=== PATIENT | female | born 1960 | race African-American/Black ===

== ENCOUNTER 2016-12-11 22:08 | Inpatient (IN) | payer OTHER ==
[~2016-12-11] VITALS: Ht 177.8 cm; Wt 60.0 kg
[2016-12-12 02:25] LABS: HEMATOCRIT 23.2 % (37.0-47.0); HEMOGLOBIN 7.7 g/dl (12.0-16.0); MEAN PLATELET VOLUME 7.3 fl (7.4-10.4)
[2016-12-12 02:30] LABS: MEAN CORPUSCULAR HGB CONC 33.1 g/dl (32.0-37.0); MEAN CORPUSCULAR VOLUME 96.7 fl (82.0-101.0); PLATELET COUNT 190 10^3/UL (140-440); RED CELL DISTRIBUTION WIDTH 23.4 % (11.5-14.5); UNCORRECTED WBC 11.7 10^3/ul (4.8-10.8); WHITE BLOOD COUNT 11.7 10^3/ul (4.8-10.8)
--- NOTE | 2016-12-12 02:33 | RADRPT ---
PROCEDURE: US bilateral lower extremity venous Doppler CLINICAL INDICATION: Bilateral swelling TECHNIQUE: Multiple sonographic images of the bilateral lower extremity deep venous system was obt ained utilizing grayscale, color-flow, compressive sonography and Doppler imaging with augmentation. COMPARISON: There are no similar studies submitted for comparison. FINDINGS: There is normal compressibility and flow within the bilateral common femoral, superficial femoral, p opliteal, and calf veins. IMPRESSION: No evidence of DVT within the lower extremities. RPTAT: HIKT .Vincent Bynum MD, MD Date Time Electronically viewed and signed by .Vincent Bynum MD, MD on 12/12/2016 02:33 .T/
[2016-12-12 02:34] LABS: CONDITION 1; LH ANALYZER COMMENTS 1
[2016-12-12 02:38] LABS: ALBUMIN 4.5 g/dl (3.3-4.9); POTASSIUM 4.5 mmol/L (3.5-5.1)
[2016-12-12 02:39] LABS: INR 1.01; PARTIAL THROMBOPLASTIN TIME 24.7 Sec (25.0-35.0); PROTIME 13.3 Sec (12.2-14.2)
[2016-12-12 02:40] LABS: CREATININE 0.96 mg/dl (0.44-1.00)
[2016-12-12 02:41] LABS: ALBUMIN/GLOBULIN RATIO 0.93; BILIRUBIN,INDIRECT 0.3 mg/dl (0-1.1); BILIRUBIN,TOTAL 0.3 mg/dl (0.2-1.3); TOTAL PROTEIN 9.3 g/dl (6.1-8.1)
[2016-12-12 02:42] LABS: CALCIUM 9.5 mg/dl (8.4-10.2)
[2016-12-12 03:18] LABS: EOSINOPHILS # 0.1 10^3/ul (0.0-0.5); LYMPHOCYTES # 4.3 10^3/ul (0.8-2.9); MONOCYTE # 1.1 10^3/ul (0.3-0.9); MYELOCYTES # 0.1; NEUTROPHIL # 5.7 10^3/ul (1.6-7.5)
[2016-12-12 03:19] LABS: PLATELET ESTIMATE PLT APPEAR ADEQUATE
--- NOTE | 2016-12-12 05:10 | ERA ---
ER Documentation Chief Complaint Date/Time DATE: 12/12/16 TIME: 05:09 Chief Complaint SOB, DIZZINESS AND GENERALIZED WEAKNESS X 1 WK. HPI This is a significant with no shortness of breath dizziness palpitations generalized weakness for 1 week. Patient has history of anemia. Patient states that she is anemic from fibroid bleeding. 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 ROS All systems reviewed and are negative except as per history of present illness. Allergies Allergies: Coded Allergies: No Known Allergy (Unverified , 12/11/16) PMhx/Soc History of Surgery: Yes (uterus enlargement) Anesthesia Reaction: No Hx 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 Disorder: No Hx Respiratory Disorders: No Hx Cardiac Disorders: No Hx Psychiatric Problems: No Hx Miscellaneous Medical Probl: Yes (anemia) Hx Alcohol Use: No Hx Substance Use: No Hx Tobacco Use: No Smoking Status: Never smoker Physical Exam Vitals Vital Signs Date Time Temp Pulse Resp B/P Pulse Ox O2 Delivery O2 Flow Rate FiO2 12/12/16 03:31 97 21 155/94 100 Room Air 12/11/16 22:13 99.0 120 18 133/80 100 Physical Exam Const: [] Head: Atraumatic Eyes: Normal Conjunctiva ENT: Normal External Ears, Nose and Mouth. Neck: Full range of motion..~ No meningismus. Resp: Clear to auscultation bilaterally Cardio: Regular rate and rhythm, no murmurs Abd: Soft, non tender, non distended. Normal bowel sounds Skin: No petechiae or rashes Back: No midline or flank tenderness Ext: No cyanosis, or edema Neur: Awake and alert Psych: Normal Mood and Affect Result Diagram: 12/12/16 02012/12/16 0205 Results 24 hrs Laboratory Tests Test 12/12/16 02:05 Activated Partial Thromboplast Time 24.7Sec Alanine Aminotransferase (ALT/SGPT) 49IU/L Albumin 4.5g/dl Albumin/Globulin Ratio 0.93 Alkaline Phosphatase 514IU/L Anion Gap 22 Aspartate Amino Transf (AST/SGOT) 215IU/L Band Neutrophils % 2.0% Blast Cells % 1.0% Blastocytes # 0.1 Blood Morphology Comment Blood Urea Nitrogen 20mg/dl Calcium Level 9.5mg/dl Carbon Dioxide Level 25mmol/L Chloride Level 100mmol/L Creatinine 0.96mg/dl Direct Bilirubin 0.00mg/dl Eosinophils # 0.110^3/ul Eosinophils % 1.0% Globulin 4.80g/dl Glucose Level 89mg/dl Hematocrit 23.2% Hemoglobin 7.7g/dl INR International Normalized Ratio 1.01 Indirect Bilirubin 0.3mg/dl Lymphocytes # 4.310^3/ul Lymphocytes % 37.0% Mean Corpuscular Hemoglobin 32.0pg Mean Corpuscular Hemoglobin Concent 33.1g/dl Mean Corpuscular Volume 96.7fl Mean Platelet Volume 7.3fl Monocytes # 1.110^3/ul Monocytes % 9.0% Myelocytes # 0.1 Myelocytes % 1.0% Neutrophils # 5.710^3/ul Neutrophils % 49.0% Nucleated Red Blood Cells % 11.0/100WBC Platelet Count 40055^3/UL Platelet Estimate PLT APPEAR ADEQUATE Potassium Level 4.5mmol/L Prothrombin Time 13.3Sec Prothrombin Time Ratio 1.0 Red Blood Count 2.4010^6/ul Red Cell Distribution Width 23.4% Sodium Level 142mmol/L Total Bilirubin 0.3mg/dl Total Protein 9.3g/dl Urine Test NEGATIVE White Blood Count 11.710^3/ul Procedures/MDM Medical decision-makin-year-old female with anemia likely symptomatic. At this point patient typed and crossed for 2 units. Patient was admitted to hospitalist for further evaluation and management Departure Diagnosis: Primary Impression: Anemia Qualified Code: D64.9 - Anemia, unspecified type Condition: Stable LISANDRO OGDEN Dec 12, 2016 05:10
[2016-12-12 08:05] VITALS: Ht 177.8 cm; Wt 60.0 kg
[2016-12-12 08:09] VITALS: BP 142/73; RESP 18
[2016-12-12] MEDS ORDERED: ONDANSETRON 4 MG INJ IV PRN (09:00)
[2016-12-12] MEDS ORDERED: morphine 2 MG INJ IV PRN (09:00)
[2016-12-12] MEDS ORDERED: NACL 0.9% 3 ML SYG IV SCH (09:00)
[2016-12-12 09:14] LABS: IRON 93 ug/dl (35-150)
[2016-12-12 09:23] LABS: TOTAL IRON BINDING CAPACITY 313 ug/dl (241-421)
--- NOTE | 2016-12-12 13:10 | HP ---
DATE OF ADMISSION: 12/12/2016 CHIEF COMPLAINT: Generalized weakness and a body rash. IDENTIFICATION: The patient is a 56-year-old female with a history of anemia who presented to the e mergency department with a chief complaint of generalized weakness and a body rash. She stated that over the past 2 weeks she has been experiencing progressively worsening weakness and fatigue. She also went on to say that occasionally she has been experiencing some blurry vision and dizziness as well. During the same period of time, or even a week prior, she started noticing a body rash, which can be described as vesicles. They are mainly located on her abdomen, on her breasts, as wel l as on her back. She stated that one time, one of the fluid-filled vesicles ruptured, draining ser osanguineous/bloody fluid. She stated that the rash is slightly itchy. She actually stated that [place] thought the rashes were due to bed bugs. She also thought that it could be some type of allergic reaction similar to the time when she was bitten by some type of bug when she was in [place]. She di d not, however, develop this kind of vesicular type of rash at that time. She also reports shortnes s of breath, which mainly or occurs when she exerts herself. She denied any chest pain, fever, chil ls, but did report nonbloody, nonbilious emesis a few times. On further questioning, she stated [place] had lost 40 pounds in the past 3 months and it was intentional. She, however, wanted to gain back 8 pounds, but she stated that she found it difficult. When she presented to the ER, she was found to have a hemoglobin of 7.7. Also, laboratory results s howed that her alkaline phosphatase was 514 and AST is 215. A thorough breast examination was done when she was in the ER and it was documented that her right breast was described as hard. When I di scussed the physical examination findings, she stated that she knew that she had some breast abnorma lity which she attributed to fibrocystic change of her breast that was diagnosed when she was a teen ager. Also, as far as her anemia is concerned, the patient does take iron supplements. Currently, she is in menopause, but prior to this she has had heavy menses. REVIEW OF SYSTEMS: A 12-point review was performed and negative except as mentioned in HPI. PAST MEDICAL HISTORY: As per HPI. PAST SURGICAL HISTORY: Denies. SOCIAL HISTORY: She denied a history of tobacco, alcohol or illicit drug use. FAMILY HISTORY: She had 2 aunts who underwent a mastectomy for prevention of cancer. She stated sh ascencion has never had any genetic analysis done on her. ALLERGIES: NO KNOWN DRUG ALLERGIES. HOME MEDICATIONS: 1. Iron supplement. 2. As needed ibuprofen. PHYSICAL EXAMINATION: VITAL SIGNS: Stable. GENERAL: No acute distress, but she appears slightly tired and sleepy, but she was fully arousable and answered questions appropriately and able to speak in full sentences. HEENT: Normocephalic, atraumatic. Extraocular muscles intact. No scleral icterus. CARDIOVASCULAR: Slightly tachycardic with regular rhythm. LUNGS: Clear. ABDOMEN: Soft, nontender, nondistended. Positive bowel sounds. EXTREMITIES: There is no pitting edema. There is, however, tenderness in her right thigh to palpat ion. I did not note any obvious deformity, skin change or any other abnormality. NEUROLOGIC: No focal deficits. LABORATORY DATA: Pertinent positives as mentioned in the HPI. IMPRESSION: 1. Symptomatic anemia. 2. Generalized vesicular rash. 3. Generalized weakness, secondary to anemia. 4. Palpable breast mass, likely fibrocystic change. 5. Elevated transaminase. 6. Elevated alkaline phosphatase. PLAN: 1. Will work up her anemia by obtaining a pelvic ultrasound to evaluate for uterine fibroids. Will check iron supplement and ferritin. We will transfuse if hemoglobin goes below 7 or the patient's symptoms do not improve. 2. Will obtain a breast ultrasound and additional imaging will be considered as needed. 3. As far as her body rash is concerned, it could be infectious etiology. It does not appear to be shingles, but the patient will be placed on contact isolation and will place an infectious disease consult. A dermatology consult will also be considered based on her clinical course. 4. Further workup and management per clinical course. Dictated By: LISANDRO WASHINGTON/MARILEE Conf#: [id number] DID#: [id number]
--- NOTE | 2016-12-12 15:23 | PN ---
Date/Time of Note Date/Time of Note DATE: 12/12/16 TIME: 15:00 Assessment/Plan VTE Prophylaxis VTE Prophylaxis Intervention: SCD's Lines/Catheters IV Catheter Type (from Nrs): Saline Lock Assessment/Plan Assessment/Plan 1. Symptomatic anemia. 2. Neurofibromatosis, neurology consult 3. Elevated Alk Phos, likely from bone, biliary first with ultrasound 4. Right breast lesion, needs biopsy, Dr. Ratliff Subjective 24 Hr Interval Summary Free Text/Dictation weak with skin lesions Exam/Review of Systems Vital Signs Vitals Vital Signs Date Time Temp Pulse Resp B/P Pulse Ox O2 Delivery O2 Flow Rate FiO2 12/12/16 08:09 98.6 94 18 142/73 98 12/12/16 05:45 Room Air Exam Constitutional: alert, oriented, well developed Psych: nl mood/affect, no complaints Head: atraumatic, normocephalic Eyes: EOMI, PERRL, nl conjunctiva, nl lids, nl sclera ENMT: mucosa pink and moist, nl external ears & nose, nl lips & teeth, nl nasal mucosa & septum Neck: non-tender, supple Respiratory: clear to auscultation, normal air movement Cardiovascular: nl pulses, regular rate and rhythm, No S3, No S4, No bruits, No diastolic murmur, No edema, No gallop, No irregular rhythm, No jugular venous distention (JVD), No murmurs/extra sounds, No rub, No systolic murmur Gastrointestinal: nl liver, spleen, non-tender, soft, No ascites, No bowel sounds, No distended, No firm, No hepatomegaly, No mass , No rebound or guarding, No splenomegaly, No surgical scars, No tender Extremities: normal pulses, No calf tenderness, No clubbing, No cyanosis, No edema, No palpable cord, No pitting pedal edema, No tenderness 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, nl mental status, nl speech, nl strength Skin: other (diffuse nodules all over the trunk) Results Result Diagram: 12/12/16 0205 12/12/16 0205 Results 24 hrs Laboratory Tests Test 12/12/16 02:05 Activated Partial Thromboplast Time 24.7 L Alanine Aminotransferase (ALT/SGPT) 49 Albumin 4.5 Albumin/Globulin Ratio 0.93 Alkaline Phosphatase 514 H Anion Gap 22 H Aspartate Amino Transf (AST/SGOT) 215 H Band Neutrophils % 2.0 Blast Cells % 1.0 H Blastocytes # 0.1 Blood Morphology Comment Blood Urea Nitrogen 20 Calcium Level 9.5 Carbon Dioxide Level 25 Chloride Level 100 Creatinine 0.96 Direct Bilirubin 0.00 Eosinophils # 0.1 Eosinophils % 1.0 Ferritin 1750.0 H Globulin 4.80 H Glucose Level 89 Hematocrit 23.2 L Hemoglobin 7.7 L INR International Normalized Ratio 1.01 Indirect Bilirubin 0.3 Iron Level 93 Lymphocytes # 4.3 H Lymphocytes % 37.0 Mean Corpuscular Hemoglobin 32.0 Mean Corpuscular Hemoglobin Concent 33.1 Mean Corpuscular Volume 96.7 Mean Platelet Volume 7.3 L Monocytes # 1.1 H Monocytes % 9.0 Myelocytes # 0.1 Myelocytes % 1.0 H Neutrophils # 5.7 Neutrophils % 49.0 Nucleated Red Blood Cells % 11.0 H Percent Iron Saturation 30 Platelet Count 190 Platelet Estimate PLT APPEAR ADEQUATE Potassium Level 4.5 Prothrombin Time 13.3 Prothrombin Time Ratio 1.0 Red Blood Count 2.40 L Red Cell Distribution Width 23.4 H Sodium Level 142 Total Bilirubin 0.3 Total Iron Binding Capacity 313 Total Protein 9.3 H Urine Test NEGATIVE White Blood Count 11.7 H Medications Medications Current Medications Ondansetron HCl (Zofran Inj) 4 mg Q6H PRN IV NAUSEA AND/OR VOMITING; Start at 09:00 Acetaminophen (Tylenol Tab) 650 mg Q6H PRN PO PAIN LEVEL 1-3 OR FEVER; Start at 09:00 Morphine Sulfate (morphine) 2 mg Q4H PRN IV SEVERE PAIN LEVEL 7-10; Start 12/12 at 09:00 ALEJA WHELAN MD Dec 12, 2016 15:11
[2016-12-12] MEDS ORDERED: LIDOCAINE 1%/EPI (MDV) 20 ML INJ INJ ONE (17:30)
[2016-12-12] MEDS ORDERED: SILVER NITRATE SWAB TOP ONE (17:30)
--- NOTE | 2016-12-12 17:44 | CONS ---
Date/Time of Note Date/Time of Note DATE: 12/12/16 TIME: 17:28 Assessment/Plan Assessment/Plan Chief Complaint/Hosp Course 1. Right breast mass of unknown etiology. -Core needle biopsy -Skin biopsy -Breast MRIs 2. Multiple soft tissue lesions -Medical/oncologic workup -Imaging -Possible further biopsy depending on above results 3. Anemia of unknown etiology -Medical/GI/oncologic workup -Transfuse as needed 4. Generalized weakness secondary to above -As above -Nutritional optimization 5. Abnormal LFTs and alkaline phosphatase may be secondary to above -As above 6. Pruritus and weight loss may be secondary to above -As above Thank you very much for consulting me in this patient's care, Problems: Consultation Date/Type/Reason Admit Date/Time Dec 12, 2016 at 05:37 Date of Consultation: Dec 12, 2016 Type of Consultation: Gen. surgical Reason for Consultation Right breast Mass. Multiple trunk lesions Referring Provider: ALEJA WHELAN MD Hx of Present Illness Frank Morton is a 56-year-old female with a history of anemia who presented to the emergency department with a chief complaint of generalized weakness and a body rash. She stated that over the past 3 weeks she has been experiencing progressively worsening weakness and fatigue. She also went on to say that occasionally she has been experiencing some blurry vision and dizziness as well. During the same period of time she started noticing a body rash/lesions appearing on her right breast, abdomen, and back. The breast one has been growing and encasing most of her right breast. She stated that one of the fluid -filled vesicles ruptured, draining serosanguineous/bloody fluid. She stated that the rash is slightly itchy. She actually stated that she thought the rashes were due to bed bugs. She also thought that it could be some type of allergic reaction similar to the time when she was bitten by some type of bug when she was in [place]. She did not, however, develop this kind of vesicular type of rash at that time. She also reports shortness of breath, which mainly or occurs when she exerts herself. She denied any chest pain, fever, chills, but did report nonbloody, nonbilious emesis a few times. On further questioning , she stated she had lost 40 pounds in the past 3 months and it was intentional. She is in menopause. She reports having history of heavy menses. She reports history of fibrocystic changes of her breasts. She has family history of genetics for breast cancer. Surgical consult is obtained further evaluation and treatment. Constitutional: other (generalized weakness), No chills, No diaphoresis, No febrile Eyes: No discharge, No redness ENT: No congestion, No dysphagia Respiratory: No cough, No shortness of breath Cardiovascular: No chest pain, No edema, No lightheadedness, No orthopenea Gastrointestinal: flatus, passing stool, No nausea, No pain, No vomiting Genitourinary: No bleeding, No dysuria Musculoskeletal: No back pain, No bone/joint pain, No neck pain Skin: bruising, erythema, rash, skin lesions Neurologic: No confusion, No dizziness, No headache, No syncope Endocrine: No polydypsia, No polyuria Psychological: nl mood/affect, no complaints, No anxiety Immunologic: pruritis, No rhinitis Past Medical History Anemia Right breast growing mass Abdomen and back lesions Abnormal LFTs Elevated alkaline phosphatase Weight loss Generalized weakness Fibrocystic changes of the breasts Pruritus Leukocytosis Past Surgical History Uterine/bladder manipulation at age of 5 due to inability to urinate Family History Significant Family History: other (family history of genetics for breast cancer with 2 aunts having prophylactic mastectomies) 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, 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 Alcohol Use: none Smoking Status: Never smoker Drug Use: none Exam/Review of Systems Vital Signs Vitals Vital Signs Date Time Temp Pulse Resp B/P Pulse Ox O2 Delivery O2 Flow Rate FiO2 12/12/16 08:09 98.6 94 18 142/73 98 12/12/16 05:45 Room Air Exam Constitutional: alert, oriented, No distress Psych: nl mood/affect, No anxiety, No confusion Head: atraumatic, normocephalic Eyes: EOMI, PERRL, nl conjunctiva, No icteric ENMT: mucosa pink and moist, nl external ears & nose, nl lips & teeth Neck: non-tender, supple, No jvd Respiratory: normal air movement, No congested cough, No labored breathing Cardiovascular: regular rate and rhythm, No edema Gastrointestinal: non-tender, soft, No distended, No rebound or guarding Musculoskeletal: nl extremities to inspection, nl gait and stance Extremities: normal pulses, No calf tenderness, No cyanosis 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: nl mental status, nl speech, nl strength Skin: nl turgor, rash or lesions (multiple indurated erythematous nonblanching lesions throughout the abdomen bilateral groins axilla.) Lymph: No nl lymph nodes (possible inguinal and right axillary lymph nodes versus lesions as above) Additional Comments Breasts: Right breast with one hard mass nonmobile with nonblanching erythematous changes of the breast. Left breast with a few small round lesions. Results Result Diagram: 12/12/16 0205 12/12/16 0205 Results 24 hrs Laboratory Tests Test 12/12/16 02:05 Activated Partial Thromboplast Time 24.7 L Alanine Aminotransferase (ALT/SGPT) 49 Albumin 4.5 Albumin/Globulin Ratio 0.93 Alkaline Phosphatase 514 H Anion Gap 22 H Aspartate Amino Transf (AST/SGOT) 215 H Band Neutrophils % 2.0 Blast Cells % 1.0 H Blastocytes # 0.1 Blood Morphology Comment Blood Urea Nitrogen 20 Calcium Level 9.5 Carbon Dioxide Level 25 Chloride Level 100 Creatinine 0.96 Direct Bilirubin 0.00 Eosinophils # 0.1 Eosinophils % 1.0 Ferritin 1750.0 H Globulin 4.80 H Glucose Level 89 Hematocrit 23.2 L Hemoglobin 7.7 L INR International Normalized Ratio 1.01 Indirect Bilirubin 0.3 Iron Level 93 Lymphocytes # 4.3 H Lymphocytes % 37.0 Mean Corpuscular Hemoglobin 32.0 Mean Corpuscular Hemoglobin Concent 33.1 Mean Corpuscular Volume 96.7 Mean Platelet Volume 7.3 L Monocytes # 1.1 H Monocytes % 9.0 Myelocytes # 0.1 Myelocytes % 1.0 H Neutrophils # 5.7 Neutrophils % 49.0 Nucleated Red Blood Cells % 11.0 H Percent Iron Saturation 30 Platelet Count 190 Platelet Estimate PLT APPEAR ADEQUATE Potassium Level 4.5 Prothrombin Time 13.3 Prothrombin Time Ratio 1.0 Red Blood Count 2.40 L Red Cell Distribution Width 23.4 H Sodium Level 142 Total Bilirubin 0.3 Total Iron Binding Capacity 313 Total Protein 9.3 H Urine Test NEGATIVE White Blood Count 11.7 H Medications Medications Current Medications Ondansetron HCl (Zofran Inj) 4 mg Q6H PRN IV NAUSEA AND/OR VOMITING; Start at 09:00 Acetaminophen (Tylenol Tab) 650 mg Q6H PRN PO PAIN LEVEL 1-3 OR FEVER; Start at 09:00 Morphine Sulfate (morphine) 2 mg Q4H PRN IV SEVERE PAIN LEVEL 7-10; Start 12/12 at 09:00 ISSA MUSTAFA MD Dec 12, 2016 17:39
[2016-12-12] MEDS ORDERED: LIDOCAINE 1%/EPI 30 ML INJ INJ SCH (18:00)
--- NOTE | 2016-12-12 18:30 | OPR ---
Date/Time of Note Date/Time of Note DATE: 12/12/16 TIME: 18:26 Operative Report Procedure Date: Dec 12, 2016 Preoperative Diagnosis Right breast mass encasing most of the breast with skin changes.. Multiple body lesions Postoperative Diagnosis Same Operation Performed 1. Needle core biopsy of the right breast, multiple cores 2. Skin incisional biopsy of the right breast, 0.5 x 0.2 cm Surgeon: ISSA MUSTAFA MD Anesthesia: other (local) Estimated Blood Loss: minimal Specimens 1. Right breast skin biopsy lesion 2. Multiple core biopsies of the right breast Tubes/Drains None Complications: None Pt Condition Post Procedure: stable Disposition: other (in her own room) Indications Per notes. Risks include but are not limited to bleeding, infection, abscess, seroma, leak , chronic pain, chronic wound, need for re-operations or further surgeries, GA, stroke, PE, DVT, pneumonia, organ failures, pneumothorax, hemothorax, or even . Procedure Description Patient was placed in the sitting position on her bed. Area was prepped and draped sterilely. Timeout was performed. Local anesthetic was injected in the right lateral breast. This was done through the lesion. Elliptical skin lesion was obtained about 0.5 x 0.2 cm. That was sent and formaldehyde to pathology. Multiple core biopsies of the right breast tumor were also obtained. Pressure was applied for hemostasis. Silver nitrate was used for hemostasis as well. Wound was irrigated and completely hemostatic at this point. Dressing was applied. Patient tolerated procedure well. ISSA MUSTAFA MD Dec 12, 2016 18:30
[2016-12-12] MEDS ORDERED: IOHEXOL 300MG/ML 150 ML BTL ONE (19:58)
[2016-12-12] MEDS ORDERED: SOD CHLORIDE 0.9% 100 ML ONE (19:58)
[2016-12-12 20:18] VITALS: BP 157/74; PULSE 85; RESP 18
--- NOTE | 2016-12-12 20:37 | RADRPT ---
PROCEDURE: CT abdomen and pelvis with. contrast. CLINICAL INDICATION: Abnormal laboratory values TECHNIQUE: IV contrast enhanced CT examination of the abdomen and pelvis, with axial, sagittal and coronal reformatted images. 100 cc Isovue 300 nonionic IV contrast were employed. Automated dose e xposure control was employed. CTDI: 7.44 mGy and DLP: 364.14 mGy-cm. COMPARISON: Ultrasound examination of the bilateral breasts dated today, earlier in the day, about 2 hours ago. FINDINGS: CT abdomen: 14 mm nodule at the medial aspect of left breast and 11 mm nodule at the inferior aspect of the left breast, the 11 mm nodule perhaps corresponding to left breast mass identified on today's ultrasound examination. Skin thickening is seen over the anterior right breast, suggesting manifestation of n eoplasm. Small nodules of bilateral lung bases measure up to about 3 mm, suspicious for metastatic breast can cer. The heart size is normal, without pericardial thickening or effusion. Scattered subcutaneous nodules throughout the lower chest and abdomen. The largest measures about 1 7 mm at the posterior right lower back. Extensive retroperitoneal nodules represent breast cancer until proven otherwise, with largest measu ring up to about 11 mm at the posterior right lower abdomen. Extensive sclerotic changes throughout the osseous structures of the lower thorax and abdomen compat ible osseous metastatic breast cancer deposits. The liver is normal in size and density without focal mass or intrahepatic biliary dilatation. The spleen is normal in size and homogeneous in density. The stomach is partially collapsed, but is lauren ssly unremarkable. The pancreas as visualized is normal. The gallbladder and biliary tree are unre markable and there is no evidence for biliary dilatation. The adrenal glands are symmetric and norm al. The kidneys are symmetrically unremarkable as well. No renal calculus or obstructive uropathy o r mass lesion is seen. The aorta is of normal caliber. Aortic vascular calcifications are present. There is no retroperit barrios lymphadenopathy. The cuco hepatis region is clear. The bowel and mesentery, as visualized, are equally unremarkable. CT pelvis: Scattered subcutaneous nodules throughout the pelvis. 22 mm left inguinal lymph node is suspicious for metastatic breast cancer deposit. The small bowel loops situated within the pelvis are unremarkable. The pelvic organs are normal. T he pelvic sidewalls and inguinal regions are clear. The sigmoid colon and rectum are all unremarkab le. No free fluid. No acute inflammation is seen. The appendix is unremarkable. Extensive sclerotic changes throughout the osseous structures of the sacrum, pelvis and partially vi sualized hips compatible with osseous metastatic breast cancer deposits. IMPRESSION: 1. Evidence of breast cancer and bilateral breast. 2. Osseous metastatic breast cancer deposit. 3. Extensive metastatic breast cancer deposit throughout the subcutaneous tissues. 4. Retroperitoneal nodules represent metastatic breast cancer deposit until proven otherwise RPTAT: UU Physician Hans Date Time Electronically viewed and signed by Physician Hans on 12/12/2016 20:37 RS/
[2016-12-12 21:01] VITALS: BP 158/77; RESP 18
[2016-12-13] MEDS: ACETAMINOPHEN 325 MG TAB PO PRN ×2 (01:13→07:49)
--- NOTE | 2016-12-13 01:22 | RADRPT ---
PROCEDURE: US Pelvis. CLINICAL INDICATION: Pelvic pain. Fibroid. TECHNIQUE: Multiple sonographic images of the pelvis were obtained utilizing a transabdominal and endovaginal technique. The images were reviewed on a PACS workstation. COMPARISON: None. FINDINGS: The uterus is visualized and measures uterus measures 59 x 35 x 51 mm. Uterine fibroid at the fundus measures up to 13 mm. . The endometrial echo complex demonstrates small amount of fluid in the endo metrial canal, and the endometrium measures 5 mm. There is a small amount of free fluid. The right ovary has a normal echotexture and measures 23 x 16 x 13 mm . The left ovary has a small. Ovarian cyst measuring 10 mm; and the left ovary otherwise has a normal echotexture and measures 23 x 11 x 1 8 mm. No ovarian torsion. No adnexal masses are noted. IMPRESSION: 1. 13 mm uterine fibroid. 2. 10 mm left ovarian cyst. 3. Small amount of free fluid. 4. Small amount of fluid in the endometrial canal, and then the endometrium is otherwise unremarkab le. 5. Otherwise, no acute process in the pelvis. RPTAT: [facility]U Physician Hans Date Time Electronically viewed and signed by Physician Hans on 12/13/2016 01:22 RS/
[2016-12-13 05:53] LABS: POTASSIUM 4.5 mmol/L (3.5-5.1)
[2016-12-13 05:54] LABS: BASOPHILS % 0.2 % (0.0-2.0); EOSINOPHILS # 0.1 10^3/ul (0.0-0.5); EOSINOPHILS % 0.8 % (0.0-7.0); HEMATOCRIT 32.2 % (37.0-47.0); LYMPHOCYTES # 2.9 10^3/ul (0.8-2.9); LYMPHOCYTES % 29.7 % (15.0-51.0); MEAN CORPUSCULAR HEMOGLOBIN 31.5 pg (29.0-33.0); MEAN CORPUSCULAR HGB CONC 34.2 g/dl (32.0-37.0); MEAN CORPUSCULAR VOLUME 92.2 fl (82.0-101.0); MEAN PLATELET VOLUME 7.2 fl (7.4-10.4); MONOCYTES % 10.9 % (0.0-11.0); NEUTROPHIL # 5.6 10^3/ul (1.6-7.5); NEUTROPHILS % 58.4 % (39.0-77.0); NUCLEATED RED BLOOD CELLS # 1.5 10^3/ul (0.0-0.0); NUCLEATED RED BLOOD CELLS% 15.9 /100WBC (0.0-0.0); PLATELET COUNT 163 10^3/UL (140-440); RED BLOOD COUNT 3.49 10^6/ul (4.20-5.40); UNCORRECTED WBC 9.6 10^3/ul (4.8-10.8); WHITE BLOOD COUNT 9.6 10^3/ul (4.8-10.8)
[2016-12-13 05:55] LABS: BILIRUBIN,INDIRECT 0.7 mg/dl (0-1.1); BILIRUBIN,TOTAL 0.7 mg/dl (0.2-1.3); CREATININE 0.91 mg/dl (0.44-1.00)
[2016-12-13 05:56] LABS: ALBUMIN/GLOBULIN RATIO 0.95; CALCIUM 9.4 mg/dl (8.4-10.2); MAGNESIUM 2.4 mg/dl (1.7-2.5); TOTAL PROTEIN 8.2 g/dl (6.1-8.1)
[2016-12-13 06:10] LABS: CONDITION 1; LH ANALYZER COMMENTS 1
[2016-12-13 07:51] VITALS: BP 137/68; RESP 18
--- NOTE | 2016-12-13 09:06 | RADRPT ---
PROCEDURE: Bilateral breast ultrasound. CLINICAL INDICATION: Palpable abnormality within the breast. TECHNIQUE: Multiple louis scale ultrasound images of the whole right and left breast was performed with a high frequency linear transducer. The images were reviewed on a high-resolution PACS monitor . COMPARISON: None available. FINDINGS: Right breast: There is diffuse heterogeneous echogenicity with confluent areas of increased echogeni city, that appears to demonstrate shadowing, which may reflect calcification, most pronounced at the 6 o'clock and 9 o'clock positions in the retroareolar region. Left breast: There is a 1.2 x 0.8 cm irregular hypoechoic mass with associated punctate calcificatio ns, internal flow, and some partially ill-defined margins at the 6 o'clock position. No additional f ocal sonographic abnormality is identified. IMPRESSION: 1. Diffusely abnormal appearance of the right breast with confluent areas of increased echogenicity at the 6 o'clock, 9 o'clock, and retroareolar regions, which may reflect calcifications. A diffusel y infiltrative process (neoplasm) is not excluded. Extensive injection granulomas could also potent ially have this appearance. 2. Suspicious hypoechoic mass associated with punctate calcifications measuring 1.2 cm at the 6 o'c lock position in the left breast. BIRADS 0: Incomplete - Need additional imaging evaluation and/or prior mammograms for comparison. Di agnostic bilateral mammogram is recommended for further evaluation. Correlation with prior imaging, if available, would also be helpful for comparison. Ultrasound-guided biopsy of the suspicious mas s in the left breast is also recommended regardless of the mammographic findings. RPTAT: II .Sabino Granados MD, Date Time Electronically viewed and signed by .Sabino Granados MD, MD on 12/13/2016 09:05 .P/
--- NOTE | 2016-12-13 14:59 | PN ---
Date/Time of Note Date/Time of Note DATE: 12/13/16 TIME: 14:50 Assessment/Plan VTE Prophylaxis VTE Prophylaxis Intervention: SCD's Lines/Catheters IV Catheter Type (from [facility]): Saline Lock Assessment/Plan Assessment/Plan 1. 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 Ratliff on 12/12/2016, follow up with pathology 2. Symptomatic anemia, improves after transfusion 3. Elevated Alk Phos, from bone mets Subjective 24 Hr Interval Summary Free Text/Dictation feels stronger after transfusion. Exam/Review of Systems Vital Signs Vitals Vital Signs Date Time Temp Pulse Resp B/P Pulse Ox O2 Delivery O2 Flow Rate FiO2 12/13/16 07:51 98.2 103 18 137/68 97 12/12/16 20:18 Room Air Intake and Output 12/12/16 12/12/16 12/13/16 15:00 23:00 07:00 Intake Total 1060 ml 700 ml Balance 1060 ml 700 ml Exam Constitutional: alert, oriented, well developed Psych: nl mood/affect, no complaints Head: atraumatic, normocephalic Eyes: EOMI, PERRL, nl conjunctiva, nl lids, nl sclera ENMT: mucosa pink and moist, nl external ears & nose, nl lips & teeth, nl nasal mucosa & septum Neck: non-tender, supple Respiratory: clear to auscultation, normal air movement, No congested cough, No crackles/rales, No diminished breath sounds, No intercostal retraction, No labored breathing, No respirations, No tactile fremitus, No wheezing Cardiovascular: nl pulses, regular rate and rhythm, No S3, No S4, No bruits, No diastolic murmur, No edema, No gallop, No irregular rhythm, No jugular venous distention (JVD), No murmurs/extra sounds, No rub, No systolic murmur Gastrointestinal: nl liver, spleen, non-tender, soft, No ascites, No bowel sounds, No distended, No firm, No hepatomegaly, No mass , No rebound or guarding, No splenomegaly, No surgical scars, No tender Extremities: normal pulses, No calf tenderness, No clubbing, No cyanosis, No edema, No palpable cord, No pitting pedal edema, No tenderness 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: 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, nl mental status, nl speech, nl strength Skin: other (diffuse nodule, right breast lesion) Results Result Diagram: 12/13/16 0450 12/13/16 0450 Results 24 hrs Laboratory Tests Test 12/13/16 04:50 Alanine Aminotransferase (ALT/SGPT) 43 Albumin 4.0 Albumin/Globulin Ratio 0.95 Alkaline Phosphatase 451 H Anion Gap 21 H Aspartate Amino Transf (AST/SGOT) 129 H Basophils # 0.0 Basophils % 0.2 Blood Morphology Comment Blood Urea Nitrogen 16 Calcium Level 9.4 Carbon Dioxide Level 27 Chloride Level 102 Creatinine 0.91 Direct Bilirubin 0.00 Eosinophils # 0.1 Eosinophils % 0.8 Globulin 4.20 H Glucose Level 78 Hematocrit 32.2 #L Hemoglobin 11.0 #L Indirect Bilirubin 0.7 Lymphocytes # 2.9 Lymphocytes % 29.7 Magnesium Level 2.4 Mean Corpuscular Hemoglobin 31.5 Mean Corpuscular Hemoglobin Concent 34.2 Mean Corpuscular Volume 92.2 Mean Platelet Volume 7.2 L Monocytes # 1.0 H Monocytes % 10.9 Neutrophils # 5.6 Neutrophils % 58.4 Nucleated Red Blood Cells # 1.5 H Nucleated Red Blood Cells % 15.9 H Phosphorus Level 5.0 H Platelet Count 163 Potassium Level 4.5 Red Blood Count 3.49 #L Red Cell Distribution Width 21.0 H Sodium Level 145 H Total Bilirubin 0.7 Total Protein 8.2 H White Blood Count 9.6 Medications Medications Current Medications Ondansetron HCl (Zofran Inj) 4 mg Q6H PRN IV NAUSEA AND/OR VOMITING; Start at 09:00 Acetaminophen (Tylenol Tab) 650 mg Q6H PRN PO PAIN LEVEL 1-3 OR FEVER Last administered on 12/13/16t 07:49; Admin Dose 650 MG; Start 12/12/16 at 09:00 Morphine Sulfate (morphine) 2 mg Q4H PRN IV SEVERE PAIN LEVEL 7-10; Start 12/12 at 09:00 ALEJA WHELAN MD Dec 13, 2016 14:59
--- NOTE | 2016-12-13 16:06 | CONS ---
Date/Time of Note Date/Time of Note DATE: 12/13/16 TIME: 15:59 Assessment/Plan Assessment/Plan Chief Complaint/Hosp Course The patient is a 56 year old female who presented with anemia and was found to have diffuse metastatic lesions in beasts, lungs, retroperitoneal space, and bones, right breast lesion biopsy by Dr. 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 CT A/P with contrast demonstrates 12/12/16 1. Evidence of breast cancer and bilateral breast. 2. Osseous metastatic breast cancer deposit. 3. Extensive metastatic breast cancer deposit throughout the subcutaneous tissues. 4. Retroperitoneal nodules represent metastatic breast cancer deposit until proven otherwise Prelim pathology results demonstrate right moderately differentiated infiltrating ductal carcinoma, markers pending, f/u final path - Will complete imaging with CT chest with contrast - Will also evaluate with CT head with contrast given history of fall; patient unable to tolerate MRI brain previously - Will check CA 27-29, CA 15-3 - Will order US guided biopsy of cutaneous nodules to document biopsy proven metastatic disease - Will request case management consult for patient to be seen by Dr. Tara Robbins after discharge with outpatient PET/CT - Will obtain labs for anemia workup with AM labs including iron panel, ferritin , LDH, retic, Vitamin B12 and folic acid - Will continue to follow, treatment options will depend on ER/PA/HER2 status Problems: Consultation Date/Type/Reason Admit Date/Time Dec 12, 2016 at 05:37 Hx of Present Illness 56-year-old female who presented for fatigue after walking 1.5 blocks for the last couple of weeks, progressive. On 11/04/16 she had tripped and fell and hit her head and was bruised but did not seek medical attention. She states that it was a mechanical fall. She states that she has had fibrocystic breasts all of her life and that she has had regular mammograms as a result, which were benign, last 2 years ago. She states that she is active in her ADL's. She has lost 40 pounds in the last 3 months but states that it was intentional as she has been working out 3x per week and eating less. Constitutional: other Eyes: No discharge, No redness ENT: No congestion, No dysphagia Respiratory: No cough, No shortness of breath Cardiovascular: No chest pain, No edema, No lightheadedness, No orthopenea Gastrointestinal: flatus, passing stool Genitourinary: No bleeding, No dysuria Musculoskeletal: No back pain, No bone/joint pain, No neck pain Skin: bruising, erythema, rash, skin lesions Neurologic: No confusion, No dizziness, No headache, No syncope Endocrine: No polydypsia, No polyuria Psychological: nl mood/affect, no complaints Immunologic: pruritis Past Medical History None Family History Significant Family History: other ( She had a sister and maternal aunt and cousin who underwent a mastectomy for prevention of cancer. She stated she has never had any genetic analysis done on her.) Social History She denied a history of tobacco, alcohol or illicit drug use. Alcohol Use: none Smoking Status: Never smoker Drug Use: none Exam/Review of Systems Vital Signs Vitals Vital Signs Date Time Temp Pulse Resp B/P Pulse Ox O2 Delivery O2 Flow Rate FiO2 12/13/16 07:51 98.2 103 18 137/68 97 12/12/16 20:18 Room Air Intake and Output 12/12/16 12/12/16 12/13/16 15:00 23:00 07:00 Intake Total 1060 ml 700 ml Balance 1060 ml 700 ml Exam Constitutional: alert, frail, oriented Psych: no complaints Head: atraumatic, normocephalic Eyes: nl conjunctiva Neck: non-tender, supple Respiratory: clear to auscultation Cardiovascular: regular rate and rhythm Gastrointestinal: non-tender, soft Musculoskeletal: nl extremities to inspection 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: MRB ENGINEER II-XII intact Skin: other (breast with significant erythema, hard nodules consistent with inflammatory breast cancer; she also has multiple cutaneous nodules on her back concerning for metastatic breast cancer) Results Result Diagram: 12/13/16 0450 12/13/16 0450 Results 24 hrs Laboratory Tests Test 12/13/16 04:50 Alanine Aminotransferase (ALT/SGPT) 43 Albumin 4.0 Albumin/Globulin Ratio 0.95 Alkaline Phosphatase 451 H Anion Gap 21 H Aspartate Amino Transf (AST/SGOT) 129 H Basophils # 0.0 Basophils % 0.2 Blood Morphology Comment Blood Urea Nitrogen 16 Calcium Level 9.4 Carbon Dioxide Level 27 Chloride Level 102 Creatinine 0.91 Direct Bilirubin 0.00 Eosinophils # 0.1 Eosinophils % 0.8 Globulin 4.20 H Glucose Level 78 Hematocrit 32.2 #L Hemoglobin 11.0 #L Indirect Bilirubin 0.7 Lymphocytes # 2.9 Lymphocytes % 29.7 Magnesium Level 2.4 Mean Corpuscular Hemoglobin 31.5 Mean Corpuscular Hemoglobin Concent 34.2 Mean Corpuscular Volume 92.2 Mean Platelet Volume 7.2 L Monocytes # 1.0 H Monocytes % 10.9 Neutrophils # 5.6 Neutrophils % 58.4 Nucleated Red Blood Cells # 1.5 H Nucleated Red Blood Cells % 15.9 H Phosphorus Level 5.0 H Platelet Count 163 Potassium Level 4.5 Red Blood Count 3.49 #L Red Cell Distribution Width 21.0 H Sodium Level 145 H Total Bilirubin 0.7 Total Protein 8.2 H White Blood Count 9.6 Medications Medications Current Medications Ondansetron HCl (Zofran Inj) 4 mg Q6H PRN IV NAUSEA AND/OR VOMITING; Start at 09:00 Acetaminophen (Tylenol Tab) 650 mg Q6H PRN PO PAIN LEVEL 1-3 OR FEVER Last administered on 12/13/16t 07:49; Admin Dose 650 MG; Start 12/12/16 at 09:00 Morphine Sulfate (morphine) 2 mg Q4H PRN IV SEVERE PAIN LEVEL 7-10; Start 12/12 at 09:00 GREGOR XIONG MD Dec 13, 2016 16:06
[2016-12-13] MEDS ORDERED: IOHEXOL 300MG/ML 150 ML BTL ONE (18:42)
[2016-12-13] MEDS ORDERED: SOD CHLORIDE 0.9% 100 ML ONE (19:28)
--- NOTE | 2016-12-13 19:48 | RADRPT ---
PROCEDURE: CT head, without contrast. 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 TECHNIQUE: CT angiography examination of the head, with axial, sagittal and coronal reformatted im ages. Automated dose exposure control was employed. CTDI: 110 mGy and DLP: 2200 mGy-cm. COMPARISON: None. FINDINGS: Enhancing dural metastatic deposits over bilateral frontal lobes, right greater than left. In the a xial plane right dural metastatic deposit measures 48 x 11 mm and on the left measures 12 x 4 mm. Enhancing dural metastatic deposit seen over the lateral right parietal lobe measuring 18 x 5 mm in the axial plane. Remaining regions of dural thickening seen measuring up to about 2 mm. No evident enhancing parenchymal mass. Note acute hemorrhage. Subarachnoid spaces are substantially preserved and symmetric. Ventricles are unremarkable. No mass effect. Whiteside-white matter distinction is preserved without evident decreased attenuation t o suggest acute or recent infarct. Complete opacification of the left maxillary sinus with calcifications suggesting inspissation. Sinuses and osseous structures are otherwise unremarkable. Soft tissues demonstrate cutaneous nodules over the calvarium compatible with metastatic deposits. Larger nodules measuring up to about 11 to 14 mm in diameter. IMPRESSION: 1. No evident enhancing parenchymal mass. 2. Scattered dural metastatic deposits, greater over the right frontal lobe. 3. Severe chronic sinusitis in the left maxillary sinus. 4. Soft tissue cutaneous metastatic deposits over the head, measuring up to about 11 to 14 mm. 5. Otherwise, no acute process in the head. RPTAT: [facility] Physician Hans Date Time Electronically viewed and signed by Physician Hans on 12/13/2016 19:48 /
[2016-12-13 21:00] VITALS: BP 158/74; RESP 18
--- NOTE | 2016-12-13 21:19 | PN ---
Date/Time of Note Date/Time of Note DATE: 12/13/16 TIME: 21:14 Assessment/Plan Lines/Catheters IV Catheter Type (from [facility]): Saline Lock [place] in Place (from [facility]): No Assessment/Plan Chief Complaint/Hosp Course 1. Right breast mass with infiltrating ductal carcinoma with metastasis s/p core needle and skin bxs -will obtain skin biopsies as well -oncology input and f/u appreciated 2. Multiple soft tissue lesions probably metastatic lesions -bx 3. Anemia -Medical/GI/oncologic workup -Transfuse as needed 4. Generalized weakness secondary to above -As above -Nutritional optimization 5. Abnormal LFTs and alkaline phosphatase may be secondary to above -As above 6. Pruritus and weight loss may be secondary to above -As above Thank you, Problems: Subjective 24 Hr Interval Summary s/p Right breast core and skin bx 12/12 > infiltrating ductal ca. Multiple other lesions probably metastatic disease. No f/c. No n/v. No cp/sob. No cough. No avelar/dizzy/visual or neuro changes. No dysuria. Min pain. Bowel function. Generalized weakness. Exam/Review of Systems Vital Signs Vitals Vital Signs Date Time Temp Pulse Resp B/P Pulse Ox O2 Delivery O2 Flow Rate FiO2 12/13/16 21:00 97.7 96 18 158/74 99 12/12/16 20:18 Room Air Intake and Output 12/12/16 12/12/16 12/13/16 15:00 23:00 07:00 Intake Total 1060 ml 700 ml Balance 1060 ml 700 ml Exam Free Text/Dictation Constitutional: alert, oriented, No distress Psych: nl mood/affect, No anxiety, No confusion Head: atraumatic, normocephalic Eyes: EOMI, PERRL, nl conjunctiva, No icteric ENMT: mucosa pink and moist, nl external ears & nose, nl lips & teeth Neck: non-tender, supple, No jvd Respiratory: normal air movement, No congested cough, No labored breathing Cardiovascular: regular rate and rhythm, No edema Gastrointestinal: non-tender, soft, No distended, No rebound or guarding Musculoskeletal: nl extremities to inspection, nl gait and stance Extremities: normal pulses, No calf tenderness, No cyanosis 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: nl mental status, nl speech, nl strength Skin: nl turgor, rash or lesions (multiple indurated erythematous nonblanching lesions throughout the abdomen bilateral groins axilla.) Lymph: No nl lymph nodes (possible inguinal and right axillary lymph nodes versus lesions as above) Breasts: Right breast with one hard mass nonmobile with nonblanching erythematous changes of the breast. Left breast with a few small round lesions. Results Free Text/Dictation Path: A-Right breast mass, needle core biopsies: -- Invasive moderately differentiated ductal carcinoma, no special type. -- Volume/size: Tumor diffusely involves entire specimen (largest focus measures 1.4 cm in width). -- Histologic grade ([place] histologic score): Tubular differentiation is score: 3. Nuclear pleomorphism score: 2. Mitotic rate score: 2. Overall grade: Grade 2 (score 7/9). -- Microcalcification: Absent. -- Necrosis: Absent. -- Lymphvascular space invasion: Absent. -- Ductal carcinoma in situ (DCIS): Absent. -- Lobular carcinoma in situ (LCIS): Absent. -- AJCC tumor stage: TXNX B-Right breast skin biopsy: -- Infiltrating mammary carcinoma, extensively involving the dermis and extends close to but not involving the epidermis. No pagetoid involvement of epidermis is identified. No lymphatic space invasion is present. Result Diagram: 12/13/16 0450 12/13/16 0450 ISSA MUSTAFA MD Dec 13, 2016 21:18
--- NOTE | 2016-12-13 23:51 | RADRPT ---
PROCEDURE: CT Chest with and without contrast. CLINICAL INDICATION: Metastatic breast cancer. TECHNIQUE: CT scan of the chest was performed on a multi-detector high-resolution CT scanner. Co ntiguous axial images were obtained from the lung apices to the upper abdomen before and after the a dministration of 90 cc Omnipaque-300 intravenous contrast. Coronal and sagittal reformatted images were also obtained. Images were reviewed on the PACS workstation. One or more of the following dose reduction techniques were used: - Automated exposure control. - Adjustment of the mA and/or kV according to patient size. - Use of iterative reconstruction technique. Exam CTD/vol = 10.69 mGy. Total exam DLP = 759.27 mGy-cm. COMPARISON: None. FINDINGS: There is a large complex mass within the right breast with overlying skin thickening. There are nod ular densities within the left breast as well. There are multiple subcutaneous nodules. The visual ized thyroid gland is unremarkable. There are multiple enlarged right axillary lymph nodes with the largest measuring 2.6 x 1.6 cm. There are small left hilar lymph nodes. There are multiple promin ent paratracheal, subcarinal and right hilar lymph nodes with a right hilar lymph node measuring 1.8 x 2.1 cm. The heart and aorta are unremarkable. There is no pericardial thickening or effusion. There are small nodular densities bilaterally measuring up to 4 mm in size. There is no parenchymal consolidation. There is a small right-sided pleural effusion. The central tracheobronchial tree i s within normal limits. There is diffuse increase sclerosis throughout the bony skeleton. Limited evaluation of the upper a bdomen is unremarkable. IMPRESSION: Right-sided breast cancer and possibly left-sided as well. Clinically correlate. Small subcutaneous nodules suspicious for metastatic disease. Small pulmonary nodules bilaterally. Follow-up for metastatic disease is recommended. Mild right axillary lymphadenopathy. Mild mediastinal and hilar adenopathy. Small right-sided pleural effusion. Diffuse osseous metastasis. .Keegan Norman MD, Date Time Electronically viewed and signed by .Keegan Norman MD, on 12/13/2016 23:50 .T/
[2016-12-14 06:17] LABS: IRON 92 ug/dl (35-150)
[2016-12-14 06:20] LABS: RETICULOCYTE COUNT % 3.1 % (0.5-1.5)
[2016-12-14 06:27] LABS: TOTAL IRON BINDING CAPACITY 267 ug/dl (241-421)
[2016-12-14 07:24] LABS: FOLATE 9.1 ng/ml (2.8-20.0)
[2016-12-14 08:00] VITALS: BP 140/66; RESP 18
--- NOTE | 2016-12-14 10:56 | CONS ---
Date/Time of Note Date/Time of Note DATE: 12/14/16 TIME: 10:56 Assessment/Plan Assessment/Plan Chief Complaint/Hosp Course The patient is a 56 year old female who presented with anemia and was found to have diffuse metastatic lesions in beasts, lungs, retroperitoneal space, and bones, right breast lesion biopsy by Dr. 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 Although biopsy did not demonstrate involvement of dermal lymphatics, it may not be patient care representative per pathology. CT A/P with contrast demonstrates 12/12/16 1. Evidence of breast cancer and bilateral breast. 2. Osseous metastatic breast cancer deposit. 3. Extensive metastatic breast cancer deposit throughout the subcutaneous tissues. 4. Retroperitoneal nodules represent metastatic breast cancer deposit until proven otherwise - Prelim pathology results demonstrate right moderately differentiated infiltrating ductal carcinoma, markers pending, f/u final path - may be back Saturday per pathology - CT chest with and without contrast 12/13/16 demonstrates small subcutaneous nodules suspicious for metastatic disease, small pulmonary nodules up to 4 mm in size, multiple enlarged right axillary lymph nodes with the largest measuring 2.6 x 1.6 cm, small left hilar lymph nodes, multiple prominent paratracheal, subcarinal, and right hilar lymph nodes with a right hilar lymph node measuring 1.8 x 2.1 cm, and diffuse osseous metastases throughout the bony skeleton and small right sided pleural effusion - CT head 12/13/16 demonstrates scattered dural metastatic deposits, greater over the right frontal lobe but no parenchymal mass; patient unable to tolerate MRI brain due to claustrophobia. I will ask Dr. Chari Aleman of radiation oncology to evaluate the patient. - CA 27-29, CA 15-3 ordered- pending - Appreciate general surgery recs, awaiting skin biopsy of cutaneous nodules to document biopsy proven metastatic disease - Given bony metastatic disease, patient will need zometa Q3 months - first dose ordered in house - I have requested case management consult for patient to be seen by Dr. Tara Robbins after discharge with outpatient PET/CT - Will continue to follow, treatment options will depend on ER/IN/HER2 status # Anemia, normocytic - May have component of bone marrow involvement by breast cancer given nucleated RBCs and myelocytes on differential, pending smear review by path - Iron panel does not demonstrate iron deficiency, retic count inappropriately low at 102K, LDH elevated at 1077 - will eval smear to r/o hemolytic process, likely related toe xtent of metastatic disease, folate 9.1, Vitamin B12 pending Patient's sister Caryn Salguero (anesthesiologist) [phone], mother is a pathologist, father is a psychiatrist Problems: Consultation Date/Type/Reason Admit Date/Time Dec 12, 2016 at 05:37 Initial Consult Date 12/12/16 Type of Consultation: Hematology/Oncology Referring Provider: ALEJA WHELAN MD 24 HR Interval Summary Free Text/Dictation No overnight events, patient denies headache or focal deficits. Awaiting bx of cutaneous nodule. Exam/Review of Systems Vital Signs Vitals Vital Signs Date Time Temp Pulse Resp B/P Pulse Ox O2 Delivery O2 Flow Rate FiO2 12/14/16 08:00 98.3 80 18 140/66 98 12/12/16 20:18 Room Air Intake and Output 12/13/16 12/13/16 12/14/16 15:00 23:00 07:00 Intake Total 850 ml 1080 ml Balance 850 ml 1080 ml Exam Constitutional: alert, frail, oriented Psych: no complaints Head: atraumatic, normocephalic Eyes: nl conjunctiva Neck: non-tender, supple Respiratory: clear to auscultation Cardiovascular: regular rate and rhythm Gastrointestinal: non-tender, soft Musculoskeletal: nl extremities to inspection 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: CAPTAIN AIRLINE PILOT II-XII intact Skin: other (breast with significant erythema, hard nodules consistent with inflammatory breast cancer; she also has multiple cutaneous nodules on her back concerning for metastatic breast cancer) Results Result Diagram: 12/13/16 0450 12/13/16 0450 Results 24 hrs Laboratory Tests Test 12/14/16 04:47 Absolute Reticulocyte Count 0.102 Ferritin 1180.0 H Folate 9.1 Iron Level 92 Lactate Dehydrogenase 1077 H Percent Iron Saturation 34 Percent Reticulocyte Count 3.1 H Total Iron Binding Capacity 267 Medications Medications Current Medications Ondansetron HCl (Zofran Inj) 4 mg Q6H PRN IV NAUSEA AND/OR VOMITING; Start at 09:00 Acetaminophen (Tylenol Tab) 650 mg Q6H PRN PO PAIN LEVEL 1-3 OR FEVER Last administered on 12/13/16t 07:49; Admin Dose 650 MG; Start 12/12/16 at 09:00 Morphine Sulfate (morphine) 2 mg Q4H PRN IV SEVERE PAIN LEVEL 7-10; Start 12/12 at 09:00 TOGREGOR MD Dec 14, 2016 10:56
[2016-12-14] MEDS ORDERED: ZOLEDRONIC ACID 4 MG in SOD CHLORIDE 0.9% 100 ML IVPB ONE (13:30)
--- NOTE | 2016-12-14 14:47 | PN ---
Date/Time of Note Date/Time of Note DATE: 12/14/16 TIME: 14:39 Assessment/Plan VTE Prophylaxis VTE Prophylaxis Intervention: SCD's Lines/Catheters IV Catheter Type (from Nrs): Saline Lock Urinary Cath still in place: No Assessment/Plan Assessment/Plan 1. Breast cancer with diffuse metastasis to skin, lungs, retroperitoneal space , and bones, will do MRI with ativan, follow up with pathology 2. Symptomatic anemia, improves after transfusion 3. Elevated Alk Phos, from bone mets Subjective 24 Hr Interval Summary Free Text/Dictation no event. Talked about the need of MRI head, she agrees to do it under sedatives Exam/Review of Systems Vital Signs Vitals Vital Signs Date Time Temp Pulse Resp B/P Pulse Ox O2 Delivery O2 Flow Rate FiO2 12/14/16 08:00 98.3 80 18 140/66 98 12/12/16 20:18 Room Air Intake and Output 12/13/16 12/13/16 12/14/16 15:00 23:00 07:00 Intake Total 850 ml 1080 ml Balance 850 ml 1080 ml Exam Constitutional: alert, oriented, well developed Psych: nl mood/affect, no complaints Head: atraumatic, normocephalic Eyes: EOMI, PERRL, nl conjunctiva, nl lids, nl sclera ENMT: mucosa pink and moist, nl external ears & nose, nl lips & teeth, nl nasal mucosa & septum Neck: non-tender, supple Respiratory: clear to auscultation, normal air movement, No congested cough, No crackles/rales, No diminished breath sounds, No intercostal retraction, No labored breathing, No respirations, No tactile fremitus, No wheezing Cardiovascular: nl pulses, regular rate and rhythm, No S3, No S4, No bruits, No diastolic murmur, No edema, No gallop, No irregular rhythm, No jugular venous distention (JVD), No murmurs/extra sounds, No rub, No systolic murmur Gastrointestinal: nl liver, spleen, non-tender, soft, No ascites, No bowel sounds, No distended, No firm, No hepatomegaly, No mass , No rebound or guarding, No splenomegaly, No surgical scars, No tender 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: BOTTLE ASSEMBLER II-XII intact, nl mental status, nl speech, nl strength Skin: other (diffuse subcutanous nodules) Results Result Diagram: 1/19/17 0450 12/13/16 0450 Results 24 hrs Laboratory Tests Test 12/14/16 04:47 Absolute Reticulocyte Count 0.102 Ferritin 1180.0 H Folate 9.1 Iron Level 92 Lactate Dehydrogenase 1077 H Percent Iron Saturation 34 Percent Reticulocyte Count 3.1 H Total Iron Binding Capacity 267 Medications Medications Current Medications Ondansetron HCl (Zofran Inj) 4 mg Q6H PRN IV NAUSEA AND/OR VOMITING; Start at 09:00 Acetaminophen (Tylenol Tab) 650 mg Q6H PRN PO PAIN LEVEL 1-3 OR FEVER Last administered on 12/13/16t 07:49; Admin Dose 650 MG; Start 12/12/16 at 09:00 Morphine Sulfate (morphine) 2 mg Q4H PRN IV SEVERE PAIN LEVEL 7-10; Start 12/12 at 09:00 ALEJA WHELAN MD Dec 14, 2016 14:47
[2016-12-14] MEDS ORDERED: LORAZEPAM 2 MG INJ IV ONE (15:00)
--- NOTE | 2016-12-14 15:18 | CONS ---
Date/Time of Note Date/Time of Note DATE: 12/14/16 TIME: 15:09 Assessment/Plan Assessment/Plan Chief Complaint/Hosp Course new diagnosis of breast cancer with brain metastases Problems: Additional Assessment/Plan 1) SYMPTOMATIC BRAIN METASTASES - please order brain MRI with ativan to help patient - please start dexamethasone and PPI - patient will need radiation therapy to the brain. I reviewed the indications , risks, benefits, side effects and alternatives to radiation therapy. She understands and agrees to proceed. Radiation therapy can be done as an outpatient if the patient is medically stable for discharge. Patient has been given a follow up appointment but please ensure Case Management obtains auth for her to see Rad Onc as an outpatient. 2) BREAST CANCER - hormonal status is pending - follow up with Dr Reid as outpatient - PET CT as outpatient 3) FAMILY HISTORY OF BREAST CANCER - please check BRCA1/2 kishor 4) BONE METASTASES - patient should be evaluated by Ortho prior to discharge to ensure she does not need hip mets to be surgically address 5) DISPO - f/u with Rad Onc Dr Chari Aleman [id number] [facility] [address] on SaturdayDecember 18 @ 130 pm Sincerely, Chari Aleman MD Consultation Date/Type/Reason Admit Date/Time Dec 12, 2016 at 05:37 Date of Consultation: Dec 14, 2016 Type of Consultation: Radiation Oncology Reason for Consultation dura-based brain metastases on brain CT in new diagnosis of breast cancer Referring Provider: GREGOR REID MD Hx of Present Illness The patient is a 56 y old female who presented to [facility] with anema , weakness, blurry vision leading to falls and a 40 pound weight loss over the last 3 months. In the ER, examination revealed a firm breast. A work up has led to the diagnosis of moderately differentiated ductal carcinoma of breast origin, receptor status pending, with metastases to the skin (subcutaneous nodules), bones, RP nodes and brain. Specifically, a CT of the brain demonstrates dural based brain metastases. The patient declined an MRI due to claustrophobia. Her alkaline phosphatase is 514. There is a family history of mastectomy for breast cancer prevention. Today, the patient is not able to provide a cogent history and is tangential in her memory. She states she experienced a mechanical fall on [employer] on November 04 and since then noticed a rapidly progressive rash on her skin and breast as well as blurry vision and difficulty with memory. For example, she has difficulty remembering today that her first child was born in 1987. Constitutional: other Eyes: No discharge, No redness ENT: No congestion, No dysphagia Respiratory: No cough, No shortness of breath Cardiovascular: No chest pain, No edema, No lightheadedness, No orthopenea Gastrointestinal: flatus, passing stool Genitourinary: No bleeding, No dysuria Musculoskeletal: No back pain, No bone/joint pain, No neck pain Skin: bruising, erythema, rash, skin lesions Neurologic: No confusion, No dizziness, No headache, No syncope Endocrine: No polydypsia, No polyuria Psychological: nl mood/affect, no complaints Immunologic: pruritis Past Medical History breast cancer with metastases to the skin, bones, RP nodes and brain Past Surgical History biopsies, as above Social History Alcohol Use: none Smoking Status: Never smoker Drug Use: none Other Social History ALLERGIES: EGGS, PEANUT BUTTER, STRAWBERRIES, CHERRIES, 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: menarche age 14, perimenopausal with LMP in February 2016, A0, OCP use in the past for a few weeks, no HRT, age at first child was 28 Exam/Review of Systems Vital Signs Vitals Vital Signs Date Time Temp Pulse Resp B/P Pulse Ox O2 Delivery O2 Flow Rate FiO2 12/14/16 08:00 98.3 80 18 140/66 98 12/12/16 20:18 Room Air Intake and Output 12/13/16 12/13/16 12/14/16 15:00 23:00 07:00 Intake Total 850 ml 1080 ml Balance 850 ml 1080 ml Exam Constitutional: alert, frail, oriented Psych: nl mood/affect, no complaints Head: atraumatic, normocephalic ENMT: nl external ears & nose, nl lips & teeth, nl nasal mucosa & septum Neck: non-tender, supple Gastrointestinal: soft 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: MIXER BLENDER II-XII intact, nl mental status, nl speech, nl strength Lymph: nl lymph nodes Results Result Diagram: 12/13/16 0450 12/13/16 0450 Results 24 hrs Laboratory Tests Test 12/14/16 04:47 Absolute Reticulocyte Count 0.102 Ferritin 1180.0 H Folate 9.1 Iron Level 92 Lactate Dehydrogenase 1077 H Percent Iron Saturation 34 Percent Reticulocyte Count 3.1 H Total Iron Binding Capacity 267 Medications Medications Current Medications Ondansetron HCl (Zofran Inj) 4 mg Q6H PRN IV NAUSEA AND/OR VOMITING; Start at 09:00 Acetaminophen (Tylenol Tab) 650 mg Q6H PRN PO PAIN LEVEL 1-3 OR FEVER Last administered on 12/13/16t 07:49; Admin Dose 650 MG; Start 12/12/16 at 09:00 Morphine Sulfate (morphine) 2 mg Q4H PRN IV SEVERE PAIN LEVEL 7-10; Start 12/12 at 09:00 Lorazepam (Ativan) 1 mg ONCE ONCE IV ; Start 12/14/16 at 15:00; Stop 12/14/16 at 15:01 CHARI ALEMAN MD Dec 14, 2016 15:18
[2016-12-14 19:27] VITALS: BP 137/91; RESP 18
[2016-12-14] MEDS ORDERED: LIDOCAINE 2%/EPI (MDV) 20ML INJ INJ ONE (22:00)
--- NOTE | 2016-12-14 23:30 | PN ---
Date/Time of Note Date/Time of Note DATE: 12/14/16 TIME: 23:29 Assessment/Plan Lines/Catheters IV Catheter Type (from [facility]): Saline Lock [place] in Place (from [facility]): No Assessment/Plan Chief Complaint/Hosp Course 1. Right breast mass with infiltrating ductal carcinoma with metastasis s/p core needle and skin bxs -will obtain skin biopsies as well > supplies not available to perform biopsy > will come back tomorrow -oncology input and f/u appreciated 2. Multiple soft tissue lesions probably metastatic lesions -bx 3. Anemia -Medical/GI/oncologic workup -Transfuse as needed 4. Generalized weakness secondary to above -As above -Nutritional optimization 5. Abnormal LFTs and alkaline phosphatase may be secondary to above -As above 6. Pruritus and weight loss may be secondary to above -As above Thank you, Problems: Subjective 24 Hr Interval Summary Supplies not ready to perform skin biopsies. s/p Right breast core and skin bx 12/12 > infiltrating ductal ca. Multiple skin, bone, retroperitoneal, brain metastatic disease. No f/c. No n/v. No cp/sob. No cough. No avelar/dizzy/ visual or neuro changes. No dysuria. Min pain. Bowel function. Generalized weakness. Exam/Review of Systems Vital Signs Vitals Vital Signs Date Time Temp Pulse Resp B/P Pulse Ox O2 Delivery O2 Flow Rate FiO2 12/14/16 19:27 98.4 90 18 137/91 99 12/12/16 20:18 Room Air Intake and Output 12/13/16 12/13/16 12/14/16 15:00 23:00 07:00 Intake Total 850 ml 1080 ml Balance 850 ml 1080 ml Exam Free Text/Dictation Constitutional: alert, oriented, No distress Psych: nl mood/affect, No anxiety, No confusion Head: atraumatic, normocephalic Eyes: EOMI, PERRL, nl conjunctiva, No icteric ENMT: mucosa pink and moist, nl external ears & nose, nl lips & teeth Neck: non-tender, supple, No jvd Respiratory: normal air movement, No congested cough, No labored breathing Cardiovascular: regular rate and rhythm, No edema Gastrointestinal: non-tender, soft, No distended, No rebound or guarding Musculoskeletal: nl extremities to inspection, nl gait and stance Extremities: normal pulses, No calf tenderness, No cyanosis 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: nl mental status, nl speech, nl strength Skin: nl turgor, rash or lesions (multiple indurated erythematous nonblanching lesions throughout the abdomen bilateral groins axilla.) Lymph: No nl lymph nodes (possible inguinal and right axillary lymph nodes versus lesions as above) Breasts: Right breast with one hard mass nonmobile with nonblanching erythematous changes of the breast. Left breast with a few small round lesions. Results Result Diagram: 12/13/16 0450 12/13/16 0450 ISSA MUSTAFA MD Dec 14, 2016 23:30
[2016-12-15] MEDS: ACETAMINOPHEN 325 MG TAB PO PRN ×2 (02:12→14:11)
--- NOTE | 2016-12-15 02:12 | RADRPT ---
PROCEDURE: MR Brain with and without contrast. CLINICAL INDICATION: Neurofibromatosis and anemia. TECHNIQUE: An MRI of the brain was performed on a 1.5 seven scanner utilizing the following sequen yesi: Sagittal T1 weighted, axial T2 weighted, axial FLAIR, coronal GRE, and axial diffusion weighted with ADC mapping. Additionally, postcontrast axial and coronal T1-weighted sequences were performed after and 10 ml Magnevist paramagnetic contrast given intravenously without complication. COMPARISON: CT brain 12/13/2016 FINDINGS: Right frontal heterogeneously enhancing dural based mass measuring 5.9 x 2 8.3 x 3.7 cm in transvers e, AP and craniocaudal dimensions respectively. This is contiguous with nodular diffuse dural enhan cement measuring 4 mm in greatest thickness. Restricted diffusion corresponding to dural enhancement . Although intracranial hypotension can have a similar appearance with the extensive dural enhancem ent, the nodularity and focal right frontal mass as well as restricted diffusion is most consistent with extensive, dural metastasis. Innumerable enhancing cutaneous nodules throughout the scalp compatible with the patient's known his tory of neurofibromatosis. Heterogeneous signal hyperintensity and diffuse calvarial thickening whic h can be seen with anemias, Paget's disease and Dilantin therapy. Correlate clinically. This can b e seen with the previous No hypointense signal abnormalities are seen on the GRE images to suggest the presence of blood degr adation products. Some cortical white matter T2 hyperintensity focus within the right frontal lobe w hich may reflect gliosis from chronic microvascular ischemic change in the region of gyral effacemen t secondary to dural metastatic deposit in this region. No associated pathologic enhancement to sug gest cortical metastasis. The remaining brain parenchyma is normal in signal intensity and morphology with preservation of gra y white differentiation . Age appropriate size of the ventricles and subarachnoid spaces. Mucosal t hickening in the left maxillary sinus compatible with chronic inflammatory change. The posterior fossa contents, brainstem, seventh - eighth cranial nerve complexes, pituitary axis, o rbits, remaining paranasal sinuses, and mastoid air cells are unremarkable. Normal flow voids are visible in the proximal intracranial arteries and dural sinuses, indicating pa tency. The postcontrast images show no abnormal parenchymal enhancement. IMPRESSION: 1. Extensive enhancement right frontal dural based mass most compatible with dural metastasis. No e vidence of parenchymal metastasis. 2. Innumerable enhancing cutaneous nodules compatible with the patient's known neurofibromatosis. 3. Calvarial thickening which can be seen in anemias. No discrete lesions suggestive metastatic de posit.. Differential diagnostic considerations discussed above. 4. No acute or early subacute ischemic infarction. RPTAT:AAJJ Lily Bruce Physician Date Time Electronically viewed and signed by Lily Bruce Physician on 12/15/2016 02:11 KEYSHAWN/
[2016-12-15 08:11] VITALS: BP 143/67; RESP 20
[2016-12-15] MEDS ORDERED: SILVER NITRATE SWAB TOP ONE (09:00)
--- NOTE | 2016-12-15 13:36 | CONS ---
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 Other Ddx on imaging would include meningioma. Given clinical history however I believe empiric dx of metastasis is appropriate. This furthermore is indicative of presumptive leptomeningeal disease and the patient should undergo neuraxis imaging and LP for cytology. Fortunately the mass has minimal mass effect on the underlying brain and the patient is asymptomatic, so neurosurgical intervention at this point is unwarranted. If leptomeningeal disease is confirmed, WBRT may be preferable to surgical excision in any event. Thank you. Consultation Date/Type/Reason Admit Date/Time Dec 12, 2016 at 05:37 Date of Consultation: Dec 15, 2016 Type of Consultation: neurosurgery Reason for Consultation brain/ dural metastasis Hx of Present Illness 56 year old with strong familial hx of brast CA p/w new dx of breast CA and CT/ MRI demonstration of enhancing dural based R frontal mass. There is also diffuse enhancement of the pachymeninges throughout. She has no neurologic complaints and denies headache. Constitutional: other Eyes: No discharge, No redness ENT: No congestion, No dysphagia Respiratory: No cough, No shortness of breath Cardiovascular: No chest pain, No edema, No lightheadedness, No orthopenea Gastrointestinal: flatus, passing stool Genitourinary: No bleeding, No dysuria Musculoskeletal: No back pain, No bone/joint pain, No neck pain Skin: bruising, erythema, rash, skin lesions Neurologic: No confusion, No dizziness, No headache, No syncope Endocrine: No polydypsia, No polyuria Psychological: nl mood/affect, no complaints Immunologic: pruritis Social History Alcohol Use: none Smoking Status: Never smoker Drug Use: none Exam/Review of Systems Vital Signs Vitals Vital Signs Date Time Temp Pulse Resp B/P Pulse Ox O2 Delivery O2 Flow Rate FiO2 12/15/16 08:11 98.9 105 20 143/67 98 12/12/16 20:18 Room Air Intake and Output 12/14/16 12/14/16 12/15/16 15:00 23:00 07:00 Intake Total 1405 ml 1080 ml Balance 1405 ml 1080 ml Exam [id number] A&Ox3 PERRL EOMI FACE= TML MOTOR5/5 throughout Results Result Diagram: 12/13/16 0450 12/13/16 0450 Results 24 hrs Laboratory Tests Test 12/15/16 04:50 Vitamin B12 Level 714 Medications Medications Current Medications Ondansetron HCl (Zofran Inj) 4 mg Q6H PRN IV NAUSEA AND/OR VOMITING; Start at 09:00 Acetaminophen (Tylenol Tab) 650 mg Q6H PRN PO PAIN LEVEL 1-3 OR FEVER Last administered on 12/15/16t 02:12; Admin Dose 650 MG; Start 12/12/16 at 09:00 Morphine Sulfate (morphine) 2 mg Q4H PRN IV SEVERE PAIN LEVEL 7-10; Start 12/12 at 09:00 PEARL YUEN MD Dec 15, 2016 13:36
--- NOTE | 2016-12-15 13:53 | PN ---
Date/Time of Note Date/Time of Note DATE: 12/15/16 TIME: 13:47 Assessment/Plan VTE Prophylaxis VTE Prophylaxis Intervention: SCD's Lines/Catheters IV C[facility]ter Type (from [facility]): Saline Lock Urinary Cath still in place: No Assessment/Plan Chief Complaint/Hosp Course Assessment and plan 1. History of breast cancer with symptomatic brain metastasis. Patient did have MRI of the brain that did show extensive enhancement right frontal dural based mass most compatible with dural metastasis with no evidence of parenchymal metastasis. Neurosurgeon/oncologist/radiology oncologist following. No plan for surgical intervention at this time. Plan for radiation therapy. 2. History of breast cancer with multiple soft tissue lesions. Surgeon following. Plan for biopsy. We'll follow-up 3. Anemia. Monitor H&H. We'll provide with blood Plavix as needed Disposition and plan: Continue oncological workup. Tentative plan for radiation therapy. No plan for surgical intervention for brain metastasis. Await skin lesion biopsy. Continue in-house monitoring Discussed plan of care with Dr. Del Angel Problems: Subjective 24 Hr Interval Summary Free Text/Dictation appears slightly lethargic. Exam/Review of Systems Vital Signs Vitals Vital Signs Date Time Temp Pulse Resp B/P Pulse Ox O2 Delivery O2 Flow Rate FiO2 12/15/16 08:11 98.9 105 20 143/67 98 12/12/16 20:18 Room Air Intake and Output 12/14/16 12/14/16 12/15/16 15:00 23:00 07:00 Intake Total 1405 ml 1080 ml Balance 1405 ml 1080 ml Exam General: No acute signs or symptoms of distress, slightly lethargic Eyes: pupils equal round, Anicteric sclera Neck: Supple nontender, no JVD Cardiac: S1, S2 auscultated, regular rhythm and rate Pulmonary: No coarse rhonchi or breathing auscultated GI: Abdomen soft nontender nondistended, bowel sounds active Extremities: No edema bilateral lower extremities Skin: Clean dry and intact Neurologic: Alert to person place and time and situation Results Result Diagram: 12/13/16 0450 12/13/16 0450 Results 24 hrs Laboratory Tests Test 12/15/16 04:50 Vitamin B12 Level 714 Medications Medications Current Medications Ondansetron HCl (Zofran Inj) 4 mg Q6H PRN IV NAUSEA AND/OR VOMITING; Start at 09:00 Acetaminophen (Tylenol Tab) 650 mg Q6H PRN PO PAIN LEVEL 1-3 OR FEVER Last administered on 12/15/16 02:12; Admin Dose 650 MG; Start 12/12/16 at 09:00 Morphine Sulfate (morphine) 2 mg Q4H PRN IV SEVERE PAIN LEVEL 7-10; Start 12/12 at 09:00 NICK HI Dec 15, 2016 13:53
--- NOTE | 2016-12-15 15:09 | PN ---
Date/Time of Note Date/Time of Note DATE: 12/15/16 TIME: 15:06 Assessment/Plan Lines/Catheters IV Catheter Type (from [facility]): Saline Lock [place] in Place (from [facility]): No Assessment/Plan Chief Complaint/Hosp Course 1. Right breast mass with infiltrating ductal carcinoma with metastasis s/p core needle and skin bxs -will obtain skin biopsies as well -oncology input and f/u appreciated 2. Multiple soft tissue lesions probably metastatic lesions -bx 3. Anemia -Medical/GI/oncologic workup -Transfuse as needed 4. Generalized weakness secondary to above -As above -Nutritional optimization 5. Abnormal LFTs and alkaline phosphatase may be secondary to above -As above 6. Pruritus and weight loss may be secondary to above -As above Thank you, Problems: Subjective 24 Hr Interval Summary Low grade temp. No chills. WBC improved. Multiple skin, bone, retroperitoneal , brain metastatic disease. No n/v. No cp/sob. No cough. No avelar/dizzy/visual or neuro changes. No dysuria. Min pain. Bowel function. Generalized weakness. Exam/Review of Systems Vital Signs Vitals Vital Signs Date Time Temp Pulse Resp B/P Pulse Ox O2 Delivery O2 Flow Rate FiO2 12/15/16 14:15 99.9 12/15/16 08:11 105 20 143/67 98 12/12/16 20:18 Room Air Intake and Output 12/14/16 12/14/16 12/15/16 15:00 23:00 07:00 Intake Total 1405 ml 1080 ml Balance 1405 ml 1080 ml Exam Free Text/Dictation Constitutional: alert, oriented, No distress Psych: nl mood/affect, No anxiety, No confusion Head: atraumatic, normocephalic Eyes: EOMI, PERRL, nl conjunctiva, No icteric ENMT: mucosa pink and moist, nl external ears & nose, nl lips & teeth Neck: non-tender, supple, No jvd Respiratory: normal air movement, No congested cough, No labored breathing Cardiovascular: regular rate and rhythm, No edema Gastrointestinal: non-tender, soft, No distended, No rebound or guarding Musculoskeletal: nl extremities to inspection, nl gait and stance Extremities: normal pulses, No calf tenderness, No cyanosis 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: nl mental status, nl speech, nl strength Skin: nl turgor, rash or lesions (multiple indurated erythematous nonblanching lesions throughout the abdomen bilateral groins axilla.) Lymph: No nl lymph nodes (possible inguinal and right axillary lymph nodes versus lesions as above) Breasts: Right breast with one hard mass nonmobile with nonblanching erythematous changes of the breast. Left breast with a few small round lesions. Results Result Diagram: 12/13/16 0450 12/13/16 0450 ISSA MUSTAFA MD Dec 15, 2016 15:09
--- NOTE | 2016-12-15 15:54 | OPR ---
Date/Time of Note Date/Time of Note DATE: 12/15/16 TIME: 15:52 Operative Report Procedure Date: Dec 15, 2016 Preoperative Diagnosis Multiple skin and subcutaneous lesion, probably metastatic Postoperative Diagnosis Same Operation Performed Incisional biopsy of abdominal wall subcutaneous and skin lesion Surgeon: ISSA MUSTAFA MD Anesthesia: other (local) Estimated Blood Loss: minimal Specimens Incisional biopsy of left abdominal wall skin and subcutaneous lesion, 0.6 cm Complications: None Pt Condition Post Procedure: stable Disposition: other (in room) Indications Per notes Risks include bleeding infection and chronic wound and complications of local anesthetic. Patient agreeable to proceed. Procedure Description Abdominal was prepped and draped sterilely while she is in her bed in the room. Timeout was performed. Local anesthetic was injected at the site. 11 blade scalpel was used to make an elliptical incision into the lesion in the left upper quadrant and the lesion was fully excised. Wound was irrigated and dressing was applied. There was no bleeding. ISSA MUSTAFA MD Dec 15, 2016 15:54
[2016-12-15 19:28] VITALS: BP 130/60; RESP 20
[2016-12-16] MEDS: PANTOPRAZOLE (EC) 40 MG TAB PO SCH (06:00)
[2016-12-16 06:15] LABS: HEMATOCRIT 29.1 % (37.0-47.0); HEMOGLOBIN 9.8 g/dl (12.0-16.0); MEAN CORPUSCULAR HEMOGLOBIN 31.4 pg (29.0-33.0); MEAN CORPUSCULAR HGB CONC 33.6 g/dl (32.0-37.0); MEAN CORPUSCULAR VOLUME 93.3 fl (82.0-101.0); MEAN PLATELET VOLUME 7.4 fl (7.4-10.4); NEUTROPHIL # 4.8 10^3/ul (1.6-7.5); PLATELET COUNT 124 10^3/UL (140-440); RED BLOOD COUNT 3.12 10^6/ul (4.20-5.40); RED CELL DISTRIBUTION WIDTH 20.6 % (11.5-14.5)
[2016-12-16 07:02] LABS: CONDITION 1; LH ANALYZER COMMENTS 1; NUCLEATED RED BLOOD CELLS # 0.3 10^3/ul (0.0-0.0)
[2016-12-16 07:56] LABS: THYROID STIMULATING HORMONE 2.09 MIU/L (0.465-4.680)
[2016-12-16 07:59] VITALS: BP 114/57; RESP 20
[2016-12-16 08:02] LABS: ALBUMIN 3.5 g/dl (3.3-4.9)
[2016-12-16 08:03] LABS: POTASSIUM 3.9 mmol/L (3.5-5.1)
[2016-12-16 08:05] LABS: ALBUMIN/GLOBULIN RATIO 0.87; BILIRUBIN,INDIRECT 0.3 mg/dl (0-1.1); BILIRUBIN,TOTAL 0.3 mg/dl (0.2-1.3); CREATININE 0.78 mg/dl (0.44-1.00); TOTAL PROTEIN 7.5 g/dl (6.1-8.1)
[2016-12-16 08:06] LABS: CALCIUM 7.4 mg/dl (8.4-10.2)
[2016-12-16 08:20] LABS: BASOPHIL # 0.1 10^3/ul (0.0-0.1); LYMPHOCYTES # 1.4 10^3/ul (0.8-2.9); MONOCYTE # 0.4 10^3/ul (0.3-0.9); NUCLEATED RED BLOOD CELLS% 7.9 /100WBC (0.0-0.0)
[2016-12-16 08:21] LABS: ANISOCYTOSIS 2+
[2016-12-16] MEDS ORDERED: LORAZEPAM 2 MG INJ IV PRN (09:00)
--- NOTE | 2016-12-16 09:33 | CONS ---
DATE OF ADMISSION: 12/12/2016 DATE OF CONSULTATION: 12/15/2016 HISTORY OF PRESENT ILLNESS: Ms. Morton is a 56-year-old lady with large mass in the right breast and widespread skin nodules, admitted because of large breast lesions. Her CT of the abdomen and pelvis showed widespread sclerotic bone metastasis. Her biopsy of the breast lesion showed infiltrating ductal carcinoma. The ER and MD were positive and HER2/braxton is still pending. Her MRI of the brain with contrast showed extensive right frontal dural based mass, compatible with metastasis, but there was no parenchymal brain metastasis. She also had multiple cutaneous nodules from her known neurofibromatosis. IMPRESSION: Large infiltrating ductal carcinoma of the right breast. PHYSICAL EXAMINATION: GENERAL: Showed a thinly-built lady who is alert, oriented, cooperative. VITAL SIGNS: She is afebrile. Vital signs are unremarkable. HEENT: Head normocephalic. NECK: Supple, without any tenderness. No lymphadenopathy in the neck. CHEST: Symmetrical. BREASTS: The right breast has a large mass surrounding the nipple and the right breast is semi-fixed. The left breast has a few nodules. No axillary adenopathy. ABDOMEN: Soft, no masses. EXTREMITIES: Entirely normal. No edema, clubbing, or cyanosis. SKIN: Shows widespread skin nodules, some of them are metastasis, some of them from her known neurofibromatosis. LABORATORY DATA: Her CBC and CMP were unremarkable except for hemoglobin 11 and alkaline phosphatase 451. Her LDH was high, but her creatinine was normal at 0.91. Calcium 9.4. Her CA 15-3 was high at 151. Her anemia panel was unremarkable. IMPRESSION: 1. Infiltrating ductal carcinoma of the right breast with multiple skin and widespread sclerotic bone metastasis. 2. Dural masses in the right frontal area, most likely metastasis from breast cancer. PLAN AND DISCUSSION: This patient, who is relatively asymptomatic, has a large right breast mass with widespread skin and bone metastasis. Most likely her right frontal dural mass is also metastasis from the breast cancer. She also may have lung metastasis, too. Her cancer is ER and MD positive and HER2/braxton is pending. I agree that she will need brain radiation. I doubt resection of the subdural masses will be of great benefit, but may be considered. She will need systemic treatment, probably chemotherapy because of her widespread metastasis after HER2/braxton is available. Dictated By: LEONIE HANSEN MD PC/MRAILEE Conf#: [id number] DID#: [id number] CHANDNI
[2016-12-16] MEDS: DEXAMETHASONE 4 MG TAB PO SCH ×4 (10:03→20:53)
[2016-12-16] MEDS ORDERED: LORAZEPAM 2 MG INJ IV SCH (12:00)
--- NOTE | 2016-12-16 12:23 | PN ---
Date/Time of Note Date/Time of Note DATE: 12/16/16 TIME: 12:18 Assessment/Plan VTE Prophylaxis VTE Prophylaxis Intervention: SCD's Lines/Catheters [facility] Saline Lock Urinary Cath still in place: No Assessment/Plan Chief Complaint/Hosp Course Assessment and plan 1. History of breast cancer with symptomatic brain metastasis. Patient did have MRI of the brain that did show extensive enhancement right frontal dural based mass most compatible with dural metastasis with no evidence of parenchymal metastasis. Neurosurgeon/oncologist/radiology oncologist following. No plan for surgical intervention at this time. Plan for radiation therapy. 2. History of breast cancer with multiple soft tissue lesions. Surgeon following. Plan for biopsy. We'll follow-up 3. Anemia. Monitor H&H. We'll provide with blood Plavix as needed 4.Scattered. Cutaneous nodules throughout the pelvis. Patient still able to ambulate. Discussed with Dr. Marquez-Rad. No need for orthopedic intervention at this time Disposition and plan: Discussed with orthopedic surgeon. No need for orthopedic intervention for nodules throughout pelvis. Continue oncological workup. Tentative plan for radiation therapy. No plan for surgical intervention for brain metastasis. Await skin lesion biopsy. Await MRI of the spine and lumbar puncture. Discussed plan of care with Dr. Del Angel Problems: Subjective 24 Hr Interval Summary Free Text/Dictation Comfortable at this time. No apparent distress Exam/Review of Systems Vital Signs Vitals Vital Signs Date Time Temp Pulse Resp B/P Pulse Ox O2 Delivery O2 Flow Rate FiO2 12/16/16 07:59 98.5 98 20 114/57 97 12/12/16 20:18 Room Air Intake and Output 12/15/16 12/15/16 12/16/16 14:59 22:59 06:59 Intake Total 1280 ml 1040 ml Balance 1280 ml 1040 ml Exam General: No acute signs or symptoms of distress Eyes: pupils equal round, Anicteric sclera Neck: Supple nontender, no JVD Cardiac: S1, S2 auscultated, regular rhythm and rate Pulmonary: No coarse rhonchi or breathing auscultated GI: Abdomen soft nontender nondistended, bowel sounds active Extremities: No edema bilateral lower extremities Skin: Clean dry and intact Neurologic: Alert to person place and time and situation Results Result Diagram: 12/16/1643912/16/160 Results 24 hrs Laboratory Tests Test 1/22/17 04:40 Alanine Aminotransferase (ALT/SGPT) 70 H Albumin 3.5 Albumin/Globulin Ratio 0.87 Alkaline Phosphatase 394 H Anion Gap 17 H Anisocytosis 2+ Aspartate Amino Transf (AST/SGOT) 158 H Basophils # 0.1 Basophils % 1.0 Blood Morphology Comment Blood Urea Nitrogen 14 Calcium Level 7.4 L Carbon Dioxide Level 24 Chloride Level 105 Creatinine 0.78 Direct Bilirubin 0.00 Eosinophils # 0.0 Eosinophils % 0.0 Globulin 4.00 H Glucose Level 105 Hematocrit 29.1 L Hemoglobin 9.8 L Indirect Bilirubin 0.3 Lymphocytes # 1.4 Lymphocytes % 20.0 Mean Corpuscular Hemoglobin 31.4 Mean Corpuscular Hemoglobin Concent 33.6 Mean Corpuscular Volume 93.3 Mean Platelet Volume 7.4 Monocytes # 0.4 Monocytes % 5.0 Neutrophils # 4.8 Neutrophils % 69.0 Nucleated Red Blood Cells # 0.3 H Nucleated Red Blood Cells % 7.9 H Platelet Count 124 #L Potassium Level 3.9 Red Blood Count 3.12 L Red Cell Distribution Width 20.6 H Sodium Level 142 Thyroid Stimulating Hormone (TSH) 2.090 Total Bilirubin 0.3 Total Protein 7.5 White Blood Count 7.0 # Medications Medications Current Medications Ondansetron HCl (Zofran Inj) 4 mg Q6H PRN IV NAUSEA AND/OR VOMITING; Start at 09:00 Acetaminophen (Tylenol Tab) 650 mg Q6H PRN PO PAIN LEVEL 1-3 OR FEVER Last administered on 12/15/16 14:11; Admin Dose 650 MG; Start 12/12/16 at 09:00 Morphine Sulfate (morphine) 2 mg Q4H PRN IV SEVERE PAIN LEVEL 7-10; Start 12/12 at 09:00 Dexamethasone (Decadron) 6 mg QID PO Last administered on 12/16/16 10:03; Admin Dose 6 MG; Start 12/16/16 at 09:00 Pantoprazole (Protonix Tab) 40 mg DAILY@06 PO Last administered on 12/16/16 06 :00; Admin Dose 40 MG; Start 12/16/16 at 06:00 Lorazepam (Ativan) 0.5 mg NOW IV ; Start 12/16/16 at 12:00; Stop 12/16/16 at 23: 00 NICK HI Dec 16, 2016 12:23
[2016-12-16 19:34] VITALS: BP 127/59; RESP 18
--- NOTE | 2016-12-16 20:58 | HKNOTE ---
DATE OF SERVICE: 12/16/2016 HISTORY OF PRESENT ILLNESS: Ms. Morton was 56-year-old -[place] lady who has a large cancer in the right breast area with wide spread sclerotic bone lesions and also wide spread skin nodules but the patient has history of neurofibromatosis. Her CAT of the abdomen and pelvis showed wide spre ad sclerotic bone metastasis. Her breast biopsies showed an infiltrating ductal carcinoma where ER a nd [place] were positive and HER-2/braxton is still pending. It should be noted that her MRI of the brain wit h contrast showed extensive right frontal dural base mass compatible with metastasis. She has been s tarted on Decadron and Protonix yesterday. PHYSICAL EXAMINATION: GENERAL: Showed a thinly built female who is alert, oriented, cooperative. She is afebrile but the T max is 99.9 degrees. HEENT: Head normocephalic. Eyes: PERRLA. NECK: Supple without any abnormal masses or pulsations. CHEST: Symmetrical. LUNGS: Clear. BREASTS: The right breast shows a large mass surrounding the nipple and the breast is semi-affixed t o the chest wall. The left breast has a few nodules. Lymph nodes: No peripheral lymphadenopathy. ABDOMEN: Soft, no masses. EXTREMITIES: Showed no edema, clubbing or cyanosis. SKIN: Shows white spread skin nodules, some of the metastases. LABORATORY DATA: Her CBC today shows hemoglobin down to 9.8, WBC 7,000 with 69% neutrophils but she had 7.9% nucleated RBC's. Her platelet count is down to 124,000. Hemoglobin down to 9.8. Her CMP is unremarkable except for elevated AST, ALT and alkaline phosphatase. IMPRESSION: 1. Infiltrating ductal carcinoma of the right breast with wide spread sclerotic bone metastasis plu s skin metastasis. 2. Dural mass in the right frontal area, most likely metastasis. 3. Increasing anemia and thrombocytopenia with new platelet RBC's and a blood smear and high LDH. T his is most likely consistent with a bone marrow metastasis. PLAN AND DISCUSSION: This patient almost certainly has wide spread metastasis from her right breast cancer including dural metastasis, wide spread bone and skin metastasis plus most likely bone marrow metastasis. Her HER-2/braxton is pending. I agree that she will need radiation to the right frontal are a or probably to the whole brain. If her HER-2/braxton is positive, she will need a combination treatmen t with Herceptin, Projecta and possibly Taxotere. Otherwise I will monitor her plus may be an option. Dictated By: LEONIE JUÁREZ/MARILEE Conf#: [id number] DID#: [id number]
--- NOTE | 2016-12-16 23:18 | PN ---
Date/Time of Note Date/Time of Note DATE: 12/16/16 TIME: 23:14 Assessment/Plan Lines/Catheters IV C[facility]ter Type (from [facility]): Saline Lock [place] in Place (from [facility]): No Assessment/Plan Chief Complaint/Hosp Course 1. Right breast mass with infiltrating ductal carcinoma with metastasis ( probable retroperitoneum, lymphatics, bone, skin, brain) s/p core needle and skin bxs. +Tumor markers. -new subcutaneous bx results pending -oncology input and f/u appreciated 2. Multiple soft tissue lesions probably metastatic lesions s/p bx -path pending 3. Anemia -Medical/GI/oncologic workup -Transfuse as needed 4. Generalized weakness secondary to above -As above -Nutritional optimization 5. Abnormal LFTs and alkaline phosphatase may be secondary to above -As above 6. Pruritus and weight loss may be secondary to above -As above 7. Thrombocytopenia -r/o hit if continues to drop Thank you, Problems: Subjective 24 Hr Interval Summary No fever/chills. WBC improved. Multiple skin, bone, retroperitoneal, brain metastatic disease. No n/v. No cp/sob. No cough. No avelar/dizzy/visual or neuro changes. No dysuria. Min pain. Bowel function. Generalized weakness. Exam/Review of Systems Vital Signs Vitals Vital Signs Date Time Temp Pulse Resp B/P Pulse Ox O2 Delivery O2 Flow Rate FiO2 12/16/16 19:34 98.4 93 18 127/59 98 12/12/16 20:18 Room Air Intake and Output 12/15/16 12/15/16 12/16/16 15:00 23:00 07:00 Intake Total 1280 ml 1040 ml Balance 1280 ml 1040 ml Exam Free Text/Dictation Constitutional: alert, oriented, No distress Psych: nl mood/affect, No anxiety, No confusion Head: atraumatic, normocephalic Eyes: EOMI, PERRL, nl conjunctiva, No icteric ENMT: mucosa pink and moist, nl external ears & nose, nl lips & teeth Neck: non-tender, supple, No jvd Respiratory: normal air movement, No congested cough, No labored breathing Cardiovascular: regular rate and rhythm, No edema Gastrointestinal: non-tender, soft, No distended, No rebound or guarding Musculoskeletal: nl extremities to inspection, nl gait and stance Extremities: normal pulses, No calf tenderness, No cyanosis 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: nl mental status, nl speech, nl strength Skin: nl turgor, rash or lesions (multiple indurated erythematous nonblanching lesions throughout the abdomen bilateral groins axilla.) Lymph: No nl lymph nodes (possible inguinal and right axillary lymph nodes versus lesions as above) Breasts: Right breast with one hard mass nonmobile with nonblanching erythematous changes of the breast. Left breast with a few small round lesions. Results Result Diagram: 12/16/1643912/16/16 0440 ISSA MUSTAFA MD Dec 16, 2016 23:18
[2016-12-17] MEDS: ACETAMINOPHEN 325 MG TAB PO PRN (00:08)
--- NOTE | 2016-12-17 03:44 | RADRPT ---
AMENDMENT: 12/17/2016 3:47:06 AM Noemi Pearce MD The study below was actually a pre and postcontrast study as described throughout the findings secti on. MRI of the cervical spine with without contrast was performed with precontrast sequences as jose cribed and with post contrast fat saturated T1-weighted images after injection of 10 cc of intraveno us Magnevist. PROCEDURE: MR Cervical Spine. CLINICAL INDICATION: Neurofibromatosis. Brain MRI showing dural metastasis. Anemia. TECHNIQUE: Sagittal T1, T2, and STIR, axial T2, T1, and gradient images without contrast. COMPARISON: No prior studies are available for comparison. FINDINGS: Normal cervical lordosis is present. There is minimal C5-6 retrolisthesis. There is diffuse and sl ightly heterogeneous abnormal marrow signal throughout the cervical spine with heterogeneous low sig nal on both T1 and T2 weighted images. The appearance may be due to the apparently known anemia but diffuse metastatic disease cannot be excluded with the appearance. The cervical cord is unremarkab le in appearance. No abnormal dural enhancement is seen and no focal intra or extradural lesion is seen to suggest dropped metastasis or dural metastasis. No prevertebral soft tissue swelling is see n. The C2-3 and C3-4 levels are essentially unremarkable. At C4-5, there is a small focal central disk protrusion without extrusion with effacement of the suzy tral thecal sac and slight flattening of the ventral cord. No definite abnormal cord signal. No ca nal or foraminal stenosis. At C5-6, there is a small broad-based disk bulge. There is slight central canal narrowing without f rank canal stenosis. No tight foraminal narrowing. At C6-7, minimal central disk bulges present without significant canal narrowing. Mild bilateral fo raminal narrowing. The C7-T1 and visualized upper thoracic levels are unremarkable in appearance. The study is limited by patient motion but there is not a definite abnormal mass lesion seen along c ervical nerve roots. IMPRESSION: No definite evidence for dural metastatic disease or dropped metastasis. Diffuse heterogeneous abnormal marrow signal which may all be due to anemia but diffuse osseous meta static disease cannot be excluded given this appearance. Innumerable enhancing subcutaneous soft tissue nodules in keeping with the known neurofibromatosis. Mild multilevel cervical spondylosis as above. No evidence for disk herniation or tight spinal sten osis. RPTAT: HLBE Joselyn Pearec, Physician Date Time Electronically viewed and signed by Joselyn Pearce, Physician on 12/17/2016 03:48 LE/
--- NOTE | 2016-12-17 03:56 | RADRPT ---
PROCEDURE: MR Thoracic spine without with contrast CLINICAL INDICATION: Neurofibromatosis with dural-based mass on brain MRI. Evaluate for metastati c disease. TECHNIQUE: Sagittal T1, T2, and fat saturated T2, axial T1 and T2-weighted images before contrast. Sagittal and axial fat saturated T1-weighted images after injection of 10 cc of intravenous Magnev ist. COMPARISON: No prior studies are available for comparison. FINDINGS: The study is limited by patient motion. There are innumerable enhancing subcutaneous soft tissue no dules in keeping with the known diagnosis of neurofibromatosis. As was seen in the cervical spine, there is diffuse heterogeneous abnormal signal of the marrow of the thoracic spine with predominant low signal on T1 and T2-weighted images. Some abnormal increased T2 signal of T8 with enhancement i s seen. As in the cervical spine, the findings could be due to anemia but metastatic disease cannot be excluded. The thoracic cord is grossly unremarkable. No dural enhancement or intra or extradur al focal enhancing lesion is seen to suggest dural metastatic disease or dropped metastasis. Minima l thoracic disk bulges are seen at several levels but no disk herniation or spinal stenosis is seen. There are small bilateral pleural effusions. IMPRESSION: No definite evidence for dural metastatic disease or drop metastasis. Diffuse abnormal heterogeneou s marrow, more focal in the T8 vertebral body. Mild diffuse anemia, perhaps with T8 vertebral body hemangioma could explain the appearance, diffuse osseous metastatic disease cannot be excluded. Mild thoracic spondylosis without disk herniation or spinal stenosis. Innumerable subcutaneous soft tissue nodules consistent with neurofibromatosis. RPTAT: HLBE Physician Kathia Date Time Electronically viewed and signed by Physician Kathia on 12/17/2016 03:55 VALERIE/
--- NOTE | 2016-12-17 04:04 | RADRPT ---
PROCEDURE: MRI lumbar spine with and without contrast CLINICAL INDICATION: Neurofibromatosis with enhancing dural based intracranial lesion. Evaluate for metastatic disease. TECHNIQUE: An MRI of the lumbar spine was performed on a high field strength scanner utilizing the following sequences: pre and post contrast sagittal and axial T1 weighted, sagittal and axial T2 we ighted, and sagittal T2 weighted with fat saturation. 10 cc of Magnevist were given intravenously wi thout complication. COMPARISON: None FINDINGS: The study is somewhat limited by patient motion. Alignment is anatomic. Vertebral body and disk sp dez heights are preserved. As was seen in the cervical and thoracic spine, there is diffuse heterog eneous abnormal marrow signal throughout the visualized bony skeleton which may be due to anemia alt myles metastatic disease cannot be excluded. Multiple small enhancing subcutaneous soft tissue nodu les are seen, in keeping with the known diagnosis of neurofibromatosis. The conus ends at the T12-L 1 level and is unremarkable in appearance. There is no definite evidence for dural enhancement or i ntra or extradural mass lesion to suggest metastatic disease or dropped metastasis. Minimal central disk bulges are present at L4-5 and L5-S1 with mild facet and ligamentous hypertrophic changes from L2-3 through L5-S1. There is no evidence for disk herniation. Partially imaged is more focal abnor mal marrow signal of the lower sacrum with intermediate signal on T1, height T2 signal, and post contrast enhancement. IMPRESSION: Multiple enhancing subcutaneous soft tissue nodules consistent with neurofibromatosis. No definite evidence for dural tumor or intra or extradural metastatic disease. Diffuse heterogeneous abnormal marrow signal with partially imaged more focal abnormal signal enhanc ement of the lower sacrum. While the findings may all be due to severe anemia, diffuse osseous meta static disease cannot be excluded. Bone scan may be helpful for further evaluation. RPTAT: HLBE Physician Kathia Date Time Electronically viewed and signed by Physician Kathia on 12/17/2016 04:03 LE/
[2016-12-17] MEDS: PANTOPRAZOLE (EC) 40 MG TAB PO SCH (04:52)
[2016-12-17 06:10] LABS: BASOPHILS % 0.3 % (0.0-2.0); EOSINOPHILS % 0.2 % (0.0-7.0); HEMATOCRIT 29.4 % (37.0-47.0); HEMOGLOBIN 9.8 g/dl (12.0-16.0); LYMPHOCYTES # 1.8 10^3/ul (0.8-2.9); LYMPHOCYTES % 17.8 % (15.0-51.0); MEAN CORPUSCULAR HEMOGLOBIN 31.2 pg (29.0-33.0); MEAN CORPUSCULAR HGB CONC 33.4 g/dl (32.0-37.0); MEAN CORPUSCULAR VOLUME 93.6 fl (82.0-101.0); MEAN PLATELET VOLUME 7.6 fl (7.4-10.4); MONOCYTE # 1.3 10^3/ul (0.3-0.9); MONOCYTES % 12.9 % (0.0-11.0); NEUTROPHIL # 6.9 10^3/ul (1.6-7.5); NEUTROPHILS % 68.8 % (39.0-77.0); PLATELET COUNT 147 10^3/UL (140-440); RED BLOOD COUNT 3.14 10^6/ul (4.20-5.40); RED CELL DISTRIBUTION WIDTH 20.4 % (11.5-14.5); UNCORRECTED WBC 10.1 10^3/ul (4.8-10.8); WHITE BLOOD COUNT 10.1 10^3/ul (4.8-10.8)
[2016-12-17 06:15] LABS: CONDITION 1; LH ANALYZER COMMENTS 1; SUSPECT 1
[2016-12-17 06:18] LABS: POTASSIUM 4.3 mmol/L (3.5-5.1)
[2016-12-17 06:20] LABS: CREATININE 0.65 mg/dl (0.44-1.00)
[2016-12-17 06:21] LABS: CALCIUM 8.3 mg/dl (8.4-10.2)
[2016-12-17 07:57] VITALS: BP 142/82; RESP 16
[2016-12-17] MEDS: DEXAMETHASONE 4 MG TAB PO SCH ×4 (09:09→21:26)
--- NOTE | 2016-12-17 10:23 | PN ---
Date/Time of Note Date/Time of Note DATE: 12/17/16 TIME: 10:19 Assessment/Plan VTE Prophylaxis VTE Prophylaxis Intervention: SCD's Lines/Catheters IV Catheter Type (from [facility]): Saline Lock Urinary Cath still in place: No Assessment/Plan Chief Complaint/Hosp Course Assessment and plan 1. History of breast cancer with symptomatic brain metastasis. Patient did have MRI of the brain that did show extensive enhancement right frontal dural based mass most compatible with dural metastasis with no evidence of parenchymal metastasis. Neurosurgeon/oncologist/radiology oncologist following. No plan for surgical intervention at this time. Plan for radiation therapy. 2. History of breast cancer with multiple soft tissue lesions. Surgeon following. We'll follow-up 3. Anemia. Monitor H&H. We'll provide with blood Plavix as needed 4.Scattered. Cutaneous nodules throughout the pelvis. Patient still able to ambulate. Discussed with Dr. Chappell. No need for orthopedic intervention at this time 5. Multiple soft tissue lesions (likely metastatic). Follow up on skin biopsy. 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 cont to monitor Disposition and plan: Discussed with orthopedic surgeon. No need for orthopedic intervention for nodules throughout pelvis. Continue oncological workup. Tentative plan for radiation therapy. Await skin lesion biopsy.Follow up oncology recs Discussed plan of care with Problems: Subjective 24 Hr Interval Summary Free Text/Dictation resting at this time. no apparent distress Exam/Review of Systems Vital Signs Vitals Vital Signs Date Time Temp Pulse Resp B/P Pulse Ox O2 Delivery O2 Flow Rate FiO2 12/17/16 07:57 97.8 80 16 142/82 98 Intake and Output 12/16/16 12/16/16 12/17/16 15:00 23:00 07:00 Intake Total 760 ml 520 ml Balance 760 ml 520 ml Exam General: No acute signs or symptoms of distress Eyes: pupils equal round, Anicteric sclera Neck: Supple nontender, no JVD Cardiac: S1, S2 auscultated, regular rhythm and rate Pulmonary: No coarse rhonchi or breathing auscultated GI: Abdomen soft nontender nondistended, bowel sounds active Extremities: No edema bilateral lower extremities Skin: Clean dry and intact Neurologic: Alert to person place and time and situation Results Result Diagram: 1/23/17 0515 1/23/17 0515 Results 24 hrs Laboratory Tests Test 12/17/16 05:15 Anion Gap 17 H Basophils # 0.0 Basophils % 0.3 Blood Morphology Comment Blood Urea Nitrogen 13 Calcium Level 8.3 L Carbon Dioxide Level 25 Chloride Level 104 Creatinine 0.65 Eosinophils # 0.0 Eosinophils % 0.2 Glucose Level 105 Hematocrit 29.4 L Hemoglobin 9.8 L Lymphocytes # 1.8 Lymphocytes % 17.8 Mean Corpuscular Hemoglobin 31.2 Mean Corpuscular Hemoglobin Concent 33.4 Mean Corpuscular Volume 93.6 Mean Platelet Volume 7.6 Monocytes # 1.3 H Monocytes % 12.9 H Neutrophils # 6.9 Neutrophils % 68.8 Nucleated Red Blood Cells # 0.0 Nucleated Red Blood Cells % 0.0 Platelet Count 147 Potassium Level 4.3 Red Blood Count 3.14 L Red Cell Distribution Width 20.4 H Sodium Level 142 White Blood Count 10.1 # Medications Medications Current Medications Ondansetron HCl (Zofran Inj) 4 mg Q6H PRN IV NAUSEA AND/OR VOMITING; Start at 09:00 Acetaminophen (Tylenol Tab) 650 mg Q6H PRN PO PAIN LEVEL 1-3 OR FEVER Last administered on 12/17/16 00:08; Admin Dose 650 MG; Start 12/12/16 at 09:00 Morphine Sulfate (morphine) 2 mg Q4H PRN IV SEVERE PAIN LEVEL 7-10; Start 12/12 at 09:00 Dexamethasone (Decadron) 6 mg QID PO Last administered on 12/17/16 09:09; Admin Dose 6 MG; Start 12/16/16 at 09:00 Pantoprazole (Protonix Tab) 40 mg DAILY@06 PO Last administered on 12/16/16 06 :00; Admin Dose 40 MG; Start 12/16/16 at 06:00 NICK HI Dec 17, 2016 10:23
--- NOTE | 2016-12-17 14:52 | CONS ---
Date/Time of Note Date/Time of Note DATE: 12/17/16 TIME: 14:45 Assessment/Plan Assessment/Plan Chief Complaint/Hosp Course The patient is a 56 year old female 1. 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 Pathology so far reveals ER+/ TN+ disease with KI 6722%. Her 2 nu status is pending 2. Dural mass in the right frontal area, most likely metastasis. 3. Increasing anemia and thrombocytopenia with new platelet RBC's and a blood smear and high LDH. - f/u Her 2 nu status as this will dictate whether or not we start hormone therapy versus chemotherapy - pt has appointment tomorrow with radiation oncology to start whole brain radiation - CA 27-29, CA 15-3 ordered- pending - Appreciate general surgery recs, awaiting skin biopsy of cutaneous nodules to document biopsy proven metastatic disease - Given bony metastatic disease, patient will need zometa Q3 months - first dose ordered in house - I have requested case management consult for patient to be seen by Dr. Tara Vieyra after discharge with outpatient PET/CT - Will continue to follow, treatment options will depend on ER/TN/HER2 status - continue to monitor CBC. again patient likely has bone marrow infiltration of her disease Approximately 40 min were spent at patient's bedside and in coordination of her care Problems: Consultation Date/Type/Reason Admit Date/Time Dec 12, 2016 at 05:37 Initial Consult Date 12/15/16 Type of Consultation: oncology Reason for Consultation breast cancer Referring Provider: LISANDRO CHENG MD 24 HR Interval Summary Free Text/Dictation no acute overnight events. no pain. no shortness of breath Exam/Review of Systems Vital Signs Vitals Vital Signs Date Time Temp Pulse Resp B/P Pulse Ox O2 Delivery O2 Flow Rate FiO2 12/17/16 07:57 97.8 80 16 142/82 98 Intake and Output 12/16/16 12/16/16 12/17/16 15:00 23:00 07:00 Intake Total 760 ml 520 ml Balance 760 ml 520 ml Exam Constitutional: alert, frail, other (thin) Psych: nl mood/affect, no complaints Head: normocephalic Eyes: nl conjunctiva ENMT: nl external ears & nose, nl lips & teeth Neck: non-tender, supple Respiratory: clear to auscultation Cardiovascular: regular rate and rhythm Gastrointestinal: soft Musculoskeletal: nl extremities to inspection Skin: other (right breast replaced with tumor. mulitple metastatic skin lesions over her torso and back) Results Result Diagram: 12/17/16 0515 12/17/16 0515 Results 24 hrs Laboratory Tests Test 12/17/16 05:15 Anion Gap 17 H Basophils # 0.0 Basophils % 0.3 Blood Morphology Comment Blood Urea Nitrogen 13 Calcium Level 8.3 L Carbon Dioxide Level 25 Chloride Level 104 Creatinine 0.65 Eosinophils # 0.0 Eosinophils % 0.2 Glucose Level 105 Hematocrit 29.4 L Hemoglobin 9.8 L Lymphocytes # 1.8 Lymphocytes % 17.8 Mean Corpuscular Hemoglobin 31.2 Mean Corpuscular Hemoglobin Concent 33.4 Mean Corpuscular Volume 93.6 Mean Platelet Volume 7.6 Monocytes # 1.3 H Monocytes % 12.9 H Neutrophils # 6.9 Neutrophils % 68.8 Nucleated Red Blood Cells # 0.0 Nucleated Red Blood Cells % 0.0 Platelet Count 147 Potassium Level 4.3 Red Blood Count 3.14 L Red Cell Distribution Width 20.4 H Sodium Level 142 White Blood Count 10.1 # Medications Medications Current Medications Ondansetron HCl (Zofran Inj) 4 mg Q6H PRN IV NAUSEA AND/OR VOMITING; Start at 09:00 Acetaminophen (Tylenol Tab) 650 mg Q6H PRN PO PAIN LEVEL 1-3 OR FEVER Last administered on 12/17/16 00:08; Admin Dose 650 MG; Start 12/12/16 at 09:00 Morphine Sulfate (morphine) 2 mg Q4H PRN IV SEVERE PAIN LEVEL 7-10; Start 12/12 at 09:00 Dexamethasone (Decadron) 6 mg QID PO Last administered on 12/17/16 12:15; Admin Dose 6 MG; Start 12/16/16 at 09:00 Pantoprazole (Protonix Tab) 40 mg DAILY@06 PO Last administered on 12/16/16 06 :00; Admin Dose 40 MG; Start 12/16/16 at 06:00 TARA VIEYRA M.D. Dec 17, 2016 14:52
--- NOTE | 2016-12-17 16:05 | CONS ---
Date/Time of Note Date/Time of Note DATE: 12/17/16 TIME: 16:00 Consult Date/Type/Reason Admit Date/Time Dec 12, 2016 at 05:37 Initial Consult Date 12/15/16 Type of Consultation: oncology Ordering Provider: LISANDRO CHENG MD Objective Vital Signs Date Time Temp Pulse Resp B/P Pulse Ox O2 Delivery O2 Flow Rate FiO2 12/17/16 07:57 97.8 80 16 142/82 98 Intake and Output 12/16/16 12/16/16 12/17/16 15:00 23:00 07:00 Intake Total 760 ml 520 ml Balance 760 ml 520 ml Results/Medications Result Diagram: 12/17/16 0515 12/17/16 0515 Results 24 hrs Laboratory Tests Test 12/17/16 05:15 Anion Gap 17 H Basophils # 0.0 Basophils % 0.3 Blood Morphology Comment Blood Urea Nitrogen 13 Calcium Level 8.3 L Carbon Dioxide Level 25 Chloride Level 104 Creatinine 0.65 Eosinophils # 0.0 Eosinophils % 0.2 Glucose Level 105 Hematocrit 29.4 L Hemoglobin 9.8 L Lymphocytes # 1.8 Lymphocytes % 17.8 Mean Corpuscular Hemoglobin 31.2 Mean Corpuscular Hemoglobin Concent 33.4 Mean Corpuscular Volume 93.6 Mean Platelet Volume 7.6 Monocytes # 1.3 H Monocytes % 12.9 H Neutrophils # 6.9 Neutrophils % 68.8 Nucleated Red Blood Cells # 0.0 Nucleated Red Blood Cells % 0.0 Platelet Count 147 Potassium Level 4.3 Red Blood Count 3.14 L Red Cell Distribution Width 20.4 H Sodium Level 142 White Blood Count 10.1 # Medications Current Medications Ondansetron HCl (Zofran Inj) 4 mg Q6H PRN IV NAUSEA AND/OR VOMITING; Start at 09:00 Acetaminophen (Tylenol Tab) 650 mg Q6H PRN PO PAIN LEVEL 1-3 OR FEVER Last administered on 12/17/16 00:08; Admin Dose 650 MG; Start 12/12/16 at 09:00 Morphine Sulfate (morphine) 2 mg Q4H PRN IV SEVERE PAIN LEVEL 7-10; Start 12/12 at 09:00 Dexamethasone (Decadron) 6 mg QID PO Last administered on 12/17/16 12:15; Admin Dose 6 MG; Start 1/22/17 at 09:00 Pantoprazole (Protonix Tab) 40 mg DAILY@06 PO Last administered on 12/16/16t 06 :00; Admin Dose 40 MG; Start 12/16/16 at 06:00 Assessment/Plan Chief Complaint/Hosp Course The patient is a 56 y old female who presented to [facility] with anema , weakness, blurry vision leading to falls and a 40 pound weight loss over the last 3 months. In the ER, examination revealed a firm breast. A work up has led to the diagnosis of moderately differentiated ductal carcinoma of breast origin, receptor status pending, with metastases to the skin (subcutaneous nodules), bones, RP nodes and brain. Specifically, a CT of the brain demonstrates dural based brain metastases. The patient declined an MRI due to claustrophobia. Her alkaline phosphatase is 514. There is a family history of mastectomy for breast cancer prevention. Today, the patient is not able to provide a cogent history and is tangential in her memory. She states she experienced a mechanical fall on [address] [facility] on November 04 and since then noticed a rapidly progressive rash on her skin and breast as well as blurry vision and difficulty with memory. For example, she has difficulty remembering today that her first child was born in 1987. Problems: Additional Assessment/Plan Patient underwent MRI of the C, T and L spine and these do not show drop metastases. Discussed with Lara Rob and Itzel and they agree to proceed with XRT kishor. Plan: 1) LP today 2) CT Simulation at Radiation Oncology office tomorrow at [address] [place] [address] [phone] . Our staff will coordinate the time with Faviola at [phone]. Given concern for leptomeningeal disease, and as I am told by the nurse that her family is unaware of her condition, I recommend that patient be admitted for the first few fractions of XRT to help adjust dexamethasone dose. LETTY GUTIERREZ MD Dec 17, 2016 16:05
--- NOTE | 2016-12-17 17:47 | RADRPT ---
PROCEDURE: Fluoroscopic guided lumbar puncture. CLINICAL INDICATION: Headache. TECHNIQUE: Prior to the procedure, informed consent was obtained. Risks including bleeding and in fection were explained to the patient. The patient understood and was willing to proceed. A proced ural pause was performed. The patient's name, date of , and procedure to be performed were meri ified. Using local anesthetic, sterile technique, and fluoroscopic guidance, a 22-gauge spinal needle was a dvanced into the thecal sac at the L4-5 level. Opening pressure was 16 cm of water. 6 mL of clear cerebrospinal fluid was aspirated and sent for laboratory analysis. The needle was removed. A dres sing was applied. The patient tolerated the procedure well. A total of 0.1 minutes of fluoroscopy time was used. COMPARISON: None. FINDINGS: Images demonstrate the needle at the L4-5 level in the thecal sac. IMPRESSION: Satisfactory fluoroscopic guided lumbar puncture. The opening pressure was 16 cm of water. RPTAT: QQ .Erik Ventura MD, MD Date Time Electronically viewed and signed by .Erik Ventura MD, on 12/17/2016 17:47 .R/
--- NOTE | 2016-12-17 18:28 | PN ---
Date/Time of Note Date/Time of Note DATE: 12/17/16 TIME: 18:28 Assessment/Plan Lines/Catheters IV Catheter Type (from [facility]): Saline Lock [place] in Place (from [facility]): No Assessment/Plan Chief Complaint/Hosp Course 1. Right breast mass with infiltrating ductal carcinoma with metastasis ( probable retroperitoneum, lymphatics, bone, skin, brain) s/p core needle and skin bxs. +Tumor markers. -new subcutaneous bx results pending -oncology input and f/u appreciated 2. Multiple soft tissue lesions probably metastatic lesions s/p bx -path pending 3. Anemia -Medical/GI/oncologic workup -Transfuse as needed 4. Generalized weakness secondary to above -As above -Nutritional optimization 5. Abnormal LFTs and alkaline phosphatase may be secondary to above -As above 6. Pruritus and weight loss may be secondary to above -As above 7. Thrombocytopenia resolved Thank you, Problems: Subjective 24 Hr Interval Summary No fever/chills. WBC improved. Multiple skin, bone, retroperitoneal, brain metastatic disease. No n/v. No cp/sob. No cough. No avelar/dizzy/visual or neuro changes. No dysuria. Min pain. Bowel function. Generalized weakness. Exam/Review of Systems Vital Signs Vitals Vital Signs Date Time Temp Pulse Resp B/P Pulse Ox O2 Delivery O2 Flow Rate FiO2 12/17/16 07:57 97.8 80 16 142/82 98 Intake and Output 12/16/16 12/16/16 12/17/16 15:00 23:00 07:00 Intake Total 760 ml 520 ml Balance 760 ml 520 ml Exam Free Text/Dictation Constitutional: alert, oriented, No distress Psych: nl mood/affect, No anxiety, No confusion Head: atraumatic, normocephalic Eyes: EOMI, PERRL, nl conjunctiva, No icteric ENMT: mucosa pink and moist, nl external ears & nose, nl lips & teeth Neck: non-tender, supple, No jvd Respiratory: normal air movement, No congested cough, No labored breathing Cardiovascular: regular rate and rhythm, No edema Gastrointestinal: non-tender, soft, No distended, No rebound or guarding Musculoskeletal: nl extremities to inspection, nl gait and stance Extremities: normal pulses, No calf tenderness, No cyanosis 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: nl mental status, nl speech, nl strength Skin: nl turgor, rash or lesions (multiple indurated erythematous nonblanching lesions throughout the abdomen bilateral groins axilla.) Lymph: No nl lymph nodes (possible inguinal and right axillary lymph nodes versus lesions as above) Breasts: Right breast with one hard mass nonmobile with nonblanching erythematous changes of the breast. Left breast with a few small round lesions. Results Result Diagram: 12/17/16 0515 12/17/16 0515 ISSA MUSTAFA MD Dec 17, 2016 18:28
[2016-12-17 19:27] LABS: # OF CELLS COUNTED 100
[2016-12-17 19:37] VITALS: BP 170/79; RESP 18
[2016-12-17 21:50] VITALS: BP 146/79; PULSE 85
[2016-12-17 22:01] LABS: CSF COLOR COLORLESS
[2016-12-17 22:02] LABS: %CREANATED RBC CSF 0 %; CSF VOLUME 4.5 ml; CSF#TUBE COUNT TUBE#4; CSF#TUBES REC'D 4
[2016-12-18] MEDS: ACETAMINOPHEN 325 MG TAB PO PRN ×2 (03:46→17:25)
[2016-12-18] MEDS: PANTOPRAZOLE (EC) 40 MG TAB PO SCH (05:19)
[2016-12-18 05:50] LABS: BASOPHILS % 0.1 % (0.0-2.0); EOSINOPHILS % 0.1 % (0.0-7.0); HEMATOCRIT 32.6 % (37.0-47.0); HEMOGLOBIN 10.8 g/dl (12.0-16.0); MEAN CORPUSCULAR HEMOGLOBIN 31.1 pg (29.0-33.0); MEAN CORPUSCULAR HGB CONC 33.1 g/dl (32.0-37.0); MEAN PLATELET VOLUME 7.7 fl (7.4-10.4); MONOCYTE # 1.4 10^3/ul (0.3-0.9); MONOCYTES % 10.2 % (0.0-11.0); NEUTROPHIL # 10.1 10^3/ul (1.6-7.5); NEUTROPHILS % 74.6 % (39.0-77.0); PLATELET COUNT 203 10^3/UL (140-440); RED BLOOD COUNT 3.47 10^6/ul (4.20-5.40); RED CELL DISTRIBUTION WIDTH 20.5 % (11.5-14.5); UNCORRECTED WBC 13.6 10^3/ul (4.8-10.8); WHITE BLOOD COUNT 13.6 10^3/ul (4.8-10.8)
[2016-12-18 05:52] LABS: ALBUMIN/GLOBULIN RATIO 0.95; BILIRUBIN,INDIRECT 0.1 mg/dl (0-1.1); BILIRUBIN,TOTAL 0.1 mg/dl (0.2-1.3); TOTAL PROTEIN 8.2 g/dl (6.1-8.1)
[2016-12-18 05:53] LABS: CALCIUM 8.5 mg/dl (8.4-10.2); CONDITION 1; LH ANALYZER COMMENTS 1; NUCLEATED RED BLOOD CELLS # 0.3 10^3/ul (0.0-0.0)
[2016-12-18 05:59] LABS: CREATININE 0.66 mg/dl (0.44-1.00)
[2016-12-18 07:57] VITALS: BP 148/69; RESP 18
[2016-12-18] MEDS ORDERED: PANT40TA4 PO (10:21)
[2016-12-18] MEDS ORDERED: DEC4 PO (10:21)
[2016-12-18] MEDS ORDERED: ONDA-43 PO (10:21)
--- NOTE | 2016-12-18 10:27 | PN ---
Date/Time of Note Date/Time of Note DATE: 12/18/16 TIME: 10:25 Assessment/Plan VTE Prophylaxis VTE Prophylaxis Intervention: SCD's Lines/Catheters IV Catheter Type (from [facility]): Saline Lock Urinary Cath still in place: No Assessment/Plan Chief Complaint/Hosp Course Assessment and plan 1. History of breast cancer with symptomatic brain metastasis. Patient did have MRI of the brain that did show extensive enhancement right frontal dural based mass most compatible with dural metastasis with no evidence of parenchymal metastasis. Neurosurgeon/oncologist/radiology oncologist following. No plan for surgical intervention at this time. Plan for radiation therapy. 2. History of breast cancer with multiple soft tissue lesions. Surgeon following. We'll follow-up 3. Anemia. Monitor H&H. We'll provide with blood Plavix as needed 4.Scattered. Cutaneous nodules throughout the pelvis. Patient still able to ambulate. Discussed with Dr. Chappell. No need for orthopedic intervention at this time 5. Multiple soft tissue lesions (likely metastatic). Follow up on skin biopsy. 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 cont to monitor Disposition and plan: Patient for CT sim today. Tentative plan for brain radiation. Follow up with oncologist. d/c when cleared by consultants Discussed plan of care with Problems: Subjective 24 Hr Interval Summary Free Text/Dictation patient for CT sim Exam/Review of Systems Vital Signs Vitals Vital Signs Date Time Temp Pulse Resp B/P Pulse Ox O2 Delivery O2 Flow Rate FiO2 12/18/16 07:57 98.3 85 18 148/69 96 Intake and Output 12/17/16 12/17/16 12/18/16 15:00 23:00 07:00 Intake Total 1900 ml 1200 ml Balance 1900 ml 1200 ml Exam patient for CT sim Results Result Diagram: 12/18/16 0440 12/18/16 0440 Results 24 hrs Laboratory Tests Test 12/17/16 15:09 12/18/16 04:40 CSF Appearance CLEAR CSF Cell Count Tube # TUBE#4 CSF Color COLORLESS CSF Crenated Cells 0 CSF Lymphocytes % 100 CSF Monocytes % 0 CSF Neutrophils % 0 CSF RBC 4 H CSF Total Cells Counted 100 CSF Tubes Submitted 4 CSF Volume 4.5 CSF WBC 1 Alanine Aminotransferase (ALT/SGPT) 103 H Albumin 4.0 Albumin/Globulin Ratio 0.95 Alkaline Phosphatase 473 H Anion Gap 19 H Aspartate Amino Transf (AST/SGOT) 263 H Basophils # 0.0 Basophils % 0.1 Blood Morphology Comment Blood Urea Nitrogen 14 Calcium Level 8.5 Carbon Dioxide Level 27 Chloride Level 102 Creatinine 0.66 Direct Bilirubin 0.00 Eosinophils # 0.0 Eosinophils % 0.1 Globulin 4.20 H Glucose Level 100 Hematocrit 32.6 L Hemoglobin 10.8 L Indirect Bilirubin 0.1 Lymphocytes # 2.0 Lymphocytes % 15.0 Mean Corpuscular Hemoglobin 31.1 Mean Corpuscular Hemoglobin Concent 33.1 Mean Corpuscular Volume 94.0 Mean Platelet Volume 7.7 Monocytes # 1.4 H Monocytes % 10.2 Neutrophils # 10.1 H Neutrophils % 74.6 Nucleated Red Blood Cells # 0.3 H Nucleated Red Blood Cells % 2.0 H Platelet Count 203 # Potassium Level 5.0 Red Blood Count 3.47 L Red Cell Distribution Width 20.5 H Sodium Level 143 Total Bilirubin 0.1 L Total Protein 8.2 H White Blood Count 13.6 #H Medications Medications Current Medications Ondansetron HCl (Zofran Inj) 4 mg Q6H PRN IV NAUSEA AND/OR VOMITING; Start at 09:00 Acetaminophen (Tylenol Tab) 650 mg Q6H PRN PO PAIN LEVEL 1-3 OR FEVER Last administered on 12/18/16 03:46; Admin Dose 650 MG; Start 12/12/16 at 09:00 Morphine Sulfate (morphine) 2 mg Q4H PRN IV SEVERE PAIN LEVEL 7-10; Start 12/12 at 09:00 Dexamethasone (Decadron) 6 mg QID PO Last administered on 12/17/16 21:26; Admin Dose 6 MG; Start 12/16/16 at 09:00 Pantoprazole (Protonix Tab) 40 mg DAILY@06 PO Last administered on 12/18/16 05 :19; Admin Dose 40 MG; Start 12/16/16 at 06:00 NICK HI Dec 18, 2016 10:27
[2016-12-18] MEDS: DEXAMETHASONE 4 MG TAB PO SCH ×4 (10:52→21:05)
--- NOTE | 2016-12-18 19:07 | PN ---
Date/Time of Note Date/Time of Note DATE: 12/18/16 TIME: 19:04 Assessment/Plan Lines/Catheters IV Catheter Type (from [facility]): Saline Lock [place] in Place (from [facility]): No Assessment/Plan Chief Complaint/Hosp Course 1. Right breast mass with infiltrating ductal carcinoma with metastasis ( probable retroperitoneum, lymphatics, bone, skin, brain) s/p core needle and skin bxs. +Tumor markers. Abdominal skin bx + metastasis. -oncology input and f/u appreciated 2. Multiple soft tissue lesions probably metastatic lesions s/p bx -path pending 3. Anemia -Medical/GI/oncologic workup -Transfuse as needed 4. Generalized weakness secondary to above -As above -Nutritional optimization 5. Abnormal LFTs and alkaline phosphatase may be secondary to above -As above 6. Pruritus and weight loss may be secondary to above -As above 7. Thrombocytopenia resolved Thank you, Problems: Subjective 24 Hr Interval Summary Skin bx with metastatic findings. No fever/chills. WBC. Multiple skin, bone, retroperitoneal, brain metastatic disease. No n/v. No cp/sob. No cough. No avelar/dizzy/visual or neuro changes. No dysuria. Min pain. Bowel function. Generalized weakness. Exam/Review of Systems Vital Signs Vitals Vital Signs Date Time Temp Pulse Resp B/P Pulse Ox O2 Delivery O2 Flow Rate FiO2 12/18/16 07:57 98.3 85 18 148/69 96 Intake and Output 12/17/16 12/17/16 12/18/16 15:00 23:00 07:00 Intake Total 1900 ml 1200 ml Balance 1900 ml 1200 ml Exam Free Text/Dictation Constitutional: alert, oriented, No distress Psych: nl mood/affect, No anxiety, No confusion Head: atraumatic, normocephalic Eyes: EOMI, PERRL, nl conjunctiva, No icteric ENMT: mucosa pink and moist, nl external ears & nose, nl lips & teeth Neck: non-tender, supple, No jvd Respiratory: normal air movement, No congested cough, No labored breathing Cardiovascular: regular rate and rhythm, No edema Gastrointestinal: non-tender, soft, No distended, No rebound or guarding Musculoskeletal: nl extremities to inspection, nl gait and stance Extremities: normal pulses, No calf tenderness, No cyanosis 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: nl mental status, nl speech, nl strength Skin: nl turgor, rash or lesions (multiple indurated erythematous nonblanching lesions throughout the abdomen bilateral groins axilla.) Lymph: No nl lymph nodes (possible inguinal and right axillary lymph nodes versus lesions as above) Breasts: Right breast with one hard mass nonmobile with nonblanching erythematous changes of the breast. Left breast with a few small round lesions. Results Result Diagram: 12/18/16 0440 12/18/16 0440 ISSA MUSTAFA MD Dec 18, 2016 19:07
[2016-12-18 20:04] VITALS: BP 157/74; RESP 18
[2016-12-19] MEDS: PANTOPRAZOLE (EC) 40 MG TAB PO SCH (05:42)
[2016-12-19 06:10] LABS: BASOPHILS % 0.1 % (0.0-2.0); EOSINOPHILS % 0.1 % (0.0-7.0); HEMATOCRIT 31.4 % (37.0-47.0); HEMOGLOBIN 10.4 g/dl (12.0-16.0); LYMPHOCYTES # 2.4 10^3/ul (0.8-2.9); LYMPHOCYTES % 17.4 % (15.0-51.0); MEAN CORPUSCULAR HEMOGLOBIN 31.3 pg (29.0-33.0); MEAN CORPUSCULAR HGB CONC 33.2 g/dl (32.0-37.0); MEAN CORPUSCULAR VOLUME 94.2 fl (82.0-101.0); MEAN PLATELET VOLUME 7.8 fl (7.4-10.4); MONOCYTE # 1.4 10^3/ul (0.3-0.9); MONOCYTES % 9.9 % (0.0-11.0); NEUTROPHIL # 9.9 10^3/ul (1.6-7.5); NEUTROPHILS % 72.5 % (39.0-77.0); PLATELET COUNT 200 10^3/UL (140-440); RED BLOOD COUNT 3.33 10^6/ul (4.20-5.40); RED CELL DISTRIBUTION WIDTH 19.7 % (11.5-14.5); UNCORRECTED WBC 13.7 10^3/ul (4.8-10.8); WHITE BLOOD COUNT 13.7 10^3/ul (4.8-10.8)
[2016-12-19 06:23] LABS: POTASSIUM 4.5 mmol/L (3.5-5.1)
[2016-12-19 06:25] LABS: CONDITION 1; LH ANALYZER COMMENTS 1; NUCLEATED RED BLOOD CELLS # 0.4 10^3/ul (0.0-0.0)
[2016-12-19 06:26] LABS: CREATININE 0.64 mg/dl (0.44-1.00)
[2016-12-19 06:27] LABS: CALCIUM 8.2 mg/dl (8.4-10.2)
[2016-12-19 07:39] VITALS: BP 159/72; RESP 18
[2016-12-19] MEDS: DEXAMETHASONE 4 MG TAB PO SCH ×4 (08:02→20:52)
--- NOTE | 2016-12-19 11:05 | PN ---
Date/Time of Note Date/Time of Note DATE: 12/19/16 TIME: 11:03 Assessment/Plan VTE Prophylaxis VTE Prophylaxis Intervention: SCD's Lines/Catheters IV C[facility]ter Type (from [facility]): Saline Lock Urinary Cath still in place: No Assessment/Plan Chief Complaint/Hosp Course Assessment and plan 1. History of breast cancer with symptomatic brain metastasis. Patient did have MRI of the brain that did show extensive enhancement right frontal dural based mass most compatible with dural metastasis with no evidence of parenchymal metastasis. Neurosurgeon/oncologist/radiology oncologist following. No plan for surgical intervention at this time. Plan for radiation therapy. 2. History of breast cancer with multiple soft tissue lesions. Surgeon following. We'll follow-up 3. Anemia. Monitor H&H. We'll provide with blood Plavix as needed 4.Scattered. Cutaneous nodules throughout the pelvis. Patient still able to ambulate. Discussed with Dr. Chappell. No need for orthopedic intervention at this time 5. Multiple soft tissue lesions (likely metastatic). Follow up on skin biopsy. 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 cont to monitor Disposition and plan: follow up on LP cytology. cont decadron. d/c when cleared by consultants Discussed plan of care with Problems: Subjective 24 Hr Interval Summary Free Text/Dictation resting at this time. no apparent distress Exam/Review of Systems Vital Signs Vitals Vital Signs Date Time Temp Pulse Resp B/P Pulse Ox O2 Delivery O2 Flow Rate FiO2 12/19/16 07:39 98.8 80 18 159/72 100 Intake and Output 12/18/16 12/18/16 12/19/16 15:00 23:00 07:00 Intake Total 2020 ml 600 ml Balance 2020 ml 600 ml Exam General: No acute signs or symptoms of distress Eyes: pupils equal round, Anicteric sclera Neck: Supple nontender, no JVD Cardiac: S1, S2 auscultated, regular rhythm and rate Pulmonary: No coarse rhonchi or breathing auscultated GI: Abdomen soft nontender nondistended, bowel sounds active Extremities: No edema bilateral lower extremities Skin: Clean dry and intact Neurologic: Alert to person place and time and situation Results Result Diagram: 12/19/16 0502 12/19/16 0507 Results 24 hrs Laboratory Tests Test 12/19/16 05:02 12/19/16 05:07 Basophils # 0.0 Basophils % 0.1 Blood Morphology Comment Eosinophils # 0.0 Eosinophils % 0.1 Hematocrit 31.4 L Hemoglobin 10.4 L Lymphocytes # 2.4 Lymphocytes % 17.4 Mean Corpuscular Hemoglobin 31.3 Mean Corpuscular Hemoglobin Concent 33.2 Mean Corpuscular Volume 94.2 Mean Platelet Volume 7.8 Monocytes # 1.4 H Monocytes % 9.9 Neutrophils # 9.9 H Neutrophils % 72.5 Nucleated Red Blood Cells # 0.4 H Nucleated Red Blood Cells % 3.0 H Platelet Count 200 Red Blood Count 3.33 L Red Cell Distribution Width 19.7 H White Blood Count 13.7 H Anion Gap 19 H Blood Urea Nitrogen 14 Calcium Level 8.2 L Carbon Dioxide Level 24 Chloride Level 105 Creatinine 0.64 Glucose Level 143 # Potassium Level 4.5 Sodium Level 143 Medications Medications Current Medications Ondansetron HCl (Zofran Inj) 4 mg Q6H PRN IV NAUSEA AND/OR VOMITING; Start at 09:00 Acetaminophen (Tylenol Tab) 650 mg Q6H PRN PO PAIN LEVEL 1-3 OR FEVER Last administered on 12/18/16 17:25; Admin Dose 650 MG; Start 12/12/16 at 09:00 Morphine Sulfate (morphine) 2 mg Q4H PRN IV SEVERE PAIN LEVEL 7-10; Start 12/12 at 09:00 Dexamethasone (Decadron) 6 mg QID PO Last administered on 12/19/16 08:02; Admin Dose 6 MG; Start 12/16/16 at 09:00 Pantoprazole (Protonix Tab) 40 mg DAILY@06 PO Last administered on 12/19/16 05 :42; Admin Dose 40 MG; Start 12/16/16 at 06:00 NICK HI Dec 19, 2016 11:05
--- NOTE | 2016-12-19 13:00 | CONS ---
Date/Time of Note Date/Time of Note DATE: 12/19/16 TIME: 12:52 Assessment/Plan Assessment/Plan Chief Complaint/Hosp Course The patient is a 56 year old female 1. 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 Pathology so far reveals ER+/ RI+ disease with KI 6722%. Her 2 nu status is pending 2. Dural mass in the right frontal area, most likely metastasis. 3. Increasing anemia and thrombocytopenia with nucleated RBC's - f/u Her 2 braxton status as this will dictate whether or not we start hormone therapy versus chemotherapy - Patient evaluated by Dr. Rob on 12/15/16 for dural based met. Given indicative of presumptive leptomeningeal disease and the patient underwent neuraxis imaging that was negative for drop megs and LP for cytology 12/17/[address] Dr[address] Rob, fortunately the mass has minimal mass effect on the underlying brain and the patient is asymptomatic, so neurosurgical intervention at this point is unwarranted. If leptomeningeal disease is confirmed, WBRT may be preferable to surgical excision in any event. - Patient underwent CT sim 12/18/16, patient to start on whole brain radiation once sister is on board. Per Chari Aleman, would prefer to give one treatment prior to discharge to see if can tolerate therapy. - Continue dexamethasone and PPI per Dr. Aleman. - Tumor markers elevated CA 27-29 382, CA 15-3 151 - Appreciate general surgery recs, awaiting skin biopsy of cutaneous nodules to document biopsy proven metastatic disease - prelim consistent with metastatic carcinoma extensively involving the dermis, with morphologic features supporting breast primary, pending IHC - Given bony metastatic disease, patient will need zometa Q3 months - first dose given 12/14/16 - I have requested case management consult for patient to be seen by Dr. Tara Robbins after discharge with outpatient PET/CT - Will continue to follow, treatment options will depend on ER/RI/HER2 status - continue to monitor CBC. Again patient likely has bone marrow infiltration of her disease - Disability paperwork filled out Patient's sister Caryn Salguero (anesthesiologist) [phone], mother is a pathologist, father is a psychiatrist Problems: Consultation Date/Type/Reason Admit Date/Time Dec 12, 2016 at 05:37 Initial Consult Date 12/12/16 Type of Consultation: Hematology/Oncology Referring Provider: LISANDRO CHENG MD 24 HR Interval Summary Free Text/Dictation Patient doing well, no complaints. Exam/Review of Systems Vital Signs Vitals Vital Signs Date Time Temp Pulse Resp B/P Pulse Ox O2 Delivery O2 Flow Rate FiO2 12/19/16 07:39 98.8 80 18 159/72 100 Intake and Output 12/18/16 12/18/16 12/19/16 15:00 23:00 07:00 Intake Total 2020 ml 600 ml Balance 2020 ml 600 ml Exam Constitutional: alert, frail, other (thin) Psych: nl mood/affect, no complaints Head: normocephalic Eyes: nl conjunctiva ENMT: nl external ears & nose, nl lips & teeth Neck: non-tender, supple Respiratory: clear to auscultation Cardiovascular: regular rate and rhythm Gastrointestinal: soft Musculoskeletal: nl extremities to inspection Skin: other (right breast replaced with tumor. mulitple metastatic skin lesions over her torso and back) Results Result Diagram: 12/19/16 0502 12/19/16 0507 Results 24 hrs Laboratory Tests Test 12/19/16 05:02 12/19/16 05:07 Basophils # 0.0 Basophils % 0.1 Blood Morphology Comment Eosinophils # 0.0 Eosinophils % 0.1 Hematocrit 31.4 L Hemoglobin 10.4 L Lymphocytes # 2.4 Lymphocytes % 17.4 Mean Corpuscular Hemoglobin 31.3 Mean Corpuscular Hemoglobin Concent 33.2 Mean Corpuscular Volume 94.2 Mean Platelet Volume 7.8 Monocytes # 1.4 H Monocytes % 9.9 Neutrophils # 9.9 H Neutrophils % 72.5 Nucleated Red Blood Cells # 0.4 H Nucleated Red Blood Cells % 3.0 H Platelet Count 200 Red Blood Count 3.33 L Red Cell Distribution Width 19.7 H White Blood Count 13.7 H Anion Gap 19 H Blood Urea Nitrogen 14 Calcium Level 8.2 L Carbon Dioxide Level 24 Chloride Level 105 Creatinine 0.64 Glucose Level 143 # Potassium Level 4.5 Sodium Level 143 Medications Medications Current Medications Ondansetron HCl (Zofran Inj) 4 mg Q6H PRN IV NAUSEA AND/OR VOMITING; Start at 09:00 Acetaminophen (Tylenol Tab) 650 mg Q6H PRN PO PAIN LEVEL 1-3 OR FEVER Last administered on 12/18/16 17:25; Admin Dose 650 MG; Start 12/12/16 at 09:00 Morphine Sulfate (morphine) 2 mg Q4H PRN IV SEVERE PAIN LEVEL 7-10; Start 12/12 at 09:00 Dexamethasone (Decadron) 6 mg QID PO Last administered on 12/19/16 08:02; Admin Dose 6 MG; Start 12/16/16 at 09:00 Pantoprazole (Protonix Tab) 40 mg DAILY@06 PO Last administered on 12/19/16 05 :42; Admin Dose 40 MG; Start 12/16/16 at 06:00 TOGREGOR MD Dec 19, 2016 13:00
--- NOTE | 2016-12-19 16:56 | CONS ---
Date/Time of Note Date/Time of Note DATE: 12/19/16 TIME: 16:48 Consult Date/Type/Reason Admit Date/Time Dec 12, 2016 at 05:37 Initial Consult Date 12/15/16 Type of Consultation: Hematology/Oncology Ordering Provider: LISANDRO CHENG MD Subjective Patient asked us to discuss her care with her sister Caryn Salguero cell [phone]. Dr Salguero was not aware of the extent of brain metastases and confirmed that the patient does not have a diagnosis of neurofibromatosis, as was documented in a radiology report. I also informed Dr Salguero that the LP cytology was negative. Dr Salguero requested that I review the indication for whole brain radiotherapy with Lara Reid and Liane, which I did. Given the pachymeningeal enhancement, the medical team has agreed that whole brain radiation therapy for leptomeningeal enhancement is best. Dr Salguero understands the indications, risks, benefits, side effects and alternatives to whole brain radiation therapy and agrees to proceed. The latter were also reviewed with the patient in our office and a formal consent was signed. We will plan to start her on radiation therapy tomorrow. Our office has faxed a prescription for Namenda which should be given with whole brain radiation therapy. Please ensure that it is started and that she is discharged with the medication as written. Objective Vital Signs Date Time Temp Pulse Resp B/P Pulse Ox O2 Delivery O2 Flow Rate FiO2 12/19/16 07:39 98.8 80 18 159/72 100 Intake and Output 12/18/16 12/18/16 12/19/16 15:00 23:00 07:00 Intake Total 2020 ml 600 ml Balance 2020 ml 600 ml Results/Medications Result Diagram: 12/19/16 0502 12/19/16 0507 Results 24 hrs Laboratory Tests Test 12/19/16 05:02 12/19/16 05:07 Basophils # 0.0 Basophils % 0.1 Blood Morphology Comment Eosinophils # 0.0 Eosinophils % 0.1 Hematocrit 31.4 L Hemoglobin 10.4 L Lymphocytes # 2.4 Lymphocytes % 17.4 Mean Corpuscular Hemoglobin 31.3 Mean Corpuscular Hemoglobin Concent 33.2 Mean Corpuscular Volume 94.2 Mean Platelet Volume 7.8 Monocytes # 1.4 H Monocytes % 9.9 Neutrophils # 9.9 H Neutrophils % 72.5 Nucleated Red Blood Cells # 0.4 H Nucleated Red Blood Cells % 3.0 H Platelet Count 200 Red Blood Count 3.33 L Red Cell Distribution Width 19.7 H White Blood Count 13.7 H Anion Gap 19 H Blood Urea Nitrogen 14 Calcium Level 8.2 L Carbon Dioxide Level 24 Chloride Level 105 Creatinine 0.64 Glucose Level 143 # Potassium Level 4.5 Sodium Level 143 Medications Current Medications Ondansetron HCl (Zofran Inj) 4 mg Q6H PRN IV NAUSEA AND/OR VOMITING; Start at 09:00 Acetaminophen (Tylenol Tab) 650 mg Q6H PRN PO PAIN LEVEL 1-3 OR FEVER Last administered on 12/18/16 17:25; Admin Dose 650 MG; Start 12/12/16 at 09:00 Morphine Sulfate (morphine) 2 mg Q4H PRN IV SEVERE PAIN LEVEL 7-10; Start 12/12 at 09:00 Dexamethasone (Decadron) 6 mg QID PO Last administered on 12/19/16 12:58; Admin Dose 6 MG; Start 12/16/16 at 09:00 Pantoprazole (Protonix Tab) 40 mg DAILY@06 PO Last administered on 12/19/16 05 :42; Admin Dose 40 MG; Start 12/16/16 at 06:00 Assessment/Plan Chief Complaint/Hosp Course The patient is a 56 y old female who presented to [facility] with anema , weakness, blurry vision leading to falls and a 40 pound weight loss over the last 3 months. In the ER, examination revealed a firm breast. A work up has led to the diagnosis of moderately differentiated ductal carcinoma of breast origin, receptor status pending, with metastases to the skin (subcutaneous nodules), bones, RP nodes and brain. Specifically, a CT of the brain demonstrates dural based brain metastases. The patient declined an MRI due to claustrophobia. Her alkaline phosphatase is 514. There is a family history of mastectomy for breast cancer prevention. Today, the patient is not able to provide a cogent history and is tangential in her memory. She states she experienced a mechanical fall on [place] on November 04 and since then noticed a rapidly progressive rash on her skin and breast as well as blurry vision and difficulty with memory. For example, she has difficulty remembering today that her first child was born in 1987. Problems: LETTY GUTIERREZ MD Dec 19, 2016 16:56
[2016-12-19 20:07] VITALS: BP 127/79; RESP 18
--- NOTE | 2016-12-20 02:06 | PN ---
Date/Time of Note Date/Time of Note DATE: 12/19/16 TIME: 22:57 Assessment/Plan Lines/Catheters IV C[facility]ter Type (from [facility]): Saline Lock [place] in Place (from [facility]): No Assessment/Plan Chief Complaint/Hosp Course 1. Right breast mass with infiltrating ductal carcinoma with metastasis ( probable retroperitoneum, lymphatics, bone, skin, brain) s/p core needle and skin bxs. +Tumor markers. Abdominal skin bx + metastasis. -oncology input and f/u appreciated 2. Multiple soft tissue lesions probably metastatic lesions s/p bx -path pending 3. Anemia -Medical/GI/oncologic workup -Transfuse as needed 4. Generalized weakness secondary to above -As above -Nutritional optimization 5. Abnormal LFTs and alkaline phosphatase may be secondary to above -As above 6. Pruritus and weight loss may be secondary to above -As above 7. Thrombocytopenia resolved Thank you, Late entry 12/19 Problems: Subjective 24 Hr Interval Summary Skin bx with metastatic findings. No fever/chills. WBC. Multiple skin, bone, retroperitoneal, brain metastatic disease. No n/v. No cp/sob. No cough. No avelar/dizzy/visual or neuro changes. No dysuria. Min pain. Bowel function. Generalized weakness. Exam/Review of Systems Vital Signs Vitals Vital Signs Date Time Temp Pulse Resp B/P Pulse Ox O2 Delivery O2 Flow Rate FiO2 12/19/16 20:07 98.1 88 18 127/79 98 Intake and Output 12/19/16 12/19/16 12/20/16 15:00 23:00 07:00 Intake Total 960 ml Balance 960 ml Exam Free Text/Dictation Constitutional: alert, oriented, No distress Psych: nl mood/affect, No anxiety, No confusion Head: atraumatic, normocephalic Eyes: EOMI, PERRL, nl conjunctiva, No icteric ENMT: mucosa pink and moist, nl external ears & nose, nl lips & teeth Neck: non-tender, supple, No jvd Respiratory: normal air movement, No congested cough, No labored breathing Cardiovascular: regular rate and rhythm, No edema Gastrointestinal: non-tender, soft, No distended, No rebound or guarding Musculoskeletal: nl extremities to inspection, nl gait and stance Extremities: normal pulses, No calf tenderness, No cyanosis 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: nl mental status, nl speech, nl strength Skin: nl turgor, rash or lesions (multiple indurated erythematous nonblanching lesions throughout the abdomen bilateral groins axilla.) Lymph: No nl lymph nodes (possible inguinal and right axillary lymph nodes versus lesions as above) Breasts: Right breast with one hard mass nonmobile with nonblanching erythematous changes of the breast. Left breast with a few small round lesions. Results Result Diagram: 12/19/16 0502 12/19/16 0507 ISSA MUSTAFA MD Dec 20, 2016 02:06
[2016-12-20 05:25] LABS: BASOPHILS % 0.2 % (0.0-2.0); EOSINOPHILS % 0.1 % (0.0-7.0); HEMATOCRIT 31.3 % (37.0-47.0); HEMOGLOBIN 10.3 g/dl (12.0-16.0); LYMPHOCYTES # 2.6 10^3/ul (0.8-2.9); LYMPHOCYTES % 18.2 % (15.0-51.0); MEAN CORPUSCULAR HEMOGLOBIN 31.1 pg (29.0-33.0); MEAN CORPUSCULAR VOLUME 94.2 fl (82.0-101.0); MEAN PLATELET VOLUME 7.1 fl (7.4-10.4); MONOCYTE # 1.4 10^3/ul (0.3-0.9); MONOCYTES % 9.8 % (0.0-11.0); NEUTROPHIL # 10.4 10^3/ul (1.6-7.5); NEUTROPHILS % 71.7 % (39.0-77.0); NUCLEATED RED BLOOD CELLS% 4.7 /100WBC (0.0-0.0); PLATELET COUNT 212 10^3/UL (140-440); RED BLOOD COUNT 3.32 10^6/ul (4.20-5.40); RED CELL DISTRIBUTION WIDTH 20.5 % (11.5-14.5); UNCORRECTED WBC 14.5 10^3/ul (4.8-10.8); WHITE BLOOD COUNT 14.5 10^3/ul (4.8-10.8)
[2016-12-20 05:32] LABS: CREATININE 0.7 mg/dl (0.44-1.00)
[2016-12-20 05:33] LABS: CALCIUM 7.7 mg/dl (8.4-10.2)
[2016-12-20] MEDS: PANTOPRAZOLE (EC) 40 MG TAB PO SCH (05:49)
[2016-12-20 06:14] LABS: CONDITION 1; LH ANALYZER COMMENTS 1; NUCLEATED RED BLOOD CELLS # 0.7 10^3/ul (0.0-0.0)
[2016-12-20 08:14] VITALS: BP 146/67; RESP 18
[2016-12-20] MEDS: DEXAMETHASONE 4 MG TAB PO SCH ×4 (10:51→20:44)
--- NOTE | 2016-12-20 12:56 | CONS ---
Date/Time of Note Date/Time of Note DATE: 12/20/16 TIME: 12:56 Assessment/Plan Assessment/Plan Chief Complaint/Hosp Course The patient is a 56 year old female 1. 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 Pathology so far reveals ER+/ MS+ disease with KI 6722%. Her 2 nu status is pending 2. Dural mass in the right frontal area, most likely metastasis. 3. Increasing anemia and thrombocytopenia with nucleated RBC's - f/u Her 2 braxton status as this will dictate whether or not we start hormone therapy versus chemotherapy - Patient evaluated by Dr. Rob on 12/15/16 for dural based met. Given indicative of presumptive leptomeningeal disease and the patient underwent neuraxis imaging that was negative for drop megs and LP for cytology 12/17/16 which was negative. However, given pachymeningeal enhancement and dural based mass and presumed leptomeningeal involvement, plan for whole brain radiation with field to include scalp for palliation given scalp mets. Per Dr. Rob, fortunately the mass has minimal mass effect on the underlying brain and the patient is asymptomatic, so neurosurgical intervention at this point is unwarranted. - Patient underwent CT sim 12/18/16, and started whole brain radiation today. If ok with Dr. Chari Aleman, ok to discharge patient home with outpatient follow. - Continue dexamethasone and PPI per Dr. Aleman. Will be given namenda which should be given with whole brain radiation therapy per Dr. Aleman. - Tumor markers elevated CA 27-29 382, CA 15-3 151 - Appreciate general surgery recs, awaiting skin biopsy of cutaneous nodules to document biopsy proven metastatic disease - prelim consistent with metastatic carcinoma extensively involving the dermis, with morphologic features supporting breast primary, pending IHC - Given bony metastatic disease, patient will need zometa Q3 months - first dose given 12/14/16 - I have requested case management consult for patient to be seen by Dr. Tara Robbins after discharge with outpatient PET/CT - Will continue to follow, treatment options will depend on ER/MS/HER2 status - continue to monitor CBC. Again patient likely has bone marrow infiltration of her disease - Disability paperwork filled out Patient's sister Caryn Salguero (anesthesiologist) [phone], mother is a pathologist, father is a psychiatrist Problems: Consultation Date/Type/Reason Admit Date/Time Dec 12, 2016 at 05:37 Initial Consult Date 12/12/16 Type of Consultation: Hematology/Oncology Referring Provider: LISANDRO CHENG MD 24 HR Interval Summary Free Text/Dictation Doing well. Tolerated first radiation treatment this morning. Exam/Review of Systems Vital Signs Vitals Vital Signs Date Time Temp Pulse Resp B/P Pulse Ox O2 Delivery O2 Flow Rate FiO2 12/20/16 08:14 98.6 90 18 146/67 96 Intake and Output 12/19/16 12/19/16 12/20/16 15:00 23:00 07:00 Intake Total 960 ml 600 ml Balance 960 ml 600 ml Exam Constitutional: alert, frail, other (thin) Psych: nl mood/affect, no complaints Head: normocephalic Eyes: nl conjunctiva ENMT: nl external ears & nose, nl lips & teeth Neck: non-tender, supple Respiratory: clear to auscultation Cardiovascular: regular rate and rhythm Gastrointestinal: soft Musculoskeletal: nl extremities to inspection Skin: other (right breast replaced with tumor. mulitple metastatic skin lesions over her torso and back) Results Result Diagram: 12/20/16 0500 12/20/16 0500 Results 24 hrs Laboratory Tests Test 12/20/16 05:00 Anion Gap 17 H Basophils # 0.0 Basophils % 0.2 Blood Morphology Comment Blood Urea Nitrogen 17 Calcium Level 7.7 L Carbon Dioxide Level 28 Chloride Level 102 Creatinine 0.70 Eosinophils # 0.0 Eosinophils % 0.1 Glucose Level 101 # Hematocrit 31.3 L Hemoglobin 10.3 L Lymphocytes # 2.6 Lymphocytes % 18.2 Mean Corpuscular Hemoglobin 31.1 Mean Corpuscular Hemoglobin Concent 33.0 Mean Corpuscular Volume 94.2 Mean Platelet Volume 7.1 L Monocytes # 1.4 H Monocytes % 9.8 Neutrophils # 10.4 H Neutrophils % 71.7 Nucleated Red Blood Cells # 0.7 H Nucleated Red Blood Cells % 4.7 H Platelet Count 212 Potassium Level 5.0 Red Blood Count 3.32 L Red Cell Distribution Width 20.5 H Sodium Level 142 White Blood Count 14.5 H Medications Medications Current Medications Ondansetron HCl (Zofran Inj) 4 mg Q6H PRN IV NAUSEA AND/OR VOMITING; Start at 09:00 Acetaminophen (Tylenol Tab) 650 mg Q6H PRN PO PAIN LEVEL 1-3 OR FEVER Last administered on 12/18/16 17:25; Admin Dose 650 MG; Start 12/12/16 at 09:00 Morphine Sulfate (morphine) 2 mg Q4H PRN IV SEVERE PAIN LEVEL 7-10; Start 12/12 at 09:00 Dexamethasone (Decadron) 6 mg QID PO Last administered on 12/20/16 10:51; Admin Dose 6 MG; Start 12/16/16 at 09:00 Pantoprazole (Protonix Tab) 40 mg DAILY@06 PO Last administered on 12/20/16 05 :49; Admin Dose 40 MG; Start 12/16/16 at 06:00 TOGREGOR MD Dec 20, 2016 12:56
--- NOTE | 2016-12-20 16:20 | PN ---
Date/Time of Note Date/Time of Note DATE: 12/20/16 TIME: 16:11 Assessment/Plan VTE Prophylaxis VTE Prophylaxis Intervention: SCD's Lines/Catheters IV C[facility] Type (from [facility]): Saline Lock Urinary Cath still in place: No Assessment/Plan Chief Complaint/Hosp Course 1. History of breast cancer with symptomatic brain metastasis. Patient did have MRI of the brain that did show extensive enhancement right frontal dural based mass most compatible with dural metastasis with no evidence of parenchymal metastasis. Neurosurgeon/oncologist/radiology oncologist following. No plan for surgical intervention at this time -s/p Whole Brain XRT today, Rad Onc will like monitor O/N and DC in AM with PPI , Steroids and Namenda -LP Cx shows no growth 2. History of breast cancer with multiple soft tissue lesions. Surgeon following. 3. Anemia. Monitor H&H. We'll provide with blood Plavix as needed 4.Scattered. Cutaneous nodules throughout the pelvis. Patient still able to ambulate. Discussed with Dr. Marquez-Rad. No need for orthopedic intervention at this time 5. Multiple soft tissue lesions (likely metastatic). Follow up on skin biopsy. PPx- SCD's Problems: Subjective 24 Hr Interval Summary Constitutional: no complaints Exam/Review of Systems Vital Signs Vitals Vital Signs Date Time Temp Pulse Resp B/P Pulse Ox O2 Delivery O2 Flow Rate FiO2 12/20/16 08:14 98.6 90 18 146/67 96 Intake and Output 12/19/16 12/19/16 12/20/16 15:00 23:00 07:00 Intake Total 960 ml 600 ml Balance 960 ml 600 ml Exam Constitutional: alert, oriented Respiratory: clear to auscultation Cardiovascular: regular rate and rhythm Gastrointestinal: soft, No distended Musculoskeletal: nl extremities to inspection Results Result Diagram: 12/20/16 0500 12/20/16 0500 Results 24 hrs Laboratory Tests Test 12/20/16 05:00 Anion Gap 17 H Basophils # 0.0 Basophils % 0.2 Blood Morphology Comment Blood Urea Nitrogen 17 Calcium Level 7.7 L Carbon Dioxide Level 28 Chloride Level 102 Creatinine 0.70 Eosinophils # 0.0 Eosinophils % 0.1 Glucose Level 101 # Hematocrit 31.3 L Hemoglobin 10.3 L Lymphocytes # 2.6 Lymphocytes % 18.2 Mean Corpuscular Hemoglobin 31.1 Mean Corpuscular Hemoglobin Concent 33.0 Mean Corpuscular Volume 94.2 Mean Platelet Volume 7.1 L Monocytes # 1.4 H Monocytes % 9.8 Neutrophils # 10.4 H Neutrophils % 71.7 Nucleated Red Blood Cells # 0.7 H Nucleated Red Blood Cells % 4.7 H Platelet Count 212 Potassium Level 5.0 Red Blood Count 3.32 L Red Cell Distribution Width 20.5 H Sodium Level 142 White Blood Count 14.5 H Medications Medications Current Medications Ondansetron HCl (Zofran Inj) 4 mg Q6H PRN IV NAUSEA AND/OR VOMITING; Start at 09:00 Acetaminophen (Tylenol Tab) 650 mg Q6H PRN PO PAIN LEVEL 1-3 OR FEVER Last administered on 12/18/16 17:25; Admin Dose 650 MG; Start 12/12/16 at 09:00 Morphine Sulfate (morphine) 2 mg Q4H PRN IV SEVERE PAIN LEVEL 7-10; Start 12/12 at 09:00 Dexamethasone (Decadron) 6 mg QID PO Last administered on 12/20/16 13:40; Admin Dose 6 MG; Start 12/16/16 at 09:00 Pantoprazole (Protonix Tab) 40 mg DAILY@06 PO Last administered on 12/20/16 05 :49; Admin Dose 40 MG; Start 12/16/16 at 06:00 SAMSON DEL CASTILLO Dec 20, 2016 16:20
[2016-12-20] MEDS: MEMANTINE 5 MG TAB PO SCH (17:28)
[2016-12-20 20:10] VITALS: BP 153/67; RESP 19
[2016-12-21 05:51] LABS: BASOPHILS % 0.1 % (0.0-2.0); EOSINOPHILS % 0.1 % (0.0-7.0); HEMATOCRIT 30.9 % (37.0-47.0); HEMOGLOBIN 10.4 g/dl (12.0-16.0); LYMPHOCYTES % 20.6 % (15.0-51.0); MEAN CORPUSCULAR HEMOGLOBIN 31.4 pg (29.0-33.0); MEAN CORPUSCULAR HGB CONC 33.6 g/dl (32.0-37.0); MEAN CORPUSCULAR VOLUME 93.6 fl (82.0-101.0); MEAN PLATELET VOLUME 7.1 fl (7.4-10.4); MONOCYTE # 1.2 10^3/ul (0.3-0.9); MONOCYTES % 8.3 % (0.0-11.0); NEUTROPHIL # 10.4 10^3/ul (1.6-7.5); NEUTROPHILS % 70.9 % (39.0-77.0); NUCLEATED RED BLOOD CELLS% 4.9 /100WBC (0.0-0.0); PLATELET COUNT 213 10^3/UL (140-440); RED CELL DISTRIBUTION WIDTH 19.9 % (11.5-14.5); UNCORRECTED WBC 14.6 10^3/ul (4.8-10.8); WHITE BLOOD COUNT 14.6 10^3/ul (4.8-10.8)
[2016-12-21 06:12] LABS: CONDITION 1; CREATININE 0.69 mg/dl (0.44-1.00); LH ANALYZER COMMENTS 1; NUCLEATED RED BLOOD CELLS # 0.7 10^3/ul (0.0-0.0)
[2016-12-21 06:13] LABS: CALCIUM 7.9 mg/dl (8.4-10.2)
[2016-12-21] MEDS: PANTOPRAZOLE (EC) 40 MG TAB PO SCH (06:15)
[2016-12-21 07:31] VITALS: BP 141/77; RESP 18
[2016-12-21] MEDS: DEXAMETHASONE 4 MG TAB PO SCH ×5 (08:25→21:41)
[2016-12-21] MEDS: MEMANTINE 5 MG TAB PO SCH (08:25)
--- NOTE | 2016-12-21 09:49 | CONS ---
Date/Time of Note Date/Time of Note DATE: 12/21/16 TIME: 09:47 Assessment/Plan Assessment/Plan Chief Complaint/Hosp Course The patient is a 56 year old female 1. 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 Pathology so far reveals ER+ (98%)/ VT+ (3%) disease with KI 6722%. Her 2 nu status is pending 2. Dural mass in the right frontal area, most likely metastasis. 3. Increasing anemia and thrombocytopenia with nucleated RBC's - f/u Her 2 braxton status (IHC 2+ equivocal, pending FISH) as this will dictate whether or not we start hormone therapy versus chemotherapy - still pending. Treatment (hormonal vs. chemotherapy) will depend on HER2 status. Would like to start letrozole (if confirmed postmenopausal), and add ibrance once radiation complete and if HER2 negative disease. Patient's last menstrual period 02/2016, unclear whether postmenopausal, will check FSH and estradiol prior to starting letrozole. - Patient evaluated by Dr. Rob on 12/15/16 for dural based met. Given indicative of presumptive leptomeningeal disease and the patient underwent neuraxis imaging that was negative for drop mets and LP for cytology 12/17/16 which was negative. However, given pachymeningeal enhancement and dural based mass and presumed leptomeningeal involvement, plan for whole brain radiation with field to include scalp for palliation given scalp mets. Per Dr. Rob, fortunately the mass has minimal mass effect on the underlying brain and the patient is asymptomatic, so neurosurgical intervention at this point is unwarranted. - Patient underwent CT sim 12/18/16, and started whole brain radiation yesterday. Patient observed overnight. Patient would like to stay given episode of dizziness in the shower this morning, once stable to discharge please send patient home with dexamethasone, PPI and Namenda with outpatient follow-up. - Continue dexamethasone and PPI per Dr. Aleman. Will be given namenda which should be given with whole brain radiation therapy per Dr. Aleman. - Tumor markers elevated CA 27-29 382, CA 15-3 151 - Appreciate general surgery recs, awaiting skin biopsy of cutaneous nodules to document biopsy proven metastatic disease - prelim consistent with metastatic carcinoma extensively involving the dermis, with morphologic features supporting breast primary, pending IHC - Given bony metastatic disease, patient will need zometa Q3 months - first dose given 12/14/16 - I have requested case management consult for patient to be seen by Dr. Tara Robbins after discharge with outpatient PET/CT - Continue to monitor CBC. Again patient likely has bone marrow infiltration of her disease - Disability paperwork filled out Patient's sister Caryn Salguero (anesthesiologist) [phone], mother is a pathologist, father is a psychiatrist Problems: Consultation Date/Type/Reason Admit Date/Time Dec 12, 2016 at 05:37 Initial Consult Date 12/12/16 Type of Consultation: Hematology/Oncology Referring Provider: LISANDRO CHENG MD 24 HR Interval Summary Free Text/Dictation The patient states that she had a dizzy spell while in the shower today. Exam/Review of Systems Vital Signs Vitals Vital Signs Date Time Temp Pulse Resp B/P Pulse Ox O2 Delivery O2 Flow Rate FiO2 12/21/16 07:31 98.8 90 18 141/77 98 Intake and Output 12/20/16 12/20/16 12/21/16 15:00 23:00 07:00 Intake Total 900 ml 920 ml Balance 900 ml 920 ml Exam Constitutional: alert, frail, other (thin) Psych: nl mood/affect, no complaints Head: normocephalic Eyes: nl conjunctiva ENMT: nl external ears & nose, nl lips & teeth Neck: non-tender, supple Respiratory: clear to auscultation Cardiovascular: regular rate and rhythm Gastrointestinal: soft Musculoskeletal: nl extremities to inspection Skin: other (right breast replaced with tumor. mulitple metastatic skin lesions over her torso and back) Results Result Diagram: 12/21/16 0438 12/21/16 0438 Results 24 hrs Laboratory Tests Test 12/21/16 04:38 Anion Gap 17 H Basophils # 0.0 Basophils % 0.1 Blood Morphology Comment Blood Urea Nitrogen 20 Calcium Level 7.9 L Carbon Dioxide Level 27 Chloride Level 101 Creatinine 0.69 Eosinophils # 0.0 Eosinophils % 0.1 Glucose Level 100 Hematocrit 30.9 L Hemoglobin 10.4 L Lymphocytes # 3.0 H Lymphocytes % 20.6 Mean Corpuscular Hemoglobin 31.4 Mean Corpuscular Hemoglobin Concent 33.6 Mean Corpuscular Volume 93.6 Mean Platelet Volume 7.1 L Monocytes # 1.2 H Monocytes % 8.3 Neutrophils # 10.4 H Neutrophils % 70.9 Nucleated Red Blood Cells # 0.7 H Nucleated Red Blood Cells % 4.9 H Platelet Count 213 Potassium Level 5.0 Red Blood Count 3.30 L Red Cell Distribution Width 19.9 H Sodium Level 140 White Blood Count 14.6 H Medications Medications Current Medications Ondansetron HCl (Zofran Inj) 4 mg Q6H PRN IV NAUSEA AND/OR VOMITING; Start at 09:00 Acetaminophen (Tylenol Tab) 650 mg Q6H PRN PO PAIN LEVEL 1-3 OR FEVER Last administered on 12/18/16 17:25; Admin Dose 650 MG; Start 12/12/16 at 09:00 Morphine Sulfate (morphine) 2 mg Q4H PRN IV SEVERE PAIN LEVEL 7-10; Start 12/12 at 09:00 Dexamethasone (Decadron) 6 mg QID PO Last administered on 12/21/16 08:25; Admin Dose 6 MG; Start 12/16/16 at 09:00 Pantoprazole (Protonix Tab) 40 mg DAILY@06 PO Last administered on 12/21/16 06 :15; Admin Dose 40 MG; Start 12/16/16 at 06:00 Memantine (Namenda) 5 mg DAILY PO Last administered on 12/21/16 08:25; Admin Dose 5 MG; Start 12/20/16 at 16:30 GREGOR XIONG MD Dec 21, 2016 09:49
--- NOTE | 2016-12-21 10:30 | PN ---
Date/Time of Note Date/Time of Note DATE: 12/21/16 TIME: 10:25 Assessment/Plan VTE Prophylaxis VTE Prophylaxis Intervention: SCD's Lines/Catheters IV C[facility] Type [facility] Saline Lock Urinary Cath still in place: No Assessment/Plan Chief Complaint/Hosp Course A/P: 56 F with: 1. History of breast cancer with symptomatic brain metastasis. Patient did have MRI of the brain that did show extensive enhancement right frontal dural based mass most compatible with dural metastasis with no evidence of parenchymal metastasis. Neurosurgeon/oncologist/radiology oncologist following. No plan for surgical intervention at this time. s/p Whole Brain XRT. LP Cx shows no growth. -per nursing, for radiation again today, Rad Onc will like monitor O/N - continue PPI, Steroids and Namenda 2. History of breast cancer with multiple soft tissue lesions. Surgeon following. 3. Anemia. Monitor H&H. We'll provide with blood Plavix as needed 4.Scattered. Cutaneous nodules throughout the pelvis. Patient still able to ambulate. Discussed earlier with Dr. Marquez-Rad. No need for orthopedic intervention at this time 5. Multiple soft tissue lesions (likely metastatic). Follow up on skin biopsy. PPx- SCD's Problems: Subjective 24 Hr Interval Summary Free Text/Dictation Pt received radiation yesterday. Awaiting more today, no acute events overnight. Exam/Review of Systems Vital Signs Vitals Vital Signs Date Time Temp Pulse Resp B/P Pulse Ox O2 Delivery O2 Flow Rate FiO2 12/21/16 07:31 98.8 90 18 141/77 98 Intake and Output 12/20/16 12/20/16 12/21/16 15:00 23:00 07:00 Intake Total 900 ml 920 ml Balance 900 ml 920 ml Exam Constitutional: alert, oriented Respiratory: clear to auscultation Cardiovascular: regular rate and rhythm Gastrointestinal: soft, No distended Musculoskeletal: nl extremities to inspection Results Result Diagram: 12/21/16 0438 12/21/16 0438 Results 24 hrs Laboratory Tests Test 12/21/16 04:38 Anion Gap 17 H Basophils # 0.0 Basophils % 0.1 Blood Morphology Comment Blood Urea Nitrogen 20 Calcium Level 7.9 L Carbon Dioxide Level 27 Chloride Level 101 Creatinine 0.69 Eosinophils # 0.0 Eosinophils % 0.1 Glucose Level 100 Hematocrit 30.9 L Hemoglobin 10.4 L Lymphocytes # 3.0 H Lymphocytes % 20.6 Mean Corpuscular Hemoglobin 31.4 Mean Corpuscular Hemoglobin Concent 33.6 Mean Corpuscular Volume 93.6 Mean Platelet Volume 7.1 L Monocytes # 1.2 H Monocytes % 8.3 Neutrophils # 10.4 H Neutrophils % 70.9 Nucleated Red Blood Cells # 0.7 H Nucleated Red Blood Cells % 4.9 H Platelet Count 213 Potassium Level 5.0 Red Blood Count 3.30 L Red Cell Distribution Width 19.9 H Sodium Level 140 White Blood Count 14.6 H Medications Medications Current Medications Ondansetron HCl (Zofran Inj) 4 mg Q6H PRN IV NAUSEA AND/OR VOMITING; Start at 09:00 Acetaminophen (Tylenol Tab) 650 mg Q6H PRN PO PAIN LEVEL 1-3 OR FEVER Last administered on 12/18/16 17:25; Admin Dose 650 MG; Start 12/12/16 at 09:00 Morphine Sulfate (morphine) 2 mg Q4H PRN IV SEVERE PAIN LEVEL 7-10; Start 12/12 at 09:00 Dexamethasone (Decadron) 6 mg QID PO Last administered on 12/21/16 08:25; Admin Dose 6 MG; Start 12/16/16 at 09:00 Pantoprazole (Protonix Tab) 40 mg DAILY@06 PO Last administered on 12/21/16 06 :15; Admin Dose 40 MG; Start 12/16/16 at 06:00 Memantine (Namenda) 5 mg DAILY PO Last administered on 12/21/16 08:25; Admin Dose 5 MG; Start 12/20/16 at 16:30 MARLON MENDEZ Dec 21, 2016 10:30
[2016-12-21 20:21] VITALS: BP 132/62; RESP 19
[2016-12-22] MEDS: PANTOPRAZOLE (EC) 40 MG TAB PO SCH (05:34)
[2016-12-22 06:38] LABS: BASOPHILS % 0.1 % (0.0-2.0); EOSINOPHILS % 0.1 % (0.0-7.0); HEMATOCRIT 30.1 % (37.0-47.0); HEMOGLOBIN 10.2 g/dl (12.0-16.0); LYMPHOCYTES # 3.1 10^3/ul (0.8-2.9); LYMPHOCYTES % 18.1 % (15.0-51.0); MEAN CORPUSCULAR HEMOGLOBIN 31.3 pg (29.0-33.0); MEAN CORPUSCULAR VOLUME 92.1 fl (82.0-101.0); MEAN PLATELET VOLUME 7.1 fl (7.4-10.4); MONOCYTE # 1.5 10^3/ul (0.3-0.9); MONOCYTES % 8.6 % (0.0-11.0); NEUTROPHIL # 12.6 10^3/ul (1.6-7.5); NEUTROPHILS % 73.1 % (39.0-77.0); NUCLEATED RED BLOOD CELLS% 3.9 /100WBC (0.0-0.0); PLATELET COUNT 232 10^3/UL (140-440); RED BLOOD COUNT 3.27 10^6/ul (4.20-5.40); RED CELL DISTRIBUTION WIDTH 19.9 % (11.5-14.5); UNCORRECTED WBC 17.3 10^3/ul (4.8-10.8); WHITE BLOOD COUNT 17.3 10^3/ul (4.8-10.8)
[2016-12-22 06:49] LABS: POTASSIUM 5.1 mmol/L (3.5-5.1)
[2016-12-22 06:52] LABS: CREATININE 0.74 mg/dl (0.44-1.00)
[2016-12-22 06:53] LABS: CALCIUM 7.8 mg/dl (8.4-10.2)
[2016-12-22 06:57] LABS: NUCLEATED RED BLOOD CELLS # 0.7 10^3/ul (0.0-0.0)
[2016-12-22 06:58] LABS: CONDITION 1; LH ANALYZER COMMENTS 1
[2016-12-22 07:27] VITALS: BP 137/66; RESP 18
[2016-12-22] MEDS: DEXAMETHASONE 4 MG TAB PO SCH ×4 (09:18→22:17)
[2016-12-22] MEDS: MEMANTINE 5 MG TAB PO SCH (09:19)
--- NOTE | 2016-12-22 10:54 | PN ---
Date/Time of Note Date/Time of Note DATE: 12/22/16 TIME: 10:53 Assessment/Plan VTE Prophylaxis VTE Prophylaxis Intervention: contraindicated Lines/Catheters IV Catheter Type (from [facility]): Saline Lock Urinary Cath still in place: No Assessment/Plan Problems: (1) Breast cancer metastasized to brain Status: Acute Comment: Patient has positive receptors. Oncology will determine about whether or not to do hormonal manipulation in this particular patient and she is receiving radiation therapy. Qualifiers: Laterality: right Qualified Code: C50.911 - Breast cancer metastasized to brain, right (2) Anemia Status: Acute Comment: Noted are holding stable Qualifiers: Anemia type: unspecified type Qualified Code: D64.9 - Anemia, unspecified type Subjective 24 Hr Interval Summary Free Text/Dictation Charming -[place] female sitting in bed with family around. Patient very specifically requests that we not discuss details of her medical care with the family Constitutional: no complaints Respiratory: no complaints Cardiovascular: no complaints Neurologic: headache (No focal neurologic abnormalities patient is without complaints other) Exam/Review of Systems Vital Signs Vitals Vital Signs Date Time Temp Pulse Resp B/P Pulse Ox O2 Delivery O2 Flow Rate FiO2 12/22/16 07:27 97.9 80 18 137/66 98 Intake and Output 12/21/16 12/21/16 12/22/16 15:00 23:00 07:00 Intake Total 1440 ml 2000 ml Balance 1440 ml 2000 ml Exam Constitutional: alert, oriented Respiratory: clear to auscultation, normal air movement Cardiovascular: nl pulses, regular rate and rhythm Results Result Diagram: 12/22/16 0532 12/22/16 0532 Results 24 hrs Laboratory Tests Test 12/22/16 05:32 Anion Gap 13 Basophils # 0.0 Basophils % 0.1 Blood Morphology Comment Blood Urea Nitrogen 21 H Calcium Level 7.8 L Carbon Dioxide Level 28 Chloride Level 104 Creatinine 0.74 Eosinophils # 0.0 Eosinophils % 0.1 Glucose Level 104 Hematocrit 30.1 L Hemoglobin 10.2 L Lymphocytes # 3.1 H Lymphocytes % 18.1 Mean Corpuscular Hemoglobin 31.3 Mean Corpuscular Hemoglobin Concent 34.0 Mean Corpuscular Volume 92.1 Mean Platelet Volume 7.1 L Monocytes # 1.5 H Monocytes % 8.6 Neutrophils # 12.6 H Neutrophils % 73.1 Nucleated Red Blood Cells # 0.7 H Nucleated Red Blood Cells % 3.9 H Platelet Count 232 Potassium Level 5.1 Red Blood Count 3.27 L Red Cell Distribution Width 19.9 H Sodium Level 140 White Blood Count 17.3 H Medications Medications Current Medications Ondansetron HCl (Zofran Inj) 4 mg Q6H PRN IV NAUSEA AND/OR VOMITING; Start at 09:00 Acetaminophen (Tylenol Tab) 650 mg Q6H PRN PO PAIN LEVEL 1-3 OR FEVER Last administered on 12/18/16 17:25; Admin Dose 650 MG; Start 12/12/16 at 09:00 Morphine Sulfate (morphine) 2 mg Q4H PRN IV SEVERE PAIN LEVEL 7-10; Start 12/12 at 09:00 Dexamethasone (Decadron) 6 mg QID PO Last administered on 12/22/16 09:18; Admin Dose 6 MG; Start 12/16/16 at 09:00 Pantoprazole (Protonix Tab) 40 mg DAILY@06 PO Last administered on 12/21/16 06 :15; Admin Dose 40 MG; Start 12/16/16 at 06:00 Memantine (Namenda) 5 mg DAILY PO Last administered on 12/22/16 09:19; Admin Dose 5 MG; Start 12/20/16 at 16:30 GARY CID MD Dec 22, 2016 10:54
--- NOTE | 2016-12-22 13:51 | PN ---
Date/Time of Note Date/Time of Note DATE: 12/22/16 TIME: 13:48 Assessment/Plan VTE Prophylaxis VTE Prophylaxis Intervention: ambulation Lines/Catheters IV Catheter Type (from [facility] Saline Lock Urinary Cath still in place: No Assessment/Plan Assessment/Plan 1. 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 Pathology so far reveals ER+ (98%)/ MN+ (3%) disease with KI 6722%. Her 2 nu status is pending 2. Dural mass in the right frontal area, most likely metastasis. continue XRT 3. Increasing anemia and thrombocytopenia with nucleated RBC's - f/u Her 2 braxton status (IHC 2+ equivocal, pending FISH) as this will dictate whether or not we start hormone therapy versus chemotherapy - still pending. Treatment (hormonal vs. chemotherapy) will depend on HER2 status. Would like to start letrozole (if confirmed postmenopausal), and add ibrance once radiation complete and if HER2 negative disease. -once stable to discharge will send patient home with dexamethasone, PPI and Namenda with outpatient follow-up. - Tumor markers elevated CA 27-29 382, CA 15-3 151 - Given bony metastatic disease, patient will need zometa Q3 months - first dose given 12/14/16 Subjective 24 Hr Interval Summary Constitutional: no complaints Exam/Review of Systems Vital Signs Vitals Vital Signs Date Time Temp Pulse Resp B/P Pulse Ox O2 Delivery O2 Flow Rate FiO2 12/22/16 07:27 97.9 80 18 137/66 98 Intake and Output 12/21/16 12/21/16 12/22/16 15:00 23:00 07:00 Intake Total 1440 ml 2000 ml Balance 1440 ml 2000 ml Exam Constitutional: oriented Psych: nl mood/affect Neck: supple Respiratory: normal air movement Results Result Diagram: 12/22/16 0532 12/22/16 0532 Results 24 hrs Laboratory Tests Test 12/22/16 05:32 Anion Gap 13 Basophils # 0.0 Basophils % 0.1 Blood Morphology Comment Blood Urea Nitrogen 21 H Calcium Level 7.8 L Carbon Dioxide Level 28 Chloride Level 104 Creatinine 0.74 Eosinophils # 0.0 Eosinophils % 0.1 Glucose Level 104 Hematocrit 30.1 L Hemoglobin 10.2 L Lymphocytes # 3.1 H Lymphocytes % 18.1 Mean Corpuscular Hemoglobin 31.3 Mean Corpuscular Hemoglobin Concent 34.0 Mean Corpuscular Volume 92.1 Mean Platelet Volume 7.1 L Monocytes # 1.5 H Monocytes % 8.6 Neutrophils # 12.6 H Neutrophils % 73.1 Nucleated Red Blood Cells # 0.7 H Nucleated Red Blood Cells % 3.9 H Platelet Count 232 Potassium Level 5.1 Red Blood Count 3.27 L Red Cell Distribution Width 19.9 H Sodium Level 140 White Blood Count 17.3 H Medications Medications Current Medications Ondansetron HCl (Zofran Inj) 4 mg Q6H PRN IV NAUSEA AND/OR VOMITING; Start at 09:00 Acetaminophen (Tylenol Tab) 650 mg Q6H PRN PO PAIN LEVEL 1-3 OR FEVER Last administered on 12/18/16 17:25; Admin Dose 650 MG; Start 12/12/16 at 09:00 Morphine Sulfate (morphine) 2 mg Q4H PRN IV SEVERE PAIN LEVEL 7-10; Start 12/12 at 09:00 Dexamethasone (Decadron) 6 mg QID PO Last administered on 12/22/16 12:44; Admin Dose 6 MG; Start 12/16/16 at 09:00 Pantoprazole (Protonix Tab) 40 mg DAILY@06 PO Last administered on 12/21/16 06 :15; Admin Dose 40 MG; Start 12/16/16 at 06:00 Memantine (Namenda) 5 mg DAILY PO Last administered on 12/22/16 09:19; Admin Dose 5 MG; Start 12/20/16 at 16:30 RODDY FAN MD Dec 22, 2016 13:51
[2016-12-22 19:30] VITALS: BP 132/61; RESP 18
[2016-12-23] MEDS: PANTOPRAZOLE (EC) 40 MG TAB PO SCH (05:29)
[2016-12-23 06:50] LABS: POTASSIUM 5.2 mmol/L (3.5-5.1)
[2016-12-23 06:53] LABS: CREATININE 0.67 mg/dl (0.44-1.00)
[2016-12-23 07:01] LABS: HEMATOCRIT 30.9 % (37.0-47.0); HEMOGLOBIN 10.5 g/dl (12.0-16.0); MEAN CORPUSCULAR HEMOGLOBIN 31.4 pg (29.0-33.0); MEAN CORPUSCULAR HGB CONC 33.9 g/dl (32.0-37.0); MEAN CORPUSCULAR VOLUME 92.7 fl (82.0-101.0); MEAN PLATELET VOLUME 7.1 fl (7.4-10.4); PLATELET COUNT 226 10^3/UL (140-440); RED BLOOD COUNT 3.34 10^6/ul (4.20-5.40); RED CELL DISTRIBUTION WIDTH 20.4 % (11.5-14.5); UNCORRECTED WBC 19.3 10^3/ul (4.8-10.8); WHITE BLOOD COUNT 19.3 10^3/ul (4.8-10.8)
[2016-12-23 07:44] VITALS: BP 124/65; RESP 16
[2016-12-23 07:56] LABS: CONDITION 1; LH ANALYZER COMMENTS 1; SUSPECT 1
[2016-12-23] MEDS: DEXAMETHASONE 4 MG TAB PO SCH ×4 (09:17→22:09)
[2016-12-23] MEDS: MEMANTINE 5 MG TAB PO SCH (09:17)
[2016-12-23 10:37] LABS: ANISOCYTOSIS 2+; LYMPHOCYTES # 2.9 10^3/ul (0.8-2.9); MONOCYTE # 1.7 10^3/ul (0.3-0.9); MYELOCYTES # 0.2
--- NOTE | 2016-12-23 10:42 | PN ---
Date/Time of Note Date/Time of Note DATE: 12/23/16 TIME: 10:41 Assessment/Plan VTE Prophylaxis VTE Prophylaxis Intervention: contraindicated (Brain metastases) Lines/Catheters IV Catheter Type (from [facility]): Saline Lock Urinary Cath still in place: No Assessment/Plan Problems: (1) Breast cancer metastasized to brain Status: Acute Comment: As per the dictation from Dr. Lawton. We are awaiting the final path which will delineate which type of chemotherapy the patient will receive. She is artery receiving radiation therapy. It is time for discharge planning to make arrangements for her to be able to be discharged and followed as an outpatient therapeutic protocol Qualifiers: Laterality: right Qualified Code: C50.911 - Breast cancer metastasized to brain, right Subjective 24 Hr Interval Summary Free Text/Dictation Charming vibrant woman who offers no complaints Respiratory: no complaints Cardiovascular: no complaints Gastrointestinal: no complaints Exam/Review of Systems Vital Signs Vitals Vital Signs Date Time Temp Pulse Resp B/P Pulse Ox O2 Delivery O2 Flow Rate FiO2 12/23/16 07:44 98.5 79 16 124/65 96 Intake and Output 12/22/16 12/22/16 12/23/16 15:00 23:00 07:00 Intake Total 1520 ml 1550 ml Balance 1520 ml 1550 ml Exam Constitutional: alert, oriented Respiratory: clear to auscultation, normal air movement Cardiovascular: nl pulses, regular rate and rhythm Gastrointestinal: nl liver, spleen, non-tender, soft Results Result Diagram: 12/23/16 0528 12/23/16 0528 Results 24 hrs Laboratory Tests Test 12/23/16 05:28 Anion Gap 16 Anisocytosis 2+ Band Neutrophils % 12.0 H Basophils # Basophils % Blood Morphology Comment Blood Urea Nitrogen 23 H Calcium Level 8.0 L Carbon Dioxide Level 26 Chloride Level 103 Creatinine 0.67 Differential Comment MANUAL DIFF Eosinophils # Eosinophils % Glucose Level 98 Hematocrit 30.9 L Hemoglobin 10.5 L Lymphocytes # 2.9 Lymphocytes % 15.0 Mean Corpuscular Hemoglobin 31.4 Mean Corpuscular Hemoglobin Concent 33.9 Mean Corpuscular Volume 92.7 Mean Platelet Volume 7.1 L Metamyelocytes # 0.2 Metamyelocytes % 1.0 H Monocytes # 1.7 H Monocytes % 9.0 Myelocytes # 0.2 Myelocytes % 1.0 H Neutrophils # 12.0 H Neutrophils % 62.0 Nucleated Red Blood Cells # Nucleated Red Blood Cells % 4.0 H Platelet Count 226 Potassium Level 5.2 H Red Blood Count 3.34 L Red Cell Distribution Width 20.4 H Sodium Level 140 White Blood Count 19.3 H Medications Medications Current Medications Ondansetron HCl (Zofran Inj) 4 mg Q6H PRN IV NAUSEA AND/OR VOMITING; Start at 09:00 Acetaminophen (Tylenol Tab) 650 mg Q6H PRN PO PAIN LEVEL 1-3 OR FEVER Last administered on 12/18/16 17:25; Admin Dose 650 MG; Start 12/12/16 at 09:00 Morphine Sulfate (morphine) 2 mg Q4H PRN IV SEVERE PAIN LEVEL 7-10; Start 12/12 at 09:00 Dexamethasone (Decadron) 6 mg QID PO Last administered on 12/23/16 09:17; Admin Dose 6 MG; Start 12/16/16 at 09:00 Pantoprazole (Protonix Tab) 40 mg DAILY@06 PO Last administered on 12/21/16 06 :15; Admin Dose 40 MG; Start 12/16/16 at 06:00 Memantine (Namenda) 5 mg DAILY PO Last administered on 12/23/16 09:17; Admin Dose 5 MG; Start 12/20/16 at 16:30 GARY CID MD Dec 23, 2016 10:42
[2016-12-23 19:53] VITALS: BP 131/60; RESP 18
[2016-12-24] MEDS: PANTOPRAZOLE (EC) 40 MG TAB PO SCH (05:18)
[2016-12-24 05:40] LABS: POTASSIUM 4.6 mmol/L (3.5-5.1)
[2016-12-24 05:43] LABS: CREATININE 0.65 mg/dl (0.44-1.00)
[2016-12-24 05:44] LABS: CALCIUM 7.9 mg/dl (8.4-10.2)
[2016-12-24 06:20] LABS: BASOPHILS % 0.1 % (0.0-2.0); EOSINOPHILS % 0.1 % (0.0-7.0); HEMOGLOBIN 9.9 g/dl (12.0-16.0); LYMPHOCYTES # 3.5 10^3/ul (0.8-2.9); LYMPHOCYTES % 17.7 % (15.0-51.0); MEAN CORPUSCULAR HEMOGLOBIN 31.6 pg (29.0-33.0); MEAN CORPUSCULAR VOLUME 92.8 fl (82.0-101.0); MONOCYTE # 1.1 10^3/ul (0.3-0.9); MONOCYTES % 5.5 % (0.0-11.0); NEUTROPHIL # 15.3 10^3/ul (1.6-7.5); NEUTROPHILS % 76.6 % (39.0-77.0); PLATELET COUNT 234 10^3/UL (140-440); RED BLOOD COUNT 3.12 10^6/ul (4.20-5.40); RED CELL DISTRIBUTION WIDTH 20.3 % (11.5-14.5)
[2016-12-24 06:22] LABS: CONDITION 1; LH ANALYZER COMMENTS 1; NUCLEATED RED BLOOD CELLS # 0.4 10^3/ul (0.0-0.0); SUSPECT 1
[2016-12-24 07:41] VITALS: BP 138/67; RESP 16
[2016-12-24] MEDS: DEXAMETHASONE 4 MG TAB PO SCH ×4 (09:24→20:36)
[2016-12-24] MEDS: MEMANTINE 5 MG TAB PO SCH (09:24)
[2016-12-24] MEDS ORDERED: MEMA5TAB14 PO (14:19)
--- NOTE | 2016-12-24 14:20 | PDOCDIS ---
Discharge Instructions CONDITION Patient Condition: Good HOME CARE INSTRUCTIONS: Diet Instructions: Regular ACTIVITY: Activity Restrictions: No Restrictions FOLLOW UP/APPOINTMENTS Appointments F/U WITH YOUR PCP AND ONCOLOGIST SCHEDULED SAMSON DEL CASTILLO Dec 24, 2016 14:20
[2016-12-24 20:33] VITALS: BP 118/54; RESP 18
--- NOTE | 2016-12-24 23:30 | PN ---
Date/Time of Note Date/Time of Note DATE: 12/24/16 TIME: 23:27 Assessment/Plan Lines/Catheters IV Catheter Type (from [facility] Saline Lock [place] in Place (from [facility]): No Assessment/Plan Chief Complaint/Hosp Course 1. Right breast mass with infiltrating ductal carcinoma with metastasis ( probable retroperitoneum, lymphatics, bone, skin, brain) s/p core needle and skin bxs. +Tumor markers. Abdominal skin bx + metastasis. Radiation. -oncology input and f/u appreciated 2. Multiple soft tissue lesions metastatic lesions s/p bx -path noted > onc f/u 3. Anemia -Medical/GI/oncologic workup -Transfuse as needed 4. Generalized weakness secondary to above -As above -Nutritional optimization 5. Abnormal LFTs and alkaline phosphatase may be secondary to above -As above 6. Pruritus and weight loss may be secondary to above -As above 7. Thrombocytopenia resolved Thank you, Problems: Subjective 24 Hr Interval Summary No fever/chills. Leukocytosis. Multiple skin, bone, retroperitoneal, brain metastatic disease. No n/v. No cp/sob. No cough. No avelar/dizzy/visual or neuro changes. No dysuria. Min pain. Bowel function. Generalized weakness. Exam/Review of Systems Vital Signs Vitals Vital Signs Date Time Temp Pulse Resp B/P Pulse Ox O2 Delivery O2 Flow Rate FiO2 12/24/16 20:33 97.9 93 18 118/54 95 Intake and Output 12/23/16 12/23/16 12/24/16 15:00 23:00 07:00 Intake Total 1010 ml 1100 ml Balance 1010 ml 1100 ml Exam Free Text/Dictation Constitutional: alert, oriented, No distress Psych: nl mood/affect, No anxiety, No confusion Head: atraumatic, normocephalic Eyes: EOMI, PERRL, nl conjunctiva, No icteric ENMT: mucosa pink and moist, nl external ears & nose, nl lips & teeth Neck: non-tender, supple, No jvd Respiratory: normal air movement, No congested cough, No labored breathing Cardiovascular: regular rate and rhythm, No edema Gastrointestinal: non-tender, soft, No distended, No rebound or guarding Musculoskeletal: nl extremities to inspection, nl gait and stance Extremities: normal pulses, No calf tenderness, No cyanosis 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: nl mental status, nl speech, nl strength Skin: nl turgor, rash or lesions (multiple indurated erythematous nonblanching lesions throughout the abdomen bilateral groins axilla.) Lymph: No nl lymph nodes (possible inguinal and right axillary lymph nodes versus lesions as above) Breasts: Right breast with one hard mass nonmobile with nonblanching erythematous changes of the breast. Left breast with a few small round lesions. Results Result Diagram: 12/24/16 0450 12/24/16 0450 ISSA MUSTAFA MD Dec 24, 2016 23:30
--- NOTE | 2016-12-25 07:30 | DS ---
DATE OF ADMISSION: 12/12/2016 DATE OF DISCHARGE: 12/24/2016 DISCHARGE DIAGNOSES: 1. Breast cancer with mets to the brain. The patient is now receiving whole brain radiation. Biop sy has been obtained and will follow up with oncology for further recommendations on chemo. Discharg e with PPI, steroids and Namenda. 2. Anemia secondary to underlying cancer, stable. HOSPITAL COURSE: The patient is a 56-year-old female with history of anemia who presented with gene ralized weakness and body rash. The patient was noted to have palpable breast mass. She was seen by oncology and radiation oncology during hospitalization. 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 Pathology so far revealed ER positive, AK positive disease. HER-2 status was pend ing. The patient had a general mass in the right frontal area, most likely metastasis with increasi ng anemia and thrombocytopenia. Upon discharge her HER-2 status was thought to be equivocal in that patient was pending and the results of this will determine whether or not patient will started on h ormone therapy versus chemotherapy. The patient was evaluated by neurosurgery for the dural based m et. The plan was for a whole brain radiation, which she began to receive during the hospitalization. Per neurosurgery fortunately the mass is felt to have minimal mass effect on underlying brain. The patient is asymptomatic, so no neurosurgical intervention was warranted. The patient was felt to r equire Zometa every 3 months secondary to bone metastasis. The patient was to be seen by after discharge with outpatient PET CT. Disability paper was filled out. General surgery was also consulted. Skin biopsy obtained with nodules done and preliminary was consistent with metastatic ca rcinoma, extensively involving the dermis supporting breast primary. The patient was felt to b e stable for discharge. The patient did receive radiation therapy on the day of discharge. On the d ay of discharge the patient's vitals, labs, physical exam were stable. She had no complaints and qu estions were answered. CONDITION ON DISCHARGE: Stable. DISPOSITION: To home. MEDICATIONS: 1. The patient was given a new prescription for Decadron 6 mg p.o. q.i.d. 2. Namenda 5 mg daily. Will plan to advance to 10 mg daily within the next several weeks. 3. Zofran 4 mg p.o. q.4h. p.r.n. 4. Protonix 40 mg daily. The patient has no reported home medications. FOLLOWUP: The patient is to follow up with her PCP as scheduled and with her oncologist, Dr. Robbins as indicated by the oncologist. Patient also will continue to follow up with radiation oncology whe re she will continue to get radiation. Greater than 30 minutes was spent coordinating discharge of patient. Dictated By: SAMSON DEL CASTILLO MD BS/NTS Conf#: [id number] DID#: [id number]
== END 2016-12-24 23:08 | disposition home or self-care (01) | DRG 598 ==
LOC: FTE 22:08 → PP2 12-12 05:37
PROVIDERS: ADMIT Internal Medicine; ATTEND Internal Medicine
PROC: 0HBT3ZX Excision of Right Breast, Percutaneous Approach, Diagnostic (ICD-10-PCS; principal; 2016-12-12)
PROC: 30233N1 Transfusion of Nonautologous Red Blood Cells into Peripheral Vein, Percutaneous Approach (ICD-10-PCS; 2016-12-12)
PROC: 009U3ZX Drainage of Spinal Canal, Percutaneous Approach, Diagnostic (ICD-10-PCS; 2016-12-17)
PROC: B01B1ZZ Fluoroscopy of Spinal Cord using Low Osmolar Contrast (ICD-10-PCS; 2016-12-17)
PROC: 0JB83ZX Excision of Abdomen Subcutaneous Tissue and Fascia, Percutaneous Approach, Diagnostic (ICD-10-PCS; 2016-12-21)
DX: C50.911 Malignant neoplasm of unspecified site of right female breast (principal); C79.2 Secondary malignant neoplasm of skin; C78.01 Secondary malignant neoplasm of right lung; C78.6 Secondary malignant neoplasm of retroperitoneum and peritoneum; C78.02 Secondary malignant neoplasm of left lung; D69.6 Thrombocytopenia, unspecified; C79.32 Secondary malignant neoplasm of cerebral meninges; Z68.1 Body mass index [BMI] 19.9 or less, adult; C79.51 Secondary malignant neoplasm of bone; D63.8 Anemia in other chronic diseases classified elsewhere; R63.4 Abnormal weight loss; R23.8 Other skin changes; Z80.3 Family history of malignant neoplasm of breast; Z17.0 Estrogen receptor positive status [ER+]; Z78.0 Asymptomatic menopausal state
CPT/HCPCS: 36415; 36430; 70470; 70552; 71270; 72142; 72147; 72149; 74177; 76830; 76856; 77014; 77290; 77295; 77334; 77412; 80048; 80053; 82607; 82670; 82728; 82746; 82945; 83001; 83010; 83540; 83615; 83735; 84100; 84157; 84443; 84703; 85025; 85045; 85610; 85730; 86300; 86850; 86900; 86901; 86920; 87070; 88104; 88305; 88307; 88341; 88342; 89050; 93970; 97162; J3487; J2060; P9016; Q9967

== ENCOUNTER 2017-02-03 18:18 | Inpatient (IN) | payer OTHER ==
[~2017-02-03] VITALS: Ht 177.8 cm; Wt 62.0 kg
[~2017-02-03 18:18] MED LIST: DEC4 PO; MEMA5TAB14 PO; ONDA-43 PO; PANT40TA4 PO
[2017-02-03] MEDS ORDERED: ONDANSETRON 4 MG INJ IV STA (21:24)
[2017-02-03] MEDS ORDERED: morphine 4 MG/ML VIAL IV STA (21:24)
[2017-02-03] MEDS ORDERED: ASPIRIN 325 MG TAB PO STA (21:24)
--- NOTE | 2017-02-03 21:50 | RADRPT ---
PROCEDURE: XR Chest AP portable CLINICAL INDICATION: Chest pain TECHNIQUE: An AP portable radiograph of the chest was submitted. COMPARISON: None. FINDINGS: Support Hardware: None Cardiovascular: The cardiovascular silhouette appears unremarkable. Lung Currie: Interstitial infiltrates are seen at the lower lung zones and at the medial left upper lung zone. No alveolar infiltrate is evident. Pleural Spaces: Both costophrenic angles are blunted compatible with either pleural parenchymal scar ring or small pleural fluid accumulations. No pneumothorax is evident. Osseous Structures: The osseous structures appear intact. Soft Tissues: The soft tissues appear unremarkable. IMPRESSION: 1. Bibasilar and medial left upper lobe interstitial infiltrates. 2. Small pleural fluid accumulations versus pleural parenchymal scarring involving the costophrenic angles bilaterally. Physician Shahbaz Date Time Electronically viewed and signed by Physician Shahbaz on 02/03/2017 21:49 /
[2017-02-03 21:59] LABS: ADD SCAN DIFF NO
[2017-02-03 22:00] LABS: ABNORMAL IP MESSAGE 1; BASOPHIL # 0.1 10^3/ul (0.0-0.1); BASOPHILS % 0.7 % (0.0-2.0); EOSINOPHILS # 0.2 10^3/ul (0.0-0.5); EOSINOPHILS % 1.7 % (0.0-7.0); HEMATOCRIT 27.6 % (37.0-47.0); HEMOGLOBIN 8.4 g/dl (12.0-16.0); LYMPHOCYTES # 2.2 10^3/ul (0.8-2.9); LYMPHOCYTES % 23.5 % (15.0-51.0); MEAN CORPUSCULAR HEMOGLOBIN 33.3 pg (29.0-33.0); MEAN CORPUSCULAR HGB CONC 30.4 g/dl (32.0-37.0); MEAN CORPUSCULAR VOLUME 109.5 fl (82.0-101.0); MEAN PLATELET VOLUME 9.5 fl (7.4-10.4); MONOCYTE # 1.4 10^3/ul (0.3-0.9); MONOCYTES % 14.6 % (0.0-11.0); NEUTROPHIL # 5.4 10^3/ul (1.6-7.5); NEUTROPHILS % 57.1 % (39.0-77.0); NUCLEATED RED BLOOD CELLS # 0.8 10^3/ul (0.0-0.0); NUCLEATED RED BLOOD CELLS% 8.2 /100WBC (0.0-0.0); PLATELET COUNT 298 10^3/UL (140-415); RED BLOOD COUNT 2.52 10^6/ul (4.20-5.40); RED CELL DISTRIBUTION WIDTH 22.5 % (11.5-14.5); WHITE BLOOD COUNT 9.5 10^3/ul (4.8-10.8)
[2017-02-03 22:09] LABS: ALBUMIN 3.7 g/dl (3.3-4.9); CHLORIDE 103 mmol/L (97-110); POTASSIUM 4.2 mmol/L (3.5-5.1); SODIUM 143 mmol/L (135-144)
[2017-02-03 22:11] LABS: CREATININE 0.93 mg/dl (0.44-1.00)
[2017-02-03 22:12] LABS: ALANINE AMINOTRANSFERASE 21 IU/L (13-69); ALBUMIN/GLOBULIN RATIO 0.86; ALKALINE PHOSPHATASE 203 IU/L (42-121); ANION GAP 19 (8-16); ASPARTATE AMINO TRANSFERASE 83 IU/L (15-46); BILIRUBIN,INDIRECT 0.1 mg/dl (0-1.1); BILIRUBIN,TOTAL 0.1 mg/dl (0.2-1.3); BLOOD UREA NITROGEN 13 mg/dl (7-20); CARBON DIOXIDE 25 mmol/L (21-31); GLUCOSE 106 mg/dl (70-220)
[2017-02-03 22:13] LABS: CALCIUM 9.3 mg/dl (8.4-10.2)
[2017-02-03 22:30] LABS: TROPONIN-I < 0.012 ng/ml (0.00-0.12)
[2017-02-03] MEDS ORDERED: AZITHROMYCIN 500MG/NS (PMX) 250 ML IV STA (23:49)
[2017-02-03] MEDS ORDERED: CEFTRIAXONE 1 GM/50 ML (PMX) 50 ML IVPB STA (23:49)
[2017-02-04] VITALS (11 sets, daily range): BP systolic 127–139; BP diastolic 59–65; PULSE 90–110; RESP 17–20; TEMP 98.3; Ht 177.8 cm; Wt 62.0 kg
--- NOTE | 2017-02-04 00:05 | HP ---
Date/Time of Note Date/Time of Note DATE: 02/04/17 TIME: 00:05 Assessment/Plan VTE Prophylaxis VTE Prophylaxis Intervention: other (Lovanox) Lines/Catheters IV Catheter Type (from Nrs): Saline Lock Assessment/Plan Assessment/Plan 1) Chest Pain, possibly due to the pneumonia - Admit to Telemetry - Rule-Out 2) Pulmonary Infiltrates - Antibiotics - Get Viral Panel done as patient is not that sick, so I doubt a bacterial infection 3) Anemia, probably due to the cancer/chronic disease - Monitor 4) Metastatic Breast Cancer - Needs to have follow-up with her new Oncologist HPI/JILL Admit Date/Time Admit Date/Time 02/03/17 2352 Hx of Present Illness Chief Complaint SHARP INTERMITTENT CP RADIATING TO Left Shoulder and Left Lower Neck. HPI Patient presents for evaluation of chest pain, off and on for over 24 hours. It woke her up. It is a pulsing pain across the entire lower half of her chest. At its worse, it has been a 10/10, but typically 7-9/10 and currently 0/10. It is not associated with any nausea, vomiting, sweating, upper back pain or extreme fatigue. Occasionally, the pain is associated with pain in the top of her left shoulder which goes up into her neck. However, it does not happen every time she feels the chest pain. She has no history of the same symptoms. She also complains of Nodules all over her body and that she was seeing 1 Oncologist, but her insurance changed and she had to switch to a new PCP and has an appointment with him tomorrow. She is concerned because now, she won't be able to get to the appointment. She says the appointment is to get a referral to a new Oncologist History as obtained by ER Physician: This is a very pleasant 57-year-old female short of any chest pain rating to her jaw. Patient is going to dizziness and mild shortness of breath. Cough is minimally productive. No fevers. No other current complaints. Chest pain is mild to moderate intensity left-sided with radiation to her jaw. No exacerbating or alleviating factors for the patient. She has no history of medical problems, but has been dealing with nodules all over her body since about Yudi. Her oncologist biopsied one from the front and another from her back. Patient is waiting to hear the results. Meanwhile, she says they found a tumor in her brain and treated her with radiation to prevent it from becoming cancer. She also had a biopsy of her left breast and POSITIVE Tumor Markers. But she insists that she does not have cancer because she prays for it to be so. She denies any black or bloody stools. Minimal cough and no fever. ROS Constitutional: fatigue, No chills, No febrile Eyes: no complaints ENT: No congestion, No dysphagia, No sore throat Respiratory: shortness of breath (mild. With exertion), No cough, No sputum, No wheezing Cardiovascular: chest pain, No edema, No palpitations Gastrointestinal: No diarrhea, No nausea, No pain, No vomiting Genitourinary: No dysuria, No flank pain, No hematuria Musculoskeletal: neck pain, No back pain Skin: skin lesions (Multiple nodules, all oversinceChristmas time), No pruritis Neurologic: No confusion, No dizziness, No headache Endocrine: No polydypsia, No polyuria Psychological: No anxiety, No confusion Immunologic: No pruritis, No rhinitis PMH/Family/Social Past Medical History Patient states she is very healthy. However, review of the record shows that she has biopsy-proven Metastatic Breast Cancer Family History Significant Family History: no pertinent family hx Social History Alcohol Use: none Smoking Status: Never smoker Drug Use: none Exam/Review of Systems Vital Signs Vitals Vital Signs Date Time Temp Pulse Resp B/P Pulse Ox O2 Delivery O2 Flow Rate FiO2 02/03/17 23:57 98.4 94 16 147/69 100 Room Air Exam Exam Const: Alert, in no acute distress Head: Normocephalic/Atraumatic Eyes: EOMI, Sclera non-icteric ENT: Normal External Ears, Nose and Mouth., moist mucus membranes Neck: Neck Supple. Full ROM. Resp: Clear to auscultation bilaterally but decreased airflow throughout Cardio: Regular rate and rhythm, no murmurs Abd: Normoactivebowel sounds. Soft, non tender, non distended. Skin: Normal moisture and temperature. Multiple subcutaneous nodules visible and palpable all over. Many with some hyperpigmentation. Ext: No cyanosis, or edema Neur: Awake and alert. CN II - XII grossly intact. Non-focal. Speech normal. Psych: Appropriate Mood and Affect. Good eye contact. Labs Result Diagram: 02/03/177 02/03/17 2140 Medications Medications Home Meds Active Scripts Memantine HCl (Memantine HCl) 5 Mg Tablet, 5 MG PO DAILY, #100 TAB 2 Refills Prov:SAMSON DEL CASTILLO 12/24/16 Pantoprazole* (Pantoprazole*) 40 Mg Tablet.dr, 40 MG PO DAILY@06 for 30 Days Prov:NICK HI 12/18/16 Ondansetron Hcl* (Zofran*) 4 Mg Tab, 4 MG PO Q4H Y for NAUSEA AND OR VOMITING, # 40 TAB Prov:NICK HI 12/18/16 Dexamethasone* (Decadron*) 4 Mg Tab, 6 MG PO QID for 30 Days, TAB Prov:NICK HI 12/18/16 Procedures Procedures Laboratory Tests Test 02/03/17 21:40 02/03/17 22:17 Alanine Aminotransferase (ALT/SGPT) 21IU/L Albumin 3.7g/dl Albumin/Globulin Ratio 0.86 Alkaline Phosphatase 203IU/L Anion Gap 19 Aspartate Amino Transf (AST/SGOT) 83IU/L Blood Urea Nitrogen 13mg/dl Calcium Level 9.3mg/dl Carbon Dioxide Level 25mmol/L Chloride Level 103mmol/L Creatinine 0.93mg/dl Direct Bilirubin 0.00mg/dl Globulin 4.30g/dl Glucose Level 106mg/dl Indirect Bilirubin 0.1mg/dl Potassium Level 4.2mmol/L Sodium Level 143mmol/L Total Bilirubin 0.1mg/dl Total Protein 8.0g/dl Troponin I < 0.012ng/ml Basophils # 0.110^3/ul Basophils % 0.7% Eosinophils # 0.210^3/ul Eosinophils % 1.7% Hematocrit 27.6% Hemoglobin 8.4g/dl Lymphocytes # 2.210^3/ul Lymphocytes % 23.5% Mean Corpuscular Hemoglobin 33.3pg Mean Corpuscular Hemoglobin Concent 30.4g/dl Mean Corpuscular Volume 109.5fl Mean Platelet Volume 9.5fl Monocytes # 1.410^3/ul Monocytes % 14.6% Neutrophils # 5.410^3/ul Neutrophils % 57.1% Nucleated Red Blood Cells # 0.810^3/ul Nucleated Red Blood Cells % 8.2/100WBC Platelet Count 56319^3/UL Red Blood Count 2.5210^6/ul Red Cell Distribution Width 22.5% White Blood Count 9.510^3/ul PROCEDURE: XR Chest AP portable CLINICAL INDICATION: Chest pain TECHNIQUE: An AP portable radiograph of the chest was submitted. COMPARISON: None. FINDINGS: Support Hardware: None Cardiovascular: The cardiovascular silhouette appears unremarkable. Lung Currie: Interstitial infiltrates are seen at the lower lung zones and at the medial left upper lung zone. No alveolar infiltrate is evident. Pleural Spaces: Both costophrenic angles are blunted compatible with either pleural parenchymal scarring or small pleural fluid accumulations. No pneumothorax is evident. Osseous Structures: The osseous structures appear intact. Soft Tissues: The soft tissues appear unremarkable. IMPRESSION: 1. Bibasilar and medial left upper lobe interstitial infiltrates. 2. Small pleural fluid accumulations versus pleural parenchymal scarring involving the costophrenic angles bilaterally. EKG: (Interpreted by ER Physician) Rate/Rhythm: [Normal Sinus Rhythm] QRS, ST, T-waves: [No changes consistent w/ acute ischemia] Impression: [No evidence of ischemia or arrhythmia] DEWEY LAST DO Feb 04, 2017 00:05 DEWEY LAST DO Feb 04, 2017 00:05 Labs Result Diagram: 02/03/17 2217 02/03/17 2140 Medications Medications Home Meds Active Scripts Memantine HCl (Memantine HCl) 5 Mg Tablet, 5 MG PO DAILY, #100 TAB 2 Refills Prov:ABUNDIOSAMSON 12/24/16 Pantoprazole* (Pantoprazole*) 40 Mg Tablet.dr, 40 MG PO DAILY@06 for 30 Days Prov:NICK HI 12/18/16 Ondansetron Hcl* (Zofran*) 4 Mg Tab, 4 MG PO Q4H Y for NAUSEA AND OR VOMITING, # 40 TAB Prov:NICK HI 12/18/16 Dexamethasone* (Decadron*) 4 Mg Tab, 6 MG PO QID for 30 Days, TAB Prov:NICK HI 12/18/16 Procedures Procedures PROCEDURE: XR Chest AP portable CLINICAL INDICATION: Chest pain TECHNIQUE: An AP portable radiograph of the chest was submitted. COMPARISON: None. FINDINGS: Support Hardware: None Cardiovascular: The cardiovascular silhouette appears unremarkable. Lung Currie: Interstitial infiltrates are seen at the lower lung zones and at the medial left upper lung zone. No alveolar infiltrate is evident. Pleural Spaces: Both costophrenic angles are blunted compatible with either pleural parenchymal scarring or small pleural fluid accumulations. No pneumothorax is evident. Osseous Structures: The osseous structures appear intact. Soft Tissues: The soft tissues appear unremarkable. IMPRESSION: 1. Bibasilar and medial left upper lobe interstitial infiltrates. 2. Small pleural fluid accumulations versus pleural parenchymal scarring involving the costophrenic angles bilaterally. DEWEY LSAT DO Feb 04, 2017 00:05 Soft Tissues: The soft tissues appear unremarkable. IMPRESSION: 1. Bibasilar and medial left upper lobe interstitial infiltrates. 2. Small pleural fluid accumulations versus pleural parenchymal scarring involving the costophrenic angles bilaterally. DEWEY LAST DO Feb 04, 2017 00:05
--- NOTE | 2017-02-04 00:51 | ERA ---
ER Documentation Chief Complaint Date/Time DATE: 02/04/17 TIME: 00:49 Chief Complaint SHARP INTERMITTENT CP RADIATING TO JAW. NODULES ALL OVER BODY. DIZZINESS. HPI This is a very pleasant 57-year-old female short of any chest pain rating to her jaw. Patient is going to dizziness and mild shortness of breath. Cough is minimally productive. No fevers. No other current complaints. Chest pain is mild to moderate intensity left-sided with radiation to her jaw. No exacerbating or alleviating factors for the patient. ROS All systems reviewed and are negative except as per history of present illness. Medications Home Meds Active Scripts Memantine HCl (Memantine HCl) 5 Mg Tablet, 5 MG PO DAILY, #100 TAB 2 Refills Prov:SAMSON DEL CASTILLO 12/24/16 Pantoprazole* (Pantoprazole*) 40 Mg Tablet.dr, 40 MG PO DAILY@06 for 30 Days Prov:NICK HI 12/18/16 Ondansetron Hcl* (Zofran*) 4 Mg Tab, 4 MG PO Q4H Y for NAUSEA AND OR VOMITING, # 40 TAB Prov:NICK HI 12/18/16 Dexamethasone* (Decadron*) 4 Mg Tab, 6 MG PO QID for 30 Days, TAB Prov:NICK HI 12/18/16 Allergies Allergies: Coded Allergies: No Known Allergy (Unverified , 12/11/16) PMhx/Soc History of Surgery: Yes Anesthesia Reaction: No Hx 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 Disorder: No Hx Respiratory Disorders: No Hx Cardiac Disorders: No Hx Psychiatric Problems: No Hx Miscellaneous Medical Probl: No Hx Alcohol Use: No Hx Substance Use: No Hx Tobacco Use: No Smoking Status: Never smoker Physical Exam Vitals Vital Signs Date Time Temp Pulse Resp B/P Pulse Ox O2 Delivery O2 Flow Rate FiO2 02/03/17 23:57 98.4 94 16 147/69 100 Room Air 02/03/17 21:35 98.3 102 18 136/65 96 Room Air 02/03/17 18:41 98.3 105 18 153/65 99 Physical Exam Const: [] Head: Atraumatic Eyes: Normal Conjunctiva ENT: Normal External Ears, Nose and Mouth. Neck: Full range of motion..~ No meningismus. Resp: Clear to auscultation bilaterally Cardio: Regular rate and rhythm, no murmurs Abd: Soft, non tender, non distended. Normal bowel sounds Skin: No petechiae or rashes Back: No midline or flank tenderness Ext: No cyanosis, or edema Neur: Awake and alert Psych: Normal Mood and Affect Result Diagram: 02/03/17221602/03/170 Results 24 hrs Laboratory Tests Test 02/03/17 21:40 02/03/17 22:17 Alanine Aminotransferase (ALT/SGPT) 21IU/L Albumin 3.7g/dl Albumin/Globulin Ratio 0.86 Alkaline Phosphatase 203IU/L Anion Gap 19 Aspartate Amino Transf (AST/SGOT) 83IU/L Blood Urea Nitrogen 13mg/dl Calcium Level 9.3mg/dl Carbon Dioxide Level 25mmol/L Chloride Level 103mmol/L Creatinine 0.93mg/dl Direct Bilirubin 0.00mg/dl Globulin 4.30g/dl Glucose Level 106mg/dl Indirect Bilirubin 0.1mg/dl Potassium Level 4.2mmol/L Sodium Level 143mmol/L Total Bilirubin 0.1mg/dl Total Protein 8.0g/dl Troponin I < 0.012ng/ml Basophils # 0.110^3/ul Basophils % 0.7% Eosinophils # 0.210^3/ul Eosinophils % 1.7% Hematocrit 27.6% Hemoglobin 8.4g/dl Lymphocytes # 2.210^3/ul Lymphocytes % 23.5% Mean Corpuscular Hemoglobin 33.3pg Mean Corpuscular Hemoglobin Concent 30.4g/dl Mean Corpuscular Volume 109.5fl Mean Platelet Volume 9.5fl Monocytes # 1.410^3/ul Monocytes % 14.6% Neutrophils # 5.410^3/ul Neutrophils % 57.1% Nucleated Red Blood Cells # 0.810^3/ul Nucleated Red Blood Cells % 8.2/100WBC Platelet Count 85066^3/UL Red Blood Count 2.5210^6/ul Red Cell Distribution Width 22.5% White Blood Count 9.510^3/ul Current Medications Medications (Trade) Dose Ordered Sig/Eva Route PRN Reason Start Time Stop Time Status Last Admin Dose Admin Aspirin (Aspirin) 325 mg ONCE STAT PO 02/03/17 21:24 02/03/17 21:25 DC 02/03/17 23:11 Morphine Sulfate (morphine) 4 mg ONCE STAT IV 02/03/17 21:24 02/03/17 21:25 DC 02/03/17 23:11 Ondansetron HCl 4 mg 4 mg ONCE STAT IV 02/03/17 21:24 02/03/17 21:25 DC 02/03/17 23:11 Azithromycin 250 ml @ 250 mls/hr ONCE STAT IV 02/03/17 23:49 02/04/17 00:48 DC Ceftriaxone Sodium (Rocephin) 50 ml @ 100 mls/hr ONCE STAT IVPB 02/03/17 23:49 02/04/17 00:18 DC Procedures/MDM EKG: Rate/Rhythm: [Normal Sinus Rhythm] QRS, ST, T-waves: [No changes consistent w/ acute ischemia] Impression: [No evidence of ischemia or arrhythmia] Chest X-ray 1V Interpreted by me: Soft Tissue: No acute abnormalities Bones: No acute abnormalities Mediastinum/Cardiac Silhouette/Lungs: Upper lobe pneumonia Medical decision-makin-year-old female with history of metastatic ductal carcinoma in situ. Evidence of pneumonia. Started on broad-spectrum antibiotics. Post blood cultures. Patient will be admitted to telemetry. Hospitalist made aware. Departure Diagnosis: Primary Impression: Metastatic cancer Additional Impressions: Pneumonia Qualified Code: J18.9 - Pneumonia due to infectious organism, unspecified laterality, unspecified part of lung Chest pain Qualified Code: I20.9 - Ischemic chest pain Condition: Serious EZIOLISANDRO VANGJosseline Feb 04, 2017 00:51
[2017-02-04] MEDS ORDERED: ACETAMINOPHEN 325 MG TAB PO PRN (04:30)
[2017-02-04] MEDS ORDERED: ONDANSETRON 4 MG TAB PO PRN (04:30)
[2017-02-04] MEDS ORDERED: NACL 0.9% 3 ML SYG IV SCH (04:30)
[2017-02-04] MEDS ORDERED: ONDANSETRON 4 MG INJ IV PRN (04:30)
[2017-02-04] MEDS ORDERED: NITROGLYCERIN (SL) 0.4 MG TAB SL PRN (04:30)
[2017-02-04] MEDS ORDERED: CEFTRIAXONE 1 GM/50 ML (PMX) 50 ML IV SCH (04:30)
[2017-02-04] MEDS ORDERED: morphine 2 MG INJ IV PRN (04:30)
[2017-02-04] MEDS: ALBUTEROL/IPRATROPIUM (NEB) 3 ML AMP NEB SCH ×4 (07:44→19:26)
[2017-02-04] MEDS: ENOXAPARIN 40 MG/0.4 ML SYG SC SCH (08:42)
[2017-02-04] MEDS: FAMOTIDINE 20 MG TAB PO SCH ×2 (08:43→20:39)
--- NOTE | 2017-02-04 13:52 | PN ---
Date/Time of Note Date/Time of Note DATE: 02/04/17 TIME: 13:41 Assessment/Plan VTE Prophylaxis VTE Prophylaxis Intervention: LMWH Lines/Catheters IV Catheter Type (from [facility] Saline Lock Urinary Cath still in place: No Assessment/Plan Assessment/Plan 1. Chest Pain, musculoskeletal, no cardiac work up needed 2. Pneumonia, on antibiotics 3. Macrocytic anemia, chronic 4. Breast cancer with diffuse metastasis to skin, lungs, retroperitoneal space, and bones, follow up with oncology.radiation oncology 5. DVT prophylaxis: lovenox Subjective 24 Hr Interval Summary Free Text/Dictation intermittent frontal chest sharp pain no cough or shortness of breath no fever or chills Exam/Review of Systems Vital Signs Vitals Vital Signs Date Time Temp Pulse Resp B/P Pulse Ox O2 Delivery O2 Flow Rate FiO2 02/04/17 12:52 92 02/04/17 11:38 98.5 17 128/63 97 Room Air 02/04/17 07:45 21 Intake and Output 02/03/17 02/03/17 02/04/17 15:00 23:00 07:00 Intake Total 950 ml Balance 950 ml Exam Constitutional: alert, oriented, well developed Psych: nl mood/affect, no complaints Head: atraumatic, normocephalic Eyes: EOMI, PERRL, nl conjunctiva, nl lids ENMT: nl external ears & nose, nl lips & teeth, nl nasal mucosa & septum Neck: non-tender, supple Respiratory: clear to auscultation, normal air movement, No congested cough, No crackles/rales, No diminished breath sounds, No intercostal retraction, No labored breathing, No other, No respirations, No tactile fremitus, No wheezing Cardiovascular: nl pulses, regular rate and rhythm, No S3, No S4, No bruits, No diastolic murmur, No edema, No gallop, No irregular rhythm, No jugular venous distention (JVD), No murmurs/extra sounds, No other, No rub, No systolic murmur Gastrointestinal: nl liver, spleen, non-tender, soft, No ascites, No bowel sounds, No distended, No firm, No hepatomegaly, No mass , No other, No rebound or guarding, No splenomegaly, No surgical scars, No tender Musculoskeletal: nl extremities to inspection Extremities: normal pulses, No calf tenderness, No clubbing, No cyanosis, No edema, No other, No palpable cord, No pitting pedal edema, No tenderness 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, nl mental status, nl speech, nl strength Skin: nl turgor Results Result Diagram: 02/03/17221602/03/170 Results 24 hrs Laboratory Tests Test 02/03/17 21:40 02/03/17 22:17 02/04/17 07:25 Alanine Aminotransferase (ALT/SGPT) 21 Albumin 3.7 Albumin/Globulin Ratio 0.86 Alkaline Phosphatase 203 H Anion Gap 19 H Aspartate Amino Transf (AST/SGOT) 83 H Blood Urea Nitrogen 13 Calcium Level 9.3 Carbon Dioxide Level 25 Chloride Level 103 Creatinine 0.93 Direct Bilirubin 0.00 Globulin 4.30 H Glucose Level 106 Indirect Bilirubin 0.1 Potassium Level 4.2 Sodium Level 143 Total Bilirubin 0.1 L Total Protein 8.0 Troponin I < 0.012 Basophils # 0.1 Basophils % 0.7 Eosinophils # 0.2 Eosinophils % 1.7 Hematocrit 27.6 L Hemoglobin 8.4 L Lymphocytes # 2.2 Lymphocytes % 23.5 Mean Corpuscular Hemoglobin 33.3 H Mean Corpuscular Hemoglobin Concent 30.4 L Mean Corpuscular Volume 109.5 H Mean Platelet Volume 9.5 # Monocytes # 1.4 H Monocytes % 14.6 H Neutrophils # 5.4 Neutrophils % 57.1 Nucleated Red Blood Cells # 0.8 H Nucleated Red Blood Cells % 8.2 H Platelet Count 298 Red Blood Count 2.52 L Red Cell Distribution Width 22.5 H White Blood Count 9.5 # Ferritin 1360.0 H Vitamin B12 Level 905 Medications Medications Current Medications Ondansetron HCl (Zofran Tab) 4 mg Q6H PRN PO NAUSEA AND/OR VOMITING; Start at 04:30 Ondansetron HCl (Zofran Inj) 4 mg Q6H PRN IV NAUSEA AND/OR VOMITING; Start at 04:30 Nitroglycerin (Nitroglycerin (Sl Tab) 0.4 Mg) 1 tab Q5M PRN SL CHEST PAIN; Start 02/04/17 at 04:30 Acetaminophen (Tylenol Tab) 650 mg Q6H PRN PO PAIN LEVEL 1-3 OR FEVER; Start at 04:30 Morphine Sulfate (morphine) 2 mg Q4H PRN IV PAIN LEVEL 7-10 Last administered on 02/04/17 06:24; Admin Dose 2 MG; Start 02/04/17 at 04:30 Famotidine (Pepcid) 20 mg Q12 PO Last administered on 02/04/17 08:43; Admin Dose 20 MG; Start 02/04/17 at 09:00 Enoxaparin Sodium 40 mg 40 mg DAILY SC ; Start 02/04/17 at 09:00 Ceftriaxone Sodium (Rocephin) 50 ml @ 100 mls/hr Q24H IVPB ; Start 02/05/17 at 02:00 ALEJA WHELAN MD Feb 04, 2017 13:52
[2017-02-05] VITALS (13 sets, daily range): BP systolic 126–147; BP diastolic 57–67; PULSE 82–99; RESP 18–21
[2017-02-05] MEDS ORDERED: CEFTRIAXONE 1 GM/50 ML (PMX) 50 ML IVPB SCH (02:00)
[2017-02-05 06:49] LABS: ADD SCAN DIFF NO
[2017-02-05 06:52] LABS: ABNORMAL IP MESSAGE 1; BASOPHIL # 0.1 10^3/ul (0.0-0.1); BASOPHILS % 0.9 % (0.0-2.0); EOSINOPHILS # 0.2 10^3/ul (0.0-0.5); EOSINOPHILS % 2.4 % (0.0-7.0); HEMATOCRIT 25.6 % (37.0-47.0); HEMOGLOBIN 7.7 g/dl (12.0-16.0); LYMPHOCYTES # 2.2 10^3/ul (0.8-2.9); LYMPHOCYTES % 24.3 % (15.0-51.0); MEAN CORPUSCULAR HEMOGLOBIN 32.9 pg (29.0-33.0); MEAN CORPUSCULAR HGB CONC 30.1 g/dl (32.0-37.0); MEAN CORPUSCULAR VOLUME 109.4 fl (82.0-101.0); MONOCYTE # 1.3 10^3/ul (0.3-0.9); MONOCYTES % 14.3 % (0.0-11.0); NEUTROPHIL # 5.1 10^3/ul (1.6-7.5); NEUTROPHILS % 55.4 % (39.0-77.0); NUCLEATED RED BLOOD CELLS # 0.9 10^3/ul (0.0-0.0); NUCLEATED RED BLOOD CELLS% 9.4 /100WBC (0.0-0.0); PLATELET COUNT 264 10^3/UL (140-415); RED BLOOD COUNT 2.34 10^6/ul (4.20-5.40); RED CELL DISTRIBUTION WIDTH 22.6 % (11.5-14.5); WHITE BLOOD COUNT 9.1 10^3/ul (4.8-10.8)
[2017-02-05 07:08] LABS: POTASSIUM 4.8 mmol/L (3.5-5.1)
[2017-02-05 07:11] LABS: CREATININE 0.87 mg/dl (0.44-1.00)
[2017-02-05 07:12] LABS: CALCIUM 8.6 mg/dl (8.4-10.2)
[2017-02-05] MEDS: ALBUTEROL/IPRATROPIUM (NEB) 3 ML AMP NEB SCH ×4 (09:16→20:00)
[2017-02-05] MEDS: FAMOTIDINE 20 MG TAB PO SCH ×2 (09:33→21:00)
[2017-02-05] MEDS: ENOXAPARIN 40 MG/0.4 ML SYG SC SCH (09:34)
--- NOTE | 2017-02-05 14:56 | DS ---
Date/Time of Note Date/Time of Note DATE: 02/05/17 TIME: 14:50 Discharge Summary Admission/Discharge Info Admit Date/Time Feb 03, 2017 at 23:53 Discharge Date/Time Final Diagnosis 1. Chest Pain, musculoskeletal, no cardiac work up needed 2. Pneumonia, on antibiotics 3. Macrocytic anemia, chronic, one unit PRBC, follow up with PCP 4. Breast cancer with diffuse metastasis to skin, lungs, retroperitoneal space, and bones, follow up with oncology.radiation oncology Patient Condition: Stable Hx of Present Illness Patient presents for evaluation of chest pain, off and on for over 24 hours. It woke her up. It is a pulsing pain across the entire lower half of her chest. At its worse, it has been a 10/10, but typically 7-9/10 and currently 0/10. It is not associated with any nausea, vomiting, sweating, upper back pain or extreme fatigue. Occasionally, the pain is associated with pain in the top of her left shoulder which goes up into her neck. However, it does not happen every time she feels the chest pain. She has no history of the same symptoms. She also complains of Nodules all over her body and that she was seeing 1 Oncologist, but her insurance changed and she had to switch to a new PCP and has an appointment with him tomorrow. She is concerned because now, she won't be able to get to the appointment. She says the appointment is to get a referral to a new Oncologist History as obtained by ER Physician: This is a very pleasant 57-year-old female short of any chest pain rating to her jaw. Patient is going to dizziness and mild shortness of breath. Cough is minimally productive. No fevers. No other current complaints. Chest pain is mild to moderate intensity left-sided with radiation to her jaw. No exacerbating or alleviating factors for the patient. She has no history of medical problems, but has been dealing with nodules all over her body since about [place]. Her oncologist biopsied one from the front and another from her back. Patient is waiting to hear the results. Meanwhile, she says they found a tumor in her brain and treated her with radiation to prevent it from becoming cancer. She also had a biopsy of her left breast and POSITIVE Tumor Markers. But she insists that she does not have cancer because she prays for it to be so. She denies any black or bloody stools. Minimal cough and no fever. Hospital Course Chest pain is musculoskeletal, no further cardiac workup needed. Patient has chronic anemia from bone metastasis. H/H are 7.7/25.6 today. She will get one unit PRBC transfusion prior to discharge. She is informed that she will need blood transfusion in the future due to breast cancer diffuse bone metastasis. Home Meds Active Scripts Memantine HCl (Memantine HCl) 5 Mg Tablet, 5 MG PO DAILY, #100 TAB 2 Refills Prov:SAMSON DEL CASTILLO 12/24/16 Pantoprazole* (Pantoprazole*) 40 Mg Tablet.dr, 40 MG PO DAILY@06 for 30 Days Prov:NICK HI 12/18/16 Ondansetron Hcl* (Zofran*) 4 Mg Tab, 4 MG PO Q4H Y for NAUSEA AND OR VOMITING, # 40 TAB Prov:NICK HI 12/18/16 Dexamethasone* (Decadron*) 4 Mg Tab, 6 MG PO QID for 30 Days, TAB Prov:NICK HI 12/18/16 Follow-up Plan PCP in 1 week Pending Labs Laboratory Tests Test 02/05/17 06:05 Anion Gap 15 (8-16) Basophils # 0.110^3/ul (0.0-0.1) Basophils % 0.9% (0.0-2.0) Blood Urea Nitrogen 10mg/dl (7-20) Calcium Level 8.6mg/dl (8.4-10.2) Carbon Dioxide Level 26mmol/L (21-31) Chloride Level 107mmol/L (97-110) Creatinine 0.87mg/dl (0.44-1.00) Eosinophils # 0.210^3/ul (0.0-0.5) Eosinophils % 2.4% (0.0-7.0) Glucose Level 82mg/dl (70-220) Hematocrit 25.6% (37.0-47.0) Hemoglobin 7.7g/dl (12.0-16.0) Lymphocytes # 2.210^3/ul (0.8-2.9) Lymphocytes % 24.3% (15.0-51.0) Mean Corpuscular Hemoglobin 32.9pg (29.0-33.0) Mean Corpuscular Hemoglobin Concent 30.1g/dl (32.0-37.0) Mean Corpuscular Volume 109.4fl (82.0-101.0) Mean Platelet Volume 10.0fl (7.4-10.4) Monocytes # 1.310^3/ul (0.3-0.9) Monocytes % 14.3% (0.0-11.0) Neutrophils # 5.110^3/ul (1.6-7.5) Neutrophils % 55.4% (39.0-77.0) Nucleated Red Blood Cells # 0.910^3/ul (0.0-0.0) Nucleated Red Blood Cells % 9.4/100WBC (0.0-0.0) Platelet Count 07272^3/UL (140-415) Potassium Level 4.8mmol/L (3.5-5.1) Red Blood Count 2.3410^6/ul (4.20-5.40) Red Cell Distribution Width 22.6% (11.5-14.5) Sodium Level 143mmol/L (135-144) White Blood Count 9.110^3/ul (4.8-10.8) ALEJA WHELAN MD Feb 05, 2017 14:55
== END 2017-02-05 23:00 | disposition home or self-care (01) | DRG 313 ==
LOC: E/R 18:18 → MS4 23:53
PROVIDERS: ADMIT Family Medicine; ATTEND Family Medicine
PROC: 30233N1 Transfusion of Nonautologous Red Blood Cells into Peripheral Vein, Percutaneous Approach (ICD-10-PCS; principal; 2017-02-05)
DX: R07.89 Other chest pain (principal); J18.9 Pneumonia, unspecified organism; C78.00 Secondary malignant neoplasm of unspecified lung; C77.8 Secondary and unspecified malignant neoplasm of lymph nodes of multiple regions; C79.51 Secondary malignant neoplasm of bone; D53.9 Nutritional anemia, unspecified; C50.912 Malignant neoplasm of unspecified site of left female breast
CPT/HCPCS: 36415; 36430; 71010; 80048; 80053; 82607; 82728; 84484; 85025; 86850; 86900; 86901; 86920; 87040; 87070; 87275; 87276; 87279; 87280; 93005; 94640; 94664; 96365; 96375; J0456; J0696; J1650; J2270; J2405; P9016

== ENCOUNTER 2017-02-08 21:01 | Emergency (ER) | payer OTHER ==
[~2017-02-08] VITALS: Ht 167.6 cm; Wt 61.5 kg
[2017-02-08 21:21] VITALS: Ht 167.6 cm; Wt 61.5 kg
[2017-02-08] MEDS ORDERED: SOD CHLORIDE 0.9% 500 ML IV STA (23:12)
[2017-02-09 00:19] LABS: ADD SCAN DIFF NO
[2017-02-09 00:20] LABS: ABNORMAL IP MESSAGE 1; BASOPHIL # 0.1 10^3/ul (0.0-0.1); BASOPHILS % 0.9 % (0.0-2.0); EOSINOPHILS # 0.2 10^3/ul (0.0-0.5); EOSINOPHILS % 1.6 % (0.0-7.0); HEMOGLOBIN 9.3 g/dl (12.0-16.0); LYMPHOCYTES # 1.9 10^3/ul (0.8-2.9); LYMPHOCYTES % 20.6 % (15.0-51.0); MEAN CORPUSCULAR HEMOGLOBIN 32.7 pg (29.0-33.0); MEAN CORPUSCULAR VOLUME 105.6 fl (82.0-101.0); MEAN PLATELET VOLUME 9.4 fl (7.4-10.4); MONOCYTE # 1.1 10^3/ul (0.3-0.9); MONOCYTES % 12.3 % (0.0-11.0); NEUTROPHIL # 5.7 10^3/ul (1.6-7.5); NEUTROPHILS % 62.5 % (39.0-77.0); NUCLEATED RED BLOOD CELLS # 0.5 10^3/ul (0.0-0.0); NUCLEATED RED BLOOD CELLS% 5.2 /100WBC (0.0-0.0); PLATELET COUNT 226 10^3/UL (140-415); RED BLOOD COUNT 2.84 10^6/ul (4.20-5.40); RED CELL DISTRIBUTION WIDTH 23.3 % (11.5-14.5); WHITE BLOOD COUNT 9.1 10^3/ul (4.8-10.8)
[2017-02-09 00:29] LABS: ALBUMIN 3.6 g/dl (3.3-4.9); CHLORIDE 101 mmol/L (97-110); SODIUM 140 mmol/L (135-144)
[2017-02-09 00:32] LABS: ALANINE AMINOTRANSFERASE 31 IU/L (13-69); ALBUMIN/GLOBULIN RATIO 0.87; ALKALINE PHOSPHATASE 239 IU/L (42-121); ANION GAP 18 (8-16); ASPARTATE AMINO TRANSFERASE 192 IU/L (15-46); BILIRUBIN,INDIRECT 0.1 mg/dl (0-1.1); BILIRUBIN,TOTAL 0.1 mg/dl (0.2-1.3); BLOOD UREA NITROGEN 14 mg/dl (7-20); CARBON DIOXIDE 25 mmol/L (21-31); CREATININE 0.96 mg/dl (0.44-1.00); TOTAL PROTEIN 7.7 g/dl (6.1-8.1)
[2017-02-09 00:33] LABS: GLUCOSE 95 mg/dl (70-220)
[2017-02-09 00:45] LABS: INR 1.12; PARTIAL THROMBOPLASTIN TIME 28.6 Sec (25.0-35.0); PROTIME 14.4 Sec (12.2-14.2); PT RATIO 1.1
[2017-02-09 00:55] VITALS: BP 124/57; PULSE 92; RESP 16
[2017-02-09 01:09] LABS: TROPONIN-I < 0.012 ng/ml (0.00-0.12)
--- NOTE | 2017-02-09 01:13 | ERD ---
ER Documentation Chief Complaint Date/Time DATE: 02/09/17 TIME: 01:10 Chief Complaint CWP, SOB and poss Blood transfusion HPI This is a 47-year-old female presents to the emergency room for evaluation of generalized fatigue and mild shortness of breath. This patient states that she had a blood transfusion a few days ago for possible myelodysplastic syndrome. She has not had any follow-up with an oncologist due to insurance reasons. The patient states that she has generalized fatigue and was told to come to the ER for further evaluation. She denies any vomiting of blood or dark stools. ROS All systems reviewed and are negative except as per history of present illness. Medications Home Meds Active Scripts Memantine HCl (Memantine HCl) 5 Mg Tablet, 5 MG PO DAILY, #100 TAB 2 Refills Prov:SAMSON DEL CASTILLO 12/24/16 Pantoprazole* (Pantoprazole*) 40 Mg Tablet.dr, 40 MG PO DAILY@06 for 30 Days Prov:NICK HI 12/18/16 Ondansetron Hcl* (Zofran*) 4 Mg Tab, 4 MG PO Q4H Y for NAUSEA AND OR VOMITING, # 40 TAB Prov:NICK HI 12/18/16 Dexamethasone* (Decadron*) 4 Mg Tab, 6 MG PO QID for 30 Days, TAB Prov:NICK HI 12/18/16 Allergies Allergies: Coded Allergies: No Known Allergy (Unverified , 12/11/16) PMhx/Soc History of Surgery: No Anesthesia Reaction: No Hx 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 Disorder: No Hx Respiratory Disorders: No Hx Cardiac Disorders: Yes (Ductal ca mets, PNA) Hx Psychiatric Problems: No Hx Miscellaneous Medical Probl: Yes (ductal ca mets) Hx Alcohol Use: No Hx Substance Use: No Hx Tobacco Use: No Physical Exam Vitals Vital Signs Date Time Temp Pulse Resp B/P Pulse Ox O2 Delivery O2 Flow Rate FiO2 02/09/17 00:55 92 16 124/57 02/08/17 21:21 97.5 108 18 138/69 99 Physical Exam INITIAL VITAL SIGNS: Reviewed by me GENERAL: The patient is well developed and appropriate for usual state of health in no apparent distress HEENT: Pupils equal, round, and reactive to light. EOMI. There is no scleral icterus. NECK: C-spine is soft and supple, there is no meningismus. There is no cervical lymphadenopathy. LUNGS: Clear to auscultation bilaterally. There are no rales, wheezes or rhonchi. HEART: Regular rate and rhythm, no murmurs, clicks, rubs or gallops. ABDOMEN: Soft, non-tender, non-distended. There are bowel sounds in all four quadrants. No rebound or guarding. EXTREMITIES: There is no peripheral cyanosis or edema. No focal swelling or erythema. NEUROLOGICAL: The patient moves all four extremities with 5/5 strength. Cranial nerves II - XII are intact. Normal gait. Alert and oriented SKIN: There is no apparent rash or petechiae. HEME/LYMPHATIC: There is no evidence of excessive bruising or lymphedema. PSYCHIATRIC: The patient does not appear anxious or depressed. Result Diagram: 02/08/17235702/08/172357 Results 24 hrs Laboratory Tests Test 02/08/17 23:58 Activated Partial Thromboplast Time 28.6Sec Alanine Aminotransferase (ALT/SGPT) 31IU/L Albumin 3.6g/dl Albumin/Globulin Ratio 0.87 Alkaline Phosphatase 239IU/L Anion Gap 18 Aspartate Amino Transf (AST/SGOT) 192IU/L Basophils # 0.110^3/ul Basophils % 0.9% Blood Urea Nitrogen 14mg/dl Calcium Level 9.0mg/dl Carbon Dioxide Level 25mmol/L Chloride Level 101mmol/L Creatinine 0.96mg/dl Direct Bilirubin 0.00mg/dl Eosinophils # 0.210^3/ul Eosinophils % 1.6% Globulin 4.10g/dl Glucose Level 95mg/dl Hematocrit 30.0% Hemoglobin 9.3g/dl INR International Normalized Ratio 1.12 Indirect Bilirubin 0.1mg/dl Lymphocytes # 1.910^3/ul Lymphocytes % 20.6% Mean Corpuscular Hemoglobin 32.7pg Mean Corpuscular Hemoglobin Concent 31.0g/dl Mean Corpuscular Volume 105.6fl Mean Platelet Volume 9.4fl Monocytes # 1.110^3/ul Monocytes % 12.3% Neutrophils # 5.710^3/ul Neutrophils % 62.5% Nucleated Red Blood Cells # 0.510^3/ul Nucleated Red Blood Cells % 5.2/100WBC Platelet Count 24751^3/UL Potassium Level 4.0mmol/L Prothrombin Time 14.4Sec Prothrombin Time Ratio 1.1 Red Blood Count 2.8410^6/ul Red Cell Distribution Width 23.3% Sodium Level 140mmol/L Total Bilirubin 0.1mg/dl Total Protein 7.7g/dl Troponin I < 0.012ng/ml White Blood Count 9.110^3/ul Current Medications Medications (Trade) Dose Ordered Sig/Eva Route PRN Reason Start Time Stop Time Status Last Admin Dose Admin Sodium Chloride (NS) 500 ml @ 500 mls/hr Q1H STAT IV 02/08/17 23:12 02/09/17 00:11 DC Procedures/MDM EKG: Rate/Rhythm: [Normal Sinus Rhythm] QRS, ST, T-waves: [No changes consistent w/ acute ischemia] Impression: [No evidence of ischemia or arrhythmia] Chest X-ray 1V Interpreted by me: Soft Tissue: No acute abnormalities Bones: No acute abnormalities Mediastinum/Cardiac Silhouette/Lungs: [No acute abnormalities] This 47-year-old female presents to the emergency room for evaluation of generalized fatigue and weakness. This patient does have a history of breast cancer and on no mild dysplasia. She was here for a blood transfusion within the last week and states that she is feeling generally fatigued. I evaluated this patient and did get blood work on her. Her hemoglobin is 9.3 which is up from her hemoglobin 3 days ago of 7.4. This patient has no active bleeding at this time. The patient was given some IV fluids and states that she is feeling better. I will refer this patient for oncology as an outpatient and the patient is okay with that plan of care. Departure Diagnosis: Primary Impression: Macrocytic anemia Additional Impression: Generalized weakness Condition: Stable LAWSON MAJOR DO Feb 09, 2017 01:13
== END 2017-02-09 01:22 | disposition home or self-care (01) ==
LOC: E/R 21:01
DX: D53.9 Nutritional anemia, unspecified (principal); M62.81 Muscle weakness (generalized); Z85.89 Personal history of malignant neoplasm of other organs and systems
CPT/HCPCS: 36415; 80053; 84484; 85025; 85610; 85730; J7040; Z7502; 93005

== ENCOUNTER 2017-02-17 03:40 | Emergency (ER) | payer OTHER ==
[~2017-02-17] VITALS: Ht 177.8 cm; Wt 62.5 kg
[2017-02-17 03:44] VITALS: Ht 177.8 cm; Wt 62.5 kg
[2017-02-17 05:54] LABS: ADD SCAN DIFF NO
[2017-02-17 06:04] LABS: BASOPHIL # 0.1 10^3/ul (0.0-0.1); BASOPHILS % 0.7 % (0.0-2.0); EOSINOPHILS # 0.2 10^3/ul (0.0-0.5); EOSINOPHILS % 1.7 % (0.0-7.0); HEMATOCRIT 30.6 % (37.0-47.0); HEMOGLOBIN 9.5 g/dl (12.0-16.0); LYMPHOCYTES # 2.2 10^3/ul (0.8-2.9); LYMPHOCYTES % 22.4 % (15.0-51.0); MEAN CORPUSCULAR HEMOGLOBIN 32.3 pg (29.0-33.0); MEAN CORPUSCULAR VOLUME 104.1 fl (82.0-101.0); MEAN PLATELET VOLUME 10.1 fl (7.4-10.4); MONOCYTE # 0.8 10^3/ul (0.3-0.9); NEUTROPHIL # 6.4 10^3/ul (1.6-7.5); NEUTROPHILS % 65.1 % (39.0-77.0); NUCLEATED RED BLOOD CELLS # 0.8 10^3/ul (0.0-0.0); NUCLEATED RED BLOOD CELLS% 7.8 /100WBC (0.0-0.0); PLATELET COUNT 201 10^3/UL (140-415); RED BLOOD COUNT 2.94 10^6/ul (4.20-5.40); RED CELL DISTRIBUTION WIDTH 21.8 % (11.5-14.5); WHITE BLOOD COUNT 9.8 10^3/ul (4.8-10.8)
[2017-02-17 06:06] LABS: ALBUMIN 3.6 g/dl (3.3-4.9)
[2017-02-17 06:07] LABS: POTASSIUM 4.3 mmol/L (3.5-5.1)
[2017-02-17 06:09] LABS: ADD UMIC YES; ALBUMIN/GLOBULIN RATIO 0.94; BILIRUBIN,INDIRECT 0.3 mg/dl (0-1.1); BILIRUBIN,TOTAL 0.3 mg/dl (0.2-1.3); CALCIUM 9.3 mg/dl (8.4-10.2); TOTAL PROTEIN 7.4 g/dl (6.1-8.1); URINE BILIRUBIN (Dip) 1+ (NEGATIVE); URINE BLOOD (Dip) NEGATIVE (NEGATIVE); URINE COLOR YELLOW (YELLOW); URINE GLUCOSE (Dip) NEGATIVE (NEGATIVE); URINE KETONES (Dip) TRACE (NEGATIVE); URINE LEUKOCYTE ESTERASE (Dip) 1+ (NEGATIVE); URINE NITRITE (Dip) NEGATIVE (NEGATIVE); URINE TOTAL PROTEIN (Dip) TRACE (NEGATIVE); URINE UROBILINOGEN (Dip) 4.0 E.U./dL (0.1-1.0)
[2017-02-17 06:20] LABS: ICTOTEST NEGATIVE (NEGATIVE)
[2017-02-17 06:21] LABS: BACTERIA,URINE MODERATE; URINE RBCS NONE SEEN /HPF (0)
[2017-02-17] MEDS ORDERED: OXYCODONE/ACETAMINOPHEN (5/325) TAB PO ONE ×2 (06:30→08:30)
--- NOTE | 2017-02-17 06:30 | ERD ---
ER Documentation Chief Complaint Date/Time DATE: 02/17/17 TIME: 06:26 Chief Complaint on and off abdominal pain/rash x 3 days HPI HPI: Patient is a 57-year-old female with suspected breast cancer and myelodysplastic syndrome who presents with gradual onset, constant, mild to moderate shortness of breath since yesterday. The patient has had previous presentations with anemia, and recently required transfusion. The patient had a change of insurance and has not been able to follow-up with oncology, but her primary care doctor is in the process of arranging follow-up. She has chronic nodules to her abdomen and back that are painful, with worse pain over the last 3 days. Patient also has skin lesions and mass to the right breast that was biopsied recently, and believed to be cancerous. Denies chest pain, pleurisy, fever, cough, nausea, or vomiting. ROS All systems reviewed and are negative except as per history of present illness. Medications Home Meds Active Scripts Oxycodone HCl/Acetaminophen (Percocet 5-325 mg Tablet) 1 Each Tablet, 1 EACH PO Q4 Y for PAIN, #30 TAB Prov:JAMIE ELDER MD 02/17/17 Memantine HCl (Memantine HCl) 5 Mg Tablet, 5 MG PO DAILY, #100 TAB 2 Refills Prov:SAMSON DEL CASTILLO 12/24/16 Pantoprazole* (Pantoprazole*) 40 Mg Tablet.dr, 40 MG PO DAILY@06 for 30 Days Prov:NICK HI 12/18/16 Ondansetron Hcl* (Zofran*) 4 Mg Tab, 4 MG PO Q4H Y for NAUSEA AND OR VOMITING, # 40 TAB Prov:NICK HI 12/18/16 Dexamethasone* (Decadron*) 4 Mg Tab, 6 MG PO QID for 30 Days, TAB Prov:NICK HI 12/18/16 Allergies Allergies: Coded Allergies: No Known Allergy (Unverified , 02/17/17) PMhx/Soc Past medical history: Suspected cancer, myelodysplastic syndrome Past surgical history: Urethral dilation in childhood Social history: Denies tobacco, alcohol, illicit drugs History of Surgery: No Anesthesia Reaction: No Hx 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 Disorder: No Hx Respiratory Disorders: No Hx Cardiac Disorders: Yes (Ductal ca mets, PNA) Hx Psychiatric Problems: No Hx Miscellaneous Medical Probl: Yes (ductal ca mets) Hx Alcohol Use: No Hx Substance Use: No Hx Tobacco Use: No Smoking Status: Never smoker FmHx Denies Family History: No coronary disease, No diabetes Physical Exam Vitals Vital Signs Date Time Temp Pulse Resp B/P Pulse Ox O2 Delivery O2 Flow Rate FiO2 02/17/17 07:23 111 18 115/62 98 Room Air 02/17/17 03:44 98.3 118 20 120/66 97 Physical Exam Const: Alert, no acute distress Head: Atraumatic Eyes: Normal Conjunctiva, no pallor or icterus ENT: Normal External Ears, Nose and Mouth. Neck: Full range of motion. No meningismus. Resp: Clear to auscultation bilaterally, no wheezes, no rales, no rhonchi Cardio: Tachycardia, regular rhythm, no murmurs, no gallops, induration and skin change with mass to right breast. No drainage. Abd: Soft, non tender, non distended. No rebound, no guarding. Multiple soft tissue nodules on abdominal wall. Skin: Scattered skin nodules of various sizes on chest and abdomen, violaceous Back: No midline or flank tenderness Ext: No cyanosis, or edema Neur: Awake and alert, cranial nerves II through XII intact bilaterally, strength and sensation full in 4 extremities. Psych: Normal Mood and Affect Result Diagram: 02/17/17 0540 02/17/17 0540 Results 24 hrs Laboratory Tests Test 02/17/17 05:40 02/17/17 07:50 White Blood Count 9.810^3/ul Red Blood Count 2.9410^6/ul Hemoglobin 9.5g/dl Hematocrit 30.6% Mean Corpuscular Volume 104.1fl Mean Corpuscular Hemoglobin 32.3pg Mean Corpuscular Hemoglobin Concent 31.0g/dl Red Cell Distribution Width 21.8% Platelet Count 02314^3/UL Mean Platelet Volume 10.1fl Neutrophils % 65.1% Lymphocytes % 22.4% Monocytes % 8.0% Eosinophils % 1.7% Basophils % 0.7% Nucleated Red Blood Cells % 7.8/100WBC Neutrophils # 6.410^3/ul Lymphocytes # 2.210^3/ul Monocytes # 0.810^3/ul Eosinophils # 0.210^3/ul Basophils # 0.110^3/ul Nucleated Red Blood Cells # 0.810^3/ul Urine Color YELLOW Urine Clarity CLOUDY Urine pH 5.5 Urine Specific [place] 1.025 Urine Ketones TRACE Urine Nitrite NEGATIVE Urine Bilirubin 1+ Urine Ictotest NEGATIVE Urine Urobilinogen 4.0 E.U./dL Urine Leukocyte Esterase 1+ Urine Microscopic RBC NONE SEEN/HPF Urine Microscopic WBC 5-10/HPF Urine Epithelial Cells MODERATE Urine Bacteria MODERATE Urine Hemoglobin NEGATIVE Urine Glucose NEGATIVE% Urine Total Protein TRACE Sodium Level 137mmol/L Potassium Level 4.3mmol/L Chloride Level 103mmol/L Carbon Dioxide Level 23mmol/L Anion Gap 15 Blood Urea Nitrogen 18mg/dl Creatinine 1.00mg/dl Glucose Level 117mg/dl Calcium Level 9.3mg/dl Total Bilirubin 0.3mg/dl Direct Bilirubin 0.00mg/dl Indirect Bilirubin 0.3mg/dl Aspartate Amino Transf (AST/SGOT) 271IU/L Alanine Aminotransferase (ALT/SGPT) 40IU/L Alkaline Phosphatase 355IU/L Total Protein 7.4g/dl Albumin 3.6g/dl Globulin 3.80g/dl Albumin/Globulin Ratio 0.94 Lipase 712U/L D-Dimer > 49573.00ng/ml Troponin I < 0.012ng/ml Current Medications Medications (Trade) Dose Ordered Sig/Eva Route PRN Reason Start Time Stop Time Status Last Admin Dose Admin Oxycodone/ Acetaminophen 1 tab 1 tab ONCE ONCE PO 02/17/17 06:30 02/17/17 06:32 DC 02/17/17 06:47 Sodium Chloride (NS) 1,000 ml @ 1,000 mls/hr Q1H ONCE IV 02/17/17 07:00 02/17/17 07:59 DC 02/17/17 06:50 Oxycodone/ Acetaminophen (Percocet (5/ 325)) 1 tab ONCE ONCE PO 02/17/17 08:30 02/17/17 08:31 DC 02/17/17 08:35 IV Flush 10 ml 10 ml STK-MED ONCE .ROUTE 02/17/17 09:48 02/17/17 09:49 DC 02/17/17 10:08 Sodium Chloride 100 ml @ ud STK-MED ONCE .ROUTE 02/17/17 09:48 02/17/17 09:49 DC 02/17/17 10:08 Iohexol (Omnipaque) 100 ml @ STK-MED ONCE .ROUTE 02/17/17 09:48 02/17/17 09:49 DC 02/17/17 10:09 Procedures/MDM EKG read by me: Time 710, rate 109 Rhythm: Sinus tachycardia [place]: Normal Intervals: Normal ST-T waves: no ischemic changes Ectopy: No Q-waves: No Impression: Sinus tachycardia, otherwise normal Chest x-ray:IMPRESSION: Bibasilar infiltrates and small right pleural effusion, increased compared with the prior study. CTA chest: IMPRESSION: No CT evidence for pulmonary embolus. No aortic dissection or aneurysm. Metastatic breast cancer involving the bones diffusely and right axillary nodes as well as probable involvement of the right hilum and mediastinum. Question lymphangitic spread of tumor right lower lobe. Bilateral pleural effusions, right greater than left with dependent atelectasis. MDM: Patient is a 57-year-old female with metastatic breast cancer who presents with dyspnea and exacerbation of chronic pain. She was found to be tachycardic on arrival and has very elevated d-dimer. Therefore, a CTA was performed to exclude the possibility of pulmonary embolism. CTA shows metastatic disease but no PE, demonstrates bilateral pleural effusions that are small. There is no evidence for pneumonia on CT, and patient does not have fever, leukocytosis or dyspnea. O2 sat and blood pressure are within normal limits, respiratory rate is normal and there is no respiratory distress. Patient does report chronic pain from her cancer lesions on the skin, and is not currently on pain control. Her pain was well-controlled with Percocet. Given that her neck pain is cancer related, I do feel it is appropriate to give her a prescription for Percocet. Advised to follow-up tomorrow with her PMD for further management of her pain issues, as well as coordination of care for her underlying cancer and pleural effusions. There is no indication at this time for emergent thoracentesis. Symptoms are not concerning for coronary ischemia. Patient was advised on return precautions. Departure Diagnosis: Primary Impression: Pleural effusion Additional Impressions: Dyspnea Metastatic cancer Chronic pain syndrome Condition: Stable JAMIE ELDER MD Feb 17, 2017 06:30
[2017-02-17] MEDS ORDERED: SOD CHLORIDE 0.9% 1,000 ML IV ONE (07:00)
[2017-02-17 07:23] VITALS: BP 115/62; PULSE 111; RESP 18
--- NOTE | 2017-02-17 07:28 | RADRPT ---
PROCEDURE: Chest. CLINICAL INDICATION: Chest pain. TECHNIQUE: Single frontal view of the chest was obtained. COMPARISON: 02/03/2017. FINDINGS: The cardiac silhouette is within normal limits. The aortic arch is unremarkable. There are bibasil ar infiltrates and small right pleural effusion. There is no pneumothorax. IMPRESSION: Bibasilar infiltrates and small right pleural effusion, increased compared with the prior study. .Keegan Norman MD, MD Date Time Electronically viewed and signed by .Keegan Norman MD, on 02/17/2017 07:27 .T/
[2017-02-17] MEDS ORDERED: SOD CHLORIDE 0.9% 100 ML ONE (09:48)
[2017-02-17] MEDS ORDERED: IOHEXOL 100 ML ONE (09:48)
--- NOTE | 2017-02-17 10:29 | RADRPT ---
PROCEDURE: CTA Chest. CLINICAL INDICATION: Dyspnea, elevated D-dimer TECHNIQUE: The study was performed utilizing multidetector CT scanner. Direct spiral 1 mm axial se ctions were obtained from the thoracic inlet to the upper abdomen with the use of 100 cc of Omnipaqu e 350 nonionic intravenous contrast material and reformatted at 3 mm. Coronal reformations were obta ined. The images were reviewed on a PACS workstation. CT D I 17 mCi. Dose 263 mCi per centimeter COMPARISON: CT chest December 13, 2016 FINDINGS: No central or peripheral pulmonary embolism is present. There is no aortic dissection or aneurysm. Noted is a moderate-sized right pleural effusion and small left pleural effusion. No pericardial e ffusion is present. There is right hilar and middle mediastinal adenopathy. Extensive right axilla ry adenopathy is present. Noted is a 8 cm mass in the right breast with overlying skin thickening c onsistent with breast cancer. There is plate-like atelectasis in the right middle lobe with atelect asis in the dependent portion of the right lower lobe. No alveolar infiltrate is seen. There is an ovoid peribronchial thickening in the right lower lobe. This may represent evidence of lymphangiti c spread of tumor. No pneumothorax is visualized. No hepatic or splenic abnormality is seen. There is diffuse enlargement of the left adrenal gland. There are diffuse blastic metastases present. There is no evidence of compromise of the vertebral c anal. IMPRESSION: No CT evidence for pulmonary embolus. No aortic dissection or aneurysm. Metastatic breast cancer involving the bones diffusely and right axillary nodes as well as probable involvement of the right hilum and mediastinum. Question lymphangitic spread of tumor right lower l obe. Bilateral pleural effusions, right greater than left with dependent atelectasis. .Cosmo Sotelo MD, Date Time Electronically viewed and signed by .Cosmo Sotelo MD, MD on 02/17/2017 10:29 .A/
[2017-02-17] MEDS ORDERED: OXYC-279 PO (10:51)
== END 2017-02-17 11:22 | disposition home or self-care (01) ==
LOC: E/R 03:40
DX: J90 Pleural effusion, not elsewhere classified (principal); R40.2252 Coma scale, best verbal response, oriented, at arrival to emergency department; R06.00 Dyspnea, unspecified; G89.4 Chronic pain syndrome; C79.81 Secondary malignant neoplasm of breast; R10.9 Unspecified abdominal pain; R40.2142 Coma scale, eyes open, spontaneous, at arrival to emergency department; R40.2362 Coma scale, best motor response, obeys commands, at arrival to emergency department
CPT/HCPCS: 36415; 71010; 71275; 80053; 81001; 83690; 84484; 85025; 85378; 87086; 93005; J7030; Q9967; Z7502; Z7610; 81003

== ENCOUNTER 2017-02-25 12:44 | Emergency (ER) | payer OTHER ==
[~2017-02-25] VITALS: Ht 162.6 cm; Wt 67.0 kg
[~2017-02-25 12:44] MED LIST changes: +OXYC-279 PO
[2017-02-25 12:49] VITALS: Ht 162.6 cm; Wt 67.0 kg
--- NOTE | 2017-02-25 13:50 | ERA ---
ER Documentation Chief Complaint Date/Time DATE: 02/25/17 TIME: 13:49 Chief Complaint Chronic pain HPI The patient is a 57-year-old female, with history of metastatic breast CA, presenting to the ER because of chronic chest pain that is not relieved with Percocet. The pain is worse with movement. He is awaiting to see oncologist and her physician. She denies fever, chills, neck pain, dyspnea, palpitation, diaphoresis. She was recently diagnosed with metastatic breast CA about 2 months ago. She had history of brain radiation due to metastatic breast CA. She does not smoke nor drink Past medical history: History of metastatic breast CA, anemia Past surgical history: None ROS All systems reviewed and are negative except as per history of present illness. Medications Home Meds Reported Medications Oxycodone HCl/Acetaminophen (Percocet 5-325 mg Tablet) 1 Each Tablet, 2 EACH PO Q4H WHILE AWAKE Y for PAIN, TAB 02/25/17 Memantine* (Namenda*) 5 Mg Tablet, 10 MG PO BID, #60 TAB 02/25/17 Discontinued Scripts Oxycodone HCl/Acetaminophen (Percocet 5-325 mg Tablet) 1 Each Tablet, 1 EACH PO Q4 Y for PAIN, #30 TAB Prov:JAMIE ELDER MD 02/17/17 Memantine HCl (Memantine HCl) 5 Mg Tablet, 5 MG PO DAILY, #100 TAB 2 Refills Prov:SAMSON DEL CASTILLO 12/24/16 Pantoprazole* (Pantoprazole*) 40 Mg Tablet.dr, 40 MG PO DAILY@06 for 30 Days Prov:NICK HI 12/18/16 Ondansetron Hcl* (Zofran*) 4 Mg Tab, 4 MG PO Q4H Y for NAUSEA AND OR VOMITING, # 40 TAB Prov:NICK HI 12/18/16 Dexamethasone* (Decadron*) 4 Mg Tab, 6 MG PO QID for 30 Days, TAB Prov:NICK HI 12/18/16 Allergies Allergies: Coded Allergies: No Known Allergy (Unverified , 02/25/17) PMhx/Soc History of Surgery: No Anesthesia Reaction: No Hx 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 Disorder: No Hx Respiratory Disorders: No Hx Cardiac Disorders: Yes (Ductal ca mets, PNA) Hx Psychiatric Problems: No Hx Miscellaneous Medical Probl: Yes (ductal ca mets) Hx Alcohol Use: No Hx Substance Use: No Hx Tobacco Use: No Physical Exam Vitals Vital Signs Date Time Temp Pulse Resp B/P Pulse Ox O2 Delivery O2 Flow Rate FiO2 02/25/17 17:03 78 20 122/74 99 Room Air 02/25/17 14:34 Nasal Cannula 2 02/25/17 12:49 97.3 115 18 122/67 96 Physical Exam Const: No acute distress. Head: Atraumatic. Eyes: Normal Conjunctiva. ENT: Normal External Ears, Nose and Mouth. Neck: Full range of motion. No meningismus. Resp: Decreased breath sounds bibasilarly Cardio: Regular tachycardic Abd: Soft, non distended, normal bowel sounds, non tender. Skin: No petechiae or rashes. Back: No midline or flank tenderness. Ext: No cyanosis, or edema. Neur: Awake and alert. No focal deficit Psych: Normal Mood and Affect. Result Diagram: 02/25/17 1425 02/25/17 1425 Results 24 hrs Laboratory Tests Test 02/25/17 14:25 White Blood Count 9.210^3/ul Red Blood Count 2.7410^6/ul Hemoglobin 9.0g/dl Hematocrit 28.9% Mean Corpuscular Volume 105.5fl Mean Corpuscular Hemoglobin 32.8pg Mean Corpuscular Hemoglobin Concent 31.1g/dl Red Cell Distribution Width 21.4% Platelet Count 47968^3/UL Mean Platelet Volume 9.9fl Neutrophils % 60.7% Lymphocytes % 20.6% Monocytes % 12.1% Eosinophils % 2.6% Basophils % 1.0% Nucleated Red Blood Cells % 21.2/100WBC Neutrophils # 5.610^3/ul Lymphocytes # 1.910^3/ul Monocytes # 1.110^3/ul Eosinophils # 0.210^3/ul Basophils # 0.110^3/ul Nucleated Red Blood Cells # 2.010^3/ul Prothrombin Time 13.1Sec Prothrombin Time Ratio 1.0 INR International Normalized Ratio 0.99 Activated Partial Thromboplast Time 23.8Sec Sodium Level 138mmol/L Potassium Level 4.7mmol/L Chloride Level 102mmol/L Carbon Dioxide Level 22mmol/L Anion Gap 19 Blood Urea Nitrogen 20mg/dl Creatinine 1.14mg/dl Glucose Level 91mg/dl Calcium Level 9.4mg/dl Troponin I < 0.012ng/ml B-Type Natriuretic Peptide 579PG/ML Current Medications Medications (Trade) Dose Ordered Sig/Eva Route PRN Reason Start Time Stop Time Status Last Admin Dose Admin Hydromorphone HCl (Dilaudid) 1 mg ONCE STAT IV 02/25/17 14:02 02/25/17 14:04 DC 02/25/17 14:27 Ondansetron HCl (Zofran Inj) 4 mg ONCE STAT IV 02/25/17 14:02 02/25/17 14:04 DC 02/25/17 14:28 IV Flush 10 ml 10 ml STK-MED ONCE .ROUTE 02/25/17 15:22 02/25/17 15:23 DC 02/25/17 16:01 Sodium Chloride (NS) 100 ml @ ud STK-MED ONCE .ROUTE 02/25/17 15:22 02/25/17 15:23 DC 02/25/17 16:01 Iodixanol (Visipaque Locm) 100 ml STK-MED ONCE .ROUTE 02/25/17 15:22 02/25/17 15:23 DC 02/25/17 16:02 Iodixanol (Visipaque Locm) 50 ml STK-MED ONCE .ROUTE 02/25/17 15:22 02/25/17 15:23 DC 02/25/17 16:02 Procedures/[place] [id number] Radiology Main Line: [phone] DIAGNOSTIC IMAGING REPORT Patient: RAMANDEEP MATUTE : 1960 Age: 57 Sex: F MR #: [id number] DOS: 02/25/17 1402 Ordering MD: MARGARITA LIEBERMAN MD Location: E/R Room/Bed: PROCEDURE: CT angiogram of the chest with contrast. CLINICAL INDICATION: Shortness of breath TECHNIQUE: CT scan of the chest with contrast was performed on a multidetector high-resolution CT scan. The patient was scanned following the uncomplicated intravenous administration of 125 ml Visipaque 320. Coronal and sagittal reformatted images were obtained from the axial source images. Standard CT angiogram of the chest with contrast protocols were performed. The total exam CTDI equals 59.2 mGy and the total exam DLP equals 337.62 mGy- cm. One or more of the following dose reduction techniques were used: - Automated exposure control. - Adjustment of the mA and/or kV according to patient size. Use of iterative reconstruction technique. COMPARISON: CT angiogram of the chest 02/17/2017 FINDINGS: The pulmonary outflow tract, right and left main pulmonary arteries, right and left interlobar are and primary intersegmental pulmonary arteries are well opacified without filling defects. Specifically there is no central pulmonary emboli. No evidence of aortic aneurysm or dissection. The heart is within normal limits in size without evidence of right heart strain. No evidence of pericardial effusion. Again noted is a moderate right and a small to moderate left pleural effusion without loculation unchanged. Negative for pneumothorax. There is bilateral lower lobe compressive atelectasis more so on the right. Right middle lobe consolidation with air bronchograms slightly more prominent consistent with atelectasis and no pneumonia cannot be excluded. Remainder of the lungs are clear without evidence of pulmonary nodules. No change in the mediastinal, right hilar and extensive right axillary lymphadenopathy. There is mild inferior left axillary lymphadenopathy. On the current study part of the right breast is cut off the image. However again noted is a mass involving the right breast which allowing for differences in technique is unchanged. There is diffuse extensive blastic metastasis. IMPRESSION: 1. No evidence of central pulmonary emboli. 2. No evidence of aortic dissection or aneurysm. 3. Extensive diffuse unchanged blastic metastases. 4. No change in the moderate right and small to moderate left pleural effusions without loculation. 5. No change in the mediastinal, right hilar, extensive right axillary and mild left axillary lymphadenopathy. 6. Allowing for difference in technique no change in the right breast mass. 7. Bilateral lower lobe compressive atelectasis. Right middle lobe consolidation likely all due to atelectasis than pneumonia cannot be excluded. RPTAT:AAJJ Physician Radha Date Time Electronically viewed and signed by Physician Radha on 02/25/2017 16:31 BM/ CC: MARGARITA LIEBERMAN MD [place] [id number] Radiology Main Line: [phone] DIAGNOSTIC IMAGING REPORT Patient: RAMANDEEP MATUTE : 1960 Age: 57 Sex: F MR #: [id number] DOS: 02/25/17 1402 Ordering MD: MARGARITA LIEBERMAN MD Location: E/R Room/Bed: PROCEDURE: Chest x-ray CLINICAL INDICATION: Shortness of breath TECHNIQUE: Chest single view COMPARISON: 02/17/2017 FINDINGS: The heart is normal in size. The pulmonary vessels are normal in caliber. There is a moderate size right pleural effusion with consolidation and volume loss in the right lower lobe. There are increased bilateral lower lobe interstitial lung markings which may represent interstitial pneumonia or atelectasis there is patchy appearance bones suggested diffuse osseous metastasis. IMPRESSION: 1. Interval development of moderate size right pleural effusion with extensive right lower lobe compressive atelectasis. 2. Persistent mild interstitial type infiltrate in the left lower lobe with questionable small left pleural effusion. 3. diffuse osseous metastases with patchy appearance the bone RPTAT: HH .Bucky Douglas MD, MD Date Time Electronically viewed and signed by .Bucky Douglas MD, MD on 02/25/2017 14:30 .W/ CC: MARGARITA LIEBERMAN MD EKG: Read by emergency physician at 12:54 PM Rate/Rhythm: Sinus tachycardia at 117 beats/min QRS, ST, T-waves: No ST elevation, no T inversion Impression: Abnormal EKG EKG: Read by emergency physician at 1443 hrs. Rate/Rhythm: Sinus tachycardia at 106 beats/min QRS, ST, T-waves: No ST elevation, no T inversion Impression: Abnormal EKG MEDICAL MAKING DECISION: The patient is a 57-year-old female, presenting with chronic pain. The differential diagnoses considered include but are not limited to asthma, COPD, pneumonia, pulmonary embolus, pleural effusion, congestive heart failure. Departure Diagnosis: Primary Impression: Chronic pain Additional Impression: Anemia Condition: Good Comments I discussed the findings with the patient. I advised the patient to follow-up with the primary physician and her oncologist and pain management physician in about 1-2 days, sooner if needed and return if any concern. The patient's blood pressure was elevated (>120/80) but appears stable without evidence of hypertension emergency or urgency. The patient was counseled about the risks of hypertension and urged to pursue outpatient monitoring and therapy within a week with their primary care physician. MARGARITA LIEBERMAN MD Feb 25, 2017 13:50
[2017-02-25] MEDS ORDERED: ONDANSETRON 4 MG INJ IV STA (14:02)
[2017-02-25] MEDS ORDERED: HYDROmorphONE 1 MG/ML SYG IV STA (14:02)
[2017-02-25] MEDS ORDERED: MEMA5TAB PO (14:14)
[2017-02-25] MEDS ORDERED: OXYC-279 PO (14:15)
--- NOTE | 2017-02-25 14:30 | RADRPT ---
PROCEDURE: Chest x-ray CLINICAL INDICATION: Shortness of breath TECHNIQUE: Chest single view COMPARISON: 02/17/2017 FINDINGS: The heart is normal in size. The pulmonary vessels are normal in caliber. There is a moderate size right pleural effusion with consolidation and volume loss in the right lower lobe. There are incre ased bilateral lower lobe interstitial lung markings which may represent interstitial pneumonia or a telectasis there is patchy appearance bones suggested diffuse osseous metastasis. IMPRESSION: 1. Interval development of moderate size right pleural effusion with extensive right lower lobe com pressive atelectasis. 2. Persistent mild interstitial type infiltrate in the left lower lobe with q uestionable small left pleural effusion. 3. diffuse osseous metastases with patchy appearance the bone RPTAT: HH .Bucky Douglas MD, Date Time Electronically viewed and signed by .Bucky Douglas MD, on 02/25/2017 14:30 .W/
[2017-02-25 14:42] LABS: ADD SCAN DIFF NO
[2017-02-25 14:46] LABS: BASOPHIL # 0.1 10^3/ul (0.0-0.1); EOSINOPHILS # 0.2 10^3/ul (0.0-0.5); EOSINOPHILS % 2.6 % (0.0-7.0); HEMATOCRIT 28.9 % (37.0-47.0); LYMPHOCYTES # 1.9 10^3/ul (0.8-2.9); LYMPHOCYTES % 20.6 % (15.0-51.0); MEAN CORPUSCULAR HEMOGLOBIN 32.8 pg (29.0-33.0); MEAN CORPUSCULAR HGB CONC 31.1 g/dl (32.0-37.0); MEAN CORPUSCULAR VOLUME 105.5 fl (82.0-101.0); MEAN PLATELET VOLUME 9.9 fl (7.4-10.4); MONOCYTE # 1.1 10^3/ul (0.3-0.9); MONOCYTES % 12.1 % (0.0-11.0); NEUTROPHIL # 5.6 10^3/ul (1.6-7.5); NEUTROPHILS % 60.7 % (39.0-77.0); NUCLEATED RED BLOOD CELLS% 21.2 /100WBC (0.0-0.0); PLATELET COUNT 193 10^3/UL (140-415); RED BLOOD COUNT 2.74 10^6/ul (4.20-5.40); RED CELL DISTRIBUTION WIDTH 21.4 % (11.5-14.5); WHITE BLOOD COUNT 9.2 10^3/ul (4.8-10.8)
[2017-02-25 14:54] LABS: CHLORIDE 102 mmol/L (97-110); INR 0.99; POTASSIUM 4.7 mmol/L (3.5-5.1); PROTIME 13.1 Sec (12.2-14.2); SODIUM 138 mmol/L (135-144)
[2017-02-25 14:55] LABS: PARTIAL THROMBOPLASTIN TIME 23.8 Sec (25.0-35.0)
[2017-02-25 14:57] LABS: ANION GAP 19 (8-16); BLOOD UREA NITROGEN 20 mg/dl (7-20); CARBON DIOXIDE 22 mmol/L (21-31); CREATININE 1.14 mg/dl (0.44-1.00); GLUCOSE 91 mg/dl (70-220)
[2017-02-25 14:58] LABS: CALCIUM 9.4 mg/dl (8.4-10.2)
[2017-02-25 15:07] LABS: B-TYPE NATRIURETIC PEPTIDE 579 PG/ML (0-125)
[2017-02-25 15:21] LABS: TROPONIN-I < 0.012 ng/ml (0.00-0.12)
[2017-02-25] MEDS ORDERED: IODIXANOL LOCM 100 ML BTL ONE (15:22)
[2017-02-25] MEDS ORDERED: IODIXANOL LOCM 50 ML BTL ONE (15:22)
[2017-02-25] MEDS ORDERED: SOD CHLORIDE 0.9% 100 ML ONE (15:22)
--- NOTE | 2017-02-25 16:32 | RADRPT ---
PROCEDURE: CT angiogram of the chest with contrast. CLINICAL INDICATION: Shortness of breath TECHNIQUE: CT scan of the chest with contrast was performed on a multidetector high-resolution CT scan. The patient was scanned following the uncomplicated intravenous administration of 125 ml Visi paque 320. Coronal and sagittal reformatted images were obtained from the axial source images. Stand destiney CT angiogram of the chest with contrast protocols were performed. The total exam CTDI equals 59.2 mGy and the total exam DLP equals 337.62 mGy-cm. One or more of the following dose reduction techniques were used: - Automated exposure control. - Adjustment of the mA and/or kV according to patient size. Use of iterative reconstruction technique. COMPARISON: CT angiogram of the chest 02/17/2017 FINDINGS: The pulmonary outflow tract, right and left main pulmonary arteries, right and left interlobar are a nd primary intersegmental pulmonary arteries are well opacified without filling defects. Specifical ly there is no central pulmonary emboli. No evidence of aortic aneurysm or dissection. The heart is within normal limits in size without evidence of right heart strain. No evidence of pericardial eff usion. Again noted is a moderate right and a small to moderate left pleural effusion without loculation unc hanged. Negative for pneumothorax. There is bilateral lower lobe compressive atelectasis more so o n the right. Right middle lobe consolidation with air bronchograms slightly more prominent consiste nt with atelectasis and no pneumonia cannot be excluded. Remainder of the lungs are clear without e vidence of pulmonary nodules. No change in the mediastinal, right hilar and extensive right axillary lymphadenopathy. There is mi ld inferior left axillary lymphadenopathy. On the current study part of the right breast is cut off the image. However again noted is a mass i nvolving the right breast which allowing for differences in technique is unchanged. There is diffus e extensive blastic metastasis. IMPRESSION: 1. No evidence of central pulmonary emboli. 2. No evidence of aortic dissection or aneurysm. 3. Extensive diffuse unchanged blastic metastases. 4. No change in the moderate right and small to moderate left pleural effusions without loculation. 5. No change in the mediastinal, right hilar, extensive right axillary and mild left axillary lymph adenopathy. 6. Allowing for difference in technique no change in the right breast mass. 7. Bilateral lower lobe compressive atelectasis. Right middle lobe consolidation likely all due to atelectasis than pneumonia cannot be excluded. RPTAT:AAJJ Suzan Triplett, Physician Date Time Electronically viewed and signed by Suzan Triplett, Physician on 02/25/2017 16:31 /
[2017-02-25 17:03] VITALS: BP 122/74; PULSE 78; RESP 20
== END 2017-02-25 17:04 | disposition home or self-care (01) ==
LOC: E/R 12:44
DX: G89.29 Other chronic pain (principal); D64.9 Anemia, unspecified; Z85.3 Personal history of malignant neoplasm of breast
CPT/HCPCS: 36415; 71010; 71275; 80048; 83880; 84484; 85025; 85610; 85730; 93005; 96374; 96375; J1170; J2405; Q9967; Z7502; Z7610

== ENCOUNTER 2017-03-03 00:57 | Inpatient (IN) | payer OTHER ==
[~2017-03-03] VITALS: Ht 177.8 cm; Wt 62.2 kg
[~2017-03-03 00:57] MED LIST changes: -DEC4 PO; +MEMA5TAB PO; -MEMA5TAB14 PO; -ONDA-43 PO; -PANT40TA4 PO
--- NOTE | 2017-03-03 01:58 | ERD ---
ER Documentation Chief Complaint Date/Time DATE: 03/03/17 TIME: 01:55 Chief Complaint chest pain/sob since last night HPI Patient is a 57-year-old female with metastatic breast cancer and chronic pain who presents with acute on chronic shortness of breath associated with chest pain that is worse when she takes deep inspiration. She states that pain and shortness of breath suddenly got worse last night. She has not yet followed up with her oncologist. She has history of pleural effusion, but has not had thoracentesis. She denies nausea, vomiting or diarrhea. Denies back pain. ROS All systems reviewed and are negative except as per history of present illness. Medications Home Meds Reported Medications Oxycodone HCl/Acetaminophen (Percocet 5-325 mg Tablet) 1 Each Tablet, 2 EACH PO Q4H WHILE AWAKE Y for PAIN, TAB 02/25/17 Memantine* (Namenda*) 5 Mg Tablet, 10 MG PO BID, #60 TAB 02/25/17 Discontinued Scripts Oxycodone HCl/Acetaminophen (Percocet 5-325 mg Tablet) 1 Each Tablet, 1 EACH PO Q4 Y for PAIN, #30 TAB Prov:JAMIE ELDER MD 02/17/17 Memantine HCl (Memantine HCl) 5 Mg Tablet, 5 MG PO DAILY, #100 TAB 2 Refills Prov:SAMSON DEL CASTILLO 12/24/16 Pantoprazole* (Pantoprazole*) 40 Mg Tablet.dr, 40 MG PO DAILY@06 for 30 Days Prov:NICK HI 12/18/16 Ondansetron Hcl* (Zofran*) 4 Mg Tab, 4 MG PO Q4H Y for NAUSEA AND OR VOMITING, # 40 TAB Prov:REGIDONICK Centeno 12/18/16 Dexamethasone* (Decadron*) 4 Mg Tab, 6 MG PO QID for 30 Days, TAB Prov:REGNICK PEREZ 12/18/16 Allergies Allergies: Coded Allergies: hydromorphone (Verified Adverse Reaction, Intermediate, shortness of breath, 03/03/17) PMhx/Soc Past medical history: Metastatic breast cancer Past surgical history: Denies Social history: Denies tobacco or alcohol. History of Surgery: No Anesthesia Reaction: No Hx 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 Disorder: No Hx Respiratory Disorders: No Hx Cardiac Disorders: Yes (Ductal ca mets, PNA) Hx Psychiatric Problems: No Hx Miscellaneous Medical Probl: Yes (ductal ca mets) Hx Alcohol Use: No Hx Substance Use: No Hx Tobacco Use: No FmHx Family History: No coronary disease, No diabetes Physical Exam Vitals Vital Signs Date Time Temp Pulse Resp B/P Pulse Ox O2 Delivery O2 Flow Rate FiO2 03/03/17 03:49 105 21 108/49 100 Nasal Cannula 3.0 03/03/17 02:10 100 Nasal Cannula 3.0 03/03/17 02:00 114 30 114/47 87 Room Air 03/03/17 01:14 98.2 118 22 105/53 95 Physical Exam Const: Cachectic, mild distress Head: Atraumatic Eyes: Normal Conjunctiva, mild pallor, no icterus ENT: Normal External Ears, Nose and Mouth. Moist mucous membranes Neck: Full range of motion. No meningismus. Resp: Clear to auscultation bilaterally, slightly decreased breath sounds at left base Cardio: Tachycardia, regular rhythm, no murmurs Abd: Soft, non tender, non distended. No guarding or rebound Skin: Diffuse skin nodules on chest back and abdomen, tender to palpation, no surrounding erythema, no discharge Back: No midline or flank tenderness Ext: No cyanosis, or edema Neur: Awake and alert, cranial nerves II through XII intact bilaterally, most just 4 extremities appropriately. Psych: Normal Mood and Affect Result Diagram: 03/03/17 0200 03/03/17 0200 Results 24 hrs Laboratory Tests Test 03/03/17 02:00 White Blood Count 6.910^3/ul Red Blood Count 2.6210^6/ul Hemoglobin 8.7g/dl Hematocrit 28.2% Mean Corpuscular Volume 107.6fl Mean Corpuscular Hemoglobin 33.2pg Mean Corpuscular Hemoglobin Concent 30.9g/dl Red Cell Distribution Width 22.4% Platelet Count 03537^3/UL Mean Platelet Volume 11.2fl Neutrophils % 57.0% Band Neutrophils % 2.0% Lymphocytes % 25.0% Monocytes % 14.0% Eosinophils % 1.0% Basophils % 1.0% Nucleated Red Blood Cells % 38.0/100WBC Neutrophils # 3.910^3/ul Lymphocytes # 1.710^3/ul Monocytes # 1.010^3/ul Eosinophils # 0.110^3/ul Basophils # 0.110^3/ul Platelet Estimate PLT APPEAR ADEQUATE Prothrombin Time 14.2Sec Prothrombin Time Ratio 1.1 INR International Normalized Ratio 1.10 Activated Partial Thromboplast Time 30.3Sec Urine Color LT. YELLOW Urine Clarity CLEAR Urine pH 5.0 Urine Specific [place] 1.020 Urine Ketones TRACE Urine Nitrite NEGATIVE Urine Bilirubin 1+ Urine Ictotest NEGATIVE Urine Urobilinogen 1.0 E.U./dL Urine Leukocyte Esterase TRACE Urine Microscopic RBC 0-2/HPF Urine Microscopic WBC 0-2/HPF Urine Squamous Epithelial Cells FEW Urine Bacteria MANY Urine Hemoglobin NEGATIVE Urine Glucose NEGATIVE% Urine Total Protein NEGATIVE Sodium Level 140mmol/L Potassium Level 4.5mmol/L Chloride Level 105mmol/L Carbon Dioxide Level 20mmol/L Anion Gap 20 Blood Urea Nitrogen 30mg/dl Creatinine 1.11mg/dl Glucose Level 93mg/dl Calcium Level 8.9mg/dl Troponin I < 0.012ng/ml Current Medications Medications (Trade) Dose Ordered Sig/Eva Route PRN Reason Start Time Stop Time Status Last Admin Dose Admin Sodium Chloride (NS) 1,000 ml @ 1,000 mls/hr Q1H ONCE IV 03/03/17 02:00 03/03/17 02:59 DC 03/03/17 02:13 Hydromorphone HCl (Dilaudid) 1 mg ONCE STAT IV 03/03/17 01:53 03/03/17 01:56 DC Oxycodone/ Acetaminophen (Endocet (10/ 325)) 1 tab ONCE ONCE PO 03/03/17 02:30 03/03/17 02:59 DC Oxycodone/ Acetaminophen (Endocet (10/ 325)) 1 tab ONCE ONCE PO 03/03/17 03:00 03/03/17 03:01 DC 03/03/17 03:03 IV Flush 10 ml 10 ml STK-MED ONCE .ROUTE 03/03/17 03:40 03/03/17 03:41 DC 03/03/17 04:19 Sodium Chloride 100 ml @ ud STK-MED ONCE .ROUTE 03/03/17 03:40 03/03/17 03:41 DC 03/03/17 04:20 Iohexol (Omnipaque) 100 ml @ ud STK-MED ONCE .ROUTE 03/03/17 03:40 03/03/17 03:41 DC 4/9/17 04:20 Procedures/MDM EKG read by me: Time 105, rate 117 Rhythm: Sinus tachycardia [place]: Normal Intervals: Normal ST-T waves: no ischemic changes Ectopy: No Q-waves: No Impression: Sinus tachycardia, no ischemia MDM: Patient is a 57-year-old female with metastatic breast cancer and chronic pain and dyspnea who presents to the ER with acute chest pain and worsening dyspnea since last night. CTPA is negative for pulmonary embolism. EKG is nonischemic. Troponin is negative. CT scan does demonstrate large pleural effusions that are increased from prior, and the patient is satting 85-86% on room air. The patient also has chronic pain control issues. Patient still has not seen an oncologist and has been unable to arrange expeditious outpatient appointment. Will admit for thoracenteses, pain control and further workup. Departure Diagnosis: Primary Impression: Hypoxemia Additional Impressions: Pleural effusion Breast cancer metastasized to brain Laterality: right Qualified Code: C50.911 - Breast cancer metastasized to brain, right Chest pain Condition: Stable JAMIE ELDER MD Mar 03, 2017 01:58
[2017-03-03] MEDS ORDERED: SOD CHLORIDE 0.9% 1,000 ML IV ONE (02:00)
[2017-03-03] MEDS: HYDROmorphONE 1 MG/ML SYG IV STA ×2 (02:13→02:28)
[2017-03-03] MEDS ORDERED: OXYCODONE/ACETAMINOPHEN (10/325) TAB PO ONE ×2 (02:30→03:00)
--- NOTE | 2017-03-03 03:05 | RADRPT ---
PROCEDURE: XR Chest. CLINICAL INDICATION: Chest pain. TECHNIQUE: Single frontal chest x-ray. COMPARISON: 02/25/2007 FINDINGS: Heart is enlarged.. There is increased CHF.. There is increased right pleural effusion with basilar atelectasis versus infiltrate.. There is no definite left pleural effusion.. There is no pneumoth orax. Bones are unchanged.. IMPRESSION: Cardiomegaly. Increased CHF. Increased right pleural effusion with basilar atelectasis versus infi ltrate. RPTAT: HMVK .Fly Taylor MD, MD Date Time Electronically viewed and signed by .Fly Taylor MD, MD on 03/03/2017 03:05 .K/
[2017-03-03 03:19] LABS: ADD SCAN DIFF NO
[2017-03-03 03:22] LABS: ADD UMIC YES; URINE BILIRUBIN (Dip) 1+ (NEGATIVE); URINE BLOOD (Dip) NEGATIVE (NEGATIVE); URINE COLOR LT. YELLOW (YELLOW); URINE GLUCOSE (Dip) NEGATIVE (NEGATIVE); URINE KETONES (Dip) TRACE (NEGATIVE); URINE LEUKOCYTE ESTERASE (Dip) TRACE (NEGATIVE); URINE NITRITE (Dip) NEGATIVE (NEGATIVE); URINE TOTAL PROTEIN (Dip) NEGATIVE (NEGATIVE); URINE UROBILINOGEN (Dip) 1.0 E.U./dL (0.1-1.0)
[2017-03-03 03:32] LABS: CHLORIDE 105 mmol/L (97-110); POTASSIUM 4.5 mmol/L (3.5-5.1); SODIUM 140 mmol/L (135-144)
[2017-03-03 03:35] LABS: ANION GAP 20 (8-16); BLOOD UREA NITROGEN 30 mg/dl (7-20); CARBON DIOXIDE 20 mmol/L (21-31); CREATININE 1.11 mg/dl (0.44-1.00)
[2017-03-03 03:36] LABS: CALCIUM 8.9 mg/dl (8.4-10.2); GLUCOSE 93 mg/dl (70-220); INR 1.1; PARTIAL THROMBOPLASTIN TIME 30.3 Sec (25.0-35.0); PROTIME 14.2 Sec (12.2-14.2); PT RATIO 1.1
[2017-03-03] MEDS ORDERED: SOD CHLORIDE 0.9% 100 ML ONE (03:40)
[2017-03-03] MEDS ORDERED: IOHEXOL 100 ML ONE (03:40)
[2017-03-03 03:45] LABS: ABNORMAL IP MESSAGE 1; HEMATOCRIT 28.2 % (37.0-47.0); HEMOGLOBIN 8.7 g/dl (12.0-16.0); MEAN CORPUSCULAR HEMOGLOBIN 33.2 pg (29.0-33.0); MEAN CORPUSCULAR HGB CONC 30.9 g/dl (32.0-37.0); MEAN CORPUSCULAR VOLUME 107.6 fl (82.0-101.0); MEAN PLATELET VOLUME 11.2 fl (7.4-10.4); PLATELET COUNT 163 10^3/UL (140-415); RED BLOOD COUNT 2.62 10^6/ul (4.20-5.40); RED CELL DISTRIBUTION WIDTH 22.4 % (11.5-14.5); WHITE BLOOD COUNT 6.9 10^3/ul (4.8-10.8)
[2017-03-03 03:54] LABS: ICTOTEST NEGATIVE (NEGATIVE); TROPONIN-I < 0.012 ng/ml (0.00-0.12)
[2017-03-03 03:57] LABS: BACTERIA,URINE MANY; SQUAMOUS EPITHELIAL CELL,UR FEW; URINE RBCS 0-2 /HPF (0)
[2017-03-03 04:23] LABS: BASOPHIL # 0.1 10^3/ul (0.0-0.1); EOSINOPHILS # 0.1 10^3/ul (0.0-0.5); LYMPHOCYTES # 1.7 10^3/ul (0.8-2.9); NEUTROPHIL # 3.9 10^3/ul (1.6-7.5); PLATELET ESTIMATE PLT APPEAR ADEQUATE
--- NOTE | 2017-03-03 04:36 | RADRPT ---
PROCEDURE: CT angiogram of the chest with contrast. CLINICAL INDICATION: Shortness of breath. TECHNIQUE: CT angiogram of the chest was obtained using a multi-detector high-resolution CT. Con tiguous axial images were obtained during the dynamic injection of 100 cc of Omnipaque 350 intraveno us contrast. Coronal and sagittal reformatted images were obtained. 3-D reformatted images were al so obtained. Images were reviewed on a PACS workstation. One or more of the following dose reduction techniques were used: - Automated exposure control. - Adjustment of the mA and/or kV according to patient size. - Use of iterative reconstruction technique. Exam CTD/vol = 12.31 mGy. Total exam DLP = 543.43 mGy-cm. COMPARISON: 02/25/2017. FINDINGS: The main pulmonary artery followed to the segmental divisions are well opacified. There is no filli ng defect or evidence of pulmonary embolism. The heart is normal in size. There is no pericardial thickening or effusion. The aorta is of normal course and caliber with minimal scattered atheroscle rotic calcifications. There is no evidence of aortic aneurysm or dissection. There is a complex mass within the right breast with overlying skin induration there are diffuse sub cutaneous nodules. The visualized thyroid is unremarkable. There are no enlarged axillary lymph no jose bilaterally, greater on the right with the largest measuring 2.3 x 1.5 cm. There are prominent paratracheal, precarinal, subcarinal and bilateral hilar lymph nodes with the largest in the right h ilar region measuring 1.8 x 2.0 cm. There is a large right-sided pleural effusion with underlying a telectasis/consolidation. There is a moderate left-sided pleural effusion. The central tracheobron chial tree is within normal limits. There is diffuse sclerotic metastases throughout the bony skeleton. Limited evaluation of the upper abdomen is unremarkable. IMPRESSION: No evidence of pulmonary embolism or aortic dissection. Large right-sided pleural effusion with underlying atelectasis/consolidation, slightly increased. Moderate left-sided pleural effusion, unchanged. Mild mediastinal and bilateral hilar lymphadenopathy, unchanged. Bilateral PACS lymphadenopathy, greater on the right, unchanged. Complex right breast mass, unchanged. Diffuse sclerotic metastases throughout the bony skeleton. .Keegan Norman MD, MD Date Time Electronically viewed and signed by .Keegan Norman MD, on 03/03/2017 04:36 .T/
[2017-03-03] MEDS ORDERED: ACETAMINOPHEN 325 MG TAB PO PRN ×2 (06:00→09:00)
[2017-03-03] MEDS ORDERED: ONDANSETRON 4 MG INJ IV PRN ×2 (06:00→09:00)
--- NOTE | 2017-03-03 06:26 | HP ---
Date/Time of Note Date/Time of Note DATE: 03/03/17 TIME: 06:26 Assessment/Plan Lines/Catheters IV Catheter Type (from Nrsg): Peripheral IV Assessment/Plan Assessment/Plan Hypoxemia Pleural effusion Chest pain Urinary Tract Infection Breast cancer metastasized to brain Laterality: right Qualified Code: C50.911 - Breast cancer metastasized to brain, right HPI/ROS Admit Date/Time Admit Date/Time 03/03/17 0538 Hx of Present Illness chest pain/sob since last night HPI Patient is a 57-year-old female with metastatic breast cancer and chronic pain who presents with acute on chronic shortness of breath associated with chest pain that is worse when she takes deep inspiration. She states that pain and shortness of breath suddenly got worse last night. She has not yet followed up with her oncologist. She has history of pleural effusion, but has not had thoracentesis. She denies nausea, vomiting or diarrhea. Denies back pain. ROS All systems reviewed and are negative except as per history of present illness. Medications Home Meds Reported Medications Oxycodone HCl/Acetaminophen (Percocet 5-325 mg Tablet) 1 Each Tablet, 2 EACH PO Q4H WHILE AWAKE Y for PAIN, TAB 02/25/17 Memantine* (Namenda*) 5 Mg Tablet, 10 MG PO BID, #60 TAB 02/25/17 Discontinued Scripts Oxycodone HCl/Acetaminophen (Percocet 5-325 mg Tablet) 1 Each Tablet, 1 EACH PO Q4 Y for PAIN, #30 TAB Prov:JAMIE ELDER MD 02/17/17 Memantine HCl (Memantine HCl) 5 Mg Tablet, 5 MG PO DAILY, #100 TAB 2 Refills Prov:SAMSON DEL CASTILLO 12/24/16 Pantoprazole* (Pantoprazole*) 40 Mg Tablet., 40 MG PO DAILY@06 for 30 Days Prov:NICK HI 12/18/16 Ondansetron Hcl* (Zofran*) 4 Mg Tab, 4 MG PO Q4H Y for NAUSEA AND OR VOMITING, # 40 TAB Prov:NICK HI 12/18/16 Dexamethasone* (Decadron*) 4 Mg Tab, 6 MG PO QID for 30 Days, TAB Prov:NICK HI 12/18/16 Allergies Allergies: Coded Allergies: hydromorphone (Verified Adverse Reaction, Intermediate, shortness of breath, 03/03/17) PMhx/Soc Past medical history: Metastatic breast cancer Past surgical history: Denies Social history: Denies tobacco or alcohol. History of Surgery: No Anesthesia Reaction: No Hx 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 Disorder: No Hx Respiratory Disorders: No Hx Cardiac Disorders: Yes (Ductal ca mets, PNA) Hx Psychiatric Problems: No Hx Miscellaneous Medical Probl: Yes (ductal ca mets) Hx Alcohol Use: No Hx Substance Use: No Hx Tobacco Use: No FmHx Family History: No coronary disease, No diabetes Physical Exam Vitals Vital Signs Date Time Temp Pulse Resp B/P Pulse Ox O2 Delivery O2 Flow Rate FiO2 03/03/17 03:49 105 21 108/49 100 Nasal Cannula 3.0 03/03/17 02:10 100 Nasal Cannula 3.0 03/03/17 02:00 114 30 114/47 87 Room Air 03/03/17 01:14 98.2 118 22 105/53 95 Physical Exam Const: Cachectic, mild distress Head: Atraumatic Eyes: Normal Conjunctiva, mild pallor, no icterus ENT: Normal External Ears, Nose and Mouth. Moist mucous membranes Neck: Full range of motion. No meningismus. Resp: Clear to auscultation bilaterally, slightly decreased breath sounds at left base Cardio: Tachycardia, regular rhythm, no murmurs Abd: Soft, non tender, non distended. No guarding or rebound Skin: Diffuse skin nodules on chest back and abdomen, tender to palpation, no surrounding erythema, no discharge Back: No midline or flank tenderness Ext: No cyanosis, or edema Neur: Awake and alert, cranial nerves II through XII intact bilaterally, most just 4 extremities appropriately. Psych: Normal Mood and Affect Result Diagram: 03/03/17 0200 03/03/17 0200 Results 24 hrs Laboratory Tests Test 03/03/17 02:00 White Blood Count 6.910^3/ul Red Blood Count 2.6210^6/ul Hemoglobin 8.7g/dl Hematocrit 28.2% Mean Corpuscular Volume 107.6fl Mean Corpuscular Hemoglobin 33.2pg Mean Corpuscular Hemoglobin Concent 30.9g/dl Red Cell Distribution Width 22.4% Platelet Count 02641^3/UL Mean Platelet Volume 11.2fl Neutrophils % 57.0% Band Neutrophils % 2.0% Lymphocytes % 25.0% Monocytes % 14.0% Eosinophils % 1.0% Basophils % 1.0% Nucleated Red Blood Cells % 38.0/100WBC Neutrophils # 3.910^3/ul Lymphocytes # 1.710^3/ul Monocytes # 1.010^3/ul Eosinophils # 0.110^3/ul Basophils # 0.110^3/ul Platelet Estimate PLT APPEAR ADEQUATE Prothrombin Time 14.2Sec Prothrombin Time Ratio 1.1 INR International Normalized Ratio 1.10 Activated Partial Thromboplast Time 30.3Sec Urine Color LT. YELLOW Urine Clarity CLEAR Urine pH 5.0 Urine Specific [place] 1.020 Urine Ketones TRACE Urine Nitrite NEGATIVE Urine Bilirubin 1+ Urine Ictotest NEGATIVE Urine Urobilinogen 1.0 E.U./dL Urine Leukocyte Esterase TRACE Urine Microscopic RBC 0-2/HPF Urine Microscopic WBC 0-2/HPF Urine Squamous Epithelial Cells FEW Urine Bacteria MANY Urine Hemoglobin NEGATIVE Urine Glucose NEGATIVE% Urine Total Protein NEGATIVE Sodium Level 140mmol/L Potassium Level 4.5mmol/L Chloride Level 105mmol/L Carbon Dioxide Level 20mmol/L Anion Gap 20 Blood Urea Nitrogen 30mg/dl Creatinine 1.11mg/dl Glucose Level 93mg/dl Calcium Level 8.9mg/dl Troponin I < 0.012ng/ml Current Medications Medications (Trade) Dose Ordered Sig/Eva Route PRN Reason Start Time Stop Time Status Last Admin Dose Admin Sodium Chloride (NS) 1,000 ml @ 1,000 mls/hr Q1H ONCE IV 03/03/17 02:00 03/03/17 02:59 DC 03/03/17 02:13 Hydromorphone HCl (Dilaudid) 1 mg ONCE STAT IV 03/03/17 01:53 03/03/17 01:56 DC Oxycodone/ Acetaminophen (Endocet (10/ 325)) 1 tab ONCE ONCE PO 03/03/17 02:30 03/03/17 02:59 DC Oxycodone/ Acetaminophen (Endocet (10/ 325)) 1 tab ONCE ONCE PO 03/03/17 03:00 03/03/17 03:01 DC 03/03/17 03:03 IV Flush 10 ml 10 ml STK-MED ONCE .ROUTE 03/03/17 03:40 03/03/17 03:41 DC 03/03/17 04:19 Sodium Chloride 100 ml @ ud STK-MED ONCE .ROUTE 03/03/17 03:40 03/03/17 03:41 DC 03/03/17 04:20 Iohexol (Omnipaque) 100 ml @ ud STK-MED ONCE .ROUTE 03/03/17 03:40 03/03/17 03:41 DC 03/03/17 04:20 Procedures/MDM EKG read by me: Time 105, rate 117 Rhythm: Sinus tachycardia [place]: Normal Intervals: Normal ST-T waves: no ischemic changes Ectopy: No Q-waves: No Impression: Sinus tachycardia, no ischemia MDM: Patient is a 57-year-old female with metastatic breast cancer and chronic pain and dyspnea who presents to the ER with acute chest pain and worsening dyspnea since last night. CTPA is negative for pulmonary embolism. EKG is nonischemic. Troponin is negative. CT scan does demonstrate large pleural effusions that are increased from prior, and the patient is satting 85-86% on room air. The patient also has chronic pain control issues. Patient still has not seen an oncologist and has been unable to arrange expeditious outpatient appointment. Will admit for thoracenteses, pain control and further workup. Departure Diagnosis: Primary Impression: PMH/Family/Social Social History Smoking Status: Never smoker Exam/Review of Systems Vital Signs Vitals Vital Signs Date Time Temp Pulse Resp B/P Pulse Ox O2 Delivery O2 Flow Rate FiO2 03/03/17 05:56 110 22 102/87 98 Nasal Cannula 2.0 03/03/17 01:14 98.2 Intake and Output 03/02/17 03/02/17 03/03/17 15:00 23:00 07:00 Intake Total 1000 ml Balance 1000 ml Labs Result Diagram: 03/03/17 0200 03/03/17 0200 DEWEY LAST DO Mar 03, 2017 06:26
[2017-03-03 07:30] VITALS: Ht 177.8 cm; Wt 62.2 kg
[2017-03-03 07:39] VITALS: BP 118/56; RESP 22
[2017-03-03] MEDS ORDERED: NACL 0.9% 3 ML SYG IV SCH (09:00)
[2017-03-03] MEDS: ENOXAPARIN 40 MG/0.4 ML SYG SC SCH (09:00)
[2017-03-03] MEDS ORDERED: BISACODYL (EC) 5 MG TAB PO PRN ×2 (09:00→09:30)
[2017-03-03] MEDS ORDERED: morphine 2 MG INJ IV PRN (09:00)
[2017-03-03] MEDS ORDERED: HYDROCODONE/APAP (5/325) TAB PO PRN (09:00)
--- NOTE | 2017-03-03 09:17 | CONS ---
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 Per Dr. Rob, fortunately the mass has minimal mass effect on the underlying brain and the patient is asymptomatic, so neurosurgical intervention at this point is unwarranted. I had planned to start hormonal therapy as an outpatient, however due to insurance reasons I was unable to follow her as an outpatient. I had spoken with her sister Caryn Salguero (anesthesiologist) [phone], and had informed her that she needs to contact her primary care doctor for an oncologist referral but per notes it appears that she was not seen by an oncologist. I would be happy to assist in her case, however may be better for an oncologist to follow her who can see her as an outpatient. The primary team which check with the patient and family to see which oncologist can see her, and the case aide's office will see which oncologist would be in network. Please let me know if I can be of further assistance. Thank you. Problems: Consultation Date/Type/Reason Admit Date/Time 03/03/17 0559 Social History Smoking Status: Never smoker Exam/Review of Systems Vital Signs Vitals Vital Signs Date Time Temp Pulse Resp B/P Pulse Ox O2 Delivery O2 Flow Rate FiO2 03/03/17 07:39 98.1 116 22 118/56 97 03/03/17 05:56 Nasal Cannula 2.0 Intake and Output 03/02/17 03/02/17 03/03/17 15:00 23:00 07:00 Intake Total 1000 ml Balance 1000 ml Results Result Diagram: 03/03/17 0200 03/03/17 0200 Results 24 hrs Laboratory Tests Test 03/03/17 02:00 White Blood Count 6.9 # Red Blood Count 2.62 L Hemoglobin 8.7 L Hematocrit 28.2 L Mean Corpuscular Volume 107.6 H Mean Corpuscular Hemoglobin 33.2 H Mean Corpuscular Hemoglobin Concent 30.9 L Red Cell Distribution Width 22.4 H Platelet Count 163 Mean Platelet Volume 11.2 H Neutrophils % 57.0 Band Neutrophils % 2.0 Lymphocytes % 25.0 Monocytes % 14.0 H Eosinophils % 1.0 Basophils % 1.0 Nucleated Red Blood Cells % 38.0 H Neutrophils # 3.9 Lymphocytes # 1.7 Monocytes # 1.0 H Eosinophils # 0.1 Basophils # 0.1 Platelet Estimate PLT APPEAR ADEQUATE Prothrombin Time 14.2 Prothrombin Time Ratio 1.1 INR International Normalized Ratio 1.10 Activated Partial Thromboplast Time 30.3 Urine Color LT. YELLOW Urine Clarity CLEAR Urine pH 5.0 Urine Specific [place] 1.020 Urine Ketones TRACE H Urine Nitrite NEGATIVE Urine Bilirubin 1+ H Urine Ictotest NEGATIVE Urine Urobilinogen 1.0 E.U./dL Urine Leukocyte Esterase TRACE H Urine Microscopic RBC 0-2 Urine Microscopic WBC 0-2 Urine Squamous Epithelial Cells FEW Urine Bacteria MANY Urine Hemoglobin NEGATIVE Urine Glucose NEGATIVE Urine Total Protein NEGATIVE Sodium Level 140 Potassium Level 4.5 Chloride Level 105 Carbon Dioxide Level 20 L Anion Gap 20 H Blood Urea Nitrogen 30 H Creatinine 1.11 H Glucose Level 93 Calcium Level 8.9 Troponin I < 0.012 Medications Medications Current Medications Ondansetron HCl (Zofran Inj) 4 mg Q6H PRN IV NAUSEA AND/OR VOMITING; Start 03/03 at 09:00 Acetaminophen (Tylenol Tab) 650 mg Q6H PRN PO PAIN LEVEL 1-3 OR FEVER; Start at 09:00 Acetaminophen/ Hydrocodone Bitart ([place] (5/325)) 1 tab Q6H PRN PO MODERATE PAIN LEVEL 4-6; Start 03/03/17 at 09:00 Morphine Sulfate (morphine) 2 mg Q4H PRN IV SEVERE PAIN LEVEL 7-10; Start at 09:00 Magnesium Hydroxide (Milk Of Mag) 30 ml DAILY PRN PO CONSTIPATION; Start at 09:00 Bisacodyl (Dulcolax) 5 mg DAILY PRN PO CONSTIPATION; Start 03/03/17 at 09:00 Famotidine (Pepcid) 20 mg Q12 PO ; Start 03/03/17 at 09:00 Enoxaparin Sodium (Lovenox) 40 mg DAILY SC ; Start 03/03/17 at 09:00 TOGREGOR MD Mar 03, 2017 09:17 TOGREGOR MD Mar 03, 2017 09:17
[2017-03-03] MEDS: SOD CHLORIDE 0.9% 1,000 ML IV SCH (09:53)
[2017-03-03] MEDS: FAMOTIDINE 20 MG TAB PO SCH ×2 (09:57→21:14)
[2017-03-03] MEDS: POLYETHYLENE GLYCOL 17 GM PACKET PO SCH ×2 (09:57→21:14)
[2017-03-03] MEDS: CEFTRIAXONE 1 GM/50 ML (PMX) 50 ML IVPB SCH (09:57)
[2017-03-03] MEDS: DOCUSATE SODIUM 100 MG CAP PO SCH ×2 (09:57→21:14)
[2017-03-03 09:58] LABS: CREATINE KINASE 56 IU/L (23-200)
[2017-03-03 10:11] LABS: CK-MB 0.31 ng/ml (0.0-2.4)
[2017-03-03 10:14] LABS: TROPONIN-I < 0.012 ng/ml (0.00-0.12)
[2017-03-03] MEDS: morphine 2 MG INJ IV PRN ×2 (10:22→14:51)
[2017-03-03] MEDS: LEVALBUTEROL (NEB) 0.63 MG/3 ML AMP HHN PRN (10:31)
[2017-03-03 11:21] LABS: FOLATE 15.4 ng/ml (2.8-20.0)
--- NOTE | 2017-03-03 11:35 | HP ---
DATE OF ADMISSION: 03/03/2017 TIME OF EVALUATION: 0900 REASON FOR ADMISSION: Dyspnea. CONSULTATIONS: 1. Dr. Bharat Ortiz, Pulmonology. 2. Dr. Elmira Reid, Oncology. HISTORY OF PRESENT ILLNESS: This is an unfortunate 57-year-old female with recently diagnosed infiltrating ductal carcinoma of the right breast with metastasis to the bone, skin, lymph nodes, lung, and brain and also anemia who came to the emergency room with chief complaint of dyspnea as well as pleuritic chest pain. The patient verbalized that she has been progressively getting more short of breath during the past few days. The patient also verbalized pleuritic chest pain. The patient has not followed up with her oncologist as outpatient. The patient is in the process of finding an oncologist. The patient denied any vomiting. The patient was complaining of some nausea. The patient is constipated. The patient complains of changes in the urine color and decreased urination. The patient has skin lesions that are nonpruritic and occasionally painful. The patient was noted to have dural metastasis on her most recent imaging. However, the patient denied any neurologic symptoms. In the emergency room, the patient underwent a chest x-ray that showed cardiomegaly with increased right pleural effusion with bibasilar atelectasis versus infiltrate. The patient's chest CTA showed no evidence of PE or aortic dissection; however, this showed large right-sided pleural effusion with underlying atelectasis/consolidation, slightly increased with moderate left- sided pleural effusion. The CT again revealed complex right breast mass, unchanged. In the emergency room, the patient was treated with pain medications. PAST MEDICAL HISTORY: Infiltrating ductal carcinoma of the right breast with metastasis to the bone, skin, lymph nodes, lung, and brain, anemia. PAST SURGICAL HISTORY: Denies. HOME MEDICATIONS: 1. Memantine 10 mg p.o. b.i.d. 2. Percocet 5/325, two tablets p.o. q. 4 hours p.r.n. pain. ALLERGIES: HYDROMORPHONE. THE PATIENT DENIED ANY ALLERGY TO MORPHINE OR OTHER OPIOIDS. REVIEW OF SYSTEMS: A 12-point review of systems was performed. Review of systems negative other than what is mentioned in the history of present illness. PHYSICAL EXAMINATION: VITAL SIGNS: Temperature 98.1, pulse 116, respiratory rate 22, blood pressure 118/56, oxygen saturation 97% on low flow O2. GENERAL: This is a thin, frail-looking, female lying in bed in mild to moderate respiratory distress with oxygen via nasal cannula. HEENT: Head normocephalic and atraumatic. Eyes: Anicteric sclerae. Conjunctivae clear. ENT: Nasal septum is midline. Oral mucosa is dry. NECK: Supple. JVD noticed. RESPIRATORY: Bilaterally diminished breath sounds. Use of accessory muscles of respiration. No wheezing. CARDIAC: Regular rate and rhythm. GASTROINTESTINAL: Tachycardia. ABDOMEN: Soft, nontender, and nondistended. Bowel sounds hypoactive in all 4 quadrants. GENITOURINARY: Deferred. EXTREMITIES: No cyanosis or clubbing, no edema. Peripheral pulses palpable. NEUROLOGIC: The patient is awake, alert, and oriented. Cranial nerves are grossly intact. SKIN: Multiple vesicular lesions, particularly on the trunk and bilateral upper extremities, that are nontender to touch and hard on palpation. LABORATORY AND DIAGNOSTIC DATA: WBC 6.9, hemoglobin 8.7, hematocrit 28.2, and platelet count 163. Sodium 140, potassium 4.5, chloride 105, carbon dioxide 20 , anion gap 20, BUN 30, creatinine 1.19, glucose 93, calcium 8.9. Troponin I is less than 0.01, PT 14.2, INR 1.108, PTT 30.3. Urinalysis: Urine nitrate negative, urine leukocyte esterase trace, urine microscopic WBC 0 to 2. 12-lead EKG: Sinus tachycardia. Chest x-ray: Cardiomegaly. Increased CHF. Increased right-sided pleural effusion with bibasilar atelectasis versus infiltrate. CT angiogram of the chest: No evidence of pulmonary embolism or aortic dissection. Right-sided pleural effusion with underlying atelectasis/ consolidation, slightly increased to moderate left-sided pleural effusion, unchanged. Mild mediastinal and bilateral hilar lymphadenopathy, unchanged. Complex right breast mass. Diffuse sclerotic metastases throughout the bony skeleton. IMPRESSION: This is a 57-year-old female with a known history of metastatic breast cancer who has not started on any chemotherapy and who came to the room with chief complaint of worsening dyspnea and pleuritic chest pain who was found to have bilateral pleural effusions, right greater than left. She will be admitted here for further treatment and evaluation. ASSESSMENT AND PLAN: 1. Acute on chronic respiratory failure. Hypoxic. Most probably secondary to underlying pleural effusions. The patient will be continued on supplemental oxygen. The patient will be started on inhaled bronchodilators. A pulmonology consult will be obtained. The patient's CT angiogram was negative for any pulmonary embolism. 2. Bilateral malignant pleural effusions. The patient will undergo a thoracentesis. The fluid will be sent for routine studies including cytology. Pulmonary consult will be obtained. 3. Metastatic breast cancer. The patient was evaluated by oncology during her previous visit to [facility]. At that time, the patient was told to follow up with her primary care physician for oncology referral. However, the patient has not seen her oncologist yet. She has an appointment with her oncologist on 03/14/2017. We will check with the patient's daughter about this oncologist information, and if the patient's oncologist has privileges at [facility], he or she will be informed about the patient's admission. 4. Macrocytic anemia. The patient's H and H will be monitored closely. Vitamin B12 and folic acid levels will be obtained on this patient. 6. Positive urinalysis. The patient complains of urinary symptoms including increased urine concentration and change in color. Urine culture will be sent. The patient will be started on empiric antibiotics. 7. Multiple vesicular skin lesions. As per the patient, this has been biopsied. The results of this are pending at this time. This could be most probably malignant skin lesions. These skin lesions do not appear infected. The patient will be provided with symptomatic care. Plan. The patient will be admitted to inpatient medical/surgical floor. The patient will be started on a regular diet. The patient will be started on DVT prophylaxis and gastrointestinal prophylaxis. The patient will remain a FULL CODE. Activities will be as tolerated. The rest of the patient's management will be based on the clinical course, the results of diagnostic studies, as well as inputs from consultants. Based on the patient's clinical presentation, she most probably requires more than 2 midnights' stay for further management and evaluation of her clinical presentation. The case and management of this patient was fully discussed with Dr. Conti. BETHANY CONTI MD, AM/MARILEE Conf#: [id number] DID#: [id number] CHANDNI
[2017-03-03] MEDS: OXYCODONE/ACETAMINOPHEN (5/325) TAB PO PRN ×2 (13:05→21:15)
--- NOTE | 2017-03-03 15:53 | RADRPT ---
PROCEDURE: Ultrasound chest CLINICAL INDICATION: Assess for pleural effusion TECHNIQUE: Right thoracic sonography was performed COMPARISON: CTA chest from the same day FINDINGS: There is a small sized, layering, right pleural effusion with atelectasis of the right lower lobe. T he thickness of the fluid is 2.6 cm. Due to patient motion; right ultrasound-guided thoracentesis w as not successful. The patient will be brought back tomorrow morning at 07:00 a.m. for a dedicated interventionalist to perform this procedure. IMPRESSION: Small, layering, right pleural effusion. Right ultrasound-guided thoracentesis was not successful. The patient will be brought back for this procedure tomorrow morning, and 07:00 a.m. These findings were discussed with the patient and her daughter at the completion of the exam. RPTAT: PP .Tiffanie Richards MD, MD Date Time Electronically viewed and signed by .Tiffanie Richards MD, MD on 03/03/2017 12:05 .F/
[2017-03-03] MEDS: CHOLECALCIFEROL 1,000 UNIT TAB PO SCH (16:03)
[2017-03-03] MEDS: LEVALBUTEROL (NEB) 0.63 MG/3 ML AMP HHN SCH (16:17)
--- NOTE | 2017-03-03 17:21 | CONS ---
DATE OF ADMISSION: 03/03/2017 DATE OF CONSULTATION: 03/03/2017 PRIMARY PHYSICIAN: Thierno Munoz NP REASON FOR CONSULTATION: Shortness of breath and pleural effusions. HISTORY OF PRESENT ILLNESS: Briefly, this is a 57-year-old female with metastatic infiltrating duct al carcinoma of the right breast with extensive metastatic disease involving the lung, brain, lymph nodes, skin, who was initially diagnosed in November 2016, status post palliative radiation to the vt alp, otherwise unclear if she has undergone prior chemotherapy, who now presents with shortness of b reath with evidence on imaging of increasing right greater than left-sided pleural effusions and com pressive atelectasis and possible right lower lobe consolidation. PAST MEDICAL HISTORY: As noted above. MEDICATIONS: Please see MAR. ALLERGIES: HYDROMORPHONE. SOCIAL HISTORY: No tobacco, alcohol or illicit drug use. FAMILY HISTORY: Noncontributory. REVIEW OF SYSTEMS: As noted in the HPI. PHYSICAL EXAMINATION: GENERAL: A cachectic, emaciated female resting bed in no acute distress. VITAL SIGNS: Heart rate is 110, blood pressure 118/56, oxygen saturation is 97% on 4 liters nasal c annula. HEENT: Normocephalic, atraumatic. NECK: Supple. No thyromegaly. No jugular venous distention. CHEST: Decreased breath sounds at both bases, right greater than left. CARDIAC: Tachycardic, regular rate and rhythm. No murmurs, rubs or gallops. ABDOMEN: Scaphoid, soft. No guarding. EXTREMITIES: There are extensive diffuse nodules on the back and the abdomen, consistent with metas tatic disease, but no cyanosis, clubbing or edema. LABORATORY DATA: WBC is 4.9, hemoglobin is 8.7. BUN is 30, creatinine is 1.1. UA is negative. Ch est CT shows large-sized right pleural effusion with associated compressive atelectasis and possible right lower lobe consolidation, as well as a moderate-sized left pleural effusion. Of note, these findings are significantly increased and worsened compared to a CT scan obtained 10 days prior. IMPRESSION: Dyspnea in a female with widely advanced metastatic breast cancer with associated bilat eral right greater than left pleural effusions and possible metastatic disease to the lungs, in the form of lymphangitic carcinomatosis. The effusions are likely contributing to her worsening dyspnea, and she would benefit from an initial right-sided diagnostic/therapeutic thoracentesis, and thereaf ter would possibly benefit from a PleurX catheter insertion initially on the right side for long-ter m management. RECOMMENDATIONS: 1. Right-sided diagnostic and therapeutic thoracentesis with plans to send pleural fluid for cytolo gic analysis. 2. Long-term, she may benefit from a right-sided and possibly eventually a left-sided PleurX cathet er placement for management of likely malignant pleural effusions attributable to her breast cancer. Dictated By: NEEMA MENDEZ MD NK/NTS Conf#: [id number] DID#: [id number] CC: THIERNO MUNOZ NP; DIAN GASPAR MD;*[facility]*
[2017-03-03 20:00] VITALS: BP 106/58; RESP 20
[2017-03-03] MEDS: MEMANTINE 5 MG TAB PO SCH (21:14)
[2017-03-04] MEDS: LEVALBUTEROL (NEB) 0.63 MG/3 ML AMP HHN SCH ×4 (00:38→23:58)
[2017-03-04] MEDS: OXYCODONE/ACETAMINOPHEN (5/325) TAB PO PRN ×3 (01:44→14:02)
[2017-03-04] MEDS: SOD CHLORIDE 0.9% 1,000 ML IV SCH ×2 (05:30→19:25)
[2017-03-04 06:38] LABS: ADD SCAN DIFF NO
[2017-03-04 06:41] LABS: RETICULOCYTE COUNT % 2.9 % (0.5-1.5)
[2017-03-04 06:43] LABS: ABNORMAL IP MESSAGE 1; HEMATOCRIT 28.1 % (37.0-47.0); HEMOGLOBIN 8.6 g/dl (12.0-16.0); MEAN CORPUSCULAR HGB CONC 30.6 g/dl (32.0-37.0); MEAN CORPUSCULAR VOLUME 107.7 fl (82.0-101.0); MEAN PLATELET VOLUME 10.5 fl (7.4-10.4); PLATELET COUNT 155 10^3/UL (140-415); RED BLOOD COUNT 2.61 10^6/ul (4.20-5.40); RED CELL DISTRIBUTION WIDTH 22.4 % (11.5-14.5); WHITE BLOOD COUNT 5.8 10^3/ul (4.8-10.8)
[2017-03-04 06:55] LABS: IRON 127 ug/dl (35-150)
[2017-03-04 07:00] LABS: ALBUMIN 3.1 g/dl (3.3-4.9); ALBUMIN/GLOBULIN RATIO 0.86; BILIRUBIN,INDIRECT 0.3 mg/dl (0-1.1); BILIRUBIN,TOTAL 0.3 mg/dl (0.2-1.3); CALCIUM 8.7 mg/dl (8.4-10.2); CREATININE 1.1 mg/dl (0.44-1.00); POTASSIUM 4.5 mmol/L (3.5-5.1); TOTAL PROTEIN 6.7 g/dl (6.1-8.1)
[2017-03-04 07:04] LABS: TOTAL IRON BINDING CAPACITY 240 ug/dl (241-421)
[2017-03-04 07:34] LABS: CHOL/HDL RATIO 6.3 RATIO; MAGNESIUM 2.6 mg/dl (1.7-2.5); PHOSPHORUS 5.1 mg/dl (2.5-4.9)
[2017-03-04 08:05] LABS: THYROID STIMULATING HORMONE 17.5 MIU/L (0.465-4.680)
[2017-03-04 08:26] VITALS: BP 108/59; RESP 20
[2017-03-04] MEDS: POLYETHYLENE GLYCOL 17 GM PACKET PO SCH ×2 (08:33→21:00)
[2017-03-04] MEDS: FAMOTIDINE 20 MG TAB PO SCH ×2 (08:34→20:55)
[2017-03-04] MEDS: MEMANTINE 5 MG TAB PO SCH ×2 (08:34→20:56)
[2017-03-04] MEDS: CHOLECALCIFEROL 1,000 UNIT TAB PO SCH (08:34)
[2017-03-04] MEDS: DOCUSATE SODIUM 100 MG CAP PO SCH ×2 (08:34→20:55)
[2017-03-04] MEDS: ENOXAPARIN 40 MG/0.4 ML SYG SC SCH (08:34)
[2017-03-04] MEDS ORDERED: LIDOCAINE 1% (MPF) 5 ML VIAL ONE (09:32)
[2017-03-04] MEDS: CEFTRIAXONE 1 GM/50 ML (PMX) 50 ML IVPB SCH (09:55)
[2017-03-04 10:04] LABS: FLUID AMYLASE < 30 U/L; FLUID GLUCOSE 84 mg/dl; FLUID TYPE THORACENTESIS FLUID
[2017-03-04 10:06] LABS: FLUID TYPE THORACENTESIS FLUID
--- NOTE | 2017-03-04 10:19 | RADRPT ---
PROCEDURE: XR Chest AP portable CLINICAL INDICATION: Post thoracentesis TECHNIQUE: An AP portable radiograph of the chest was submitted. COMPARISON: 02/25/2017 FINDINGS: Support Hardware: None Cardiovascular: The heart size remains upper normal and the pulmonary vasculature appears unremarkab le. Lung [place]: Interstitial infiltrates are now seen more diffusely through the lung mclain. No alveo lar infiltrate is evident. Pleural Spaces: There is no longer significant right pleural fluid accumulation and no pneumothorax is identified. Osseous Structures: There is of sclerosis are again seen fairly diffusely through the osseous elemen ts raising the possibility of osseous metastasis. Soft Tissues: The soft tissues appear unremarkable. IMPRESSION: 1. The right pleural fluid accumulation is no longer evident and no pneumothorax is identified. 2. More diffuse interstitial infiltrates are seen throughout the lung mclain. 3. Heterogeneous osseous structures are again noted with areas of sclerosis suspicious for osseous metastasis. Physician Shahbaz Date Time Electronically viewed and signed by Physician Shahbaz on 03/04/2017 10:18 /
[2017-03-04 10:44] LABS: BASOPHIL # 0.1 10^3/ul (0.0-0.1); MONOCYTE # 0.5 10^3/ul (0.3-0.9); MYELOCYTES # 0.1; NEUTROPHIL # 3.7 10^3/ul (1.6-7.5)
--- NOTE | 2017-03-04 11:53 | RADRPT ---
PROCEDURE: US guided right thoracentesis. CLINICAL INDICATION: Shortness of breath. Right pleural effusion. TECHNIQUE: Prior to the procedure, informed consent was obtained. The risks, benefits, and alternatives were e xplained to the patient or the patient's family, including but not limited to bleeding, infection, p ain, visceral or vascular damage, shock, pneumothorax, chest tube placement, air embolism, and . The patient or the patient's family understood the risks and the alternatives and wished to proce ed with the study. Informed written consent was obtained. A procedural pause was performed. The patient's name, date of , and procedure to be performed were verified. Ultrasound of the right hemithorax was performed in the axial and sagittal planes. A right pleural e ffusion is noted. Utilizing ultrasound guidance, optimal location for entry to the pleural cavity wa s ascertained. The overlying skin was prepped and draped in the usual sterile fashion. Approximate ly 10 ml of 1% Xylocaine was injected locally for pain control. Using ultrasound guidance, a 5-Fren ch Yueh catheter was introduced into the right pleural space without difficulty. Fluid was aspirated . COMPARISON: None. FINDINGS: Initial ultrasound demonstrates fluid in the right pleural space. Approximately 1.9 liters of serou s fluid was aspirated and sent to the laboratory. IMPRESSION: 1. Satisfactory ultrasound-guided right thoracentesis. RPTAT: QQ .Erik Ventura MD, Date Time Electronically viewed and signed by .Erik Ventura MD, on 03/04/2017 11:52 .R/
[2017-03-04 13:26] LABS: FLUID APPEARANCE SLIGHTLY CLOUDY; FLUID TYPE THORACENTHESIS
[2017-03-04 13:48] LABS: FLUID RBC EST 1+; FLUID WBC'S 427 /cmm
--- NOTE | 2017-03-04 14:15 | CONS ---
Date/Time of Note Date/Time of Note DATE: 03/04/17 TIME: 14:10 Assessment/Plan Assessment/Plan Additional Assessment/Plan Assessment recommendations; 1. Patient admitted for large right pleural effusion status post thoracentesis , 1.9 L of fluid was removed. 2. Metastatic breast cancer. Patient was discharged home, she would benefit from home oxygen. If the patient has any further recommendation of fluid that she would benefit from placement of a Pleurx catheter. Consultation Date/Type/Reason Admit Date/Time Mar 03, 2017 at 05:39 Initial Consult Date Type of Consultation: Pulmonary 24 HR Interval Summary Free Text/Dictation Patient condition is stable. Denies any shortness of breath, chest pain, cough or sputum production. Denies any wheezing. General exam; middle-aged woman, awake alert currently in no distress. Exam/Review of Systems Vital Signs Vitals Vital Signs Date Time Temp Pulse Resp B/P Pulse Ox O2 Delivery O2 Flow Rate FiO2 03/04/17 08:26 98.5 113 20 108/59 92 03/04/17 08:15 Nasal Cannula 3.0 03/03/17 16:17 36 Intake and Output 03/03/17 03/03/17 03/04/17 15:00 23:00 07:00 Intake Total 1090 ml 1100 ml Output Total 200 ml Balance 1090 ml 900 ml Exam HEENT examined; supple neck, no JVD. No lymphadenopathy. Midline trachea. No thyromegaly. Pharynx is clear. Pupils are small bilaterally. Chest examination; clear to auscultation. S1-S2 audible, no murmurs. Regular rhythm. Abdomen examination; soft, scaphoid. Nontender. No organomegaly. Bowel sounds audible. Extremity exam is; no peripheral edema. APPLICATION DEVELOPMENT SPECIALIST examination; no focal deficit. Results Result Diagram: 03/04/17 0545 03/04/17 0545 Results 24 hrs Laboratory Tests Test 03/04/17 05:45 03/04/17 09:15 White Blood Count 5.8 Red Blood Count 2.61 L Hemoglobin 8.6 L Hematocrit 28.1 L Mean Corpuscular Volume 107.7 H Mean Corpuscular Hemoglobin 33.0 Mean Corpuscular Hemoglobin Concent 30.6 L Red Cell Distribution Width 22.4 H Platelet Count 155 Mean Platelet Volume 10.5 H Neutrophils % 64.0 Band Neutrophils % 3.0 Lymphocytes % 18.0 Reactive Lymphocytes % 2.0 Monocytes % 8.0 Basophils % 1.0 Metamyelocytes % 3.0 H Myelocytes % 1.0 H Nucleated Red Blood Cells % 59.0 H Neutrophils # 3.7 Lymphocytes # 1.0 Monocytes # 0.5 Basophils # 0.1 Metamyelocytes # 0.2 Myelocytes # 0.1 Absolute Reticulocyte Count 0.076 Percent Reticulocyte Count 2.9 H Sodium Level 138 Potassium Level 4.5 Chloride Level 109 Carbon Dioxide Level 20 L Anion Gap 14 Blood Urea Nitrogen 23 H Creatinine 1.10 H Glucose Level 87 Hemoglobin A1c 4.9 Calcium Level 8.7 Phosphorus Level 5.1 H Magnesium Level 2.6 H Iron Level 127 Total Iron Binding Capacity 240 L Percent Iron Saturation 53 H Ferritin 3710.0 H Total Bilirubin 0.3 Direct Bilirubin 0.00 Indirect Bilirubin 0.3 Aspartate Amino Transf (AST/SGOT) 165 H Alanine Aminotransferase (ALT/SGPT) 31 Alkaline Phosphatase 379 H Total Protein 6.7 Albumin 3.1 L Globulin 3.60 H Albumin/Globulin Ratio 0.86 Triglycerides Level 396 H Cholesterol Level 159 LDL Cholesterol, Calculated 55 HDL Cholesterol 25 L Cholesterol/HDL Ratio 6.3 Thyroid Stimulating Hormone (TSH) 17.500 H Free Thyroxine 0.44 L Body Fluid Type THORACENTESIS FLUID Body Fluid Volume 1000.0 Body Fluid Color YELLOW Body Fluid Appearance SLIGHTLY CLOUDY Body Fluid WBC 427 Body Fluid RBC 1+ Body Fluid Neutrophils % Pending Body Fluid Lymphocytes (%) Pending Body Fluid Glucose 84 Body Fluid Lactate Dehydrogenase Body Fluid Amylase < 30 Lactate Dehydrogenase Medications Medications Current Medications Ondansetron HCl (Zofran Inj) 4 mg Q6H PRN IV NAUSEA AND/OR VOMITING; Start 03/03 at 09:00 Acetaminophen (Tylenol Tab) 650 mg Q6H PRN PO PAIN LEVEL 1-3 OR FEVER; Start at 09:00 Magnesium Hydroxide (Milk Of Mag) 30 ml DAILY PRN PO CONSTIPATION; Start at 09:00 Bisacodyl (Dulcolax) 5 mg DAILY PRN PO CONSTIPATION; Start 03/03/17 at 09:00 Famotidine (Pepcid) 20 mg Q12 PO Last administered on 03/04/17t 08:34; Admin Dose 20 MG; Start 03/03/17 at 09:00 Enoxaparin Sodium (Lovenox) 40 mg DAILY SC ; Start 03/03/17 at 09:00 Morphine Sulfate (morphine) 1 mg Q4H PRN IV SEVERE PAIN LEVEL 7-10 Last administered on 03/03/17 14:51; Admin Dose 1 MG; Start 03/03/17 at 09:52 Oxycodone/ Acetaminophen (Percocet (5/ 325)) 1 tab Q4H PRN PO PAIN Last administered on 03/04/17 14:02; Admin Dose 1 TAB; Start 03/03/17 at 09:30 Polyethylene Glycol (Miralax) 17 gm BID PO Last administered on 03/03/17 21:14 ; Admin Dose 17 GM; Start 03/03/17 at 09:30 Docusate Sodium (Colace) 200 mg BID PO Last administered on 03/04/17 08:34; Admin Dose 200 MG; Start 03/03/17 at 09:30 Bisacodyl 10 mg 10 mg DAILY PRN PO CONSTIPATION; Start 03/03/17 at 09:30 Sodium Chloride 1,000 ml @ 50 mls/hr Q20H IV Last administered on 03/03/17 09: 53; Admin Dose 50 MLS/HR; Start 03/03/17 at 09:30 Ceftriaxone Sodium (Rocephin) 50 ml @ 100 mls/hr Q24H IVPB Last administered on 03/04/17 09:55; Admin Dose 100 MLS/HR; Start 03/03/17 at 09:30 Memantine (Namenda) 10 mg BID PO Last administered on 03/04/17 08:34; Admin Dose 10 MG; Start 03/03/17 at 21:00 Cholecalciferol (Vitamin D) 1,000 unit DAILY PO Last administered on 03/04/17 08:34; Admin Dose 1,000 UNIT; Start 03/03/17 at 15:00 PREETI UGARTE Mar 04, 2017 14:14
[2017-03-04] MEDS ORDERED: OXYCODONE/ACETAMINOPHEN (10/325) TAB PO PRN ×2 (14:30→22:30)
[2017-03-04 14:32] LABS: FLUID LYMPHOCYTES 86 %; FLUID MONOCYTES 7 %; FLUID NEUTROPHILS 1 %
--- NOTE | 2017-03-04 14:55 | PN ---
Date/Time of Note Date/Time of Note DATE: 03/04/17 TIME: 14:49 Assessment/Plan VTE Prophylaxis VTE Prophylaxis Intervention: LMWH Lines/Catheters IV [facility] Peripheral IV Urinary Cath still in place: No Assessment/Plan Chief Complaint/Hosp Course Assessment and plan 1. Acute on chronic respiratory failure secondary to underlying pleural effusions. [employer] following. Patient status post paracentesis with roughly 1.9 mL removed. Follow up on cytology 2. Bilateral malignant pleural effusions. May need possible Pleurx catheter should recurrent pleural effusions occur. We'll follow up with medical staff manager recommendations 3. Macrocytic anemia. Monitor H&H. Transfuse as needed 4. Positive urinalysis. Follow up on final urine culture 5. Metastatic breast cancer with metastasis to brain and bones as well as skin. Oncologist following. Of note patient reportedly had oncologist call follow-up on March 14. We'll follow-up with case management for outpatient follow-up 6. Multiple vascular skin lesions. Biopsy results are pending at this time. Patient to be followed up as outpatient for this issue Disposition and plan: Patient status post nursing cases 03/04/2017. Follow up on cytology. Continue with medical staff manager recommendations. Await for clinical improvement of respiratory status. We'll see for possible home with O2. Discussed but of care with Dr. Gunn Problems: Subjective 24 Hr Interval Summary Free Text/Dictation Reports better breathing status post thoracentesis. Family at bedside. Reports having some generalized pain Exam/Review of Systems Vital Signs Vitals Vital Signs Date Time Temp Pulse Resp B/P Pulse Ox O2 Delivery O2 Flow Rate FiO2 03/04/17 08:26 98.5 113 20 108/59 92 03/04/17 08:15 Nasal Cannula 3.0 03/03/17 16:17 36 Intake and Output 03/03/17 03/03/17 03/04/17 14:59 22:59 06:59 Intake Total 1090 ml 1100 ml Output Total 200 ml Balance 1090 ml 900 ml Exam General: No acute signs or symptoms of distress Eyes: pupils equal round, Anicteric sclera Neck: Supple nontender, no JVD Cardiac: S1, S2 auscultated, regular rhythm and rate Pulmonary: With minimal diminished lung bases GI: Abdomen soft nontender nondistended, bowel sounds active Extremities: No edema bilateral lower extremities Skin: Clean dry and intact Neurologic: Alert to person place and time and situation Results Result Diagram: 03/04/17 0545 03/04/17 0545 Results 24 hrs Laboratory Tests Test 03/04/17 05:45 03/04/17 09:15 White Blood Count 5.8 Red Blood Count 2.61 L Hemoglobin 8.6 L Hematocrit 28.1 L Mean Corpuscular Volume 107.7 H Mean Corpuscular Hemoglobin 33.0 Mean Corpuscular Hemoglobin Concent 30.6 L Red Cell Distribution Width 22.4 H Platelet Count 155 Mean Platelet Volume 10.5 H Neutrophils % 64.0 Band Neutrophils % 3.0 Lymphocytes % 18.0 Reactive Lymphocytes % 2.0 Monocytes % 8.0 Basophils % 1.0 Metamyelocytes % 3.0 H Myelocytes % 1.0 H Nucleated Red Blood Cells % 59.0 H Neutrophils # 3.7 Lymphocytes # 1.0 Monocytes # 0.5 Basophils # 0.1 Metamyelocytes # 0.2 Myelocytes # 0.1 Absolute Reticulocyte Count 0.076 Percent Reticulocyte Count 2.9 H Sodium Level 138 Potassium Level 4.5 Chloride Level 109 Carbon Dioxide Level 20 L Anion Gap 14 Blood Urea Nitrogen 23 H Creatinine 1.10 H Glucose Level 87 Hemoglobin A1c 4.9 Calcium Level 8.7 Phosphorus Level 5.1 H Magnesium Level 2.6 H Iron Level 127 Total Iron Binding Capacity 240 L Percent Iron Saturation 53 H Ferritin 3710.0 H Total Bilirubin 0.3 Direct Bilirubin 0.00 Indirect Bilirubin 0.3 Aspartate Amino Transf (AST/SGOT) 165 H Alanine Aminotransferase (ALT/SGPT) 31 Alkaline Phosphatase 379 H Total Protein 6.7 Albumin 3.1 L Globulin 3.60 H Albumin/Globulin Ratio 0.86 Triglycerides Level 396 H Cholesterol Level 159 LDL Cholesterol, Calculated 55 HDL Cholesterol 25 L Cholesterol/HDL Ratio 6.3 Thyroid Stimulating Hormone (TSH) 17.500 H Free Thyroxine 0.44 L Body Fluid Type THORACENTESIS FLUID Body Fluid Volume 1000.0 Body Fluid Color YELLOW Body Fluid Appearance SLIGHTLY CLOUDY Body Fluid WBC 427 Body Fluid RBC 1+ Body Fluid Neutrophils % 1 Body Fluid Lymphocytes (%) 86 Body Fluid Monocytes % 7 Body Fluid Other Cells (%) 6 Body Fluid Glucose 84 Body Fluid Lactate Dehydrogenase Body Fluid Amylase < 30 Lactate Dehydrogenase Medications Medications Current Medications Ondansetron HCl (Zofran Inj) 4 mg Q6H PRN IV NAUSEA AND/OR VOMITING; Start 03/03 at 09:00 Acetaminophen (Tylenol Tab) 650 mg Q6H PRN PO PAIN LEVEL 1-3 OR FEVER; Start at 09:00 Magnesium Hydroxide (Milk Of Mag) 30 ml DAILY PRN PO CONSTIPATION; Start at 09:00 Bisacodyl (Dulcolax) 5 mg DAILY PRN PO CONSTIPATION; Start 03/03/17 at 09:00 Famotidine (Pepcid) 20 mg Q12 PO Last administered on 03/04/17 08:34; Admin Dose 20 MG; Start 03/03/17 at 09:00 Enoxaparin Sodium (Lovenox) 40 mg DAILY SC ; Start 03/03/17 at 09:00 Morphine Sulfate (morphine) 1 mg Q4H PRN IV SEVERE PAIN LEVEL 7-10 Last administered on 03/03/17 14:51; Admin Dose 1 MG; Start 03/03/17 at 09:52 Oxycodone/ Acetaminophen (Percocet (5/ 325)) 1 tab Q4H PRN PO PAIN Last administered on 03/04/17 14:02; Admin Dose 1 TAB; Start 03/03/17 at 09:30 Polyethylene Glycol (Miralax) 17 gm BID PO Last administered on 03/03/17 21:14 ; Admin Dose 17 GM; Start 03/03/17 at 09:30 Docusate Sodium (Colace) 200 mg BID PO Last administered on 03/04/17 08:34; Admin Dose 200 MG; Start 03/03/17 at 09:30 Bisacodyl 10 mg 10 mg DAILY PRN PO CONSTIPATION; Start 03/03/17 at 09:30 Sodium Chloride 1,000 ml @ 50 mls/hr Q20H IV Last administered on 03/03/17 09: 53; Admin Dose 50 MLS/HR; Start 03/03/17 at 09:30 Ceftriaxone Sodium (Rocephin) 50 ml @ 100 mls/hr Q24H IVPB Last administered on 03/04/17 09:55; Admin Dose 100 MLS/HR; Start 03/03/17 at 09:30 Memantine (Namenda) 10 mg BID PO Last administered on 03/04/17 08:34; Admin Dose 10 MG; Start 03/03/17 at 21:00 Cholecalciferol (Vitamin D) 1,000 unit DAILY PO Last administered on 03/04/17 08:34; Admin Dose 1,000 UNIT; Start 03/03/17 at 15:00 Oxycodone/ Acetaminophen (Endocet (10 325)) 2 tab Q4H PRN PO PAIN; Start 03/04 at 14:30 Methocarbamol (Robaxin) 500 mg Q6H PRN PO pain; Start 03/04/17 at 14:30 NICK HI Mar 04, 2017 14:55
[2017-03-04] MEDS: morphine 2 MG INJ IV PRN (15:04)
--- NOTE | 2017-03-04 15:08 | CONS ---
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 Per Dr. Rob, fortunately the mass has minimal mass effect on the underlying brain and the patient is asymptomatic, so neurosurgical intervention at this point is unwarranted. Patient now admitted with dyspnea as well as pleuritic chest pain. In the emergency room, the patient underwent a chest x-ray that showed cardiomegaly with increased right pleural effusion with bibasilar atelectasis versus infiltrate. The patient's chest CTA showed no evidence of PE or aortic dissection; however, this showed large right-sided pleural effusion with underlying atelectasis/consolidation, slightly increased with moderate left- sided pleural effusion. The CT again revealed complex right breast mass, unchanged. - Patient underwent thoracentesis with 1.9L fluid removed, f/u cytology. If reaccumulates, may need PleurX catheter. Appreciate Pulm recs. - Will check repeat tumor markrs. In November 2016, tumor markers were elevated CA 27-29 382, CA 15-3 151 - Patient will need outpatient PET/CT - s/p skin biopsy of cutaneous nodules that demonstrated metastatic mammary carcinoma extensively involving the dermis, ER positive, AK negative, HER2 negative 1+ - Given bony metastatic disease, patient will need zometa Q3 months - first dose given 12/14/16. Repeat dose of zometa ordered, 3.5 mg, renally dosed for CrCl 55. - Patient to see an oncologist in network on 03/14/17. Likely start hormonal therapy. In November 2016, E2 was 16 (postmenopausal range) but FSH was now ( 13.7), would consider starting tamoxifen vs. Lupron/letrozole/ibrance unless evidence of visceral crisis. - Patient will also need BRCA testing as an outpatient given +FHx (sister with DCIS, aunt and cousin s/p mastectomy, unclear if early stage or prophylactic) # Macrocytic anemia - Patient previously had normocytic anemia with nucleated RBCs attributed to bone marrow involvement. Patient now has macrocytic anemia with normal Vitamin B12/folate level; homocysteine and methylmalonic acid pending. TSH elevated at 17.5 and free T4 low at 0.44, therefore macrocytic anemia may be related to hypothyroidism - management per primary team. 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 Per Dr. Rob, fortunately the mass has minimal mass effect on the underlying brain and the patient is asymptomatic, so neurosurgical intervention at this point is unwarranted. I had planned to start hormonal therapy as an outpatient, however due to insurance reasons I was unable to follow her as an outpatient. She now presents with SOB and dyspnea on exertion. She states that her energy was very low and that she had difficulty ambulating and even getting up to go to the bathroom due to shortness of breath. However she had a right thoracentesis today with some relief and will have a left thoracentesis tomorrow or the day after. Past Medical History None Family History Significant Family History: other ((sister with DCIS, aunt and cousin s/p mastectomy, unclear if early stage or prophylactic. She stated she has never had any genetic analysis done on her.)) Social History Smoking Status: Never smoker Exam/Review of Systems Vital Signs Vitals Vital Signs Date Time Temp Pulse Resp B/P Pulse Ox O2 Delivery O2 Flow Rate FiO2 03/04/17 08:26 98.5 113 20 108/59 92 03/04/17 08:15 Nasal Cannula 3.0 03/03/17 16:17 36 Intake and Output 03/03/17 03/03/17 03/04/17 15:00 23:00 07:00 Intake Total 1090 ml 1100 ml Output Total 200 ml Balance 1090 ml 900 ml Exam Constitutional: alert Head: normocephalic Eyes: nl conjunctiva Neck: supple Respiratory: clear to auscultation Cardiovascular: regular rate and rhythm Gastrointestinal: non-tender, soft Musculoskeletal: nl extremities to inspection Skin: other (cutaneous nodules biopsy proven metastatic breast cancer) Results Result Diagram: 03/04/17 0545 03/04/17 0545 Results 24 hrs Laboratory Tests Test 03/04/17 05:45 03/04/17 09:15 White Blood Count 5.8 Red Blood Count 2.61 L Hemoglobin 8.6 L Hematocrit 28.1 L Mean Corpuscular Volume 107.7 H Mean Corpuscular Hemoglobin 33.0 Mean Corpuscular Hemoglobin Concent 30.6 L Red Cell Distribution Width 22.4 H Platelet Count 155 Mean Platelet Volume 10.5 H Neutrophils % 64.0 Band Neutrophils % 3.0 Lymphocytes % 18.0 Reactive Lymphocytes % 2.0 Monocytes % 8.0 Basophils % 1.0 Metamyelocytes % 3.0 H Myelocytes % 1.0 H Nucleated Red Blood Cells % 59.0 H Neutrophils # 3.7 Lymphocytes # 1.0 Monocytes # 0.5 Basophils # 0.1 Metamyelocytes # 0.2 Myelocytes # 0.1 Absolute Reticulocyte Count 0.076 Percent Reticulocyte Count 2.9 H Sodium Level 138 Potassium Level 4.5 Chloride Level 109 Carbon Dioxide Level 20 L Anion Gap 14 Blood Urea Nitrogen 23 H Creatinine 1.10 H Glucose Level 87 Hemoglobin A1c 4.9 Calcium Level 8.7 Phosphorus Level 5.1 H Magnesium Level 2.6 H Iron Level 127 Total Iron Binding Capacity 240 L Percent Iron Saturation 53 H Ferritin 3710.0 H Total Bilirubin 0.3 Direct Bilirubin 0.00 Indirect Bilirubin 0.3 Aspartate Amino Transf (AST/SGOT) 165 H Alanine Aminotransferase (ALT/SGPT) 31 Alkaline Phosphatase 379 H Total Protein 6.7 Albumin 3.1 L Globulin 3.60 H Albumin/Globulin Ratio 0.86 Triglycerides Level 396 H Cholesterol Level 159 LDL Cholesterol, Calculated 55 HDL Cholesterol 25 L Cholesterol/HDL Ratio 6.3 Thyroid Stimulating Hormone (TSH) 17.500 H Free Thyroxine 0.44 L Body Fluid Type THORACENTESIS FLUID Body Fluid Volume 1000.0 Body Fluid Color YELLOW Body Fluid Appearance SLIGHTLY CLOUDY Body Fluid WBC 427 Body Fluid RBC 1+ Body Fluid Neutrophils % 1 Body Fluid Lymphocytes (%) 86 Body Fluid Monocytes % 7 Body Fluid Other Cells (%) 6 Body Fluid Glucose 84 Body Fluid Lactate Dehydrogenase Body Fluid Amylase < 30 Lactate Dehydrogenase Medications Medications Current Medications Ondansetron HCl (Zofran Inj) 4 mg Q6H PRN IV NAUSEA AND/OR VOMITING; Start 03/03 at 09:00 Acetaminophen (Tylenol Tab) 650 mg Q6H PRN PO PAIN LEVEL 1-3 OR FEVER; Start at 09:00 Magnesium Hydroxide (Milk Of Mag) 30 ml DAILY PRN PO CONSTIPATION; Start at 09:00 Bisacodyl (Dulcolax) 5 mg DAILY PRN PO CONSTIPATION; Start 03/03/17 at 09:00 Famotidine (Pepcid) 20 mg Q12 PO Last administered on 03/04/17 08:34; Admin Dose 20 MG; Start 03/03/17 at 09:00 Enoxaparin Sodium (Lovenox) 40 mg DAILY SC ; Start 03/03/17 at 09:00 Morphine Sulfate (morphine) 1 mg Q4H PRN IV SEVERE PAIN LEVEL 7-10 Last administered on 03/03/17 14:51; Admin Dose 1 MG; Start 03/03/17 at 09:52 Oxycodone/ Acetaminophen (Percocet (5/ 325)) 1 tab Q4H PRN PO PAIN Last administered on 03/04/17 14:02; Admin Dose 1 TAB; Start 03/03/17 at 09:30 Polyethylene Glycol (Miralax) 17 gm BID PO Last administered on 03/03/17 21:14 ; Admin Dose 17 GM; Start 03/03/17 at 09:30 Docusate Sodium (Colace) 200 mg BID PO Last administered on 03/04/17 08:34; Admin Dose 200 MG; Start 03/03/17 at 09:30 Bisacodyl 10 mg 10 mg DAILY PRN PO CONSTIPATION; Start 03/03/17 at 09:30 Sodium Chloride 1,000 ml @ 50 mls/hr Q20H IV Last administered on 03/03/17 09: 53; Admin Dose 50 MLS/HR; Start 03/03/17 at 09:30 Ceftriaxone Sodium (Rocephin) 50 ml @ 100 mls/hr Q24H IVPB Last administered on 03/04/17 09:55; Admin Dose 100 MLS/HR; Start 03/03/17 at 09:30 Memantine (Namenda) 10 mg BID PO Last administered on 03/04/17 08:34; Admin Dose 10 MG; Start 03/03/17 at 21:00 Cholecalciferol (Vitamin D) 1,000 unit DAILY PO Last administered on 03/04/17 08:34; Admin Dose 1,000 UNIT; Start 03/03/17 at 15:00 Oxycodone/ Acetaminophen (Endocet (10/ 325)) 2 tab Q4H PRN PO PAIN; Start 03/04 at 14:30 Methocarbamol (Robaxin) 500 mg Q6H PRN PO pain; Start 03/04/17 at 14:30 GREGOR XIONG MD Mar 04, 2017 15:08
[2017-03-04] MEDS: METHOCARBAMOL 500 MG TAB PO PRN (17:26)
[2017-03-04] MEDS ORDERED: SOD CHLORIDE 0.9% IVPB ONE (18:00)
[2017-03-04] MEDS ORDERED: ZOLEDRONIC ACID IVPB ONE (18:00)
[2017-03-04 20:09] VITALS: BP 103/56; RESP 20
[2017-03-04] MEDS: MAGNESIUM HYDROXIDE 30ML CUP PO PRN (20:56)
[2017-03-04] MEDS: OXYCODONE/ACETAMINOPHEN (10/325) TAB PO PRN (21:30)
[2017-03-05] MEDS: OXYCODONE/ACETAMINOPHEN (10/325) TAB PO PRN ×2 (02:24→23:41)
[2017-03-05] MEDS: METHOCARBAMOL 500 MG TAB PO PRN ×2 (03:46→20:55)
[2017-03-05 05:40] LABS: ADD SCAN DIFF NO
[2017-03-05 05:44] LABS: ABNORMAL IP MESSAGE 1; HEMATOCRIT 26.6 % (37.0-47.0); HEMOGLOBIN 7.9 g/dl (12.0-16.0); MEAN CORPUSCULAR HEMOGLOBIN 32.1 pg (29.0-33.0); MEAN CORPUSCULAR HGB CONC 29.7 g/dl (32.0-37.0); MEAN CORPUSCULAR VOLUME 108.1 fl (82.0-101.0); MEAN PLATELET VOLUME 9.8 fl (7.4-10.4); PLATELET COUNT 124 10^3/UL (140-415); RED BLOOD COUNT 2.46 10^6/ul (4.20-5.40); RED CELL DISTRIBUTION WIDTH 22.5 % (11.5-14.5); WHITE BLOOD COUNT 5.3 10^3/ul (4.8-10.8)
[2017-03-05 06:09] LABS: POTASSIUM 4.4 mmol/L (3.5-5.1)
[2017-03-05 06:11] LABS: CREATININE 1.23 mg/dl (0.44-1.00)
[2017-03-05 06:12] LABS: CALCIUM 8.4 mg/dl (8.4-10.2)
[2017-03-05 07:12] VITALS: BP 113/56; RESP 20
[2017-03-05] MEDS: LEVALBUTEROL (NEB) 0.63 MG/3 ML AMP HHN SCH ×3 (08:08→23:24)
[2017-03-05] MEDS: ENOXAPARIN 40 MG/0.4 ML SYG SC SCH (09:00)
[2017-03-05] MEDS: CEFTRIAXONE 1 GM/50 ML (PMX) 50 ML IVPB SCH (09:27)
[2017-03-05] MEDS: FAMOTIDINE 20 MG TAB PO SCH ×2 (09:27→20:56)
[2017-03-05] MEDS: POLYETHYLENE GLYCOL 17 GM PACKET PO SCH ×2 (09:27→20:56)
[2017-03-05] MEDS: DOCUSATE SODIUM 100 MG CAP PO SCH ×2 (09:27→20:55)
[2017-03-05] MEDS: CHOLECALCIFEROL 1,000 UNIT TAB PO SCH (09:27)
[2017-03-05] MEDS: MEMANTINE 5 MG TAB PO SCH ×2 (09:27→20:55)
[2017-03-05 09:52] LABS: EOSINOPHILS # 0.1 10^3/ul (0.0-0.5); LYMPHOCYTES # 1.9 10^3/ul (0.8-2.9); MYELOCYTES # 0.1; NEUTROPHIL # 0.2 10^3/ul (1.6-7.5)
[2017-03-05] MEDS: morphine 2 MG INJ IV PRN (12:40)
--- NOTE | 2017-03-05 15:09 | PN ---
Date/Time of Note Date/Time of Note DATE: 03/05/17 TIME: 15:01 Assessment/Plan VTE Prophylaxis VTE Prophylaxis Intervention: LMWH Lines/Catheters IV C[facility]ter Type (from [facility]): Peripheral IV Urinary Cath still in place: No Assessment/Plan Chief Complaint/Hosp Course Assessment and plan 1. Acute on chronic respiratory failure secondary to underlying pleural effusions. Curing Oven Tender following. Patient status post thoracentesis with roughly 1.9 mL removed. Follow up on cytology 2. Bilateral malignant pleural effusions. May need possible Pleurx catheter should recurrent pleural effusions occur. monitor resp status 3. Macrocytic anemia. Monitor H&H. Transfuse as needed 4. Positive urinalysis. Follow up on final urine culture 5. Metastatic breast cancer with metastasis to brain and bones as well as skin. Oncologist following. Of note patient reportedly had oncologist call follow-up on March 14. We'll follow-up with case management for outpatient follow-up 6. Multiple vascular skin lesions. Biopsy results are pending at this time. Patient to be followed up as outpatient for this issue 7. andree. nephrology consulted. Disposition and plan: Patient status post thoracentesis 03/04/2017. Follow up on cytology. Continue with leather stitcher recommendations. plan for prbc transfusion for anemia. assistant librarian to follow for andree Discussed but of care with Dr. Gunn Problems: Subjective 24 Hr Interval Summary Free Text/Dictation no s/s of distress. comfortable at present Exam/Review of Systems Vital Signs Vitals Vital Signs Date Time Temp Pulse Resp B/P Pulse Ox O2 Delivery O2 Flow Rate FiO2 03/05/17 08:08 101 24 94 Nasal Cannula 4.0 03/05/17 07:12 98.4 113/56 03/03/17 16:17 36 Intake and Output 03/04/17 03/04/17 03/05/17 15:00 23:00 07:00 Intake Total 850 ml 1450 ml Output Total 850 ml Balance 0 ml 1450 ml Exam General: No acute signs or symptoms of distress Eyes: pupils equal round, Neck: no JVD Cardiac: regular rate Pulmonary: With minimal diminished lung bases GI: Abdomen soft nontender nondistended, bowel sounds active Extremities: No edema bilateral lower extremities Skin: Clean dry and intact Neurologic: amanda x4 Results Result Diagram: 03/05/17 0520 03/05/17 0520 Results 24 hrs Laboratory Tests Test 03/05/17 05:20 White Blood Count 5.3 Red Blood Count 2.46 L Hemoglobin 7.9 L Hematocrit 26.6 L Mean Corpuscular Volume 108.1 H Mean Corpuscular Hemoglobin 32.1 Mean Corpuscular Hemoglobin Concent 29.7 L Red Cell Distribution Width 22.5 H Platelet Count 124 L Mean Platelet Volume 9.8 Neutrophils % 3.0 L Band Neutrophils % 55.0 H Lymphocytes % 36.0 Eosinophils % 1.0 Myelocytes % 2.0 H Promyelocytes % 3.0 H Nucleated Red Blood Cells % 64.0 H Neutrophils # 0.2 L Lymphocytes # 1.9 Eosinophils # 0.1 Myelocytes # 0.1 Promyelocytes # 0.2 Sodium Level 140 Potassium Level 4.4 Chloride Level 109 Carbon Dioxide Level 20 L Anion Gap 15 Blood Urea Nitrogen 23 H Creatinine 1.23 H Glucose Level 85 Calcium Level 8.4 Medications Medications Current Medications Ondansetron HCl (Zofran Inj) 4 mg Q6H PRN IV NAUSEA AND/OR VOMITING; Start 03/03 at 09:00 Acetaminophen (Tylenol Tab) 650 mg Q6H PRN PO PAIN LEVEL 1-3 OR FEVER; Start at 09:00 Magnesium Hydroxide (Milk Of Mag) 30 ml DAILY PRN PO CONSTIPATION Last administered on 03/04/17 20:56; Admin Dose 30 ML; Start 03/03/17 at 09:00 Bisacodyl (Dulcolax) 5 mg DAILY PRN PO CONSTIPATION; Start 03/03/17 at 09:00 Famotidine (Pepcid) 20 mg Q12 PO Last administered on 03/05/17 09:27; Admin Dose 20 MG; Start 03/03/17 at 09:00 Enoxaparin Sodium (Lovenox) 40 mg DAILY SC ; Start 03/03/17 at 09:00 Morphine Sulfate (morphine) 1 mg Q4H PRN IV SEVERE PAIN LEVEL 7-10 Last administered on 03/05/17 12:40; Admin Dose 1 MG; Start 03/03/17 at 09:52 Oxycodone/ Acetaminophen (Percocet (5/ 325)) 1 tab Q4H PRN PO PAIN Last administered on 03/04/17 14:02; Admin Dose 1 TAB; Start 03/03/17 at 09:30 Polyethylene Glycol (Miralax) 17 gm BID PO Last administered on 03/05/17 09:27 ; Admin Dose 17 GM; Start 03/03/17 at 09:30 Docusate Sodium (Colace) 200 mg BID PO Last administered on 03/05/17 09:27; Admin Dose 200 MG; Start 03/03/17 at 09:30 Bisacodyl 10 mg 10 mg DAILY PRN PO CONSTIPATION; Start 03/03/17 at 09:30 Sodium Chloride 1,000 ml @ 50 mls/hr Q20H IV Last administered on 03/04/17 19 :25; Admin Dose 50 MLS/HR; Start 03/03/17 at 09:30 Ceftriaxone Sodium (Rocephin) 50 ml @ 100 mls/hr Q24H IVPB Last administered on 03/05/17 09:27; Admin Dose 100 MLS/HR; Start 03/03/17 at 09:30 Memantine (Namenda) 10 mg BID PO Last administered on 03/05/17 09:27; Admin Dose 10 MG; Start 03/03/17 at 21:00 Cholecalciferol (Vitamin D) 1,000 unit DAILY PO Last administered on 03/05/17 09:27; Admin Dose 1,000 UNIT; Start 03/03/17 at 15:00 Methocarbamol (Robaxin) 500 mg Q6H PRN PO pain Last administered on 03/05/17 03:46; Admin Dose 500 MG; Start 03/04/17 at 14:30 Oxycodone/ Acetaminophen (Endocet (10/ 325)) 1 tab Q4H PRN PO PAIN Last administered on 03/05/17 02:24; Admin Dose 1 TAB; Start 03/04/17 at 21:00 NICK HI Mar 05, 2017 15:08
--- NOTE | 2017-03-05 15:40 | CONS ---
Date/Time of Note Date/Time of Note DATE: 03/05/17 TIME: 15:38 Assessment/Plan Assessment/Plan Chief Complaint/Hosp Course The patient is a 57 year old female with metastatic infiltrating ductal carcinoma of the right breast with wide spread disease involving the bone, skin , lymph nodes, lung and brain, ER+ (98%)/ MN+ (3%) HER2 negative by FISH, with new diagnosis in November 2016 with pachymeningeal enhancement and dural based mass and presumed leptomeningeal involvement, who was started on whole brain radiation with field to include scalp for palliation given scalp mets. Per Dr. Rob, fortunately the mass has minimal mass effect on the underlying brain and the patient is asymptomatic, so neurosurgical intervention at this point is unwarranted. Patient now admitted with dyspnea as well as pleuritic chest pain. In the emergency room, the patient underwent a chest x-ray that showed cardiomegaly with increased right pleural effusion with bibasilar atelectasis versus infiltrate. The patient's chest CTA showed no evidence of PE or aortic dissection; however, this showed large right-sided pleural effusion with underlying atelectasis/consolidation, slightly increased with moderate left- sided pleural effusion. The CT again revealed complex right breast mass, unchanged. - Patient underwent right thoracentesis on 03/04/17 with 1.9L fluid removed, f/u cytology. If reaccumulates, may need PleurX catheter. Appreciate Pulm recs. - Will check repeat tumor markers - pending. In November 2016, tumor markers were elevated CA 27-29 382, CA 15-3 151 - Patient will need outpatient PET/CT - s/p skin biopsy of cutaneous nodules that demonstrated metastatic mammary carcinoma extensively involving the dermis, ER positive, MN negative, HER2 negative 1+ - Given bony metastatic disease, patient will need zometa Q3 months - first dose given 12/14/16. Repeat dose of zometa, 3.5 mg, renally dosed for CrCl 55 given 03/04/17. - Patient to see an oncologist in network on 03/14/17. Likely start hormonal therapy. In November 2016, E2 was 16 (postmenopausal range) but FSH was now ( 13.7), would consider starting tamoxifen vs. Lupron/letrozole/ibrance unless evidence of visceral crisis. Pending repeat E2 and FSH. - Patient will also need BRCA testing as an outpatient given +FHx (sister with DCIS, aunt and cousin s/p mastectomy, unclear if early stage or prophylactic) # Macrocytic anemia/thrombocytopenia - Patient previously had normocytic anemia and thrombocytopenia with nucleated RBCs attributed to bone marrow involvement. Patient now has macrocytic anemia with normal Vitamin B12/folate level; homocysteine and methylmalonic acid pending. TSH elevated at 17.5 and free T4 low at 0.44, therefore macrocytic anemia may be related to hypothyroidism - management per primary team. - Retic count inappropriately low at 76K, iron panel c/w anemia of chronic inflammation, LDH and haptoglobin pending - Transfuse 2 units pRBCs today for Hgb 7.9 # JOSEPH, nephrology consulted by primary team. Having renal US done. Patient's sister Caryn Salguero (anesthesiologist) [phone], mother is a pathologist, father is a psychiatrist Problems: Consultation Date/Type/Reason Admit Date/Time Mar 03, 2017 at 05:39 Initial Consult Date Type of Consultation: Hematology/Oncology 24 HR Interval Summary Free Text/Dictation Patient doing well, having renal US done for JOSEPH. No complaints at this time. May have left thoracentesis tomorrow. Receiving 2 units pRBCs. Exam/Review of Systems Vital Signs Vitals Vital Signs Date Time Temp Pulse Resp B/P Pulse Ox O2 Delivery O2 Flow Rate FiO2 03/05/17 08:08 101 24 94 Nasal Cannula 4.0 03/05/17 07:12 98.4 113/56 03/03/17 16:17 36 Intake and Output 03/04/17 03/04/17 03/05/17 15:00 23:00 07:00 Intake Total 850 ml 1450 ml Output Total 850 ml Balance 0 ml 1450 ml Exam Constitutional: alert Head: normocephalic Eyes: nl conjunctiva Neck: supple Respiratory: clear to auscultation Cardiovascular: regular rate and rhythm Gastrointestinal: non-tender, soft Musculoskeletal: nl extremities to inspection Skin: other (cutaneous nodules biopsy proven metastatic breast cancer) Results Result Diagram: 03/05/17 0520 03/05/17 0520 Results 24 hrs Laboratory Tests Test 03/05/17 05:20 White Blood Count 5.3 Red Blood Count 2.46 L Hemoglobin 7.9 L Hematocrit 26.6 L Mean Corpuscular Volume 108.1 H Mean Corpuscular Hemoglobin 32.1 Mean Corpuscular Hemoglobin Concent 29.7 L Red Cell Distribution Width 22.5 H Platelet Count 124 L Mean Platelet Volume 9.8 Neutrophils % 3.0 L Band Neutrophils % 55.0 H Lymphocytes % 36.0 Eosinophils % 1.0 Myelocytes % 2.0 H Promyelocytes % 3.0 H Nucleated Red Blood Cells % 64.0 H Neutrophils # 0.2 L Lymphocytes # 1.9 Eosinophils # 0.1 Myelocytes # 0.1 Promyelocytes # 0.2 Sodium Level 140 Potassium Level 4.4 Chloride Level 109 Carbon Dioxide Level 20 L Anion Gap 15 Blood Urea Nitrogen 23 H Creatinine 1.23 H Glucose Level 85 Calcium Level 8.4 Medications Medications Current Medications Ondansetron HCl (Zofran Inj) 4 mg Q6H PRN IV NAUSEA AND/OR VOMITING; Start 03/03 at 09:00 Acetaminophen (Tylenol Tab) 650 mg Q6H PRN PO PAIN LEVEL 1-3 OR FEVER; Start at 09:00 Magnesium Hydroxide (Milk Of Mag) 30 ml DAILY PRN PO CONSTIPATION Last administered on 03/04/17 20:56; Admin Dose 30 ML; Start 03/03/17 at 09:00 Bisacodyl (Dulcolax) 5 mg DAILY PRN PO CONSTIPATION; Start 03/03/17 at 09:00 Famotidine (Pepcid) 20 mg Q12 PO Last administered on 03/05/17 09:27; Admin Dose 20 MG; Start 03/03/17 at 09:00 Enoxaparin Sodium (Lovenox) 40 mg DAILY SC ; Start 03/03/17 at 09:00 Morphine Sulfate (morphine) 1 mg Q4H PRN IV SEVERE PAIN LEVEL 7-10 Last administered on 03/05/17 12:40; Admin Dose 1 MG; Start 03/03/17 at 09:52 Oxycodone/ Acetaminophen (Percocet (5/ 325)) 1 tab Q4H PRN PO PAIN Last administered on 03/04/17 14:02; Admin Dose 1 TAB; Start 03/03/17 at 09:30 Polyethylene Glycol (Miralax) 17 gm BID PO Last administered on 03/05/17 09:27 ; Admin Dose 17 GM; Start 03/03/17 at 09:30 Docusate Sodium (Colace) 200 mg BID PO Last administered on 03/05/17 09:27; Admin Dose 200 MG; Start 03/03/17 at 09:30 Bisacodyl 10 mg 10 mg DAILY PRN PO CONSTIPATION; Start 03/03/17 at 09:30 Sodium Chloride 1,000 ml @ 50 mls/hr Q20H IV Last administered on 03/04/17 19 :25; Admin Dose 50 MLS/HR; Start 03/03/17 at 09:30 Ceftriaxone Sodium (Rocephin) 50 ml @ 100 mls/hr Q24H IVPB Last administered on 03/05/17 09:27; Admin Dose 100 MLS/HR; Start 03/03/17 at 09:30 Memantine (Namenda) 10 mg BID PO Last administered on 03/05/17 09:27; Admin Dose 10 MG; Start 03/03/17 at 21:00 Cholecalciferol (Vitamin D) 1,000 unit DAILY PO Last administered on 03/05/17 09:27; Admin Dose 1,000 UNIT; Start 03/03/17 at 15:00 Methocarbamol (Robaxin) 500 mg Q6H PRN PO pain Last administered on 03/05/17 03:46; Admin Dose 500 MG; Start 03/04/17 at 14:30 Oxycodone/ Acetaminophen (Endocet (10/ 325)) 1 tab Q4H PRN PO PAIN Last administered on 03/05/17 02:24; Admin Dose 1 TAB; Start 03/04/17 at 21:00 GREGOR XIONG MD Mar 05, 2017 15:40
--- NOTE | 2017-03-05 19:42 | RADRPT ---
PROCEDURE: Renal US. CLINICAL INDICATION: Acute renal insufficiency TECHNIQUE: Multiple sonographic images of the kidneys were obtained. The images were reviewed on a PACS workstation. COMPARISON: No prior studies are available for comparison. FINDINGS: Right kidney: Normal in size, contour and echogenicity. No mass, calculus or hydronephrosis is pre sent. Renal size is estimated at 11.4 x 4.7 x 3.4 cm. Normal blood flow on Doppler interrogation is demonstrated. Left kidney: Normal in size, contour and echogenicity. No mass, calculus or hydronephrosis is pres ent. Renal size is estimated at 9.4 x 4.6 x 4.5 cm. Normal blood flow on Doppler interrogation is d emonstrated. RPTAT:HJJR IMPRESSION: 1. Unremarkable renal ultrasound. Physician Damian Date Time Electronically viewed and signed by Physician Damian on 03/05/2017 19:42 /
[2017-03-05 20:00] VITALS: BP 111/54; RESP 19
[2017-03-05] MEDS: MAGNESIUM HYDROXIDE 30ML CUP PO PRN (20:57)
[2017-03-05] MEDS: SOD CHLORIDE 0.9% 1,000 ML IV SCH (21:30)
[2017-03-06 00:51] LABS: ADD UMIC YES; URINE BILIRUBIN (Dip) NEGATIVE (NEGATIVE); URINE BLOOD (Dip) NEGATIVE (NEGATIVE); URINE COLOR LT. YELLOW (YELLOW); URINE GLUCOSE (Dip) NEGATIVE (NEGATIVE); URINE KETONES (Dip) NEGATIVE (NEGATIVE); URINE LEUKOCYTE ESTERASE (Dip) 2+ (NEGATIVE); URINE NITRITE (Dip) NEGATIVE (NEGATIVE); URINE TOTAL PROTEIN (Dip) NEGATIVE (NEGATIVE); URINE UROBILINOGEN (Dip) 0.2 E.U./dL (0.1-1.0)
[2017-03-06 00:59] LABS: URINE RBCS 0-2 /HPF (0)
[2017-03-06 01:00] LABS: SQUAMOUS EPITHELIAL CELL,UR MODERATE
[2017-03-06 01:01] LABS: BACTERIA,URINE MODERATE
[2017-03-06 05:52] LABS: ADD SCAN DIFF NO
[2017-03-06 05:58] LABS: ABNORMAL IP MESSAGE 1; HEMATOCRIT 33.2 % (37.0-47.0); HEMOGLOBIN 10.3 g/dl (12.0-16.0); MEAN CORPUSCULAR HEMOGLOBIN 31.1 pg (29.0-33.0); MEAN CORPUSCULAR VOLUME 100.3 fl (82.0-101.0); MEAN PLATELET VOLUME 10.4 fl (7.4-10.4); PLATELET COUNT 116 10^3/UL (140-415); RED BLOOD COUNT 3.31 10^6/ul (4.20-5.40); RED CELL DISTRIBUTION WIDTH 24.5 % (11.5-14.5); WHITE BLOOD COUNT 5.7 10^3/ul (4.8-10.8)
[2017-03-06 06:12] LABS: CALCIUM 7.9 mg/dl (8.4-10.2); CREATININE 1.24 mg/dl (0.44-1.00)
[2017-03-06 06:20] LABS: PHOSPHORUS 3.8 mg/dl (2.5-4.9)
[2017-03-06 06:21] LABS: MAGNESIUM 2.6 mg/dl (1.7-2.5)
[2017-03-06] MEDS ORDERED: FUROSEMIDE 20 MG INJ IV ONE (06:30)
[2017-03-06] MEDS: OXYCODONE/ACETAMINOPHEN (10/325) TAB PO PRN ×4 (06:42→21:48)
[2017-03-06] MEDS: LEVOTHYROXINE 75 MCG TAB PO SCH (06:42)
[2017-03-06 07:30] LABS: AADO2 Arterial 135.2 mmHg (7.0-24.0); Allen Test ACCEPTAB; Arterial Base Excess -5.5 mmol/L (-3.0-3); Arterial COHb 0.3 % (0.0-3.0); Arterial Fraction of Oxyhgb 91.1 % (93.0-99.0); Arterial HCO3 18.1 mmol/L (22.0-26.0); Arterial MetHb 0.4 % (0.0-1.5); Arterial Total Hemglobin 10.5 g/dl (12.0-18.0); MODE NASAL CANNULA
--- NOTE | 2017-03-06 07:30 | RADRPT ---
PROCEDURE: XR Chest. CLINICAL INDICATION: Respiratory distress TECHNIQUE: An AP view of the chest was obtained. COMPARISON: Chest x-ray dated 03/04/[address] pulmonary angiogram dated 03/03/2017 FINDINGS: There is prominence of the interstitial and central pulmonary vascular markings with small to mode rate bilateral pleural effusions. There left upper lobe and right lower lobe alveolar opacities. No pneumothorax is seen. The cardiomediastinal silhouette is within normal limits for size. The osse ous structures demonstrate patchy sclerotic changes IMPRESSION: 1. Findings suggestive of interstitial edema with small to moderate bilateral pleural effusions. Th e right pleural effusion appears increased in size when compared to the prior examination. 2. Left upper lobe and right lower lobe alveolar opacities may reflect superimposed pneumonia. Fin dings are increased when compared to the prior examination. 3. Sclerotic changes of the bones, compatible with metastases noted on prior CT. RPTAT: HH .Myra Mckeon MD, Date Time Electronically viewed and signed by .Myra Mckeon MD, on 03/06/2017 07:29 .G/
[2017-03-06 07:55] VITALS: BP 112/60; RESP 20
--- NOTE | 2017-03-06 07:58 | CONS ---
DATE OF ADMISSION: 03/03/2017 DATE OF CONSULTATION: TYPE OF CONSULTATION: Nephrology. REASON FOR CONSULTATION: Acute kidney injury. PHYSICIAN REQUESTING CONSULT: ____ HISTORY OF PRESENT ILLNESS: This is a 57-year-old female with a past medical history of infiltratin g ductal carcinoma of the right breast with metastasis to the bone, skin, lymph nodes, lung, brain w ho presents to [facility] with complaints of dyspnea and pleuritic chest pain. Th e patient states her shortness of breath has progressively worsened over last 24 hours. As a result , she came into the emergency room for evaluation. Upon arrival, the patient had a CT angio which s howed findings of no evidence of PE but ____ pleural effusion with consolidation, moderate left-side d pleural effusion, mediastinal lymphadenopathy, complex right breast mass. The patient in the [facility] room was admitted to Med/Surg. While on med/surg, the patient was seen by mainframe systems administrator. A t horacentesis was performed with approximately 1.6 L removed. The patient was also placed on IV flui ds, IV antibiotics. In terms of the patient's renal history, on admission the patient had a creatinine of 1.1 mg/dL. In the last 48 hours, the patient's creatinine has increased to 1.23 mg/dL. The patient states her ur inary output this time has been marginal. She denies any rashes, any hemoptysis, hematemesis, hemat ochezia. PAST MEDICAL HISTORY: As reported above. History of metastatic breast CA, history of anemia. PAST SURGICAL HISTORY: History of biopsy. ALLERGIES: THE PATIENT IS ALLERGIC TO HYDROMORPHONE. MEDICATIONS: The patient's medications have been reviewed. FAMILY HISTORY: Noncontributory. SOCIAL HISTORY: Does not drink, smoke or do drugs. REVIEW OF SYSTEMS: A 14-point review of systems was conducted. Pertinent positives stated in HPI, otherwise negative. PHYSICAL EXAMINATION: VITAL SIGNS: Blood pressure is 113/56, respiration 20, pulse 105, temperature 98.4. HEENT: Head is normocephalic. NECK: Supple. HEART: Regular rate. LUNGS: Diminished breath sounds at base. ABDOMEN: Soft, nontender to palpation. No rebound, guarding. EXTREMITIES: Negative for clubbing, cyanosis, edema. DERMATOLOGIC: No rashes. MUSCULOSKELETAL: No joint effusion. NEUROLOGIC: Limited exam but no focal deficits. LABORATORY DATA: Sodium 140, potassium ____, chloride 109, bicarbonate 20, BUN 23, creatinine 1.23. White count 5.3, hemoglobin 7.9, hematocrit of 26.6, platelet count is 124. IMAGING: The patient's imaging studies have been reviewed. ASSESSMENT AND PLAN: This is a 57-year-old female who presents with: 1. Nonoliguric acute kidney injury with a previous baseline creatinine of 0.8 mg/dL. Etiology of a cute kidney injury may be multifactorial secondary to hemodynamics, questionable contrast-associated nephropathy, nephrotoxicity from recent chemotherapy. The patient's initial urinalysis shows no ev idence of active sediment. Therefore, low suspicion for acute glomerulonephritis, vasculitis or int erstitial nephritis. The patient did receive a CT angio and did have 350 mL of contrast. Plan at t his point would be to continue current supportive care, continue volume expansion, continue to renal ly dose all medications, avoid nephrotoxins. Will repeat the patient's urinalysis. Will check a re nal ultrasound to rule out obstruction given history of metastatic breast carcinoma, although suspic ion is low. Would otherwise continue current treatment plan and monitor closely. 2. Anemia, likely of chronic disease. The patient is receiving 2 units of PRBC. Will continue to monitor. 3. Mineral bone disorder. Monitor calcium, phosphorus levels. 4. Acute respiratory failure. Etiology is likely secondary to pleural effusions, possible metastat ic disease. The patient is status post thoracentesis. Will continue to monitor. Follow up with Pu lmonary. 5. Possible urinary tract infection. The patient is currently on antibiotic therapy. Will continu e. 6. Metastatic breast carcinoma. Will continue current medical management. Follow up with Oncology . Thank you ____ for this interesting consultation. It will be a pleasure to follow patient with you throughout the hospital course. Dictated By: KAJAL SIERRA/MARILEE Conf#: [id number] DID#: [id number]
[2017-03-06] MEDS: LEVALBUTEROL (NEB) 0.63 MG/3 ML AMP HHN SCH ×3 (08:00→23:18)
[2017-03-06] MEDS: CHOLECALCIFEROL 1,000 UNIT TAB PO SCH (08:46)
[2017-03-06] MEDS: FAMOTIDINE 20 MG TAB PO SCH ×2 (08:47→21:52)
[2017-03-06] MEDS: DOCUSATE SODIUM 100 MG CAP PO SCH ×2 (08:47→21:52)
[2017-03-06] MEDS: MEMANTINE 5 MG TAB PO SCH ×2 (08:47→21:52)
[2017-03-06] MEDS: CEFTRIAXONE 1 GM/50 ML (PMX) 50 ML IVPB SCH (08:49)
[2017-03-06] MEDS: POLYETHYLENE GLYCOL 17 GM PACKET PO SCH ×2 (08:49→21:54)
[2017-03-06] MEDS: ENOXAPARIN 40 MG/0.4 ML SYG SC SCH (09:19)
[2017-03-06 09:37] LABS: BASOPHIL # 0.1 10^3/ul (0.0-0.1); EOSINOPHILS # 0.1 10^3/ul (0.0-0.5); LYMPHOCYTES # 0.8 10^3/ul (0.8-2.9); MONOCYTE # 0.3 10^3/ul (0.3-0.9); MYELOCYTES # 0.1; NEUTROPHIL # 3.8 10^3/ul (1.6-7.5)
[2017-03-06 09:38] LABS: BURR CELLS FEW; HYPOCHROMASIA 1+
--- NOTE | 2017-03-06 10:47 | PN ---
DATE: 03/06/2017 SUBJECTIVE: The patient is mildly improved, less short of breath this morning. The patient receive d a blood transfusion yesterday, tolerated well. No other events noted. OBJECTIVE: VITAL SIGNS: Blood pressure 112/60, respirations 20, pulse 116, temperature 98.3. HEENT: Head is normocephalic. NECK: Supple. HEART: Tachycardic. LUNGS: Show diminished breath sounds at the base. Positive crackles. ABDOMEN: Soft, nontender to palpation without rebound or guarding. EXTREMITIES: Negative for clubbing, cyanosis. No edema. DERMATOLOGIC: No rashes. MUSCULOSKELETAL: No joint effusions. NEUROLOGIC: No change in exam. MEDICATIONS: The patient's medications have been reviewed. LABORATORY DATA: Sodium 143, potassium 5.0, chloride 112, BUN 25, creatinine 1.24. White count 5.7 , hemoglobin 10.3, hematocrit 33.2, platelet count is 116. The patient's urinalysis shows approxima tely 200 mg/gm of creatinine for a protein creatinine ratio and FENa less than 1%, renal ultrasound is unremarkable, no evidence of obstruction. IMAGING: Chest x-ray shows bilateral ____ opacities and pleural effusion. ASSESSMENT AND PLAN: 1. Nonoliguric acute kidney injury with previous baseline creatinine around 0.8 to 1.0 mg/dL. Etio logy is likely multifactorial secondary to contrast-associated nephropathy and questionable recent n ephrotoxicity from chemotherapy. The patient's FENa is less than 1% which can be seen in prerenal et iology or contrast-associated nephropathy. The patient has received aggressive volume resuscitation and the patient's chest x-ray shows findings suggestive of possible edema. At this point, would co ntinue current treatment plan, supportive care, renally dose all meds. The patient has been started on diuretic therapy. We will continue to monitor I's and O's closely. Please also note the patient 's renal ultrasound showed no evidence of obstruction. 2. Anemia, likely of chronic disease. The patient is status post blood transfusion. Continue to m onitor. 3. Mineral bone disorder. Continue to monitor calcium and phosphorus levels. 4. Acute respiratory failure secondary to pleural effusion, possible pneumonia and metastatic disea se. The patient is status post thoracentesis continue, clinically improving. 5. Possible urinary tract infection. Continue current antibiotic regimen. 6. Metastatic breast cancer. Continue current medical management. Follow up with oncology. 7. Bilateral pleural effusions. The patient is status post thoracentesis. We will follow up with pulmonary. Dictated By: KAJAL SIERRA/MARILEE Conf#: [id number] DID#: [id number]
--- NOTE | 2017-03-06 12:30 | CONS ---
Date/Time of Note Date/Time of Note DATE: 03/06/17 TIME: 12:27 Assessment/Plan Assessment/Plan Additional Assessment/Plan Chest x-ray was reviewed from today which is showing very minimal right pleural effusion. Vertebral areas of patchy infiltrates are seen bilaterally indicative of underlying metastasis. Assessment recommendations; 1. Patient admitted for shortness of breath due to large right pleural effusion status post thoracentesis about 1.9 L of fluid was removed without any significant accumulation. 2. Widely metastatic breast cancer. 3. History of hypothyroidism. 4. Poor functional status. Continue current treatment. Patient can be discharged home. She will need home O2. Periodic chest x-rays will need to be performed to rule out any recurrence of pleural effusion. Consultation Date/Type/Reason Admit Date/Time Mar 03, 2017 at 05:39 Type of Consultation: Pulmonary 24 HR Interval Summary Free Text/Dictation Patient condition stable. Still complains of shortness of breath off and on. Denies any fever, chest pain, sputum production. Any nausea vomiting. General exam; middle-aged woman appears quite emaciated. Awake and alert currently in no distress. Exam/Review of Systems Vital Signs Vitals Vital Signs Date Time Temp Pulse Resp B/P Pulse Ox O2 Delivery O2 Flow Rate FiO2 03/06/17 07:55 98.3 116 20 112/60 94 03/06/17 03:02 4.0 03/05/17 23:26 Nasal Cannula 03/03/17 16:17 36 Intake and Output 03/05/17 03/05/17 03/06/17 15:00 23:00 07:00 Intake Total 2010 ml 1400 ml Output Total 300 ml 800 ml Balance 1710 ml 600 ml Exam HEENT examined; supple neck, no JVD. No lymphadenopathy. Midline trachea. No thyromegaly. Pharynx is clear. Patient has fair dentition. Pupils are midsize and reactive to light. Chest examined; minimally decreased breath sounds right lower lobe otherwise clear, S1-S2 audible no murmurs regular rhythm. Abdomen examination; soft, scaphoid. No organomegaly. Bowel sounds audible. Extremity exam is; no peripheral edema. No clubbing. Pulses 1+ bilaterally. TITLE CLOSER exam is; no focal deficit. Results Result Diagram: 03/06/1752103/06/17521 Results 24 hrs Laboratory Tests Test 4/12/17 00:30 03/06/17:22 03/06/17 06:22 Urine Random Creatinine 87.88 Urine Random Sodium < 13 L Urine Total Protein 15.0 H White Blood Count 5.7 Red Blood Count 3.31 #L Hemoglobin 10.3 #L Hematocrit 33.2 #L Mean Corpuscular Volume 100.3 Mean Corpuscular Hemoglobin 31.1 Mean Corpuscular Hemoglobin Concent 31.0 L Red Cell Distribution Width 24.5 H Platelet Count 116 L Mean Platelet Volume 10.4 Neutrophils % 67.0 Band Neutrophils % 4.0 Lymphocytes % 14.0 L Monocytes % 6.0 Eosinophils % 2.0 Basophils % 1.0 Metamyelocytes % 3.0 H Myelocytes % 1.0 H Blast Cells % 1.0 H Nucleated Red Blood Cells % 88.0 H Neutrophils # 3.8 Lymphocytes # 0.8 Monocytes # 0.3 Eosinophils # 0.1 Basophils # 0.1 Metamyelocytes # 0.2 Myelocytes # 0.1 Blastocytes # 0.1 Hypochromasia 1+ Macrocytosis 1+ Sodium Level 143 Potassium Level 5.0 Chloride Level 112 H Carbon Dioxide Level 21 Anion Gap 15 Blood Urea Nitrogen 25 H Creatinine 1.24 H Glucose Level 84 Calcium Level 7.9 L Phosphorus Level 3.8 Magnesium Level 2.6 H Blood Gas Specimen Source Blood arterial Arterial Blood Date Drawn 03/06/2017 7:20:59 AM Arterial Blood pH (Temp corrected) 7.412 Arterial Blood pCO2 (Temp correct) 29.1 L Arterial Blood pO2 (Temp corrected) 66.1 L Arterial Blood HCO3 18.1 L Arterial Blood Base Excess -5.5 L Arterial Blood Oxygen Saturation 91.7 L Rachid Test ACCEPTAB Arterial Blood Gas Puncture Site Right Radial Arterial Blood Carboxyhemoglobin 0.3 Arterial Blood Methemoglobin 0.4 Blood Gas A-a O2 Differential 135.2 H Oxyhemoglobin Percent 91.1 L Total Hemoglobin 10.5 L Blood Gas Temperature 37.0 Blood Gas Modality NASAL CANNULA FiO2 33.0 Blood Gas Notified Whom NIKOLASD Blood Gas Notified Time 03/06/2017 7:30:35 AM Medications Medications Current Medications Ondansetron HCl (Zofran Inj) 4 mg Q6H PRN IV NAUSEA AND/OR VOMITING; Start 03/03 at 09:00 Acetaminophen (Tylenol Tab) 650 mg Q6H PRN PO PAIN LEVEL 1-3 OR FEVER; Start at 09:00 Magnesium Hydroxide (Milk Of Mag) 30 ml DAILY PRN PO CONSTIPATION Last administered on 03/05/17 20:57; Admin Dose 30 ML; Start 03/03/17 at 09:00 Bisacodyl (Dulcolax) 5 mg DAILY PRN PO CONSTIPATION; Start 03/03/17 at 09:00 Famotidine (Pepcid) 20 mg Q12 PO Last administered on 03/06/17 08:47; Admin Dose 20 MG; Start 03/03/17 at 09:00 Enoxaparin Sodium (Lovenox) 40 mg DAILY SC Last administered on 03/06/17 09:19 ; Admin Dose 40 MG; Start 03/03/17 at 09:00 Morphine Sulfate (morphine) 1 mg Q4H PRN IV SEVERE PAIN LEVEL 7-10 Last administered on 03/05/17 12:40; Admin Dose 1 MG; Start 03/03/17 at 09:52 Oxycodone/ Acetaminophen (Percocet (5/ 325)) 1 tab Q4H PRN PO PAIN Last administered on 03/04/17 14:02; Admin Dose 1 TAB; Start 03/03/17 at 09:30 Polyethylene Glycol (Miralax) 17 gm BID PO Last administered on 03/06/17 08:49 ; Admin Dose 17 GM; Start 03/03/17 at 09:30 Docusate Sodium (Colace) 200 mg BID PO Last administered on 03/06/17 08:47; Admin Dose 200 MG; Start 03/03/17 at 09:30 Bisacodyl 10 mg 10 mg DAILY PRN PO CONSTIPATION; Start 03/03/17 at 09:30 Ceftriaxone Sodium (Rocephin) 50 ml @ 100 mls/hr Q24H IVPB Last administered on 03/06/17 08:49; Admin Dose 100 MLS/HR; Start 03/03/17 at 09:30 Memantine (Namenda) 10 mg BID PO Last administered on 03/06/17 08:47; Admin Dose 10 MG; Start 03/03/17 at 21:00 Cholecalciferol (Vitamin D) 1,000 unit DAILY PO Last administered on 03/06/17 08:46; Admin Dose 1,000 UNIT; Start 03/03/17 at 15:00 Methocarbamol (Robaxin) 500 mg Q6H PRN PO pain Last administered on 03/05/17 20:55; Admin Dose 500 MG; Start 03/04/17 at 14:30 Oxycodone/ Acetaminophen (Endocet (10 325)) 1 tab Q4H PRN PO PAIN Last administered on 03/06/17 11:45; Admin Dose 1 TAB; Start 03/04/17 at 21:00 Levothyroxine Sodium (Synthroid) 75 mcg DAILY@06 PO Last administered on 06:42; Admin Dose 75 MCG; Start 03/06/17 at 06:00 PREETI UGARTE Mar 06, 2017 12:30
[2017-03-06] MEDS ORDERED: FURO-110 PO (14:27)
[2017-03-06] MEDS ORDERED: SYN75 PO (14:27)
[2017-03-06] MEDS ORDERED: LEVO500T72 PO (14:27)
--- NOTE | 2017-03-06 14:57 | PN ---
Date/Time of Note Date/Time of Note DATE: 03/06/17 TIME: 14:54 Assessment/Plan VTE Prophylaxis VTE Prophylaxis Intervention: LMWH Lines/Catheters IV [facility]ter Type [facility]from [facility]): Peripheral IV Urinary Cath still in place: No Assessment/Plan Chief Complaint/Hosp Course Assessment and plan 1. Acute on chronic respiratory failure secondary to underlying pleural effusions. Building Custodian following. Patient status post thoracentesis with roughly 1.9 mL removed. Continue diuretic medication per nephrology. Noted with right small pleural effusion today 2. Bilateral malignant pleural effusions. May need possible Pleurx catheter should recurrent pleural effusions occur. Continue with gallery or museum technician recommendations 3. Macrocytic anemia. Monitor H&H. Transfuse as needed 4. Positive urinalysis. Follow up on final urine culture 5. Metastatic breast cancer with metastasis to brain and bones as well as skin. Oncologist following. Of note patient reportedly had oncologist call follow-up on March 14. We'll follow-up with case management for outpatient follow-up 6. Multiple vascular skin lesions. Patient to be followed up as outpatient for this issue 7. andree. Medications to be renally dosed. Continue with comic book writer recommendations 8. Deconditioning. Physical therapist order. Plan for aru eval 9. Malnutrition. Start patient on Megace. Disposition and plan: Physical therapist to follow-up deconditioning. Start on Megace for malnutrition. Follow-up with case management. Discussed but of care with Dr. Gunn Problems: Subjective 24 Hr Interval Summary Free Text/Dictation Still reports of shortness of breath and generalized weakness. Reported eating only 50% of her meals. Exam/Review of Systems Vital Signs Vitals Vital Signs Date Time Temp Pulse Resp B/P Pulse Ox O2 Delivery O2 Flow Rate FiO2 03/06/17 08:25 Nasal Cannula 03/06/17 07:55 98.3 116 20 112/60 94 03/06/17 03:02 4.0 03/03/17 16:17 36 Intake and Output 03/05/17 03/05/17 03/06/17 15:00 23:00 07:00 Intake Total 2010 ml 1400 ml Output Total 300 ml 800 ml Balance 1710 ml 600 ml Exam General: Still reports having some shortness of breath and generalized weakness Eyes: Equal round Neck: Supple nontender, no JVD Cardiac: Remains regular rate Pulmonary: Diminished at lung bases GI: Soft nontender noticed Extremities: No edema bilateral lower extreme Skin: Noted with skin lesions on general body Neurologic: AL O 4 Results Result Diagram: 03/06/1752103/06/17 05 Results 24 hrs Laboratory Tests Test 03/06/17 00:30 03/06/17 05:22 03/06/17 06:22 03/06/17 11:53 Urine Random Creatinine 87.88 Urine Random Sodium < 13 L Urine Total Protein 15.0 H White Blood Count 5.7 Red Blood Count 3.31 #L Hemoglobin 10.3 #L Hematocrit 33.2 #L Mean Corpuscular Volume 100.3 Mean Corpuscular Hemoglobin 31.1 Mean Corpuscular Hemoglobin Concent 31.0 L Red Cell Distribution Width 24.5 H Platelet Count 116 L Mean Platelet Volume 10.4 Neutrophils % 67.0 Band Neutrophils % 4.0 Lymphocytes % 14.0 L Monocytes % 6.0 Eosinophils % 2.0 Basophils % 1.0 Metamyelocytes % 3.0 H Myelocytes % 1.0 H Blast Cells % 1.0 H Nucleated Red Blood Cells % 88.0 H Neutrophils # 3.8 Lymphocytes # 0.8 Monocytes # 0.3 Eosinophils # 0.1 Basophils # 0.1 Metamyelocytes # 0.2 Myelocytes # 0.1 Blastocytes # 0.1 Hypochromasia 1+ Macrocytosis 1+ Sodium Level 143 Potassium Level 5.0 Chloride Level 112 H Carbon Dioxide Level 21 Anion Gap 15 Blood Urea Nitrogen 25 H Creatinine 1.24 H Glucose Level 84 Calcium Level 7.9 L Phosphorus Level 3.8 Magnesium Level 2.6 H Blood Gas Specimen Source Blood arterial Arterial Blood Date Drawn 03/06/2017 7:20:59 AM Arterial Blood pH (Temp corrected) 7.412 Arterial Blood pCO2 (Temp correct) 29.1 L Arterial Blood pO2 (Temp corrected) 66.1 L Arterial Blood HCO3 18.1 L Arterial Blood Base Excess -5.5 L Arterial Blood Oxygen Saturation 91.7 L Rachid Test ACCEPTAB Arterial Blood Gas Puncture Site Right Radial Arterial Blood Carboxyhemoglobin 0.3 Arterial Blood Methemoglobin 0.4 Blood Gas A-a O2 Differential 135.2 H Oxyhemoglobin Percent 91.1 L Total Hemoglobin 10.5 L Blood Gas Temperature 37.0 Blood Gas Modality NASAL CANNULA FiO2 33.0 Blood Gas Notified Whom JLD Blood Gas Notified Time 03/06/2017 7:30:35 AM Stool Occult Blood NEGATIVE Medications Medications Current Medications Ondansetron HCl (Zofran Inj) 4 mg Q6H PRN IV NAUSEA AND/OR VOMITING; Start 03/03 at 09:00 Acetaminophen (Tylenol Tab) 650 mg Q6H PRN PO PAIN LEVEL 1-3 OR FEVER; Start at 09:00 Magnesium Hydroxide (Milk Of Mag) 30 ml DAILY PRN PO CONSTIPATION Last administered on 03/05/17 20:57; Admin Dose 30 ML; Start 03/03/17 at 09:00 Bisacodyl (Dulcolax) 5 mg DAILY PRN PO CONSTIPATION; Start 03/03/17 at 09:00 Famotidine (Pepcid) 20 mg Q12 PO Last administered on 03/06/17 08:47; Admin Dose 20 MG; Start 03/03/17 at 09:00 Enoxaparin Sodium (Lovenox) 40 mg DAILY SC Last administered on 03/06/17 09:19 ; Admin Dose 40 MG; Start 03/03/17 at 09:00 Morphine Sulfate (morphine) 1 mg Q4H PRN IV SEVERE PAIN LEVEL 7-10 Last administered on 03/05/17 12:40; Admin Dose 1 MG; Start 03/03/17 at 09:52 Oxycodone/ Acetaminophen (Percocet (5/ 325)) 1 tab Q4H PRN PO PAIN Last administered on 03/04/17 14:02; Admin Dose 1 TAB; Start 03/03/17 at 09:30 Polyethylene Glycol (Miralax) 17 gm BID PO Last administered on 03/06/17 08:49 ; Admin Dose 17 GM; Start 03/03/17 at 09:30 Docusate Sodium (Colace) 200 mg BID PO Last administered on 03/06/17 08:47; Admin Dose 200 MG; Start 03/03/17 at 09:30 Bisacodyl 10 mg 10 mg DAILY PRN PO CONSTIPATION; Start 03/03/17 at 09:30 Ceftriaxone Sodium (Rocephin) 50 ml @ 100 mls/hr Q24H IVPB Last administered on 03/06/17 08:49; Admin Dose 100 MLS/HR; Start 03/03/17 at 09:30 Memantine (Namenda) 10 mg BID PO Last administered on 03/06/17 08:47; Admin Dose 10 MG; Start 03/03/17 at 21:00 Cholecalciferol (Vitamin D) 1,000 unit DAILY PO Last administered on 03/06/17 08:46; Admin Dose 1,000 UNIT; Start 03/03/17 at 15:00 Methocarbamol (Robaxin) 500 mg Q6H PRN PO pain Last administered on 03/05/17 20:55; Admin Dose 500 MG; Start 03/04/17 at 14:30 Oxycodone/ Acetaminophen (Endocet (10/ 325)) 1 tab Q4H PRN PO PAIN Last administered on 03/06/17 11:45; Admin Dose 1 TAB; Start 03/04/17 at 21:00 Levothyroxine Sodium (Synthroid) 75 mcg DAILY@06 PO Last administered on 06:42; Admin Dose 75 MCG; Start 03/06/17 at 06:00 Megestrol Acetate (Megace) 40 mg QID PO ; Start 03/06/17 at 15:00; Status UNV NICK HI Mar 06, 2017 14:57
[2017-03-06] MEDS: MEGESTROL 40 MG TAB PO SCH ×3 (17:00→21:51)
--- NOTE | 2017-03-06 17:10 | CONS ---
Date/Time of Note Date/Time of Note DATE: 03/06/17 TIME: 17:07 Assessment/Plan Assessment/Plan Chief Complaint/Hosp Course The patient is a 57 year old female with metastatic infiltrating ductal carcinoma of the right breast with wide spread disease involving the bone, skin , lymph nodes, lung and brain, ER+ (98%)/ OR+ (3%) HER2 negative by FISH, with new diagnosis in November 2016 with pachymeningeal enhancement and dural based mass and presumed leptomeningeal involvement, who was started on whole brain radiation with field to include scalp for palliation given scalp mets. Per Dr. Rob, fortunately the mass has minimal mass effect on the underlying brain and the patient is asymptomatic, so neurosurgical intervention at this point is unwarranted. Patient now admitted with dyspnea as well as pleuritic chest pain. In the emergency room, the patient underwent a chest x-ray that showed cardiomegaly with increased right pleural effusion with bibasilar atelectasis versus infiltrate. The patient's chest CTA showed no evidence of PE or aortic dissection; however, this showed large right-sided pleural effusion with underlying atelectasis/consolidation, slightly increased with moderate left- sided pleural effusion. The CT again revealed complex right breast mass, unchanged. - Patient underwent right thoracentesis on 03/04/17 with 1.9L fluid removed, f/u cytology. If reaccumulates, may need PleurX catheter. Appreciate Pulm recs. - In November 2016, tumor markers were elevated CA 27-29 382, CA 15-3 151. Now CA 27-29 313, CA 15-3 pending. - Patient will need outpatient PET/CT. Avoid CT scan with contrast for now given renal insufficiency. - s/p skin biopsy of cutaneous nodules that demonstrated metastatic mammary carcinoma extensively involving the dermis, ER positive, OR negative, HER2 negative 1+ - Given bony metastatic disease, patient will need zometa Q3 months - first dose given 12/14/16. Repeat dose of zometa, 3.5 mg, renally dosed for CrCl 55 given 03/04/17. - Patient to see an oncologist in network on 03/14/17. Likely start hormonal therapy. In November 2016, E2 was 16 (postmenopausal range) but FSH was now ( 13.7). Now E2 26 and FSH 24.2, both of which are in the postmenopausal range. She states that her LMP was 1.5-2 years ago. Would consider therapy with letrozole/ibrance unless evidence of visceral crisis. Rx for letrozole left in patient's chart. Ibrance can be added when she sees a oncologist in network on 03/14/17. - Patient will also need BRCA testing as an outpatient given +FHx (sister with DCIS, aunt and cousin s/p mastectomy, unclear if early stage or prophylactic) # Macrocytic anemia/thrombocytopenia - Patient previously had normocytic anemia and thrombocytopenia with nucleated RBCs attributed to bone marrow involvement. Patient now has macrocytic anemia with normal Vitamin B12/folate level; homocysteine and methylmalonic acid pending. TSH elevated at 17.5 and free T4 low at 0.44, therefore macrocytic anemia may be related to hypothyroidism - management per primary team. - Retic count inappropriately low at 76K, iron panel c/w anemia of chronic inflammation, LDH and haptoglobin pending - s/p 2 units pRBCs 03/05 for Hgb 7.9 # JOSEPH, nephrology consulted by primary team. Concern for contrast induced nephropathy. Renal ultrasound unremarkable. Patient's sister Caryn Salguero (anesthesiologist) [phone], mother is a pathologist, father is a psychiatrist Problems: Consultation Date/Type/Reason Admit Date/Time Mar 03, 2017 at 05:39 Hx of Present Illness Patient has no complaints today. Social History Smoking Status: Never smoker Exam/Review of Systems Vital Signs Vitals Vital Signs Date Time Temp Pulse Resp B/P Pulse Ox O2 Delivery O2 Flow Rate FiO2 03/06/17 15:07 4.0 03/06/17 15:07 112 20 100 Nasal Cannula 03/06/17 07:55 98.3 112/60 03/03/17 16:17 36 Intake and Output 03/05/17 03/05/17 03/06/17 15:00 23:00 07:00 Intake Total 2010 ml 1400 ml Output Total 300 ml 800 ml Balance 1710 ml 600 ml Exam Constitutional: alert Head: normocephalic Eyes: nl conjunctiva Neck: supple Respiratory: clear to auscultation Cardiovascular: regular rate and rhythm Gastrointestinal: non-tender, soft Musculoskeletal: nl extremities to inspection Skin: other (cutaneous nodules biopsy proven metastatic breast cancer) Results Result Diagram: 03/06/1752103/06/17521 Results 24 hrs Laboratory Tests Test 03/06/17 00:30 03/06/17 05:22 03/06/17 06:22 03/06/17 11:53 Urine Random Creatinine 87.88 Urine Random Sodium < 13 L Urine Total Protein 15.0 H White Blood Count 5.7 Red Blood Count 3.31 #L Hemoglobin 10.3 #L Hematocrit 33.2 #L Mean Corpuscular Volume 100.3 Mean Corpuscular Hemoglobin 31.1 Mean Corpuscular Hemoglobin Concent 31.0 L Red Cell Distribution Width 24.5 H Platelet Count 116 L Mean Platelet Volume 10.4 Neutrophils % 67.0 Band Neutrophils % 4.0 Lymphocytes % 14.0 L Monocytes % 6.0 Eosinophils % 2.0 Basophils % 1.0 Metamyelocytes % 3.0 H Myelocytes % 1.0 H Blast Cells % 1.0 H Nucleated Red Blood Cells % 88.0 H Neutrophils # 3.8 Lymphocytes # 0.8 Monocytes # 0.3 Eosinophils # 0.1 Basophils # 0.1 Metamyelocytes # 0.2 Myelocytes # 0.1 Blastocytes # 0.1 Hypochromasia 1+ Macrocytosis 1+ Sodium Level 143 Potassium Level 5.0 Chloride Level 112 H Carbon Dioxide Level 21 Anion Gap 15 Blood Urea Nitrogen 25 H Creatinine 1.24 H Glucose Level 84 Calcium Level 7.9 L Phosphorus Level 3.8 Magnesium Level 2.6 H Blood Gas Specimen Source Blood arterial Arterial Blood Date Drawn 03/06/2017 7:20:59 AM Arterial Blood pH (Temp corrected) 7.412 Arterial Blood pCO2 (Temp correct) 29.1 L Arterial Blood pO2 (Temp corrected) 66.1 L Arterial Blood HCO3 18.1 L Arterial Blood Base Excess -5.5 L Arterial Blood Oxygen Saturation 91.7 L Rachid Test ACCEPTAB Arterial Blood Gas Puncture Site Right Radial Arterial Blood Carboxyhemoglobin 0.3 Arterial Blood Methemoglobin 0.4 Blood Gas A-a O2 Differential 135.2 H Oxyhemoglobin Percent 91.1 L Total Hemoglobin 10.5 L Blood Gas Temperature 37.0 Blood Gas Modality NASAL CANNULA FiO2 33.0 Blood Gas Notified Whom JLD Blood Gas Notified Time 03/06/2017 7:30:35 AM Stool Occult Blood NEGATIVE Medications Medications Current Medications Ondansetron HCl (Zofran Inj) 4 mg Q6H PRN IV NAUSEA AND/OR VOMITING; Start 4/9 /17 at 09:00 Acetaminophen (Tylenol Tab) 650 mg Q6H PRN PO PAIN LEVEL 1-3 OR FEVER; Start at 09:00 Magnesium Hydroxide (Milk Of Mag) 30 ml DAILY PRN PO CONSTIPATION Last administered on 03/05/17 20:57; Admin Dose 30 ML; Start 03/03/17 at 09:00 Bisacodyl (Dulcolax) 5 mg DAILY PRN PO CONSTIPATION; Start 03/03/17 at 09:00 Famotidine (Pepcid) 20 mg Q12 PO Last administered on 03/06/17 08:47; Admin Dose 20 MG; Start 03/03/17 at 09:00 Enoxaparin Sodium (Lovenox) 40 mg DAILY SC Last administered on 03/06/17 09:19 ; Admin Dose 40 MG; Start 03/03/17 at 09:00 Morphine Sulfate (morphine) 1 mg Q4H PRN IV SEVERE PAIN LEVEL 7-10 Last administered on 03/05/17 12:40; Admin Dose 1 MG; Start 03/03/17 at 09:52 Oxycodone/ Acetaminophen (Percocet (5/ 325)) 1 tab Q4H PRN PO PAIN Last administered on 03/04/17 14:02; Admin Dose 1 TAB; Start 03/03/17 at 09:30 Polyethylene Glycol (Miralax) 17 gm BID PO Last administered on 03/06/17 08:49 ; Admin Dose 17 GM; Start 03/03/17 at 09:30 Docusate Sodium (Colace) 200 mg BID PO Last administered on 03/06/17 08:47; Admin Dose 200 MG; Start 03/03/17 at 09:30 Bisacodyl 10 mg 10 mg DAILY PRN PO CONSTIPATION; Start 03/03/17 at 09:30 Ceftriaxone Sodium (Rocephin) 50 ml @ 100 mls/hr Q24H IVPB Last administered on 03/06/17 08:49; Admin Dose 100 MLS/HR; Start 03/03/17 at 09:30 Memantine (Namenda) 10 mg BID PO Last administered on 03/06/17 08:47; Admin Dose 10 MG; Start 03/03/17 at 21:00 Cholecalciferol (Vitamin D) 1,000 unit DAILY PO Last administered on 03/06/17 08:46; Admin Dose 1,000 UNIT; Start 03/03/17 at 15:00 Methocarbamol (Robaxin) 500 mg Q6H PRN PO pain Last administered on 03/05/17 20:55; Admin Dose 500 MG; Start 03/04/17 at 14:30 Oxycodone/ Acetaminophen (Endocet (10/ 325)) 1 tab Q4H PRN PO PAIN Last administered on 03/06/17 16:04; Admin Dose 1 TAB; Start 03/04/17 at 21:00 Levothyroxine Sodium (Synthroid) 75 mcg DAILY@06 PO Last administered on 06:42; Admin Dose 75 MCG; Start 03/06/17 at 06:00 Megestrol Acetate (Megace) 40 mg QID PO ; Start 03/06/17 at 15:00 TO,GREGOR Burnham MD Mar 06, 2017 17: at 09:00 Acetaminophen (Tylenol Tab) 650 mg Q6H PRN PO PAIN LEVEL 1-3 OR FEVER; Start at 09:00 Magnesium Hydroxide (Milk Of Mag) 30 ml DAILY PRN PO CONSTIPATION Last administered on 03/05/17 20:57; Admin Dose 30 ML; Start 03/03/17 at 09:00 Bisacodyl (Dulcolax) 5 mg DAILY PRN PO CONSTIPATION; Start 03/03/17 at 09:00 Famotidine (Pepcid) 20 mg Q12 PO Last administered on 03/06/17 08:47; Admin Dose 20 MG; Start 03/03/17 at 09:00 Enoxaparin Sodium (Lovenox) 40 mg DAILY SC Last administered on 03/06/17 09:19 ; Admin Dose 40 MG; Start 03/03/17 at 09:00 Morphine Sulfate (morphine) 1 mg Q4H PRN IV SEVERE PAIN LEVEL 7-10 Last administered on 03/05/17 12:40; Admin Dose 1 MG; Start 03/03/17 at 09:52 Oxycodone/ Acetaminophen (Percocet (5/ 325)) 1 tab Q4H PRN PO PAIN Last administered on 03/04/17 14:02; Admin Dose 1 TAB; Start 03/03/17 at 09:30 Polyethylene Glycol (Miralax) 17 gm BID PO Last administered on 03/06/17 08:49 ; Admin Dose 17 GM; Start 03/03/17 at 09:30 Docusate Sodium (Colace) 200 mg BID PO Last administered on 03/06/17 08:47; Admin Dose 200 MG; Start 03/03/17 at 09:30 Bisacodyl 10 mg 10 mg DAILY PRN PO CONSTIPATION; Start 03/03/17 at 09:30 Ceftriaxone Sodium (Rocephin) 50 ml @ 100 mls/hr Q24H IVPB Last administered on 03/06/17 08:49; Admin Dose 100 MLS/HR; Start 03/03/17 at 09:30 Memantine (Namenda) 10 mg BID PO Last administered on 03/06/17 08:47; Admin Dose 10 MG; Start 03/03/17 at 21:00 Cholecalciferol (Vitamin D) 1,000 unit DAILY PO Last administered on 03/06/17 08:46; Admin Dose 1,000 UNIT; Start 03/03/17 at 15:00 Methocarbamol (Robaxin) 500 mg Q6H PRN PO pain Last administered on 03/05/17 20:55; Admin Dose 500 MG; Start 03/04/17 at 14:30 Oxycodone/ Acetaminophen (Endocet (10/ 325)) 1 tab Q4H PRN PO PAIN Last administered on 03/06/17 16:04; Admin Dose 1 TAB; Start 03/04/17 at 21:00 Levothyroxine Sodium (Synthroid) 75 mcg DAILY@06 PO Last administered on 06:42; Admin Dose 75 MCG; Start 03/06/17 at 06:00 Megestrol Acetate (Megace) 40 mg QID PO ; Start 03/06/17 at 15:00 GREGOR XIONG MD Mar 06, 2017 17:10
[2017-03-06 19:00] VITALS: BP 117/58; RESP 20
[2017-03-07 05:58] LABS: ADD SCAN DIFF NO
[2017-03-07 06:03] LABS: ABNORMAL IP MESSAGE 1; HEMATOCRIT 34.4 % (37.0-47.0); HEMOGLOBIN 10.7 g/dl (12.0-16.0); MEAN CORPUSCULAR HEMOGLOBIN 31.8 pg (29.0-33.0); MEAN CORPUSCULAR HGB CONC 31.1 g/dl (32.0-37.0); MEAN CORPUSCULAR VOLUME 102.4 fl (82.0-101.0); MEAN PLATELET VOLUME 10.8 fl (7.4-10.4); PLATELET COUNT 126 10^3/UL (140-415); RED BLOOD COUNT 3.36 10^6/ul (4.20-5.40); RED CELL DISTRIBUTION WIDTH 24.3 % (11.5-14.5); WHITE BLOOD COUNT 6.9 10^3/ul (4.8-10.8)
[2017-03-07 06:21] LABS: CALCIUM 7.8 mg/dl (8.4-10.2); CREATININE 1.42 mg/dl (0.44-1.00); POTASSIUM 4.8 mmol/L (3.5-5.1)
[2017-03-07 07:33] VITALS: BP 108/51; RESP 18
[2017-03-07] MEDS: LEVALBUTEROL (NEB) 0.63 MG/3 ML AMP HHN SCH ×2 (08:42→16:05)
[2017-03-07] MEDS: MEGESTROL 40 MG TAB PO SCH ×4 (08:54→22:13)
[2017-03-07] MEDS: CHOLECALCIFEROL 1,000 UNIT TAB PO SCH (08:54)
[2017-03-07] MEDS: FAMOTIDINE 20 MG TAB PO SCH ×2 (08:54→22:13)
[2017-03-07] MEDS: POLYETHYLENE GLYCOL 17 GM PACKET PO SCH ×2 (08:54→21:00)
[2017-03-07] MEDS: DOCUSATE SODIUM 100 MG CAP PO SCH ×2 (08:54→22:13)
[2017-03-07] MEDS: MEMANTINE 5 MG TAB PO SCH ×2 (08:54→22:13)
[2017-03-07] MEDS: CEFTRIAXONE 1 GM/50 ML (PMX) 50 ML IVPB SCH (08:55)
[2017-03-07] MEDS: LEVOTHYROXINE 75 MCG TAB PO SCH (08:57)
[2017-03-07] MEDS: ENOXAPARIN 40 MG/0.4 ML SYG SC SCH (09:26)
[2017-03-07 09:27] LABS: BASOPHIL # 0.1 10^3/ul (0.0-0.1); EOSINOPHILS # 0.4 10^3/ul (0.0-0.5); LYMPHOCYTES # 1.5 10^3/ul (0.8-2.9); MONOCYTE # 0.7 10^3/ul (0.3-0.9); MYELOCYTES # 0.1; NEUTROPHIL # 3.5 10^3/ul (1.6-7.5)
--- NOTE | 2017-03-07 10:31 | PN ---
DATE: 03/07/2017 SUBJECTIVE: The patient remains to be mildly tachypneic on 4 liters nasal cannula. Urinary output has been adequate. No other acute events noted. OBJECTIVE: VITAL SIGNS: Blood pressure 108/51, respirations 18, pulse 110, temperature 97.2. I's and O's: The patient had 1200 in and 1100 out. HEENT: Head is normocephalic. NECK: Supple. HEART: Tachycardic. LUNGS: Show diminished breath sounds at the bases. Positive rhonchi. ABDOMEN: Soft, nontender to palpation. No rebound or guarding. EXTREMITIES: Negative for clubbing, cyanosis. No edema. DERMATOLOGIC: The patient has noted lymph nodes across the chest. No new rashes. MUSCULOSKELETAL: No joint effusions. NEUROLOGIC: No focal deficits. LABORATORY DATA: Shows a sodium 141, potassium 4.8, BUN 31, creatinine 1.42. White count 6.9, hemo globin 10.7, hematocrit 34.4, platelet count is 126. ASSESSMENT AND PLAN: 1. Nonoliguric acute kidney injury with previous baseline creatinine around 0.8 to 1 mg/dL. Etiolo gy of acute kidney injury appears to be multifactorial secondary to contrast-associated nephropathy and questionable nephrotoxicity from recent chemotherapy. The patient's renal function continues to decline as patient may still be in injury phase of acute tubular necrosis. At this point, we will continue supportive care, renally dose all meds, avoid nephrotoxins. 2. Anemia of chronic disease. Continue to monitor hemoglobin and hematocrit levels. The patient i s status post blood transfusion. 3. Mineral bone disorder. Continue to monitor calcium and phosphorus levels. 4. Acute respiratory failure secondary to pleural effusion, possible pneumonia, possibly due to met astatic disease. The patient is status post thoracentesis. Continue to monitor. 5. Possible urinary tract infection. Continue current antibiotic regimen. 6. Diffuse metastatic breast cancer. Continue medical management. Follow up with oncology. 7. Bilateral pleural effusions, status post thoracentesis. Dictated By: KAJAL SIERRA/MARILEE Conf#: [id number] DID#: [id number]
--- NOTE | 2017-03-07 13:51 | CONS ---
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 Per Dr. Rob, fortunately the mass has minimal mass effect on the underlying brain and the patient is asymptomatic, so neurosurgical intervention at this point is unwarranted. Patient now admitted with dyspnea as well as pleuritic chest pain. In the emergency room, the patient underwent a chest x-ray that showed cardiomegaly with increased right pleural effusion with bibasilar atelectasis versus infiltrate. The patient's chest CTA showed no evidence of PE or aortic dissection; however, this showed large right-sided pleural effusion with underlying atelectasis/consolidation, slightly increased with moderate left- sided pleural effusion. The CT again revealed complex right breast mass, unchanged. - Patient underwent right thoracentesis on 03/04/17 with 1.9L fluid removed, f/u cytology. If reaccumulates, may need PleurX catheter. Appreciate Pulm recs. Patient appears more short of breath today. CXR shows severe bilateral pulmonary air space disease consistent with pulmonary edema or bilateral multifocal pneumonia and small bilateral pleural effusions but no change from . - In November 2016, tumor markers were elevated CA 27-29 382, CA 15-3 151. Now CA 27-29 313, CA 15-3 77 without systemic therapy. - Patient will need outpatient PET/CT. Avoid CT scan with contrast for now given renal insufficiency. - s/p skin biopsy of cutaneous nodules that demonstrated metastatic mammary carcinoma extensively involving the dermis, ER positive, WV negative, HER2 negative 1+ - Given bony metastatic disease, patient will need zometa Q3 months - first dose given 12/14/16. Repeat dose of zometa, 3.5 mg, renally dosed for CrCl 55 given 03/04/17. - Patient to see an oncologist in network, Dr. Laura Ayala (phone number ) on 03/08/17 at 3 p.m. which will need to be rescheduled. Will contact Dr. Ayala to discuss case. In November 2016, E2 was 16 (postmenopausal range ) but FSH was now (13.7). Now E2 26 and FSH 24.2, both of which are in the postmenopausal range. She states that her LMP was 1.5-2 years ago. Would consider therapy with letrozole/ibrance unless evidence of visceral crisis. Rx for letrozole left in patient's chart. Ibrance can be added when she sees a oncologist in network on 03/14/17. - Patient will also need BRCA testing as an outpatient given +FHx (sister with DCIS, aunt and cousin s/p mastectomy, unclear if early stage or prophylactic) # Macrocytic anemia/thrombocytopenia - Patient previously had normocytic anemia and thrombocytopenia with nucleated RBCs attributed to bone marrow involvement. Patient now has macrocytic anemia with normal Vitamin B12/folate level; homocysteine and methylmalonic acid pending. TSH elevated at 17.5 and free T4 low at 0.44, therefore macrocytic anemia may be related to hypothyroidism - management per primary team. - Retic count inappropriately low at 76K, iron panel c/w anemia of chronic inflammation, LDH and haptoglobin pending - s/p 2 units pRBCs 03/05 for Hgb 7.9, now stable ~10 # JOSEPH, nephrology consulted by primary team. Concern for contrast induced nephropathy. Renal ultrasound unremarkable. Continue to monitor. Patient's sister Caryn Salguero (anesthesiologist) [phone], mother is a pathologist, father is a psychiatrist Problems: Consultation Date/Type/Reason Admit Date/Time Mar 03, 2017 at 05:39 Type of Consultation: Hematology 24 HR Interval Summary Free Text/Dictation Patient having increased shortness of breath today but CXR shows no change. Exam/Review of Systems Vital Signs Vitals Vital Signs Date Time Temp Pulse Resp B/P Pulse Ox O2 Delivery O2 Flow Rate FiO2 03/07/17 08:43 121 26 94 Nasal Cannula 4.0 03/07/17 07:33 97.2 108/51 03/03/17 16:17 36 Intake and Output 03/06/17 03/06/17 03/07/17 15:00 23:00 07:00 Intake Total 50 ml 740 ml 480 ml Output Total 650 ml 500 ml Balance 50 ml 90 ml -20 ml Exam Constitutional: alert Head: normocephalic Eyes: nl conjunctiva Neck: supple Respiratory: clear to auscultation Cardiovascular: regular rate and rhythm Gastrointestinal: non-tender, soft Musculoskeletal: nl extremities to inspection Skin: other (cutaneous nodules biopsy proven metastatic breast cancer) Results Result Diagram: 03/07/17 0526 03/07/17 0526 Results 24 hrs Laboratory Tests Test 03/07/17 05:26 White Blood Count 6.9 # Red Blood Count 3.36 L Hemoglobin 10.7 L Hematocrit 34.4 L Mean Corpuscular Volume 102.4 H Mean Corpuscular Hemoglobin 31.8 Mean Corpuscular Hemoglobin Concent 31.1 L Red Cell Distribution Width 24.3 H Platelet Count 126 L Mean Platelet Volume 10.8 H Neutrophils % 50.0 Band Neutrophils % 9.0 H Lymphocytes % 22.0 Monocytes % 10.0 Eosinophils % 6.0 Basophils % 1.0 Metamyelocytes % 1.0 H Myelocytes % 1.0 H Nucleated Red Blood Cells % 92.0 H Neutrophils # 3.5 Lymphocytes # 1.5 Monocytes # 0.7 Eosinophils # 0.4 Basophils # 0.1 Metamyelocytes # 0.1 Myelocytes # 0.1 Sodium Level 141 Potassium Level 4.8 Chloride Level 114 H Carbon Dioxide Level 19 L Anion Gap 13 Blood Urea Nitrogen 31 H Creatinine 1.42 H Glucose Level 102 Calcium Level 7.8 L Medications Medications Current Medications Ondansetron HCl (Zofran Inj) 4 mg Q6H PRN IV NAUSEA AND/OR VOMITING; Start 03/03 at 09:00 Acetaminophen (Tylenol Tab) 650 mg Q6H PRN PO PAIN LEVEL 1-3 OR FEVER; Start at 09:00 Magnesium Hydroxide (Milk Of Mag) 30 ml DAILY PRN PO CONSTIPATION Last administered on 03/05/17 20:57; Admin Dose 30 ML; Start 03/03/17 at 09:00 Bisacodyl (Dulcolax) 5 mg DAILY PRN PO CONSTIPATION; Start 03/03/17 at 09:00 Famotidine (Pepcid) 20 mg Q12 PO Last administered on 03/07/17 08:54; Admin Dose 20 MG; Start 03/03/17 at 09:00 Enoxaparin Sodium (Lovenox) 40 mg DAILY SC Last administered on 03/07/17 09:26 ; Admin Dose 40 MG; Start 03/03/17 at 09:00 Morphine Sulfate (morphine) 1 mg Q4H PRN IV SEVERE PAIN LEVEL 7-10 Last administered on 03/05/17 12:40; Admin Dose 1 MG; Start 03/03/17 at 09:52 Oxycodone/ Acetaminophen (Percocet (5/ 325)) 1 tab Q4H PRN PO PAIN Last administered on 03/04/17 14:02; Admin Dose 1 TAB; Start 03/03/17 at 09:30 Polyethylene Glycol (Miralax) 17 gm BID PO Last administered on 03/07/17 08:54 ; Admin Dose 17 GM; Start 03/03/17 at 09:30 Docusate Sodium (Colace) 200 mg BID PO Last administered on 03/07/17 08:54; Admin Dose 200 MG; Start 03/03/17 at 09:30 Bisacodyl 10 mg 10 mg DAILY PRN PO CONSTIPATION; Start 03/03/17 at 09:30 Ceftriaxone Sodium (Rocephin) 50 ml @ 100 mls/hr Q24H IVPB Last administered on 03/07/17 08:55; Admin Dose 100 MLS/HR; Start 03/03/17 at 09:30 Memantine (Namenda) 10 mg BID PO Last administered on 03/07/17 08:54; Admin Dose 10 MG; Start 03/03/17 at 21:00 Cholecalciferol (Vitamin D) 1,000 unit DAILY PO Last administered on 03/07/17 08:54; Admin Dose 1,000 UNIT; Start 03/03/17 at 15:00 Methocarbamol (Robaxin) 500 mg Q6H PRN PO pain Last administered on 03/05/17 20:55; Admin Dose 500 MG; Start 03/04/17 at 14:30 Oxycodone/ Acetaminophen (Endocet (10/ 325)) 1 tab Q4H PRN PO PAIN Last administered on 03/06/17 21:48; Admin Dose 1 TAB; Start 03/04/17 at 21:00 Levothyroxine Sodium (Synthroid) 75 mcg DAILY@06 PO Last administered on 08:57; Admin Dose 75 MCG; Start 03/06/17 at 06:00 Megestrol Acetate (Megace) 40 mg QID PO Last administered on 03/07/17 13:33; Admin Dose 40 MG; Start 03/06/17 at 15:00 TOGREGOR MD Mar 07, 2017 13:51
[2017-03-07 14:19] LABS: MICROALBUMIN 0.5 mg/dL
--- NOTE | 2017-03-07 14:56 | PN ---
Date/Time of Note Date/Time of Note DATE: 03/07/17 TIME: 14:52 Assessment/Plan VTE Prophylaxis VTE Prophylaxis Intervention: LMWH Lines/Catheters IV [facility] Peripheral IV Urinary Cath still in place: No Assessment/Plan Chief Complaint/Hosp Course Assessment and plan 1. Acute on chronic respiratory failure secondary to underlying pleural effusions. Customer Relations Assistant following. Patient status post thoracentesis with roughly 1.9 mL removed. Continue diuretics. Noted with worse shortness of breath at this time. Check follow-up chest radiograph. 2. Bilateral malignant pleural effusions. May need possible Pleurx catheter should recurrent pleural effusions occur. Continue with customer relations assistant recommendations. 3. Macrocytic anemia. Monitor H&H. Transfuse as needed 4. Positive urinalysis. Follow up on final urine culture 5. Metastatic breast cancer with metastasis to brain and bones as well as skin. Oncologist following. Of note patient reportedly had oncologist call follow-up on March 14. We'll follow-up with case management for outpatient follow-up. Continue with inpatient oncologist recommendations 6. Multiple vascular skin lesions. Patient to be followed up as outpatient for this issue 7. andree. Medications to be renally dosed. Slightly worse function at this time. Follow-up with nephrology recommendations 8. Deconditioning. Physical therapist order. Plan for aru eval 9. Malnutrition. cont on megace Disposition and plan: Patient with worse breathing at this time. Follow up on chest radiograph. Diuretic therapy per risk control consultant. Keep in-house Discussed but of care with Dr. Gunn Problems: Subjective 24 Hr Interval Summary Free Text/Dictation appears in resp distress at this time Exam/Review of Systems Vital Signs Vitals Vital Signs Date Time Temp Pulse Resp B/P Pulse Ox O2 Delivery O2 Flow Rate FiO2 03/07/17 08:43 121 26 94 Nasal Cannula 4.0 03/07/17 07:33 97.2 108/51 03/03/17 16:17 36 Intake and Output 03/06/17 03/06/17 03/07/17 15:00 23:00 07:00 Intake Total 50 ml 740 ml 480 ml Output Total 650 ml 500 ml Balance 50 ml 90 ml -20 ml Exam Constitutional: alert, oriented, other (cachectic in appearance) Psych: other (appears anxious) Neck: non-tender, supple Respiratory: other (diminished lung bases bilaterally) Gastrointestinal: non-tender, soft 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: nl mental status, nl speech Skin: other (skin lesions seen general body) Results Result Diagram: 03/07/1752503/07/17525 Results 24 hrs Laboratory Tests Test 03/07/17 05:26 White Blood Count 6.9 # Red Blood Count 3.36 L Hemoglobin 10.7 L Hematocrit 34.4 L Mean Corpuscular Volume 102.4 H Mean Corpuscular Hemoglobin 31.8 Mean Corpuscular Hemoglobin Concent 31.1 L Red Cell Distribution Width 24.3 H Platelet Count 126 L Mean Platelet Volume 10.8 H Neutrophils % 50.0 Band Neutrophils % 9.0 H Lymphocytes % 22.0 Monocytes % 10.0 Eosinophils % 6.0 Basophils % 1.0 Metamyelocytes % 1.0 H Myelocytes % 1.0 H Nucleated Red Blood Cells % 92.0 H Neutrophils # 3.5 Lymphocytes # 1.5 Monocytes # 0.7 Eosinophils # 0.4 Basophils # 0.1 Metamyelocytes # 0.1 Myelocytes # 0.1 Sodium Level 141 Potassium Level 4.8 Chloride Level 114 H Carbon Dioxide Level 19 L Anion Gap 13 Blood Urea Nitrogen 31 H Creatinine 1.42 H Glucose Level 102 Calcium Level 7.8 L Medications Medications Current Medications Ondansetron HCl (Zofran Inj) 4 mg Q6H PRN IV NAUSEA AND/OR VOMITING; Start 03/03 at 09:00 Acetaminophen (Tylenol Tab) 650 mg Q6H PRN PO PAIN LEVEL 1-3 OR FEVER; Start at 09:00 Magnesium Hydroxide (Milk Of Mag) 30 ml DAILY PRN PO CONSTIPATION Last administered on 03/05/17 20:57; Admin Dose 30 ML; Start 03/03/17 at 09:00 Bisacodyl (Dulcolax) 5 mg DAILY PRN PO CONSTIPATION; Start 03/03/17 at 09:00 Famotidine (Pepcid) 20 mg Q12 PO Last administered on 03/07/17 08:54; Admin Dose 20 MG; Start 03/03/17 at 09:00 Enoxaparin Sodium (Lovenox) 40 mg DAILY SC Last administered on 03/07/17 09:26 ; Admin Dose 40 MG; Start 03/03/17 at 09:00 Morphine Sulfate (morphine) 1 mg Q4H PRN IV SEVERE PAIN LEVEL 7-10 Last administered on 03/05/17 12:40; Admin Dose 1 MG; Start 03/03/17 at 09:52 Oxycodone/ Acetaminophen (Percocet (5/ 325)) 1 tab Q4H PRN PO PAIN Last administered on 03/04/17 14:02; Admin Dose 1 TAB; Start 03/03/17 at 09:30 Polyethylene Glycol (Miralax) 17 gm BID PO Last administered on 03/07/17 08:54 ; Admin Dose 17 GM; Start 03/03/17 at 09:30 Docusate Sodium (Colace) 200 mg BID PO Last administered on 03/07/17 08:54; Admin Dose 200 MG; Start 03/03/17 at 09:30 Bisacodyl 10 mg 10 mg DAILY PRN PO CONSTIPATION; Start 03/03/17 at 09:30 Ceftriaxone Sodium (Rocephin) 50 ml @ 100 mls/hr Q24H IVPB Last administered on 03/07/17 08:55; Admin Dose 100 MLS/HR; Start 03/03/17 at 09:30 Memantine (Namenda) 10 mg BID PO Last administered on 03/07/17 08:54; Admin Dose 10 MG; Start 03/03/17 at 21:00 Cholecalciferol (Vitamin D) 1,000 unit DAILY PO Last administered on 03/07/17 08:54; Admin Dose 1,000 UNIT; Start 03/03/17 at 15:00 Methocarbamol (Robaxin) 500 mg Q6H PRN PO pain Last administered on 03/05/17 20:55; Admin Dose 500 MG; Start 03/04/17 at 14:30 Oxycodone/ Acetaminophen (Endocet (10/ 325)) 1 tab Q4H PRN PO PAIN Last administered on 03/06/17 21:48; Admin Dose 1 TAB; Start 03/04/17 at 21:00 Levothyroxine Sodium (Synthroid) 75 mcg DAILY@06 PO Last administered on 08:57; Admin Dose 75 MCG; Start 03/06/17 at 06:00 Megestrol Acetate (Megace) 40 mg QID PO Last administered on 03/07/17 13:33; Admin Dose 40 MG; Start 03/06/17 at 15:00 NICK HI Mar 07, 2017 14:56
--- NOTE | 2017-03-07 15:47 | RADRPT ---
PROCEDURE: XR Chest. CLINICAL INDICATION: Shortness of breath. TECHNIQUE: Single frontal view. COMPARISON: 03/06/2017. FINDINGS: There is severe bilateral pulmonary air space disease consistent with pulmonary edema or bilateral m ultifocal pneumonia. The heart size is normal. There are small bilateral pleural effusions. There is no pneumothorax. IMPRESSION: 1. No change from 03/06/2017. RPTAT: QQ .Erik Ventura MD, MD Date Time Electronically viewed and signed by .Erik Ventura MD, MD on 03/07/2017 15:47 .R/
[2017-03-07] MEDS: OXYCODONE/ACETAMINOPHEN (5/325) TAB PO PRN (17:15)
[2017-03-07 19:46] VITALS: BP 105/52; RESP 20
[2017-03-07] MEDS: LEVALBUTEROL (NEB) 0.63 MG/3 ML AMP HHN PRN (21:05)
[2017-03-07 21:30] VITALS: PULSE 128
[2017-03-07 21:40] VITALS: PULSE 126
[2017-03-07] MEDS ORDERED: LORAZEPAM 2 MG INJ IV PRN (22:00)
[2017-03-07 23:11] LABS: Allen Test ACCEPTAB; Arterial Base Excess -7.7 mmol/L (-3.0-3); Arterial COHb 0.2 % (0.0-3.0); Arterial Fraction of Oxyhgb 98.7 % (93.0-99.0); Arterial HCO3 16.4 mmol/L (22.0-26.0); Arterial MetHb 0.4 % (0.0-1.5); Arterial Total Hemglobin 11.4 g/dl (12.0-18.0); Blood Gas IEPAP 15/5; Blood Gas PS 10; MODE MASK - BIPAP
[2017-03-07 23:40] VITALS: PULSE 118
[2017-03-08] VITALS (79 sets, daily range): BP systolic 72–149; BP diastolic 40–111; PULSE 113–128; RESP 22–34
--- NOTE | 2017-03-08 00:31 | RADRPT ---
PROCEDURE: XR Chest. CLINICAL INDICATION: Chest pain. TECHNIQUE: Portable AP upright view of the chest was obtained. COMPARISON: 03/07/2017 at 14:30 FINDINGS: The cardiomediastinal silhouette is within upper normal limits. Diffuse bilateral left greater than right upper and lower lobe infiltrates again noted. Bilateral pleural effusions are are stable wit h compressive atelectasis of the lower lobes. Diffuse blastic metastatic disease is again seen with out acute osseous abnormality. RPTAT:HJJR IMPRESSION: 1. Pulmonary edema/congestive heart failure pattern not significantly change compared to earlier th e same day with possible superimposed left greater than right upper lobe pneumonia. 2. Diffuse blastic metastatic disease again noted. Physician Damian Date Time Electronically viewed and signed by Negrito Rocha Physician on 03/08/2017 00:31 JR/
[2017-03-08] MEDS: LEVALBUTEROL (NEB) 0.63 MG/3 ML AMP HHN SCH ×2 (00:33→07:30)
[2017-03-08] MEDS: morphine 2 MG INJ IV PRN ×2 (03:07→09:36)
[2017-03-08] MEDS ORDERED: LORAZEPAM 2 MG INJ IV ONE (05:00)
[2017-03-08] MEDS ORDERED: FUROSEMIDE 20 MG INJ IV ONE (05:00)
[2017-03-08] MEDS: LEVOTHYROXINE 75 MCG TAB PO SCH (06:00)
[2017-03-08 07:44] LABS: ADD SCAN DIFF NO
[2017-03-08 07:49] LABS: POTASSIUM 5.3 mmol/L (3.5-5.1)
[2017-03-08 07:50] LABS: ABNORMAL IP MESSAGE 1; HEMATOCRIT 33.4 % (37.0-47.0); HEMOGLOBIN 10.2 g/dl (12.0-16.0); MEAN CORPUSCULAR HEMOGLOBIN 32.1 pg (29.0-33.0); MEAN CORPUSCULAR HGB CONC 30.5 g/dl (32.0-37.0); MEAN PLATELET VOLUME 11.2 fl (7.4-10.4); PLATELET COUNT 123 10^3/UL (140-415); RED BLOOD COUNT 3.18 10^6/ul (4.20-5.40); RED CELL DISTRIBUTION WIDTH 23.7 % (11.5-14.5); WHITE BLOOD COUNT 6.4 10^3/ul (4.8-10.8)
[2017-03-08 07:51] LABS: CREATININE 1.89 mg/dl (0.44-1.00)
[2017-03-08 08:35] LABS: AADO2 Arterial 191.6 mmHg (7.0-24.0); Allen Test ACCEPTAB; Arterial Base Excess -9.3 mmol/L (-3.0-3); Arterial COHb 0.3 % (0.0-3.0); Arterial Fraction of Oxyhgb 76.1 % (93.0-99.0); Arterial HCO3 16.5 mmol/L (22.0-26.0); Arterial MetHb 0.4 % (0.0-1.5); MODE NASAL CANNULA
[2017-03-08] MEDS: MEMANTINE 5 MG TAB PO SCH (09:00)
[2017-03-08] MEDS: CHOLECALCIFEROL 1,000 UNIT TAB PO SCH (09:00)
[2017-03-08] MEDS: MEGESTROL 40 MG TAB PO SCH ×3 (09:00→16:51)
[2017-03-08] MEDS: FAMOTIDINE 20 MG TAB PO SCH (09:00)
[2017-03-08] MEDS: DOCUSATE SODIUM 100 MG CAP PO SCH (09:00)
[2017-03-08] MEDS: POLYETHYLENE GLYCOL 17 GM PACKET PO SCH (09:00)
--- NOTE | 2017-03-08 09:14 | RADRPT ---
PROCEDURE: XR Chest. CLINICAL INDICATION: Shortness of breath. TECHNIQUE: Single frontal view. COMPARISON: 03/07/2017. FINDINGS: Extensive bilateral pulmonary air space disease consistent with pulmonary edema is worse than seen p reviously. There is bony sclerosis consistent with metastatic disease is unchanged. The heart size is normal. There are small bilateral pleural effusions. There is no pneumothorax. IMPRESSION: 1. Worse appearance of the lungs. 2. No other change from 03/07/2017. Call report: A call report of the findings was made to Humberto Dow on 03/08/2017 at 0910 hours. RPTAT: QQ .Erik Ventura MD, MD Date Time Electronically viewed and signed by .Erik Ventura MD, MD on 03/08/2017 09:14 .R/
--- NOTE | 2017-03-08 09:43 | CONS ---
Date/Time of Note Date/Time of Note DATE: 03/08/17 TIME: 09:40 Assessment/Plan Assessment/Plan Additional Assessment/Plan Chest x-ray was reviewed from today which is showing severe bilateral infiltrative changes. ABG also was reviewed which is showing metabolic acidosis. And hypoxemia. Assessment recommendations; next 1. Patient admitted for pleural effusion due to widely metastatic breast cancer. 2. History of hypothyroidism. 3. Likely superimposed bilateral pneumonia. Patient need to be intubated. At this time Rocephin f will be discontinued and the patient started on cefepime and vancomycin. Increase IV hydration for correction of renal insufficiency. He did have a detailed discussion the patient's daughter who is the DPOA and she wants her mother to get aggressive medical care. Prognosis appears extremely poor. Consultation Date/Type/Reason Admit Date/Time Mar 03, 2017 at 05:39 Type of Consultation: Coronary/critical care 24 HR Interval Summary Free Text/Dictation Patient condition is significant for the worse. Becoming more short of breath, patient had to be transferred to ICU. By the time I saw the patient is extremely agitated refusing BiPAP and is having O2 desaturation on supplemental oxygen. An ABG was performed which is showing metabolic acidosis. General exam; middle aged woman appearing quite agitated. Exam/Review of Systems Vital Signs Vitals Vital Signs Date Time Temp Pulse Resp B/P Pulse Ox O2 Delivery O2 Flow Rate FiO2 03/08/17 09:05 BIPAP 03/08/17 08:30 121 25 99/56 98 4.0 03/08/17 08:09 98.7 03/08/17 04:18 100 Intake and Output 03/07/17 03/07/17 03/08/17 15:00 23:00 07:00 Intake Total 50 ml 960 ml 100 ml Output Total 800 ml 100 ml Balance 50 ml 160 ml 0 ml Exam HEENT exam; supple neck, patient is a low patient. No neck masses. No thyromegaly. Pupils are small bilaterally. Chest exam; diffuse bilateral crackles. S1-S2 audible, no murmurs. Regular rhythm. Tachycardic. Abdomen examination; soft, nondistended. No organomegaly. Bowel sounds are sluggish. Extremity exam; no peripheral edema. PLUSH BRUSHER exam is; patient is awake and is quite agitated moving all 4 extremities spontaneously. Results Result Diagram: 03/08/17 0700 03/08/17 0700 Results 24 hrs Laboratory Tests Test 03/07/17 21:16 03/08/17 07:00 03/08/17 07:36 03/08/17 07:53 Blood Gas Specimen Source Blood arterial Blood arterial Arterial Blood Date Drawn 03/07/2017 11:00:35 PM 03/08/2017 8:24:21 AM Arterial Blood pH (Temp corrected) 7.366 7.286 *L Arterial Blood pCO2 (Temp correct) 29.3 L 35.5 Arterial Blood pO2 (Temp corrected) 376.7 H 45.6 *L Arterial Blood HCO3 16.4 L 16.5 L Arterial Blood Base Excess -7.7 L -9.3 L Arterial Blood Oxygen Saturation 99.3 H 76.6 L Rachid Test ACCEPTAB ACCEPTAB Arterial Blood Gas Puncture Site Left Radial Right Radial Arterial Blood Carboxyhemoglobin 0.2 0.3 Arterial Blood Methemoglobin 0.4 0.4 Blood Gas A-a O2 Differential 307.0 H 191.6 H Oxyhemoglobin Percent 98.7 76.1 L Total Hemoglobin 11.4 L 11.0 L Blood Gas Temperature 37.0 37.0 Blood Gas Respiration Rate 16.0 Blood Gas Actual Respiration Rate 22 Blood Gas Modality MASK - BIPAP NASAL CANNULA FiO2 100.0 39.0 Blood Gas Pressure Support 10 Blood Gas IPAP/EPAP Ratio 15/5 Blood Gas Notified Whom CHEN ABAD Blood Gas Notified Time 03/07/2017 11:11:14 PM 03/08/2017 8:34:59 AM White Blood Count 6.4 Red Blood Count 3.18 L Hemoglobin 10.2 L Hematocrit 33.4 L Mean Corpuscular Volume 105.0 H Mean Corpuscular Hemoglobin 32.1 Mean Corpuscular Hemoglobin Concent 30.5 L Red Cell Distribution Width 23.7 H Platelet Count 123 L Mean Platelet Volume 11.2 H Neutrophils % Lymphocytes % Monocytes % Neutrophils # Lymphocytes # Monocytes # Sodium Level 146 H Potassium Level 5.3 H Chloride Level 112 H Carbon Dioxide Level 19 L Anion Gap 20 #H Blood Urea Nitrogen 38 H Creatinine 1.89 H Glucose Level 83 Calcium Level 8.0 L Bedside Glucose 89 Blood Gas Critical Value Read Back A POP MYERS Medications Medications Current Medications Ondansetron HCl (Zofran Inj) 4 mg Q6H PRN IV NAUSEA AND/OR VOMITING; Start 03/03 at 09:00 Acetaminophen (Tylenol Tab) 650 mg Q6H PRN PO PAIN LEVEL 1-3 OR FEVER; Start at 09:00 Magnesium Hydroxide (Milk Of Mag) 30 ml DAILY PRN PO CONSTIPATION Last administered on 03/05/17 20:57; Admin Dose 30 ML; Start 03/03/17 at 09:00 Bisacodyl (Dulcolax) 5 mg DAILY PRN PO CONSTIPATION; Start 03/03/17 at 09:00 Famotidine (Pepcid) 20 mg Q12 PO Last administered on 03/07/17 22:13; Admin Dose 20 MG; Start 03/03/17 at 09:00 Enoxaparin Sodium (Lovenox) 40 mg DAILY SC Last administered on 03/07/17 09:26 ; Admin Dose 40 MG; Start 03/03/17 at 09:00 Morphine Sulfate (morphine) 1 mg Q4H PRN IV SEVERE PAIN LEVEL 7-10 Last administered on 03/08/17 09:36; Admin Dose 1 MG; Start 03/03/17 at 09:52 Oxycodone/ Acetaminophen (Percocet (5/ 325)) 1 tab Q4H PRN PO PAIN Last administered on 03/07/17 17:15; Admin Dose 1 TAB; Start 03/03/17 at 09:30 Polyethylene Glycol (Miralax) 17 gm BID PO Last administered on 03/07/17 08:54 ; Admin Dose 17 GM; Start 03/03/17 at 09:30 Docusate Sodium (Colace) 200 mg BID PO Last administered on 03/07/17 22:13; Admin Dose 200 MG; Start 03/03/17 at 09:30 Bisacodyl 10 mg 10 mg DAILY PRN PO CONSTIPATION; Start 03/03/17 at 09:30 Ceftriaxone Sodium (Rocephin) 50 ml @ 100 mls/hr Q24H IVPB Last administered on 03/07/17 08:55; Admin Dose 100 MLS/HR; Start 03/03/17 at 09:30 Memantine (Namenda) 10 mg BID PO Last administered on 03/07/17 22:13; Admin Dose 10 MG; Start 03/03/17 at 21:00 Cholecalciferol (Vitamin D) 1,000 unit DAILY PO Last administered on 03/07/17 08:54; Admin Dose 1,000 UNIT; Start 03/03/17 at 15:00 Methocarbamol (Robaxin) 500 mg Q6H PRN PO pain Last administered on 03/05/17 20:55; Admin Dose 500 MG; Start 03/04/17 at 14:30 Oxycodone/ Acetaminophen (Endocet (10/ 325)) 1 tab Q4H PRN PO PAIN Last administered on 03/06/17 21:48; Admin Dose 1 TAB; Start 03/04/17 at 21:00 Levothyroxine Sodium (Synthroid) 75 mcg DAILY@06 PO Last administered on 08:57; Admin Dose 75 MCG; Start 03/06/17 at 06:00 Megestrol Acetate (Megace) 40 mg QID PO Last administered on 03/07/17 22:13; Admin Dose 40 MG; Start 03/06/17 at 15:00 Lorazepam (Ativan) 0.5 mg Q6H PRN IV anxiety / Last administered on 03/07/17 22:21; Admin Dose 0.5 MG; Start 03/07/17 at 22:00 PREETI UGARTE Mar 08, 2017 09:43
[2017-03-08] MEDS: ENOXAPARIN 40 MG/0.4 ML SYG SC SCH (09:46)
[2017-03-08] MEDS ORDERED: VANCOMYCIN IV PER PHARMACY XX SCH (10:00)
[2017-03-08] MEDS ORDERED: FUROSEMIDE 40 MG INJ IV ONE ×2 (10:30→11:00)
[2017-03-08] MEDS ORDERED: LORAZEPAM 2 MG INJ IV PRN ×2 (10:30→11:00)
[2017-03-08] MEDS ORDERED: morphine 2 MG INJ IV PRN (10:30)
[2017-03-08] MEDS ORDERED: PHENYLephrine 20MG IN 250 ML 250 ML IV SCH (10:30)
[2017-03-08] MEDS ORDERED: morphine (DRIP) 100 MG/100 ML 100 ML IV SCH (10:30)
--- NOTE | 2017-03-08 10:42 | EN ---
Date/Time of Note Date/Time of Note DATE: 03/08/17 TIME: 10:40 Event Note Medicine Medicine Event Note This is a procedure note for oral intubation. Patient's respiratory status has been declining with the patient on getting progressively more hypoxemic and tachypneic. Because of poor mental status patient was unable to be put on BiPAP. Chest x-ray was reviewed from this morning which is showing diffuse bilateral infiltrates. It was decided to electively intubate the patient. She was given 20 mg of etomidate followed by 10 mg of vecuronium followed by oral intubation with 7.5 endotracheal tube. Vocal cords were directly visualized. Placement was confirmed by end-tidal CO2 indicator. Chest x-ray been ordered. PREETI UGARTE Mar 08, 2017 10:41
[2017-03-08 10:45] LABS: EOSINOPHILS # 0.2 10^3/ul (0.0-0.5); LYMPHOCYTES # 1.2 10^3/ul (0.8-2.9); MONOCYTE # 0.6 10^3/ul (0.3-0.9); MYELOCYTES # 0.1; NEUTROPHIL # 3.5 10^3/ul (1.6-7.5)
[2017-03-08] MEDS ORDERED: ETOMIDATE 20 MG INJ ONE (11:00)
[2017-03-08] MEDS ORDERED: VECURONIUM 10 MG VIAL ONE (11:00)
[2017-03-08] MEDS ORDERED: LIDOCAINE 1% (MPF) 5 ML VIAL SC ONE (11:00)
--- NOTE | 2017-03-08 11:06 | PN ---
DATE: 03/08/2017 NEPHROLOGY FOLLOWUP SUBJECTIVE: The patient is critically ill, was transferred from medical/surgical to intensive care unit. The patient is pending intubation. The patient remains agitated, confused, tachypneic, tachy cardic. The patient was on BiPAP overnight. The patient has had minimal urinary output, approximat todd 100 mL in the last 6 hours. I spoke with the patient's daughter at bedside, informing her that the patient may require hemodialy sis if there is no significant improvement in urinary function and/or if the patient's hyperkalemia should worsen. The patient's daughter understood and is requesting everything to be done. OBJECTIVE: VITAL SIGNS: Blood pressure 99/56, respirations 25, pulse 125, temperature 98.7. HEENT: Head is normocephalic. The patient has bilateral temporal wasting. NECK: Supple. HEART: Tachycardic. LUNGS: Show diminished breath sounds at the bases. CHEST: The patient has a mass on her right breast. ABDOMEN: Soft, nontender to palpation. EXTREMITIES: Negative for clubbing, cyanosis. No edema. DERMATOLOGIC: No rashes, noted lymph nodes. NEUROLOGIC: The patient is confused, altered. MUSCULOSKELETAL: No joint effusions. MEDICATIONS: The patient's medications have been reviewed. LABORATORY DATA: Shows sodium 146, potassium 5.3, chloride 112, BUN 38, creatinine 1.89. White cou nt 6.4, hemoglobin 10.2, hematocrit 33.4, platelet count 123. The patient's ABG shows pH of 7.286 w ith a pCO2 of 35, pO2 of 45. IMAGING: Chest x-ray shows extensive pulmonary airspace disease consistent with pulmonary edema. ASSESSMENT AND PLAN: 1. Oligo-anuric acute kidney injury with previous baseline creatinine of 0.8 to 1.0 mg/dL. Etiolog y of acute kidney injury is likely secondary to acute tubular necrosis due to contrast-associated ne phropathy, hemodynamics. The patient's renal function continues to decline. This patient appears t o be in injury phase of acute tubular necrosis. The patient is also developing hyperkalemia as pota ssium was 5.3 mEq/L this morning. Plan is to give the patient a diuretic challenge of Lasix 6 mg IV x1. We will also repeat a renal panel. If there is no significant renal output and/or if the tay ent's renal function further declines, the patient will likely need to initiate renal replacement th erapy. Please note I spoke with the patient's daughter at bedside who is aware and agrees with dial ysis if necessary. 2. Hyperkalemia. Etiology is secondary to acute kidney injury and acidemia. Plan at this point is to give a diuretic challenge with Lasix. We will repeat a renal panel. If potassium levels contin ue to elevate, we will consider starting hemodialysis. 3. Hypernatremia. The patient has free water deficit of approximately 1.5 liters. We will start t he patient on free water flushes and/or hypotonic fluids. 4. Mineral bone disorder. We will check calcium and phosphorus levels. No need for phosphate bind ers at this time. 5. Acute respiratory failure. Etiology appears to be multifactorial from possible pneumonia, pulmo nary edema, possible lymphangitic spread from underlying malignancy. The patient is pending intubat ion. We will defer to pulmonary for further management. Monitor closely. 6. Urinary tract infection. Continue current antibiotic regimen. 7. Diffuse metastatic breast cancer with metastases to brain, bone, lungs, skin. The patient has b een seen by hematology/oncology. We will defer to oncology for management. 8. Bilateral pleural effusions, status post thoracentesis. Continue to monitor. 9. Acute encephalopathy, etiology is toxic metabolic. Please note I spent over 40 minutes of critical care time with this patient. Dictated By: KAJAL SIERRA/MARILEE Conf#: [id number] DID#: [id number]
[2017-03-08 11:21] LABS: CALCIUM 7.9 mg/dl (8.4-10.2); PHOSPHORUS 5.6 mg/dl (2.5-4.9)
[2017-03-08] MEDS: CEFEPIME 1GM/50 ML (PMX) 50 ML IVPB SCH (11:21)
[2017-03-08] MEDS ORDERED: VANCOMYCIN 1.25 GM in SOD CHLORIDE 0.9% 250 ML IVPB SCH (11:30)
[2017-03-08 11:49] LABS: AADO2 Arterial 308.6 mmHg (7.0-24.0); Allen Test ACCEPTAB; Arterial Base Excess -8.8 mmol/L (-3.0-3); Arterial COHb 0.3 % (0.0-3.0); Arterial Fraction of Oxyhgb 94.7 % (93.0-99.0); Arterial HCO3 16.1 mmol/L (22.0-26.0); Arterial MetHb 0.4 % (0.0-1.5); Arterial Total Hemglobin 10.5 g/dl (12.0-18.0); MODE VENT - AC
[2017-03-08] MEDS ORDERED: SOD CHLORIDE 0.9% 1,000 ML IV ONE (12:00)
[2017-03-08 12:03] LABS: ADD UMIC YES; URINE BILIRUBIN (Dip) NEGATIVE (NEGATIVE); URINE BLOOD (Dip) NEGATIVE (NEGATIVE); URINE COLOR LT. YELLOW (YELLOW); URINE GLUCOSE (Dip) NEGATIVE (NEGATIVE); URINE KETONES (Dip) TRACE (NEGATIVE); URINE LEUKOCYTE ESTERASE (Dip) NEGATIVE (NEGATIVE); URINE NITRITE (Dip) NEGATIVE (NEGATIVE); URINE TOTAL PROTEIN (Dip) TRACE (NEGATIVE); URINE UROBILINOGEN (Dip) 0.2 E.U./dL (0.1-1.0)
[2017-03-08 12:31] LABS: BACTERIA,URINE FEW; URIC ACID CRYSTALS,URINE RARE; URINE RBCS NONE SEEN /HPF (0)
[2017-03-08] MEDS: FENTAnyl (DRIP) 1000 mcg/100mL 100 ML IV SCH (12:54)
[2017-03-08] MEDS ORDERED: LEVALBUTEROL (HFA) 15 GM INHALER INH PRN (13:00)
--- NOTE | 2017-03-08 13:31 | CONS ---
DATE OF ADMISSION: 03/03/2017 DATE OF CONSULTATION: 03/08/2017 TYPE OF CONSULTATION: Palliative Care, Pain Management HISTORY OF PRESENT ILLNESS: We have a completely incomplete database on this 57-year-old female who was brought to the emergency room on 03/03/2017 complaining of increasing shortness of breath. Dur ing the hospitalization, patient had a pleural effusion and she had a thoracentesis done on 03/04/20 17, according to medical records consistent with malignant effusion. The patient does have a histor y of metastatic breast cancer. During prior visits, she was seen by oncology. She was scheduled to have a followup appointment on 03/14/2017. Unfortunately yesterday, the patient became increasingl y short of breath secondary to increasing pleural effusion despite the fact 1.9 liters of fluid was removed during the thoracentesis. The patient was transferred to the intensive care unit. She is i ntubated at this time. She is not on pressors, but receiving intensive care. She is on broad-spect rum IV antibiotic coverage. Multiple consultants are involved with her care including Dr. Reid, Dr. Kristen rowe, Dr. Cowan, Dr. Ortiz, Humberto Dow, and patient remains critically ill at this time. I understand that she had a family member who visited her, just left the intensive care unit. There fore, I do not have a family member immediately to speak with and once again I have an incomplete da tabase at this time. MEDICATIONS: Please refer to reconciliation sheets. ALLERGIES: HYDROMORPHONE BUT I DO NOT HAVE MORE INFORMATION TO WHAT THE ALLERGY IS. MAJOR MEDICAL PROBLEMS IN THE PAST: Entirely as per history of present illness. SOCIAL HISTORY: Unknown. FAMILY HISTORY: Unknown. REVIEW OF SYSTEMS: Cannot be obtained. PHYSICAL EXAMINATION: GENERAL: Shows An emaciated-appearing female who is intubated at this time and sedated. VITAL SIGNS: Blood pressure 99/56, pulse 121 and regular, respirations are 24, 98% saturation, FIO2 is pending at this time, postintubation. HEENT: She is otherwise normocephalic and atraumatic. Anicteric and acyanotic on examination. CHEST: Inspiratory and expiratory rhonchi on examination. CORONARY: S1, S2, regular rhythm, rapid rate. ABDOMEN: Grossly benign on examination, nondistended. Active bowel sounds. NEUROLOGIC: She is intubated and sedated at this time. LABORATORY DATA: White blood cell of 6.4, hemoglobin 10.2, hematocrit 33.4, MCV 105.0, platelet cou nt 123,000. Serum sodium 146, potassium 5.3, chloride 112, bicarbonate 19, BUN 38, creatinine 1.89. Chest x-ray repeated this morning at 0700 hours shows worsening appearance of the lungs. No other c hanges compared to 03/07/2017. A call was made to Humberto Dow by Dr. Erik Ventura. ASSESSMENT AND PLAN: From a pain management standpoint, at this time I will switch her from current opioids to a fentanyl protocol and stop the oral analgesic medications. From a palliative care sta ndpoint, I have an incomplete database and I will contact family members and arrange a detailed conv ersation, once again from a palliative care standpoint. This patient is a FULL CODE. Dictated By: PAULA JROGENSEN MD, LP/MARILEE Conf#: [id number] DID#: [id number]
--- NOTE | 2017-03-08 14:21 | RADRPT ---
PROCEDURE: XR Chest. CLINICAL INDICATION: Status post intubation TECHNIQUE: Single portable view of the chest was obtained COMPARISON: Same Day FINDINGS: There is a new endotracheal tube 5.0 cm above the сергей. There is a nasogastric tube extending below the diaphragm. There are extensive bilateral upper lobe and lower lobe infiltrates. The heart is normal in size. There is a moderate right pleural effusion and small left pleural effusion. RPTAT: AA IMPRESSION: New endotracheal tube in appropriate position. Nasogastric tube within the stomach. Extensive bilateral upper lobe and lower lobe infiltrates. Bilateral pleural effusions, right greater than left. .Lee Cuevas MD, MD Date Time Electronically viewed and signed by .Lee Cuevas MD, MD on 03/08/2017 14:21 .S/
[2017-03-08] MEDS ORDERED: LIDOCAINE 1% (MPF) 5 ML VIAL SC SCH (14:30)
--- NOTE | 2017-03-08 14:48 | PN ---
Date/Time of Note Date/Time of Note DATE: 03/08/17 TIME: 14:42 Assessment/Plan VTE Prophylaxis VTE Prophylaxis Intervention: LMWH Lines/Catheters IV [facility]from [facility] Peripheral IV Urinary Cath still in place: Yes Assessment/Plan Chief Complaint/Hosp Course Assessment and plan 1. Acute on chronic respiratory failure secondary to underlying pleural effusions. Temper [place] following. Patient status post thoracentesis with roughly 1.9 mL removed. Patient was worse breathing requiring intubation. Diuretic per nephrology. Possible HD should patient fail to respond 2. Bilateral malignant pleural effusions. May need possible Pleurx catheter should recurrent pleural effusions occur. Continue with school nurse recommendations. Continue on diuretic for now. Check follow-up chest radiograph 3. Macrocytic anemia. Monitor H&H. Transfuse as needed 4. Positive urinalysis. Noted with mixed gram-positive organisms. On antibiotics 5. Metastatic breast cancer with metastasis to brain and bones as well as skin. Oncologist following. Follow-up with inpatient oncologist recommendations. Of note patient unable to go to her outpatient oncologist due to her critical state. 6. Multiple vascular skin lesions. Patient to be followed up as outpatient for this issue 7. andree. Medications to be renally dosed. Slightly worse function at this time. Follow-up with nephrology recommendations 8. Deconditioning. In ICU. Physical therapy to follow once improved 9. Malnutrition. cont on megace Disposition and plan: Worse respiratory status. In ICU. Intubated. Continue on diuretic. Critical Care Specialist to follow. Check echocardiogram. Discussed but of care with Dr. Gunn Critical Care time: 30 minutes Problems: Subjective 24 Hr Interval Summary Free Text/Dictation And respiratory failure this morning. Status post intubation. Seen in ICU. Still noted with accessory muscle use and shortness of breath Exam/Review of Systems Vital Signs Vitals Vital Signs Date Time Temp Pulse Resp B/P Pulse Ox O2 Delivery O2 Flow Rate FiO2 03/08/17 12:00 118 03/08/17 11:20 31 97 60 03/08/17 09:05 BIPAP 03/08/17 08:30 99/56 4.0 03/08/17 08:09 98.7 Intake and Output 03/07/17 03/07/17 03/08/17 15:00 23:00 07:00 Intake Total 50 ml 960 ml 100 ml Output Total 800 ml 100 ml Balance 50 ml 160 ml 0 ml Exam Constitutional: distress (intubated and sedated) Head: normocephalic Eyes: other (intubated) Neck: No jvd Respiratory: diminished breath sounds Cardiovascular: other (tachycardic) Extremities: No edema 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: other (intubated and sedated) Skin: other (lesions seen diffusely on general body) Results Result Diagram: 03/08/17 0700 03/08/17 0700 Results 24 hrs Laboratory Tests Test 03/07/17 21:16 03/08/17 07:00 03/08/17 07:36 03/08/17 07:53 Blood Gas Specimen Source Blood arterial Blood arterial Arterial Blood Date Drawn 03/07/2017 11:00:35 PM 03/08/2017 8:24:21 AM Arterial Blood pH (Temp corrected) 7.366 7.286 *L Arterial Blood pCO2 (Temp correct) 29.3 L 35.5 Arterial Blood pO2 (Temp corrected) 376.7 H 45.6 *L Arterial Blood HCO3 16.4 L 16.5 L Arterial Blood Base Excess -7.7 L -9.3 L Arterial Blood Oxygen Saturation 99.3 H 76.6 L Rachid Test ACCEPTAB ACCEPTAB Arterial Blood Gas Puncture Site Left Radial Right Radial Arterial Blood Carboxyhemoglobin 0.2 0.3 Arterial Blood Methemoglobin 0.4 0.4 Blood Gas A-a O2 Differential 307.0 H 191.6 H Oxyhemoglobin Percent 98.7 76.1 L Total Hemoglobin 11.4 L 11.0 L Blood Gas Temperature 37.0 37.0 Blood Gas Respiration Rate 16.0 Blood Gas Actual Respiration Rate 22 Blood Gas Modality MASK - BIPAP NASAL CANNULA FiO2 100.0 39.0 Blood Gas Pressure Support 10 Blood Gas IPAP/EPAP Ratio 15/5 Blood Gas Notified Whom CHEN ABAD Blood Gas Notified Time 03/07/2017 11:11:14 PM 03/08/2017 8:34:59 AM White Blood Count 6.4 Red Blood Count 3.18 L Hemoglobin 10.2 L Hematocrit 33.4 L Mean Corpuscular Volume 105.0 H Mean Corpuscular Hemoglobin 32.1 Mean Corpuscular Hemoglobin Concent 30.5 L Red Cell Distribution Width 23.7 H Platelet Count 123 L Mean Platelet Volume 11.2 H Neutrophils % 55.0 Band Neutrophils % 12.0 H Lymphocytes % 19.0 Monocytes % 9.0 Eosinophils % 3.0 Metamyelocytes % 1.0 H Myelocytes % 1.0 H Nucleated Red Blood Cells % 43.0 H Neutrophils # 3.5 Lymphocytes # 1.2 Monocytes # 0.6 Eosinophils # 0.2 Metamyelocytes # 0.1 Myelocytes # 0.1 Sodium Level 146 H Potassium Level 5.3 H Chloride Level 112 H Carbon Dioxide Level 19 L Anion Gap 20 #H Blood Urea Nitrogen 38 H Creatinine 1.89 H Glucose Level 83 Calcium Level 7.9 L Phosphorus Level 5.6 H Bedside Glucose 89 Blood Gas Critical Value Read Back A LORD RN Test 03/08/17 09:00 03/08/17 11:02 Urine Color LT. YELLOW Urine Clarity SLIGHTLY CLOUDY Urine pH 5.0 Urine Specific [place] 1.025 Urine Ketones TRACE H Urine Nitrite NEGATIVE Urine Bilirubin NEGATIVE Urine Urobilinogen 0.2 E.U./dL Urine Leukocyte Esterase NEGATIVE Urine Microscopic RBC NONE SEEN Urine Microscopic WBC 0-2 Urine Epithelial Cells FEW Urine Uric Acid Crystals RARE Urine Amorphous Urates OCCASIONAL Urine Bacteria FEW Urine Hemoglobin NEGATIVE Urine Random Creatinine 172.35 Urine Random Sodium < 13 L Urine Glucose NEGATIVE Urine Total Protein 8.0 Blood Gas Specimen Source Blood arterial Arterial Blood Date Drawn 03/08/2017 11:35:24 AM Arterial Blood pH (Temp corrected) 7.326 L Arterial Blood pCO2 (Temp correct) 31.6 L Arterial Blood pO2 (Temp corrected) 84.4 Arterial Blood HCO3 16.1 L Arterial Blood Base Excess -8.8 L Arterial Blood Oxygen Saturation 95.4 Rachid Test ACCEPTAB Arterial Blood Gas Puncture Site Left Radial Arterial Blood Carboxyhemoglobin 0.3 Arterial Blood Methemoglobin 0.4 Blood Gas A-a O2 Differential 308.6 H Oxyhemoglobin Percent 94.7 Total Hemoglobin 10.5 L Blood Gas Temperature 37.0 Blood Gas Respiration Rate 14.0 Blood Gas Actual Respiration Rate 32 Blood Gas Modality VENT - AC FiO2 60.0 Blood Gas Tidal Volume 450.0 Blood Gas Low PEEP Setting 5.0 Blood Gas Notified Whom JLD Blood Gas Notified Time 03/08/2017 11:49:05 AM Medications Medications Current Medications Ondansetron HCl (Zofran Inj) 4 mg Q6H PRN IV NAUSEA AND/OR VOMITING; Start 03/03 at 09:00 Acetaminophen (Tylenol Tab) 650 mg Q6H PRN PO PAIN LEVEL 1-3 OR FEVER; Start at 09:00 Magnesium Hydroxide (Milk Of Mag) 30 ml DAILY PRN PO CONSTIPATION Last administered on 03/05/17 20:57; Admin Dose 30 ML; Start 03/03/17 at 09:00 Bisacodyl (Dulcolax) 5 mg DAILY PRN PO CONSTIPATION; Start 03/03/17 at 09:00 Famotidine (Pepcid) 20 mg Q12 PO Last administered on 03/07/17 22:13; Admin Dose 20 MG; Start 03/03/17 at 09:00 Enoxaparin Sodium (Lovenox) 40 mg DAILY SC Last administered on 03/08/17 09:46 ; Admin Dose 40 MG; Start 03/03/17 at 09:00 Polyethylene Glycol (Miralax) 17 gm BID PO Last administered on 03/07/17 08:54 ; Admin Dose 17 GM; Start 03/03/17 at 09:30 Docusate Sodium (Colace) 200 mg BID PO Last administered on 03/07/17 22:13; Admin Dose 200 MG; Start 03/03/17 at 09:30 Bisacodyl (Dulcolax) 10 mg DAILY PRN PO CONSTIPATION; Start 03/03/17 at 09:30 Memantine (Namenda) 10 mg BID PO Last administered on 03/07/17 22:13; Admin Dose 10 MG; Start 03/03/17 at 21:00 Cholecalciferol (Vitamin D) 1,000 unit DAILY PO Last administered on 03/07/17 08:54; Admin Dose 1,000 UNIT; Start 03/03/17 at 15:00 Levothyroxine Sodium (Synthroid) 75 mcg DAILY@06 PO Last administered on 08:57; Admin Dose 75 MCG; Start 03/06/17 at 06:00 Megestrol Acetate 40 mg 40 mg QID PO Last administered on 03/07/17 22:13; Admin Dose 40 MG; Start 03/06/17 at 15:00 Cefepime HCl 50 ml @ 100 mls/hr Q24H IVPB Last administered on 03/08/17 11:21 ; Admin Dose 100 MLS/HR; Start 03/08/17 at 11:00 Phenylephrine HCl 250 ml @ 75 mls/hr TITRATE IV ; Start 03/08/17 at 10:30; Stop 03/08/17 at 15:00 Midazolam HCl 50 ml @ 1 mls/hr TITRATE IV ; Start 03/08/17 at 10:30 Phenylephrine HCl/ Dextrose (Leno-Syneph/D5W) 500 ml @ 75 mls/hr TITRATE IV ; Start 03/08/17 at 12:00 Lorazepam 0.5 mg 0.5 mg Q6H PRN IV anxiety / ; Start 03/08/17 at 11:00 Fentanyl (Sublimaze) 100 ml @ 1.5 mls/hr TITRATE IV Last administered on t 12:54; Admin Dose 0.25 MLS/HR; Start 03/08/17 at 12:30 Lidocaine (Xylocaine 1% (Mpf)) 5 ml ONCE SC ; Start 03/08/17 at 14:30; Stop at 19:00 NICK HI Mar 08, 2017 14:48
[2017-03-08] MEDS: LEVALBUTEROL (HFA) 15 GM INHALER INH SCH ×2 (16:00→23:57)
[2017-03-08 16:54] LABS: POTASSIUM 5.6 mmol/L (3.5-5.1)
[2017-03-08 16:57] LABS: CREATININE 2.01 mg/dl (0.44-1.00)
[2017-03-08 16:58] LABS: CALCIUM 6.9 mg/dl (8.4-10.2)
--- NOTE | 2017-03-08 17:18 | RADRPT ---
PROCEDURE: XR Chest. CLINICAL INDICATION: Check PICC line position. TECHNIQUE: Single frontal view. COMPARISON: 03/08/2017. 1218 hours FINDINGS: There is a left arm PICC line with the tip in the lower superior vena cava. The endotracheal tube a nd nasogastric tube are in satisfactory position. There is severe bilateral pulmonary airspace disea se, unchanged. The heart size is normal. Moderate right pleural effusion and small left pleural effusion are unchanged. There is no pneumothorax. IMPRESSION: 1. Satisfactory position of left arm PICC line. 2. No other change from the prior study done earlier same day. RPTAT: QQ .Erik Ventura MD, MD Date Time Electronically viewed and signed by .Erik Ventura MD, MD on 03/08/2017 17:18 .R/
[2017-03-08] MEDS: DEXTROSE 5%-0.9% NACL 1,000 ML IV SCH (17:33)
[2017-03-08] MEDS: MIDAZOLAM (DRIP) 50 mg/50 mL 50 ML IV SCH ×3 (17:48→21:20)
--- NOTE | 2017-03-08 17:59 | CONS ---
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 Per Dr. Rob, fortunately the mass has minimal mass effect on the underlying brain and the patient is asymptomatic, so neurosurgical intervention at this point is unwarranted. Patient now admitted with dyspnea as well as pleuritic chest pain. In the emergency room, the patient underwent a chest x-ray that showed cardiomegaly with increased right pleural effusion with bibasilar atelectasis versus infiltrate. The patient's chest CTA showed no evidence of PE or aortic dissection; however, this showed large right-sided pleural effusion with underlying atelectasis/consolidation, slightly increased with moderate left- sided pleural effusion. The CT again revealed complex right breast mass, unchanged. Patient underwent right thoracentesis on 03/04/17 with 1.9L fluid removed with cytology demonstrating metastatic adenocarcinoma compatible with breast primary. If reaccumulates, may need PleurX catheter. Appreciate Pulm recs. Patient appeared more short of breath 03/07/17 however CXR showed severe bilateral pulmonary air space disease consistent with pulmonary edema or bilateral multifocal pneumonia and small bilateral pleural effusions but no change from 03/06/2017. Unfortunately, the patient was reportedly less responsive and in respiratory distress this morning and found to be acidotic. She was intubated at 10:30 a.m. this morning. CXR showed extensive pulm airspace disease consistent with pulmonary edema, worse, with small bilateral pleural effusion. DDx fluid overload vs. pneumonia, also would like to rule out lymphangitic spread although initial CTA did not suggest. Cards following to eval for CHF, pending TTE. On diuretics per primary team with plan for dialysis. On vanc/cefepime. - Will obtain CT chest non-contrast when stable. If evidence of lymphangitic spread consider steroids for symptomatic relief. - In November 2016, tumor markers were elevated CA 27-29 382, CA 15-3 151. Now CA 27-29 313, CA 15-3 77 without systemic therapy. - Patient will need outpatient PET/CT. Avoid CT scan with contrast for now given renal insufficiency. - s/p skin biopsy of cutaneous nodules that demonstrated metastatic mammary carcinoma extensively involving the dermis, ER positive, HI negative, HER2 negative 1+ - Given bony metastatic disease, patient will need zometa Q3 months to decrease skeletal related events - first dose given 12/14/16. Repeat dose of zometa, 3.5 mg, renally dosed for CrCl 55 given 03/04/17. - Patient to see an oncologist in network, Dr. Laura Ayala (phone number ) on 03/08/17 at 3 p.m. which will need to be rescheduled once patient discharged. In November 2016, E2 was 16 (postmenopausal range) but FSH was now ( 13.7). Now E2 26 and FSH 24.2, both of which are in the postmenopausal range. She states that her LMP was 1.5-2 years ago. Would consider therapy with letrozole/ibrance unless evidence of visceral crisis on scans. Rx for letrozole left in patient's chart. Ibrance can be added when she sees a oncologist in network on 03/14/17. - If patient's respiratory status and renal status can be stabilized, will be able to initiate systemic therapy either hormonal or chemotherapy if evidence of visceral crisis. - Patient will also need BRCA testing as an outpatient given +FHx (sister with DCIS, aunt and cousin s/p mastectomy, unclear if early stage or prophylactic) # Macrocytic anemia/thrombocytopenia - Patient previously had normocytic anemia and thrombocytopenia with nucleated RBCs attributed to bone marrow involvement. Patient now has macrocytic anemia with normal Vitamin B12/folate level; homocysteine and methylmalonic acid pending. TSH elevated at 17.5 and free T4 low at 0.44, therefore macrocytic anemia may be related to hypothyroidism - management per primary team. - Retic count inappropriately low at 76K, iron panel c/w anemia of chronic inflammation, LDH and haptoglobin pending - s/p 2 units pRBCs 03/05 for Hgb 7.9, now stable ~10 # JOSEPH, nephrology consulted by primary team. Concern for contrast induced nephropathy. Renal ultrasound unremarkable. Continue to monitor. Worsened today with hyperkalemia and Cr 2.01. Patient's sister Caryn Salguero (anesthesiologist) [phone], mother is a pathologist, father is a psychiatrist Problems: Consultation Date/Type/Reason Admit Date/Time Mar 03, 2017 at 05:39 Type of Consultation: Oncology 24 HR Interval Summary Free Text/Dictation Unfortunately, the patient was reportedly less responsive and in respiratory distress this morning and found to be acidotic. She was intubated at 10:30 a.m. this morning. She had a Ryan cathether placed with plan for dialysis. Exam/Review of Systems Vital Signs Vitals Vital Signs Date Time Temp Pulse Resp B/P Pulse Ox O2 Delivery O2 Flow Rate FiO2 03/08/17 17:30 120 27 91/51 99 03/08/17 16:30 98.9 03/08/17 11:20 60 03/08/17 09:05 BIPAP 03/08/17 08:30 4.0 Intake and Output 03/07/17 03/07/17 03/08/17 15:00 23:00 07:00 Intake Total 50 ml 960 ml 100 ml Output Total 800 ml 100 ml Balance 50 ml 160 ml 0 ml Exam Constitutional: intubated Eyes: nl conjunctiva Neck: supple Respiratory: clear to auscultation Cardiovascular: regular rate and rhythm Gastrointestinal: non-tender, soft Musculoskeletal: nl extremities to inspection Skin: other (cutaneous nodules biopsy proven metastatic breast cancer) Results Result Diagram: 03/08/17 0700 03/08/17 1630 Results 24 hrs Laboratory Tests Test 03/07/17 21:16 03/08/17 07:00 03/08/17 07:36 03/08/17 07:53 Blood Gas Specimen Source Blood arterial Blood arterial Arterial Blood Date Drawn 03/07/2017 11:00:35 PM 03/08/2017 8:24:21 AM Arterial Blood pH (Temp corrected) 7.366 7.286 *L Arterial Blood pCO2 (Temp correct) 29.3 L 35.5 Arterial Blood pO2 (Temp corrected) 376.7 H 45.6 *L Arterial Blood HCO3 16.4 L 16.5 L Arterial Blood Base Excess -7.7 L -9.3 L Arterial Blood Oxygen Saturation 99.3 H 76.6 L Rachid Test ACCEPTAB ACCEPTAB Arterial Blood Gas Puncture Site Left Radial Right Radial Arterial Blood Carboxyhemoglobin 0.2 0.3 Arterial Blood Methemoglobin 0.4 0.4 Blood Gas A-a O2 Differential 307.0 H 191.6 H Oxyhemoglobin Percent 98.7 76.1 L Total Hemoglobin 11.4 L 11.0 L Blood Gas Temperature 37.0 37.0 Blood Gas Respiration Rate 16.0 Blood Gas Actual Respiration Rate 22 Blood Gas Modality MASK - BIPAP NASAL CANNULA FiO2 100.0 39.0 Blood Gas Pressure Support 10 Blood Gas IPAP/EPAP Ratio 15/5 Blood Gas Notified Whom CHEN ABAD Blood Gas Notified Time 03/07/2017 11:11:14 PM 03/08/2017 8:34:59 AM White Blood Count 6.4 Red Blood Count 3.18 L Hemoglobin 10.2 L Hematocrit 33.4 L Mean Corpuscular Volume 105.0 H Mean Corpuscular Hemoglobin 32.1 Mean Corpuscular Hemoglobin Concent 30.5 L Red Cell Distribution Width 23.7 H Platelet Count 123 L Mean Platelet Volume 11.2 H Neutrophils % 55.0 Band Neutrophils % 12.0 H Lymphocytes % 19.0 Monocytes % 9.0 Eosinophils % 3.0 Metamyelocytes % 1.0 H Myelocytes % 1.0 H Nucleated Red Blood Cells % 43.0 H Neutrophils # 3.5 Lymphocytes # 1.2 Monocytes # 0.6 Eosinophils # 0.2 Metamyelocytes # 0.1 Myelocytes # 0.1 Sodium Level 146 H Potassium Level 5.3 H Chloride Level 112 H Carbon Dioxide Level 19 L Anion Gap 20 #H Blood Urea Nitrogen 38 H Creatinine 1.89 H Glucose Level 83 Calcium Level 7.9 L Phosphorus Level 5.6 H Bedside Glucose 89 Blood Gas Critical Value Read Back A LORD RN Test 03/08/17 09:00 03/08/17 11:02 03/08/17 16:30 Urine Color LT. YELLOW Urine Clarity SLIGHTLY CLOUDY Urine pH 5.0 Urine Specific [place] 1.025 Urine Ketones TRACE H Urine Nitrite NEGATIVE Urine Bilirubin NEGATIVE Urine Urobilinogen 0.2 E.U./dL Urine Leukocyte Esterase NEGATIVE Urine Microscopic RBC NONE SEEN Urine Microscopic WBC 0-2 Urine Epithelial Cells FEW Urine Uric Acid Crystals RARE Urine Amorphous Urates OCCASIONAL Urine Bacteria FEW Urine Hemoglobin NEGATIVE Urine Random Creatinine 172.35 Urine Random Sodium < 13 L Urine Glucose NEGATIVE Urine Total Protein 8.0 Blood Gas Specimen Source Blood arterial Arterial Blood Date Drawn 03/08/2017 11:35:24 AM Arterial Blood pH (Temp corrected) 7.326 L Arterial Blood pCO2 (Temp correct) 31.6 L Arterial Blood pO2 (Temp corrected) 84.4 Arterial Blood HCO3 16.1 L Arterial Blood Base Excess -8.8 L Arterial Blood Oxygen Saturation 95.4 Rachid Test ACCEPTAB Arterial Blood Gas Puncture Site Left Radial Arterial Blood Carboxyhemoglobin 0.3 Arterial Blood Methemoglobin 0.4 Blood Gas A-a O2 Differential 308.6 H Oxyhemoglobin Percent 94.7 Total Hemoglobin 10.5 L Blood Gas Temperature 37.0 Blood Gas Respiration Rate 14.0 Blood Gas Actual Respiration Rate 32 Blood Gas Modality VENT - AC FiO2 60.0 Blood Gas Tidal Volume 450.0 Blood Gas Low PEEP Setting 5.0 Blood Gas Notified Whom JLD Blood Gas Notified Time 03/08/2017 11:49:05 AM Sodium Level 146 H Potassium Level 5.6 H Chloride Level 117 H Carbon Dioxide Level 17 L Anion Gap 18 H Blood Urea Nitrogen 40 H Creatinine 2.01 H Glucose Level 61 #L Calcium Level 6.9 L Medications Medications Current Medications Ondansetron HCl (Zofran Inj) 4 mg Q6H PRN IV NAUSEA AND/OR VOMITING; Start 03/03 at 09:00 Acetaminophen (Tylenol Tab) 650 mg Q6H PRN PO PAIN LEVEL 1-3 OR FEVER; Start at 09:00 Magnesium Hydroxide (Milk Of Mag) 30 ml DAILY PRN PO CONSTIPATION Last administered on 03/05/17 20:57; Admin Dose 30 ML; Start 03/03/17 at 09:00 Bisacodyl (Dulcolax) 5 mg DAILY PRN PO CONSTIPATION; Start 03/03/17 at 09:00 Famotidine (Pepcid) 20 mg Q12 PO Last administered on 03/07/17 22:13; Admin Dose 20 MG; Start 03/03/17 at 09:00 Enoxaparin Sodium (Lovenox) 40 mg DAILY SC Last administered on 03/08/17 09:46 ; Admin Dose 40 MG; Start 03/03/17 at 09:00 Polyethylene Glycol (Miralax) 17 gm BID PO Last administered on 03/07/17 08:54 ; Admin Dose 17 GM; Start 03/03/17 at 09:30 Docusate Sodium (Colace) 200 mg BID PO Last administered on 03/07/17 22:13; Admin Dose 200 MG; Start 03/03/17 at 09:30 Bisacodyl (Dulcolax) 10 mg DAILY PRN PO CONSTIPATION; Start 03/03/17 at 09:30 Memantine (Namenda) 10 mg BID PO Last administered on 03/07/17 22:13; Admin Dose 10 MG; Start 03/03/17 at 21:00 Cholecalciferol (Vitamin D) 1,000 unit DAILY PO Last administered on 03/07/17 08:54; Admin Dose 1,000 UNIT; Start 03/03/17 at 15:00 Levothyroxine Sodium (Synthroid) 75 mcg DAILY@06 PO Last administered on 08:57; Admin Dose 75 MCG; Start 03/06/17 at 06:00 Megestrol Acetate 40 mg 40 mg QID PO Last administered on 03/07/17 22:13; Admin Dose 40 MG; Start 03/06/17 at 15:00 Cefepime HCl 50 ml @ 100 mls/hr Q24H IVPB Last administered on 03/08/17 11:21 ; Admin Dose 100 MLS/HR; Start 03/08/17 at 11:00 Midazolam HCl 50 ml @ 1 mls/hr TITRATE IV Last administered on 03/08/17 17:48 ; Admin Dose 4 MLS/HR; Start 03/08/17 at 10:30 Phenylephrine HCl/ Dextrose (Leno-Syneph/D5W) 500 ml @ 75 mls/hr TITRATE IV ; Start 03/08/17 at 12:00 Lorazepam 0.5 mg 0.5 mg Q6H PRN IV anxiety / ; Start 03/08/17 at 11:00 Fentanyl (Sublimaze) 100 ml @ 1.5 mls/hr TITRATE IV Last administered on 12:54; Admin Dose 0.25 MLS/HR; Start 03/08/17 at 12:30 Lidocaine (Xylocaine 1% (Mpf)) 5 ml ONCE SC ; Start 03/08/17 at 14:30; Stop at 19:00 IV Flush 10 ml 10 ml PRN PRN IV FLUSH LINE; Start 03/08/17 at 17:00 Dextrose/Sodium Chloride (D5-NS) 1,000 ml @ 75 mls/hr [id number] IV Last administered on 03/08/17t 17:33; Admin Dose 75 MLS/HR; Start 03/08/17 at 17:30 GREGRO XIONG MD Mar 08, 2017 17:58
--- NOTE | 2017-03-08 18:10 | RADRPT ---
PROCEDURE: US guidance for PICC line CLINICAL INDICATION: PICC line placement TECHNIQUE: Multiple real-time images were acquired of the patient's arm utilizing a high resolutio n transducer. This was performed by the PICC line nurse for venous access. COMPARISON: None FINDINGS: Ultrasound guidance for PICC line placement. IMPRESSION: Ultrasound guidance for PICC line placement. RPTAT: AA .Lee Cuevas MD, MD Date Time Electronically viewed and signed by .Lee Cuevas MD, on 03/08/2017 18:10 .S/
[2017-03-08] MEDS ORDERED: DEXTROSE 50% 50 ML SYRINGE ONE (18:48)
[2017-03-08] MEDS ORDERED: DEXTROSE 50% 50 ML SYRINGE IV ONE (19:00)
[2017-03-08] MEDS: DOCUSATE SODIUM 10 MG/ML (10ML CUP) GTB SCH (20:32)
[2017-03-08] MEDS: FAMOTIDINE 20 MG TAB GTB SCH (20:33)
[2017-03-08] MEDS: ACETAMINOPHEN 325 MG TAB GTB PRN (20:33)
[2017-03-08] MEDS: POLYETHYLENE GLYCOL 17 GM PACKET GTB SCH (20:33)
[2017-03-08] MEDS: MEGESTROL (40 MG/ML) 10ML CUP GTB SCH (20:33)
[2017-03-08] MEDS: MEMANTINE 5 MG TAB GTB SCH (20:37)
--- NOTE | 2017-03-08 20:53 | CONS ---
DATE OF ADMISSION: 03/03/2017 DATE OF CONSULTATION: REASON FOR CONSULTATION: Surgical. Thank you, Dr. Cowan, for asking me to see this patient. HISTORY OF PRESENT ILLNESS: This is a 57-year-old female with a history of metastatic breast cancer . The patient is intubated, currently being treated for respiratory failure, renal failure. PAST MEDICAL HISTORY: Positive for breast cancer, anemia. PAST SURGICAL HISTORY: None. ALLERGIES: NONE. SOCIAL HISTORY: No smoking, drinking or drug use. PHYSICAL EXAMINATION: GENERAL: The patient is intubated, unresponsive. VITAL SIGNS: Blood pressure is 99/50. Pulse is 119, respirations 27, saturations 96%. CARDIOVASCULAR: Regular rate and rhythm. Normal S1, S2. LUNGS: Clear. ABDOMEN: Soft. EXTREMITIES: Warm. The patient has multiple nodules in the skin. LABORATORY VALUES: Hemoglobin 10.2, white count 6.4, platelet count 123, and INR 1.1. The patient also has a BUN of 40, creatinine of 2.1. IMPRESSION: Renal failure. RECOMMENDATIONS: We will proceed with the placement of a dialysis catheter per Dr. Cowan's reques t. Discussed with the nursing staff. Dictated By: JANESSA MAYORGA/MARILEE Conf#: [id number] DID#: [id number]
--- NOTE | 2017-03-08 21:15 | OPR ---
DATE OF OPERATION: PREOPERATIVE DIAGNOSIS: Renal failure. POSTOPERATIVE DIAGNOSIS: Renal failure. PROCEDURE: Right femoral hemodialysis catheter placement. SURGEON: Janessa Watson MD ANESTHESIA: Local. CONSENT: Risks, benefits, complications, alternative therapies explained to the patient's family, c onsent obtained. OPERATIVE TECHNIQUE: The patient was placed in supine position, prepped and draped in usual sterile fashion, 1% lidocaine was used throughout the operation for local anesthesia. Access was gained in the right common femoral vein. Guidewire was advanced through without any difficulty. Subcutaneou s tissues dilated. A 20 cm dialysis catheter advanced over a guidewire, secured to skin using silk sutures. Both ports of the catheter were aspirated and injected using heparinized saline solution. The patient tolerated the procedure well. Dictated By: JANESSA WATSON MD FM/NTS Conf#: [id number] DID#: [id number] CC: DEWEY LAST MD; JANESSA WATSON MD;*End*
[2017-03-08] MEDS: PHENYLephrine 40 MG in DEXTROSE 5% 496 ML IV SCH (21:20)
[2017-03-09] VITALS (102 sets, daily range): BP systolic 81–117; BP diastolic 20–68; PULSE 96–126; RESP 12–28
[2017-03-09 01:10] LABS: AADO2 Arterial 223.4 mmHg (7.0-24.0); Allen Test ACCEPTAB; Arterial COHb 0.3 % (0.0-3.0); Arterial Fraction of Oxyhgb 96.4 % (93.0-99.0); Arterial HCO3 22.5 mmol/L (22.0-26.0); Arterial MetHb 0.4 % (0.0-1.5); Arterial Total Hemglobin 11.2 g/dl (12.0-18.0); MODE VENT - AC
[2017-03-09] MEDS: PHENYLephrine 40 MG in DEXTROSE 5% 496 ML IV SCH ×6 (02:53→22:29)
[2017-03-09 05:27] LABS: ADD SCAN DIFF NO
[2017-03-09 05:34] LABS: ABNORMAL IP MESSAGE 1; HEMATOCRIT 29.5 % (37.0-47.0); HEMOGLOBIN 8.9 g/dl (12.0-16.0); MEAN CORPUSCULAR HEMOGLOBIN 31.3 pg (29.0-33.0); MEAN CORPUSCULAR HGB CONC 30.2 g/dl (32.0-37.0); MEAN CORPUSCULAR VOLUME 103.9 fl (82.0-101.0); MEAN PLATELET VOLUME 11.2 fl (7.4-10.4); PLATELET COUNT 101 10^3/UL (140-415); RED BLOOD COUNT 2.84 10^6/ul (4.20-5.40); RED CELL DISTRIBUTION WIDTH 23.3 % (11.5-14.5); WHITE BLOOD COUNT 6.1 10^3/ul (4.8-10.8)
[2017-03-09] MEDS: LEVOTHYROXINE 75 MCG TAB GTB SCH (05:51)
[2017-03-09 06:03] LABS: CREATININE 1.88 mg/dl (0.44-1.00)
[2017-03-09 06:04] LABS: CALCIUM 6.9 mg/dl (8.4-10.2)
[2017-03-09] MEDS: DEXTROSE 5%-0.9% NACL 1,000 ML IV SCH ×2 (07:00→21:26)
[2017-03-09] MEDS: LEVALBUTEROL (HFA) 15 GM INHALER INH SCH ×2 (07:26→16:09)
[2017-03-09 08:05] LABS: BASOPHIL # 0.1 10^3/ul (0.0-0.1); EOSINOPHILS # 0.1 10^3/ul (0.0-0.5); LYMPHOCYTES # 1.3 10^3/ul (0.8-2.9); MONOCYTE # 0.4 10^3/ul (0.3-0.9); MYELOCYTES # 0.1; NEUTROPHIL # 3.1 10^3/ul (1.6-7.5)
--- NOTE | 2017-03-09 08:19 | CONS ---
Date/Time of Note Date/Time of Note DATE: 03/09/17 TIME: 08:16 Assessment/Plan Assessment/Plan Additional Assessment/Plan Ventilator settings; AC of 14, tidal volume 450, PEEP of 5, 50% FiO2. Patient is on currently phenylephrine drip at 150 mics. Assessment recommendations; next 1. Patient admitted for shortness of breath discovered to have very large right pleural effusion status post thoracentesis with significant clinical decompensation later requiring intubation for respiratory failure. 2. Widely metastatic breast cancer. Possibly lymphangitic spread. 3. Severe hypotension. 4. Acute renal failure. Requiring hemodialysis. 5. Agonal respirations. *Sedation. Continue current ventilator settings. Obtain a blood gas. Once ABGs done I will reviewed and make further recommendations. Prognosis appears extremely poor. Consultation Date/Type/Reason Admit Date/Time Mar 03, 2017 at 05:39 Type of Consultation: Pulmonary/critical care 24 HR Interval Summary Free Text/Dictation Patient condition remains critical. Requiring full ventilator support. Also getting progressively more hypotensive requiring high-dose pressor support. General exam; middle-aged woman, orally intubated, sedated. Having agonal respirations. Exam/Review of Systems Vital Signs Vitals Vital Signs Date Time Temp Pulse Resp B/P Pulse Ox O2 Delivery O2 Flow Rate FiO2 03/09/17 07:30 107 26 95/53 97 Mechanical Ventilator 03/09/17 07:15 98.9 03/09/17 05:46 50 03/08/17 09:00 4.0 Intake and Output 03/08/17 03/08/17 03/09/17 15:00 23:00 07:00 Intake Total 128.5 ml 1376.75 ml 1456.25 ml Output Total 30 ml 510 ml 20 ml Balance 98.5 ml 866.75 ml 1436.25 ml Exam HEENT exam; supple neck, or intubated. Pupils are midsize reactive to light. Patient has multiple carious teeth. No thyromegaly. No neck bruits. No lymphadenopathy. Chest exam; bilateral crackles. S1-S2 audible, no murmurs. Regular rhythm. Abdomen exam; scaphoid, no organomegaly. Bowel sounds are sluggish. Extremity exam; no peripheral edema. Pulses are very feeble bilaterally. [employer]AY[employer] SUPERVISOR exam is; patient is currently unresponsive. Results Result Diagram: 03/09/17 0335 03/09/17 033 Results 24 hrs Laboratory Tests Test 03/08/17 09:00 03/08/17 11:02 03/08/17 16:30 03/08/17 18:46 Urine Color LT. YELLOW Urine Clarity SLIGHTLY CLOUDY Urine pH 5.0 Urine Specific [place] 1.025 Urine Ketones TRACE H Urine Nitrite NEGATIVE Urine Bilirubin NEGATIVE Urine Urobilinogen 0.2 E.U./dL Urine Leukocyte Esterase NEGATIVE Urine Microscopic RBC NONE SEEN Urine Microscopic WBC 0-2 Urine Epithelial Cells FEW Urine Uric Acid Crystals RARE Urine Amorphous Urates OCCASIONAL Urine Bacteria FEW Urine Hemoglobin NEGATIVE Urine Random Creatinine 172.35 Urine Random Sodium < 13 L Urine Glucose NEGATIVE Urine Total Protein 8.0 Blood Gas Specimen Source Blood arterial Arterial Blood Date Drawn 03/08/2017 11:35:24 AM Arterial Blood pH (Temp corrected) 7.326 L Arterial Blood pCO2 (Temp correct) 31.6 L Arterial Blood pO2 (Temp corrected) 84.4 Arterial Blood HCO3 16.1 L Arterial Blood Base Excess -8.8 L Arterial Blood Oxygen Saturation 95.4 Rachid Test ACCEPTAB Arterial Blood Gas Puncture Site Left Radial Arterial Blood Carboxyhemoglobin 0.3 Arterial Blood Methemoglobin 0.4 Blood Gas A-a O2 Differential 308.6 H Oxyhemoglobin Percent 94.7 Total Hemoglobin 10.5 L Blood Gas Temperature 37.0 Blood Gas Respiration Rate 14.0 Blood Gas Actual Respiration Rate 32 Blood Gas Modality VENT - AC FiO2 60.0 Blood Gas Tidal Volume 450.0 Blood Gas Low PEEP Setting 5.0 Blood Gas Notified Whom JLD Blood Gas Notified Time 03/08/2017 11:49:05 AM Sodium Level 146 H Potassium Level 5.6 H Chloride Level 117 H Carbon Dioxide Level 17 L Anion Gap 18 H Blood Urea Nitrogen 40 H Creatinine 2.01 H Glucose Level 61 #L Calcium Level 6.9 L Bedside Glucose 65 L Test 03/08/17 19:58 03/09/17 00:27 03/09/17 01:11 03/09/17 03:35 Bedside Glucose 122 111 Blood Gas Specimen Source Blood arterial Arterial Blood Date Drawn 03/09/2017 1:00:03 AM Arterial Blood pH (Temp corrected) 7.447 Arterial Blood pCO2 (Temp correct) 33.3 L Arterial Blood pO2 (Temp corrected) 95.6 Arterial Blood HCO3 22.5 Arterial Blood Base Excess -1.0 Arterial Blood Oxygen Saturation 97.1 Rachid Test ACCEPTAB Arterial Blood Gas Puncture Site Right Radial Arterial Blood Carboxyhemoglobin 0.3 Arterial Blood Methemoglobin 0.4 Blood Gas A-a O2 Differential 223.4 H Oxyhemoglobin Percent 96.4 Total Hemoglobin 11.2 L Blood Gas Temperature 37.0 Blood Gas Respiration Rate 14.0 Blood Gas Actual Respiration Rate 27 Blood Gas Modality VENT - AC FiO2 50.0 Blood Gas Tidal Volume 450.0 Blood Gas Low PEEP Setting 5.0 Blood Gas Notified Whom LW Blood Gas Notified Time 03/09/2017 1:09:42 AM White Blood Count 6.1 Red Blood Count 2.84 L Hemoglobin 8.9 L Hematocrit 29.5 L Mean Corpuscular Volume 103.9 H Mean Corpuscular Hemoglobin 31.3 Mean Corpuscular Hemoglobin Concent 30.2 L Red Cell Distribution Width 23.3 H Platelet Count 101 L Mean Platelet Volume 11.2 H Neutrophils % 50.0 Band Neutrophils % 15.0 H Lymphocytes % 22.0 Monocytes % 7.0 Eosinophils % 2.0 Basophils % 1.0 Metamyelocytes % 1.0 H Myelocytes % 2.0 H Nucleated Red Blood Cells % 37.0 H Neutrophils # 3.1 Lymphocytes # 1.3 Monocytes # 0.4 Eosinophils # 0.1 Basophils # 0.1 Metamyelocytes # 0.1 Myelocytes # 0.1 Sodium Level 142 Potassium Level 5.0 Chloride Level 108 Carbon Dioxide Level 24 Anion Gap 15 Blood Urea Nitrogen 33 H Creatinine 1.88 H Glucose Level 119 # Calcium Level 6.9 L Medications Medications Current Medications Ondansetron HCl (Zofran Inj) 4 mg Q6H PRN IV NAUSEA AND/OR VOMITING; Start 03/03 at 09:00 Magnesium Hydroxide (Milk Of Mag) 30 ml DAILY PRN PO CONSTIPATION Last administered on 03/05/17 20:57; Admin Dose 30 ML; Start 03/03/17 at 09:00 Bisacodyl (Dulcolax) 5 mg DAILY PRN PO CONSTIPATION; Start 03/03/17 at 09:00 Enoxaparin Sodium (Lovenox) 40 mg DAILY SC Last administered on 03/08/17 09:46 ; Admin Dose 40 MG; Start 03/03/17 at 09:00 Bisacodyl 10 mg 10 mg DAILY PRN PO CONSTIPATION; Start 03/03/17 at 09:30 Cefepime HCl 50 ml @ 100 mls/hr Q24H IVPB Last administered on 03/08/17 11:21 ; Admin Dose 100 MLS/HR; Start 03/08/17 at 11:00 Midazolam HCl 50 ml @ 1 mls/hr TITRATE IV Last administered on 03/08/17 21:20 ; Admin Dose 4.5 MLS/HR; Start 03/08/17 at 10:30 Phenylephrine HCl/ Dextrose (Leno-Syneph/D5W) 500 ml @ 75 mls/hr TITRATE IV Last administered on 03/09/17 07:42; Admin Dose 112.5 MLS/HR; Start 03/08/17 at 12:00 Lorazepam 0.5 mg 0.5 mg Q6H PRN IV anxiety / ; Start 03/08/17 at 11:00 Fentanyl (Sublimaze) 100 ml @ 1.5 mls/hr TITRATE IV Last administered on 12:54; Admin Dose 0.25 MLS/HR; Start 03/08/17 at 12:30 IV Flush 10 ml 10 ml PRN PRN IV FLUSH LINE; Start 03/08/17 at 17:00 Dextrose/Sodium Chloride (D5-NS) 1,000 ml @ 75 mls/hr [id number] IV Last administered on 03/09/17 07:00; Admin Dose 75 MLS/HR; Start 03/08/17 at 17:30 Acetaminophen (Tylenol Tab) 650 mg Q6H PRN GTB PAIN LEVEL 1-3 OR FEVER Last administered on 03/08/17 20:33; Admin Dose 650 MG; Start 03/08/17 at 21:00 Cholecalciferol (Vitamin D) 1,000 unit DAILY GTB ; Start 03/09/17 at 09:00 Famotidine (Pepcid) 20 mg QAM GTB Last administered on 03/08/17 20:33; Admin Dose 20 MG; Start 03/08/17 at 21:00 Levothyroxine Sodium (Synthroid) 75 mcg DAILY@06 GTB Last administered on 05:51; Admin Dose 75 MCG; Start 03/09/17 at 06:00 Megestrol Acetate (Megace Susp) 40 mg QID GTB Last administered on 03/08/17 20 :33; Admin Dose 40 MG; Start 03/08/17 at 21:00 Memantine (Namenda) 10 mg BID GTB Last administered on 03/08/17 20:37; Admin Dose 10 MG; Start 03/08/17 at 21:00 Polyethylene Glycol (Miralax) 17 gm BID GTB Last administered on 03/08/17 20: 33; Admin Dose 17 GM; Start 03/08/17 at 21:00 Docusate Sodium (Colace Liquid Cup) 200 mg BID GTB Last administered on 20:32; Admin Dose 200 MG; Start 03/08/17 at 21:00 PREETI UGARTE Mar 09, 2017 08:19
[2017-03-09] MEDS: MEGESTROL (40 MG/ML) 10ML CUP GTB SCH ×4 (08:32→21:25)
[2017-03-09] MEDS: POLYETHYLENE GLYCOL 17 GM PACKET GTB SCH ×2 (08:32→21:25)
[2017-03-09] MEDS: DOCUSATE SODIUM 10 MG/ML (10ML CUP) GTB SCH ×2 (08:32→21:25)
[2017-03-09] MEDS: MEMANTINE 5 MG TAB GTB SCH ×3 (08:33→21:26)
[2017-03-09] MEDS: FAMOTIDINE 20 MG TAB GTB SCH ×2 (08:33→10:46)
[2017-03-09] MEDS: CHOLECALCIFEROL 1,000 UNIT TAB GTB SCH ×2 (08:34→10:46)
[2017-03-09 08:46] LABS: AADO2 Arterial 217.6 mmHg (7.0-24.0); Allen Test ACCEPTAB; Arterial Base Excess -3.3 mmol/L (-3.0-3); Arterial COHb 0.3 % (0.0-3.0); Arterial Fraction of Oxyhgb 95.5 % (93.0-99.0); Arterial HCO3 22.2 mmol/L (22.0-26.0); Arterial MetHb 0.3 % (0.0-1.5); MODE VENT - AC
[2017-03-09] MEDS: ENOXAPARIN 40 MG/0.4 ML SYG SC SCH ×2 (09:00→10:47)
--- NOTE | 2017-03-09 09:20 | RADRPT ---
Echocardiogram Report Patient Name: RAMANDEEP MATUTE Gender: Female Date: 1960 Study Date: 08-Mar-2017 [employer] Service Representative: CRISTINE MAIER Location: 106 Ref. Physician: NICK HI Quality: Technically Difficult Study Procedures: Transthoracic echocardiogram with complete 2D, M-Mode, and doppler examination. Indications: Dyspnea. 2D/M Mode Doppler Measurement Value Normal Ranges Measurement Value Normal Ranges LVIDd 2D 3.3 3.5 - 5.6 cm AV Peak Jack 1.4 m/sec LVIDs 2D 1.9 2.1 - 4.1 cm AV Peak PG 8.0 mmHg LVPWd 2D 0.8 0.6 - 1.1 cm LVOT Peak Jack 1.2 m/sec IVSd 2D 0.8 0.6 - 1.1 cm LVOT Peak PG 6.1 mmHg AoR Diam 2D 2.5 2.0 - 3.7 cm MV E Peak Jack 0.9 m/sec EDV 2D 44.9 cm3 MV A Peak Jack 1.1 m/sec ESV 2D 6.6 cm3 MV E/A 0.8 LA Dimen 2D 2.7 2.3 - 4.0 cm MV Decel Time 126 msec MV Decel Weber 7 MV E/A 0.8 TR Peak Jack 2.9 m/sec TR Peak PG 32.9 mmHg RVSP 40.0 mmHg Findings Left Ventricle: Normal left ventricular systolic function. Normal left ventricular cavity size. Normal left ventricular wall thickness. Ejection fraction is visually estimated at 60 %. Right Ventricle: Normal right ventricular size. Normal right ventricular systolic function. Left Atrium: The left atrium is normal in size. Right Atrium: The right atrium is normal in size. Mitral Valve: Mitral valve is not well visualized. Mild mitral valve regurgitation. Aortic Valve: Normal appearance of the aortic valve. No significant aortic stenosis or insufficiency. Tricuspid Valve: Tricuspid valve not well visualized. Estimated peak PA systolic pressure 40 mmHg. There is mild tricuspid regurgitation. Pulmonic Valve: Pulmonic valve not well visualized. Pericardium: Trivial pericardial effusion. Pleural effusion seen. Aorta: Normal aortic root. IVC: Inferior vena cava without respiratory collapse, however, patient on ventilator. Conclusions Technically difficult study with poor acoustic windows. In limited views, normal left ventricular systolic function. Normal left ventricular cavity size. Normal left ventricular wall thickness. Ejection fraction is visually estimated at 60 %. No significant valvular stenosis or regurgitation seen. Pleural effusion seen. Estimated peak PA systolic pressure 40 mmHg based on RA pressure of 8mmHg (patient is on a ventilator). Electronically Signed By: Christopher David 09-Mar-2017 09:19:15 0700 Patient Name: RAMANDEEP MATUTE Study Date: 08-Mar-2017 [id number]
--- NOTE | 2017-03-09 09:29 | CONS ---
Date/Time of Note Date/Time of Note DATE: 03/09/17 TIME: 09:28 Assessment/Plan Assessment/Plan Chief Complaint/Hosp Course Acute respiratory failure: Multifactorial from malignant pleural effusions, CHF in setting of acute renal failure and poor UOP. Now intubated Acute decompensated diastolic heart failure: secondary to renal failure. Echo was a poor study but EF appears preserved. Now on HD Acute renal failure: started on HD Shock: on phenylephrine, ?septic component Metastatic breast ca -HD for volume removal -wean phenylephrine to keep MAP >65 -will follow Problems: Consultation Date/Type/Reason Admit Date/Time Mar 03, 2017 at 05:39 Date of Consultation: Mar 09, 2017 Type of Consultation: Cardiology Reason for Consultation CHF Referring Provider: NICK HI of Present Illness 57 yo F wit a h/o breast cancer with diffuse mets to bone, brain, skin, lungs, who presented with respiratory distress and was found to have malignant pleural effusions. She decompensated and eventually required intubation yesterday. She also had acute renal failure and HD was initiated yesterday as well. She is intubated and there is no family at bedside. unable to obtain Psychological: other (appears anxious) Social History Smoking Status: Never smoker Exam/Review of Systems Vital Signs Vitals Vital Signs Date Time Temp Pulse Resp B/P Pulse Ox O2 Delivery O2 Flow Rate FiO2 03/09/17 09:00 110 03/09/17 09:00 22 97/57 97 Mechanical Ventilator 03/09/17 07:15 98.9 03/09/17 05:46 50 03/08/17 09:00 4.0 Intake and Output 03/08/17 03/08/17 03/09/17 15:00 23:00 07:00 Intake Total 128.5 ml 1376.75 ml 1456.25 ml Output Total 30 ml 510 ml 20 ml Balance 98.5 ml 866.75 ml 1436.25 ml Exam Constitutional: No alert Head: atraumatic, normocephalic ENMT: intubated Neck: No jvd (unable to assess ) Respiratory: diminished breath sounds, No clear to auscultation Cardiovascular: No regular rate and rhythm (tachycardic ) Gastrointestinal: non-tender, soft Extremities: normal pulses 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: No nl mental status, No nl speech Results EKG: sinus tachycardia, low voltage, poor RW progression Result Diagram: 4/15/17 0335 03/09/17 0335 Results 24 hrs Laboratory Tests Test 03/08/17 11:02 03/08/17 16:30 03/08/17 18:46 03/08/17 19:58 Blood Gas Specimen Source Blood arterial Arterial Blood Date Drawn 03/08/2017 11:35:24 AM Arterial Blood pH (Temp corrected) 7.326 L Arterial Blood pCO2 (Temp correct) 31.6 L Arterial Blood pO2 (Temp corrected) 84.4 Arterial Blood HCO3 16.1 L Arterial Blood Base Excess -8.8 L Arterial Blood Oxygen Saturation 95.4 Rachid Test ACCEPTAB Arterial Blood Gas Puncture Site Left Radial Arterial Blood Carboxyhemoglobin 0.3 Arterial Blood Methemoglobin 0.4 Blood Gas A-a O2 Differential 308.6 H Oxyhemoglobin Percent 94.7 Total Hemoglobin 10.5 L Blood Gas Temperature 37.0 Blood Gas Respiration Rate 14.0 Blood Gas Actual Respiration Rate 32 Blood Gas Modality VENT - AC FiO2 60.0 Blood Gas Tidal Volume 450.0 Blood Gas Low PEEP Setting 5.0 Blood Gas Notified Whom JLD Blood Gas Notified Time 03/08/2017 11:49:05 AM Sodium Level 146 H Potassium Level 5.6 H Chloride Level 117 H Carbon Dioxide Level 17 L Anion Gap 18 H Blood Urea Nitrogen 40 H Creatinine 2.01 H Glucose Level 61 #L Calcium Level 6.9 L Bedside Glucose 65 L 122 Test 03/09/17 00:27 03/09/17 01:11 03/09/17 03:35 03/09/17 08:30 Blood Gas Specimen Source Blood arterial Blood arterial Arterial Blood Date Drawn 03/09/2017 1:00:03 AM 03/09/2017 8:30:09 AM Arterial Blood pH (Temp corrected) 7.447 7.344 L Arterial Blood pCO2 (Temp correct) 33.3 L 41.7 Arterial Blood pO2 (Temp corrected) 95.6 92.0 Arterial Blood HCO3 22.5 22.2 Arterial Blood Base Excess -1.0 -3.3 L Arterial Blood Oxygen Saturation 97.1 96.1 Rachid Test ACCEPTAB ACCEPTAB Arterial Blood Gas Puncture Site Right Radial Left Radial Arterial Blood Carboxyhemoglobin 0.3 0.3 Arterial Blood Methemoglobin 0.4 0.3 Blood Gas A-a O2 Differential 223.4 H 217.6 H Oxyhemoglobin Percent 96.4 95.5 Total Hemoglobin 11.2 L 12.0 Blood Gas Temperature 37.0 37.0 Blood Gas Respiration Rate 14.0 14.0 Blood Gas Actual Respiration Rate 27 24 Blood Gas Modality VENT - AC VENT - AC FiO2 50.0 50.0 Blood Gas Tidal Volume 450.0 450.0 Blood Gas Low PEEP Setting 5.0 5.0 Blood Gas Notified Whom LW CW Blood Gas Notified Time 03/09/2017 1:09:42 AM 03/09/2017 8:46:20 AM Bedside Glucose 111 White Blood Count 6.1 Red Blood Count 2.84 L Hemoglobin 8.9 L Hematocrit 29.5 L Mean Corpuscular Volume 103.9 H Mean Corpuscular Hemoglobin 31.3 Mean Corpuscular Hemoglobin Concent 30.2 L Red Cell Distribution Width 23.3 H Platelet Count 101 L Mean Platelet Volume 11.2 H Neutrophils % 50.0 Band Neutrophils % 15.0 H Lymphocytes % 22.0 Monocytes % 7.0 Eosinophils % 2.0 Basophils % 1.0 Metamyelocytes % 1.0 H Myelocytes % 2.0 H Nucleated Red Blood Cells % 37.0 H Neutrophils # 3.1 Lymphocytes # 1.3 Monocytes # 0.4 Eosinophils # 0.1 Basophils # 0.1 Metamyelocytes # 0.1 Myelocytes # 0.1 Sodium Level 142 Potassium Level 5.0 Chloride Level 108 Carbon Dioxide Level 24 Anion Gap 15 Blood Urea Nitrogen 33 H Creatinine 1.88 H Glucose Level 119 # Calcium Level 6.9 L Medications Medications Current Medications Ondansetron HCl (Zofran Inj) 4 mg Q6H PRN IV NAUSEA AND/OR VOMITING; Start 03/03 at 09:00 Magnesium Hydroxide (Milk Of Mag) 30 ml DAILY PRN PO CONSTIPATION Last administered on 03/05/17 20:57; Admin Dose 30 ML; Start 03/03/17 at 09:00 Bisacodyl (Dulcolax) 5 mg DAILY PRN PO CONSTIPATION; Start 03/03/17 at 09:00 Enoxaparin Sodium (Lovenox) 40 mg DAILY SC Last administered on 03/08/17 09:46 ; Admin Dose 40 MG; Start 03/03/17 at 09:00 Bisacodyl 10 mg 10 mg DAILY PRN PO CONSTIPATION; Start 03/03/17 at 09:30 Cefepime HCl 50 ml @ 100 mls/hr Q24H IVPB Last administered on 03/08/17 11:21 ; Admin Dose 100 MLS/HR; Start 03/08/17 at 11:00 Midazolam HCl 50 ml @ 1 mls/hr TITRATE IV Last administered on 03/08/17 21:20 ; Admin Dose 4.5 MLS/HR; Start 03/08/17 at 10:30 Phenylephrine HCl/ Dextrose (Leno-Syneph/D5W) 500 ml @ 75 mls/hr TITRATE IV Last administered on 03/09/17 07:42; Admin Dose 112.5 MLS/HR; Start 03/08/17 at 12:00 Lorazepam 0.5 mg 0.5 mg Q6H PRN IV anxiety / ; Start 03/08/17 at 11:00 Fentanyl (Sublimaze) 100 ml @ 1.5 mls/hr TITRATE IV Last administered on 12:54; Admin Dose 0.25 MLS/HR; Start 03/08/17 at 12:30 IV Flush 10 ml 10 ml PRN PRN IV FLUSH LINE; Start 03/08/17 at 17:00 Dextrose/Sodium Chloride (D5-NS) 1,000 ml @ 75 mls/hr [id number] IV Last administered on 03/09/17 07:00; Admin Dose 75 MLS/HR; Start 03/08/17 at 17:30 Acetaminophen (Tylenol Tab) 650 mg Q6H PRN GTB PAIN LEVEL 1-3 OR FEVER Last administered on 03/08/17 20:33; Admin Dose 650 MG; Start 03/08/17 at 21:00 Cholecalciferol (Vitamin D) 1,000 unit DAILY GTB ; Start 03/09/17 at 09:00 Famotidine (Pepcid) 20 mg QAM GTB Last administered on 03/08/17 20:33; Admin Dose 20 MG; Start 03/08/17 at 21:00 Levothyroxine Sodium (Synthroid) 75 mcg DAILY@06 GTB Last administered on 05:51; Admin Dose 75 MCG; Start 03/09/17 at 06:00 Megestrol Acetate (Megace Susp) 40 mg QID GTB Last administered on 03/08/17 20 :33; Admin Dose 40 MG; Start 03/08/17 at 21:00 Memantine (Namenda) 10 mg BID GTB Last administered on 03/08/17 20:37; Admin Dose 10 MG; Start 03/08/17 at 21:00 Polyethylene Glycol (Miralax) 17 gm BID GTB Last administered on 03/08/17 20: 33; Admin Dose 17 GM; Start 03/08/17 at 21:00 Docusate Sodium (Colace Liquid Cup) 200 mg BID GTB Last administered on 20:32; Admin Dose 200 MG; Start 03/08/17 at 21:00 ARCADIO DIXON Mar 09, 2017 09:29
--- NOTE | 2017-03-09 10:35 | PN ---
Date/Time of Note Date/Time of Note DATE: 03/09/17 TIME: 10:32 Assessment/Plan VTE Prophylaxis VTE Prophylaxis Intervention: other Lines/Catheters IV Catheter Type (from [facility]): AUDIE CATH Urinary Cath still in place: No Assessment/Plan Assessment/Plan 1. Oligo-anuric acute kidney injury with previous baseline creatinine of 0.8 to 1.0 mg/dL. Etiology of acute kidney injury is likely secondary to acute tubular necrosis due to contrast-associated nephropathy, hemodynamics. She is now HD dependent. will continue with treatment today. will dc mayo 2. Hyperkalemia. Etiology is secondary to acute kidney injury and acidemia. responded well to HD 3. acute VDRF: vent settings were reviewed. weaning per pulm 4. Mineral bone disorder. We will check calcium and phosphorus levels. No need for phosphate binders at this time. 5. Urinary tract infection. Continue current antibiotic regimen. 6. Diffuse metastatic breast cancer with metastases to brain, bone, lungs, skin. The patient has been seen by hematology/oncology. We will defer to oncology for management. 7. Bilateral pleural effusions, status post thoracentesis. Continue to monitor. 8. Acute encephalopathy, etiology is toxic metabolic. Please note I spent over 40 minutes of critical care time with this patient. Subjective 24 Hr Interval Summary Free Text/Dictation NEPHROLOGY FOLLOWUP SUBJECTIVE: The patient is critically ill, was transferred from medical/ surgical to intensive care unit. s/p intubation. Remains anuric was started on HD seen again today during HD treatment. events were reviewed d/w ICU and HD nurse OBJECTIVE: HEENT: Head is normocephalic. The patient has bilateral temporal wasting. NECK: Supple. HEART: Tachycardic. LUNGS: Show diminished breath sounds at the bases. CHEST: The patient has a mass on her right breast. ABDOMEN: Soft, nontender to palpation. EXTREMITIES: Negative for clubbing, cyanosis. No edema. DERMATOLOGIC: No rashes, noted lymph nodes. NEUROLOGIC: The patient is confused, altered. MUSCULOSKELETAL: No joint effusions. MEDICATIONS: The patient's medications have been reviewed. IMAGING: Chest x-ray shows extensive pulmonary airspace disease consistent with pulmonary edema. Exam/Review of Systems Vital Signs Vitals Vital Signs Date Time Temp Pulse Resp B/P Pulse Ox O2 Delivery O2 Flow Rate FiO2 03/09/17 10:15 107 18 105/55 82 Mechanical Ventilator 03/09/17 10:00 99.1 03/09/17 08:00 60 03/08/17 09:00 4.0 Intake and Output 03/08/17 03/08/17 03/09/17 15:00 23:00 07:00 Intake Total 128.5 ml 1376.75 ml 1456.25 ml Output Total 30 ml 510 ml 20 ml Balance 98.5 ml 866.75 ml 1436.25 ml Results Result Diagram: 03/09/17 0335 03/09/17 0335 Results 24 hrs Laboratory Tests Test 03/08/17 11:02 03/08/17 16:30 03/08/17 18:46 03/08/17 19:58 Blood Gas Specimen Source Blood arterial Arterial Blood Date Drawn 03/08/2017 11:35:24 AM Arterial Blood pH (Temp corrected) 7.326 L Arterial Blood pCO2 (Temp correct) 31.6 L Arterial Blood pO2 (Temp corrected) 84.4 Arterial Blood HCO3 16.1 L Arterial Blood Base Excess -8.8 L Arterial Blood Oxygen Saturation 95.4 Rachid Test ACCEPTAB Arterial Blood Gas Puncture Site Left Radial Arterial Blood Carboxyhemoglobin 0.3 Arterial Blood Methemoglobin 0.4 Blood Gas A-a O2 Differential 308.6 H Oxyhemoglobin Percent 94.7 Total Hemoglobin 10.5 L Blood Gas Temperature 37.0 Blood Gas Respiration Rate 14.0 Blood Gas Actual Respiration Rate 32 Blood Gas Modality VENT - AC FiO2 60.0 Blood Gas Tidal Volume 450.0 Blood Gas Low PEEP Setting 5.0 Blood Gas Notified Whom JLD Blood Gas Notified Time 03/08/2017 11:49:05 AM Sodium Level 146 H Potassium Level 5.6 H Chloride Level 117 H Carbon Dioxide Level 17 L Anion Gap 18 H Blood Urea Nitrogen 40 H Creatinine 2.01 H Glucose Level 61 #L Calcium Level 6.9 L Bedside Glucose 65 L 122 Test 03/09/17 00:27 03/09/17 01:11 03/09/17 03:35 03/09/17 08:30 Blood Gas Specimen Source Blood arterial Blood arterial Arterial Blood Date Drawn 03/09/2017 1:00:03 AM 03/09/2017 8:30:09 AM Arterial Blood pH (Temp corrected) 7.447 7.344 L Arterial Blood pCO2 (Temp correct) 33.3 L 41.7 Arterial Blood pO2 (Temp corrected) 95.6 92.0 Arterial Blood HCO3 22.5 22.2 Arterial Blood Base Excess -1.0 -3.3 L Arterial Blood Oxygen Saturation 97.1 96.1 Rachid Test ACCEPTAB ACCEPTAB Arterial Blood Gas Puncture Site Right Radial Left Radial Arterial Blood Carboxyhemoglobin 0.3 0.3 Arterial Blood Methemoglobin 0.4 0.3 Blood Gas A-a O2 Differential 223.4 H 217.6 H Oxyhemoglobin Percent 96.4 95.5 Total Hemoglobin 11.2 L 12.0 Blood Gas Temperature 37.0 37.0 Blood Gas Respiration Rate 14.0 14.0 Blood Gas Actual Respiration Rate 27 24 Blood Gas Modality VENT - AC VENT - AC FiO2 50.0 50.0 Blood Gas Tidal Volume 450.0 450.0 Blood Gas Low PEEP Setting 5.0 5.0 Blood Gas Notified Whom LW CW Blood Gas Notified Time 03/09/2017 1:09:42 AM 03/09/2017 8:46:20 AM Bedside Glucose 111 White Blood Count 6.1 Red Blood Count 2.84 L Hemoglobin 8.9 L Hematocrit 29.5 L Mean Corpuscular Volume 103.9 H Mean Corpuscular Hemoglobin 31.3 Mean Corpuscular Hemoglobin Concent 30.2 L Red Cell Distribution Width 23.3 H Platelet Count 101 L Mean Platelet Volume 11.2 H Neutrophils % 50.0 Band Neutrophils % 15.0 H Lymphocytes % 22.0 Monocytes % 7.0 Eosinophils % 2.0 Basophils % 1.0 Metamyelocytes % 1.0 H Myelocytes % 2.0 H Nucleated Red Blood Cells % 37.0 H Neutrophils # 3.1 Lymphocytes # 1.3 Monocytes # 0.4 Eosinophils # 0.1 Basophils # 0.1 Metamyelocytes # 0.1 Myelocytes # 0.1 Sodium Level 142 Potassium Level 5.0 Chloride Level 108 Carbon Dioxide Level 24 Anion Gap 15 Blood Urea Nitrogen 33 H Creatinine 1.88 H Glucose Level 119 # Calcium Level 6.9 L Medications Medications Current Medications Ondansetron HCl (Zofran Inj) 4 mg Q6H PRN IV NAUSEA AND/OR VOMITING; Start 03/03 at 09:00 Magnesium Hydroxide (Milk Of Mag) 30 ml DAILY PRN PO CONSTIPATION Last administered on 03/05/17t 20:57; Admin Dose 30 ML; Start 03/03/17 at 09:00 Bisacodyl (Dulcolax) 5 mg DAILY PRN PO CONSTIPATION; Start 03/03/17 at 09:00 Enoxaparin Sodium (Lovenox) 40 mg DAILY SC Last administered on 03/08/17 09:46 ; Admin Dose 40 MG; Start 03/03/17 at 09:00 Bisacodyl 10 mg 10 mg DAILY PRN PO CONSTIPATION; Start 03/03/17 at 09:30 Cefepime HCl 50 ml @ 100 mls/hr Q24H IVPB Last administered on 03/08/17 11:21 ; Admin Dose 100 MLS/HR; Start 03/08/17 at 11:00 Midazolam HCl 50 ml @ 1 mls/hr TITRATE IV Last administered on 03/08/17 21:20 ; Admin Dose 4.5 MLS/HR; Start 03/08/17 at 10:30 Phenylephrine HCl/ Dextrose (Leno-Syneph/D5W) 500 ml @ 75 mls/hr TITRATE IV Last administered on 03/09/17 07:42; Admin Dose 112.5 MLS/HR; Start 03/08/17 at 12:00 Lorazepam 0.5 mg 0.5 mg Q6H PRN IV anxiety / ; Start 03/08/17 at 11:00 Fentanyl (Sublimaze) 100 ml @ 1.5 mls/hr TITRATE IV Last administered on 12:54; Admin Dose 0.25 MLS/HR; Start 03/08/17 at 12:30 IV Flush 10 ml 10 ml PRN PRN IV FLUSH LINE; Start 03/08/17 at 17:00 Dextrose/Sodium Chloride (D5-NS) 1,000 ml @ 75 mls/hr [id number] IV Last administered on 03/09/17 07:00; Admin Dose 75 MLS/HR; Start 03/08/17 at 17:30 Acetaminophen (Tylenol Tab) 650 mg Q6H PRN GTB PAIN LEVEL 1-3 OR FEVER Last administered on 03/08/17 20:33; Admin Dose 650 MG; Start 03/08/17 at 21:00 Cholecalciferol (Vitamin D) 1,000 unit DAILY GTB ; Start 03/09/17 at 09:00 Famotidine (Pepcid) 20 mg QAM GTB Last administered on 03/08/17 20:33; Admin Dose 20 MG; Start 03/08/17 at 21:00 Levothyroxine Sodium (Synthroid) 75 mcg DAILY@06 GTB Last administered on 05:51; Admin Dose 75 MCG; Start 03/09/17 at 06:00 Megestrol Acetate (Megace Susp) 40 mg QID GTB Last administered on 03/08/17 20 :33; Admin Dose 40 MG; Start 03/08/17 at 21:00 Memantine (Namenda) 10 mg BID GTB Last administered on 03/08/17 20:37; Admin Dose 10 MG; Start 03/08/17 at 21:00 Polyethylene Glycol (Miralax) 17 gm BID GTB Last administered on 03/08/17 20: 33; Admin Dose 17 GM; Start 03/08/17 at 21:00 Docusate Sodium (Colace Liquid Cup) 200 mg BID GTB Last administered on 20:32; Admin Dose 200 MG; Start 03/08/17 at 21:00 SANA MUSTAFA DO Mar 09, 2017 10:35
[2017-03-09] MEDS: CEFEPIME 1GM/50 ML (PMX) 50 ML IVPB SCH (10:46)
--- NOTE | 2017-03-09 10:48 | PN ---
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 Per Dr. Rob, fortunately the mass has minimal mass effect on the underlying brain and the patient is asymptomatic, so neurosurgical intervention at this point is unwarranted. Patient now admitted with dyspnea as well as pleuritic chest pain. In the emergency room, the patient underwent a chest x-ray that showed cardiomegaly with increased right pleural effusion with bibasilar atelectasis versus infiltrate. The patient's chest CTA showed no evidence of PE or aortic dissection; however, this showed large right-sided pleural effusion with underlying atelectasis/consolidation, slightly increased with moderate left- sided pleural effusion. The CT again revealed complex right breast mass, unchanged. Patient underwent right thoracentesis on 03/04/17 with 1.9L fluid removed with cytology demonstrating metastatic adenocarcinoma compatible with breast primary. She was intubated this week and CXR showed extensive pulm airspace disease consistent with pulmonary edema, worse, with small bilateral pleural effusion. DDx fluid overload vs. pneumonia, also would like to rule out lymphangitic spread although initial CTA did not suggest. Cards following to eval for CHF, pending TTE. On diuretics per primary team with plan for dialysis. On antibiotics (- In November 2016, tumor markers were elevated CA 27-29 382, CA 15-3 151. Now CA 27-29 313, CA 15-3 77 without systemic therapy. - Patient will need outpatient PET/CT if and once she improves. - If patient's respiratory status and renal status can be stabilized, will be able to initiate systemic therapy either hormonal or chemotherapy if evidence of visceral crisis. - Patient will also need BRCA testing as an outpatient given +FHx (sister with DCIS, aunt and cousin s/p mastectomy, unclear if early stage or prophylactic) # Macrocytic anemia/thrombocytopenia - Patient previously had normocytic anemia and thrombocytopenia with nucleated RBCs attributed to bone marrow involvement. Patient now has macrocytic anemia with normal Vitamin B12/folate level; homocysteine and methylmalonic acid pending. TSH elevated at 17.5 and free T4 low at 0.44, therefore macrocytic anemia may be related to hypothyroidism - management per primary team. - Retic count inappropriately low at 76K, iron panel c/w anemia of chronic inflammation, LDH and haptoglobin pending - s/p 2 units pRBCs 03/05 for Hgb 7.9, now stable ~8.9 # JOSEPH, nephrology consulted Subjective 24 Hr Interval Summary Subjective hx not possible: pt non-verbal, pt critical ENT: bleeding Exam/Review of Systems Vital Signs Vitals Vital Signs Date Time Temp Pulse Resp B/P Pulse Ox O2 Delivery O2 Flow Rate FiO2 03/09/17 10:15 107 18 105/55 82 Mechanical Ventilator 03/09/17 10:00 99.1 03/09/17 08:00 60 03/08/17 09:00 4.0 Intake and Output 03/08/17 03/08/17 03/09/17 15:00 23:00 07:00 Intake Total 128.5 ml 1376.75 ml 1456.25 ml Output Total 30 ml 510 ml 20 ml Balance 98.5 ml 866.75 ml 1436.25 ml Exam tachycardia AC with 100%FiO2 seen after HD completion Constitutional: distress, frail, non-verbal Respiratory: diminished breath sounds, labored breathing Results Result Diagram: 03/09/17 0335 03/09/17 0335 Results 24 hrs Laboratory Tests Test 03/08/17 11:02 03/08/17 16:30 03/08/17 18:46 03/08/17 19:58 Blood Gas Specimen Source Blood arterial Arterial Blood Date Drawn 03/08/2017 11:35:24 AM Arterial Blood pH (Temp corrected) 7.326 L Arterial Blood pCO2 (Temp correct) 31.6 L Arterial Blood pO2 (Temp corrected) 84.4 Arterial Blood HCO3 16.1 L Arterial Blood Base Excess -8.8 L Arterial Blood Oxygen Saturation 95.4 Rachid Test ACCEPTAB Arterial Blood Gas Puncture Site Left Radial Arterial Blood Carboxyhemoglobin 0.3 Arterial Blood Methemoglobin 0.4 Blood Gas A-a O2 Differential 308.6 H Oxyhemoglobin Percent 94.7 Total Hemoglobin 10.5 L Blood Gas Temperature 37.0 Blood Gas Respiration Rate 14.0 Blood Gas Actual Respiration Rate 32 Blood Gas Modality VENT - AC FiO2 60.0 Blood Gas Tidal Volume 450.0 Blood Gas Low PEEP Setting 5.0 Blood Gas Notified Whom NIKOLASD Blood Gas Notified Time 03/08/2017 11:49:05 AM Sodium Level 146 H Potassium Level 5.6 H Chloride Level 117 H Carbon Dioxide Level 17 L Anion Gap 18 H Blood Urea Nitrogen 40 H Creatinine 2.01 H Glucose Level 61 #L Calcium Level 6.9 L Bedside Glucose 65 L 122 Test 03/09/17 00:27 03/09/17 01:11 03/09/17 03:35 03/09/17 08:30 Blood Gas Specimen Source Blood arterial Blood arterial Arterial Blood Date Drawn 03/09/2017 1:00:03 AM 03/09/2017 8:30:09 AM Arterial Blood pH (Temp corrected) 7.447 7.344 L Arterial Blood pCO2 (Temp correct) 33.3 L 41.7 Arterial Blood pO2 (Temp corrected) 95.6 92.0 Arterial Blood HCO3 22.5 22.2 Arterial Blood Base Excess -1.0 -3.3 L Arterial Blood Oxygen Saturation 97.1 96.1 Rachid Test ACCEPTAB ACCEPTAB Arterial Blood Gas Puncture Site Right Radial Left Radial Arterial Blood Carboxyhemoglobin 0.3 0.3 Arterial Blood Methemoglobin 0.4 0.3 Blood Gas A-a O2 Differential 223.4 H 217.6 H Oxyhemoglobin Percent 96.4 95.5 Total Hemoglobin 11.2 L 12.0 Blood Gas Temperature 37.0 37.0 Blood Gas Respiration Rate 14.0 14.0 Blood Gas Actual Respiration Rate 27 24 Blood Gas Modality VENT - AC VENT - AC FiO2 50.0 50.0 Blood Gas Tidal Volume 450.0 450.0 Blood Gas Low PEEP Setting 5.0 5.0 Blood Gas Notified Whom GENARO CW Blood Gas Notified Time 03/09/2017 1:09:42 AM 03/09/2017 8:46:20 AM Bedside Glucose 111 White Blood Count 6.1 Red Blood Count 2.84 L Hemoglobin 8.9 L Hematocrit 29.5 L Mean Corpuscular Volume 103.9 H Mean Corpuscular Hemoglobin 31.3 Mean Corpuscular Hemoglobin Concent 30.2 L Red Cell Distribution Width 23.3 H Platelet Count 101 L Mean Platelet Volume 11.2 H Neutrophils % 50.0 Band Neutrophils % 15.0 H Lymphocytes % 22.0 Monocytes % 7.0 Eosinophils % 2.0 Basophils % 1.0 Metamyelocytes % 1.0 H Myelocytes % 2.0 H Nucleated Red Blood Cells % 37.0 H Neutrophils # 3.1 Lymphocytes # 1.3 Monocytes # 0.4 Eosinophils # 0.1 Basophils # 0.1 Metamyelocytes # 0.1 Myelocytes # 0.1 Sodium Level 142 Potassium Level 5.0 Chloride Level 108 Carbon Dioxide Level 24 Anion Gap 15 Blood Urea Nitrogen 33 H Creatinine 1.88 H Glucose Level 119 # Calcium Level 6.9 L Medications Medications Current Medications Ondansetron HCl (Zofran Inj) 4 mg Q6H PRN IV NAUSEA AND/OR VOMITING; Start 03/03 at 09:00 Magnesium Hydroxide (Milk Of Mag) 30 ml DAILY PRN PO CONSTIPATION Last administered on 03/05/17 20:57; Admin Dose 30 ML; Start 03/03/17 at 09:00 Bisacodyl (Dulcolax) 5 mg DAILY PRN PO CONSTIPATION; Start 03/03/17 at 09:00 Enoxaparin Sodium (Lovenox) 40 mg DAILY SC Last administered on 03/08/17 09:46 ; Admin Dose 40 MG; Start 03/03/17 at 09:00 Bisacodyl 10 mg 10 mg DAILY PRN PO CONSTIPATION; Start 03/03/17 at 09:30 Cefepime HCl 50 ml @ 100 mls/hr Q24H IVPB Last administered on 03/08/17 11:21 ; Admin Dose 100 MLS/HR; Start 03/08/17 at 11:00 Midazolam HCl 50 ml @ 1 mls/hr TITRATE IV Last administered on 03/08/17 21:20 ; Admin Dose 4.5 MLS/HR; Start 03/08/17 at 10:30 Phenylephrine HCl/ Dextrose (Leno-Syneph/D5W) 500 ml @ 75 mls/hr TITRATE IV Last administered on 03/09/17 07:42; Admin Dose 112.5 MLS/HR; Start 03/08/17 at 12:00 Lorazepam 0.5 mg 0.5 mg Q6H PRN IV anxiety / ; Start 03/08/17 at 11:00 Fentanyl (Sublimaze) 100 ml @ 1.5 mls/hr TITRATE IV Last administered on 12:54; Admin Dose 0.25 MLS/HR; Start 03/08/17 at 12:30 IV Flush 10 ml 10 ml PRN PRN IV FLUSH LINE; Start 03/08/17 at 17:00 Dextrose/Sodium Chloride (D5-NS) 1,000 ml @ 75 mls/hr [id number] IV Last administered on 03/09/17 07:00; Admin Dose 75 MLS/HR; Start 03/08/17 at 17:30 Acetaminophen (Tylenol Tab) 650 mg Q6H PRN GTB PAIN LEVEL 1-3 OR FEVER Last administered on 03/08/17 20:33; Admin Dose 650 MG; Start 03/08/17 at 21:00 Cholecalciferol (Vitamin D) 1,000 unit DAILY GTB ; Start 03/09/17 at 09:00 Famotidine (Pepcid) 20 mg QAM GTB Last administered on 03/08/17 20:33; Admin Dose 20 MG; Start 03/08/17 at 21:00 Levothyroxine Sodium (Synthroid) 75 mcg DAILY@06 GTB Last administered on 05:51; Admin Dose 75 MCG; Start 03/09/17 at 06:00 Megestrol Acetate (Megace Susp) 40 mg QID GTB Last administered on 03/08/17 20 :33; Admin Dose 40 MG; Start 03/08/17 at 21:00 Memantine (Namenda) 10 mg BID GTB Last administered on 03/08/17 20:37; Admin Dose 10 MG; Start 03/08/17 at 21:00 Polyethylene Glycol (Miralax) 17 gm BID GTB Last administered on 03/08/17 20: 33; Admin Dose 17 GM; Start 03/08/17 at 21:00 Docusate Sodium (Colace Liquid Cup) 200 mg BID GTB Last administered on 20:32; Admin Dose 200 MG; Start 03/08/17 at 21:00 RODDY FAN MD Mar 09, 2017 10:48
[2017-03-09] MEDS ORDERED: VANCOMYCIN 750 MG in SOD CHLORIDE 0.9% 150 ML IVPB SCH (11:30)
[2017-03-09] MEDS: FENTAnyl (DRIP) 1000 mcg/100mL 100 ML IV SCH (12:14)
--- NOTE | 2017-03-09 13:29 | PN ---
Date/Time of Note Date/Time of Note DATE: 03/09/17 TIME: 13:28 Assessment/Plan Lines/Catheters IV Catheter Type (from Nrsg): AUDIE CATH [place] in Place (from Nrsg): No Assessment/Plan Chief Complaint/Hosp Course Renal Failure SP HD cath placement will continue Dialysis may need permcath placement Problems: Subjective 24 Hr Interval Summary Constitutional: improved Pain Control: mild Exam/Review of Systems Vital Signs Vitals Vital Signs Date Time Temp Pulse Resp B/P Pulse Ox O2 Delivery O2 Flow Rate FiO2 03/09/17 12:30 105 18 81/20 100 Mechanical Ventilator 03/09/17 12:00 2.0 03/09/17 12:00 98.2 03/09/17 10:20 100 Intake and Output 03/08/17 03/08/17 03/09/17 15:00 23:00 07:00 Intake Total 128.5 ml 1376.75 ml 1456.25 ml Output Total 30 ml 510 ml 20 ml Balance 98.5 ml 866.75 ml 1436.25 ml Exam ENMT: mucosa pink and moist, nl external ears & nose, nl lips & teeth, nl nasal mucosa & septum Neck: non-tender, supple Respiratory: clear to auscultation, normal air movement Cardiovascular: nl pulses, regular rate and rhythm Gastrointestinal: nl liver, spleen, non-tender, soft Results Result Diagram: 03/09/17 0335 03/09/17 0335 JANESSA KENYON MD Mar 09, 2017 13:29
--- NOTE | 2017-03-09 14:38 | PN ---
Date/Time of Note Date/Time of Note DATE: 03/09/17 TIME: 14:34 Assessment/Plan VTE Prophylaxis VTE Prophylaxis Intervention: LMWH Lines/Catheters IV [facility]from [facility]): AUDIE CATH Urinary Cath still in place: No Assessment/Plan Chief Complaint/Hosp Course Assessment and plan 1. Acute on chronic respiratory failure secondary to underlying pleural effusions. [employer] following. Patient status post thoracentesis with roughly 1.9 mL removed. Patient was worse breathing requiring intubation. Diuretic per nephrology. On HD per nephrology. 2. Bilateral malignant pleural effusions. . Continue with groundskeeping maintenance recommendations. HD per nephrology. Continue with groundskeeping maintenance recommendation 3. Macrocytic anemia. Monitor H&H. Transfuse as needed 4. Positive urinalysis. Noted with mixed gram-positive organisms. On antibiotics 5. Metastatic breast cancer with metastasis to brain and bones as well as skin. Oncologist following. Follow-up with inpatient oncologist recommendations. Of note patient unable to go to her outpatient oncologist due to her critical state. 6. Multiple skin lesions. Suspect secondary to her metastatic cancer. Continue with oncology recommendation 7. andree. Medications to be renally dosed. Slightly worse function at this time. Follow-up with nephrology recommendations 8. Deconditioning. In ICU. Physical therapy to follow once improved 9. Malnutrition. cont on megace Disposition and plan: Remains intubated. Glost Placer following. Noted with preserved EF. Monitor for clinical improvement. Discussed but of care with Dr. Del Angel Critical Care time: 30 minutes Problems: Subjective 24 Hr Interval Summary Free Text/Dictation Remains intubated and sedated. Family at bedside. Exam/Review of Systems Vital Signs Vitals Vital Signs Date Time Temp Pulse Resp B/P Pulse Ox O2 Delivery O2 Flow Rate FiO2 03/09/17 12:30 105 18 81/20 100 Mechanical Ventilator 03/09/17 12:00 2.0 03/09/17 12:00 98.2 03/09/17 10:20 100 Intake and Output 03/08/17 03/08/17 03/09/17 15:00 23:00 07:00 Intake Total 128.5 ml 1376.75 ml 1456.25 ml Output Total 30 ml 510 ml 20 ml Balance 98.5 ml 866.75 ml 1436.25 ml Exam Constitutional: other (Intubated and sedated) Head: normocephalic Neck: non-tender, supple Respiratory: diminished breath sounds, labored breathing, wheezing Cardiovascular: regular rate and rhythm Musculoskeletal: nl extremities to inspection Extremities: normal pulses, No edema 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: other Skin: other (Lesion seen on whole-body) Results Result Diagram: 03/09/17 0335 03/09/17 0335 Results 24 hrs Laboratory Tests Test 03/08/17 16:30 03/08/17 18:46 03/08/17 19:58 03/09/17 00:27 Sodium Level 146 H Potassium Level 5.6 H Chloride Level 117 H Carbon Dioxide Level 17 L Anion Gap 18 H Blood Urea Nitrogen 40 H Creatinine 2.01 H Glucose Level 61 #L Calcium Level 6.9 L Bedside Glucose 65 L 122 Blood Gas Specimen Source Blood arterial Arterial Blood Date Drawn 03/09/2017 1:00:03 AM Arterial Blood pH (Temp corrected) 7.447 Arterial Blood pCO2 (Temp correct) 33.3 L Arterial Blood pO2 (Temp corrected) 95.6 Arterial Blood HCO3 22.5 Arterial Blood Base Excess -1.0 Arterial Blood Oxygen Saturation 97.1 Rachid Test ACCEPTAB Arterial Blood Gas Puncture Site Right Radial Arterial Blood Carboxyhemoglobin 0.3 Arterial Blood Methemoglobin 0.4 Blood Gas A-a O2 Differential 223.4 H Oxyhemoglobin Percent 96.4 Total Hemoglobin 11.2 L Blood Gas Temperature 37.0 Blood Gas Respiration Rate 14.0 Blood Gas Actual Respiration Rate 27 Blood Gas Modality VENT - AC FiO2 50.0 Blood Gas Tidal Volume 450.0 Blood Gas Low PEEP Setting 5.0 Blood Gas Notified Whom LW Blood Gas Notified Time 03/09/2017 1:09:42 AM Test 03/09/17 01:11 03/09/17 03:35 03/09/17 08:30 Bedside Glucose 111 White Blood Count 6.1 Red Blood Count 2.84 L Hemoglobin 8.9 L Hematocrit 29.5 L Mean Corpuscular Volume 103.9 H Mean Corpuscular Hemoglobin 31.3 Mean Corpuscular Hemoglobin Concent 30.2 L Red Cell Distribution Width 23.3 H Platelet Count 101 L Mean Platelet Volume 11.2 H Neutrophils % 50.0 Band Neutrophils % 15.0 H Lymphocytes % 22.0 Monocytes % 7.0 Eosinophils % 2.0 Basophils % 1.0 Metamyelocytes % 1.0 H Myelocytes % 2.0 H Nucleated Red Blood Cells % 37.0 H Neutrophils # 3.1 Lymphocytes # 1.3 Monocytes # 0.4 Eosinophils # 0.1 Basophils # 0.1 Metamyelocytes # 0.1 Myelocytes # 0.1 Sodium Level 142 Potassium Level 5.0 Chloride Level 108 Carbon Dioxide Level 24 Anion Gap 15 Blood Urea Nitrogen 33 H Creatinine 1.88 H Glucose Level 119 # Calcium Level 6.9 L Blood Gas Specimen Source Blood arterial Arterial Blood Date Drawn 03/09/2017 8:30:09 AM Arterial Blood pH (Temp corrected) 7.344 L Arterial Blood pCO2 (Temp correct) 41.7 Arterial Blood pO2 (Temp corrected) 92.0 Arterial Blood HCO3 22.2 Arterial Blood Base Excess -3.3 L Arterial Blood Oxygen Saturation 96.1 Rachid Test ACCEPTAB Arterial Blood Gas Puncture Site Left Radial Arterial Blood Carboxyhemoglobin 0.3 Arterial Blood Methemoglobin 0.3 Blood Gas A-a O2 Differential 217.6 H Oxyhemoglobin Percent 95.5 Total Hemoglobin 12.0 Blood Gas Temperature 37.0 Blood Gas Respiration Rate 14.0 Blood Gas Actual Respiration Rate 24 Blood Gas Modality VENT - AC FiO2 50.0 Blood Gas Tidal Volume 450.0 Blood Gas Low PEEP Setting 5.0 Blood Gas Notified Whom CW Blood Gas Notified Time 03/09/2017 8:46:20 AM Medications Medications Current Medications Ondansetron HCl (Zofran Inj) 4 mg Q6H PRN IV NAUSEA AND/OR VOMITING; Start 03/03 at 09:00 Magnesium Hydroxide (Milk Of Mag) 30 ml DAILY PRN PO CONSTIPATION Last administered on 03/05/17 20:57; Admin Dose 30 ML; Start 03/03/17 at 09:00 Bisacodyl (Dulcolax) 5 mg DAILY PRN PO CONSTIPATION; Start 03/03/17 at 09:00 Enoxaparin Sodium (Lovenox) 40 mg DAILY SC Last administered on 03/09/17 10:47 ; Admin Dose 40 MG; Start 03/03/17 at 09:00 Bisacodyl 10 mg 10 mg DAILY PRN PO CONSTIPATION; Start 03/03/17 at 09:30 Cefepime HCl 50 ml @ 100 mls/hr Q24H IVPB Last administered on 03/09/17 10:46 ; Admin Dose 100 MLS/HR; Start 03/08/17 at 11:00 Midazolam HCl 50 ml @ 1 mls/hr TITRATE IV Last administered on 03/08/17 21:20 ; Admin Dose 4.5 MLS/HR; Start 03/08/17 at 10:30 Phenylephrine HCl/ Dextrose (Leno-Syneph/D5W) 500 ml @ 75 mls/hr TITRATE IV Last administered on 03/09/17 12:13; Admin Dose 150 MLS/HR; Start 03/08/17 at 12:00 Lorazepam 0.5 mg 0.5 mg Q6H PRN IV anxiety / ; Start 03/08/17 at 11:00 Fentanyl (Sublimaze) 100 ml @ 1.5 mls/hr TITRATE IV Last administered on 12:14; Admin Dose 7.5 MLS/HR; Start 03/08/17 at 12:30 IV Flush 10 ml 10 ml PRN PRN IV FLUSH LINE; Start 03/08/17 at 17:00 Dextrose/Sodium Chloride (D5-NS) 1,000 ml @ 75 mls/hr [id number] IV Last administered on 03/09/17 07:00; Admin Dose 75 MLS/HR; Start 03/08/17 at 17:30 Acetaminophen (Tylenol Tab) 650 mg Q6H PRN GTB PAIN LEVEL 1-3 OR FEVER Last administered on 03/08/17 20:33; Admin Dose 650 MG; Start 03/08/17 at 21:00 Cholecalciferol (Vitamin D) 1,000 unit DAILY GTB Last administered on 10:46; Admin Dose 1,000 UNIT; Start 03/09/17 at 09:00 Famotidine (Pepcid) 20 mg QAM GTB Last administered on 03/09/17 10:46; Admin Dose 20 MG; Start 03/08/17 at 21:00 Levothyroxine Sodium (Synthroid) 75 mcg DAILY@06 GTB Last administered on 05:51; Admin Dose 75 MCG; Start 03/09/17 at 06:00 Megestrol Acetate (Megace Susp) 40 mg QID GTB Last administered on 03/08/17 20 :33; Admin Dose 40 MG; Start 03/08/17 at 21:00 Memantine (Namenda) 10 mg BID GTB Last administered on 03/09/17 10:46; Admin Dose 10 MG; Start 03/08/17 at 21:00 Polyethylene Glycol (Miralax) 17 gm BID GTB Last administered on 03/08/17 20: 33; Admin Dose 17 GM; Start 03/08/17 at 21:00 Docusate Sodium (Colace Liquid Cup) 200 mg BID GTB Last administered on 20:32; Admin Dose 200 MG; Start 03/08/17 at 21:00 Miscellaneous Information (*Rx Drug Level Order Reminder*) RANDOM VANCOMYCIN LEVEL 4... ONCE ONCE XX ; Start 03/10/17 at 05:00; Stop 03/10/17 at 05:01 NICK HI Mar 09, 2017 14:38 NICK HI Mar 09, 2017 14:38
[2017-03-09] MEDS ORDERED: NORepinephrine 8MG/250 ML (PMX 250 ML ONE (14:48)
[2017-03-09] MEDS: ACETAMINOPHEN 325 MG TAB GTB PRN (17:05)
[2017-03-10] VITALS (107 sets, daily range): BP systolic 70–118; BP diastolic 34–68; PULSE 97–125; RESP 12–19
[2017-03-10] MEDS: VASOPRESSIN 60 UNIT in DEXTROSE 5% 57 ML IV SCH ×3 (00:25→19:04)
[2017-03-10] MEDS: PHENYLephrine 40 MG in DEXTROSE 5% 496 ML IV SCH ×4 (00:41→08:08)
--- NOTE | 2017-03-10 02:59 | RADRPT ---
PROCEDURE: XR Chest. CLINICAL INDICATION: Respiratory failure. TECHNIQUE: PA and Lateral views of the chest were obtained. COMPARISON: 03/08/2017. FINDINGS: Endotracheal intubation with tip about 5 cm above the сергей. Nasogastric tube in place with tip an d sideport in the mid to distal stomach. Cardiac silhouette is at upper limits of normal. Improved bilateral dense patchy air space disease with decreased small bilateral pleural effusions. No signs of pneumothorax are seen. The osseous structures and soft tissues are unremarkable. IMPRESSION: Decreased bilateral dense patchy air space disease with decreased bilateral small pleural effusions. RPTAT: [facility]U Physician Hans Date Time Electronically viewed and signed by Physician Hans on 03/10/2017 02:59 RS/
[2017-03-10 03:49] LABS: ADD SCAN DIFF NO
[2017-03-10 03:50] LABS: ABNORMAL IP MESSAGE 1; BASOPHILS % 0.7 % (0.0-2.0); EOSINOPHILS # 0.1 10^3/ul (0.0-0.5); EOSINOPHILS % 2.6 % (0.0-7.0); HEMATOCRIT 31.9 % (37.0-47.0); HEMOGLOBIN 9.1 g/dl (12.0-16.0); LYMPHOCYTES # 1.1 10^3/ul (0.8-2.9); LYMPHOCYTES % 27.3 % (15.0-51.0); MEAN CORPUSCULAR HEMOGLOBIN 31.9 pg (29.0-33.0); MEAN CORPUSCULAR HGB CONC 28.5 g/dl (32.0-37.0); MEAN CORPUSCULAR VOLUME 111.9 fl (82.0-101.0); MEAN PLATELET VOLUME 10.3 fl (7.4-10.4); MONOCYTE # 0.5 10^3/ul (0.3-0.9); NEUTROPHIL # 2.3 10^3/ul (1.6-7.5); NEUTROPHILS % 55.8 % (39.0-77.0); NUCLEATED RED BLOOD CELLS # 2.9 10^3/ul (0.0-0.0); NUCLEATED RED BLOOD CELLS% 69.4 /100WBC (0.0-0.0); PLATELET COUNT 68 10^3/UL (140-415); RED BLOOD COUNT 2.85 10^6/ul (4.20-5.40); RED CELL DISTRIBUTION WIDTH 23.2 % (11.5-14.5); WHITE BLOOD COUNT 4.2 10^3/ul (4.8-10.8)
[2017-03-10] MEDS: FENTAnyl (DRIP) 1000 mcg/100mL 100 ML IV SCH (04:09)
[2017-03-10 04:21] LABS: POTASSIUM 4.4 mmol/L (3.5-5.1)
[2017-03-10 04:24] LABS: CALCIUM 6.2 mg/dl (8.4-10.2)
[2017-03-10 04:35] LABS: CREATININE 2.2 mg/dl (0.44-1.00)
[2017-03-10] MEDS: LEVOTHYROXINE 75 MCG TAB GTB SCH (06:27)
[2017-03-10] MEDS: LEVALBUTEROL (HFA) 15 GM INHALER INH SCH ×4 (07:46→23:31)
[2017-03-10] MEDS: DOCUSATE SODIUM 10 MG/ML (10ML CUP) GTB SCH ×2 (08:12→20:02)
[2017-03-10] MEDS: POLYETHYLENE GLYCOL 17 GM PACKET GTB SCH ×2 (08:12→20:02)
[2017-03-10] MEDS: MEMANTINE 5 MG TAB GTB SCH ×2 (08:40→20:37)
[2017-03-10] MEDS: MEGESTROL (40 MG/ML) 10ML CUP GTB SCH (08:40)
[2017-03-10] MEDS: FAMOTIDINE 20 MG TAB GTB SCH (08:40)
[2017-03-10] MEDS: CHOLECALCIFEROL 1,000 UNIT TAB GTB SCH (08:40)
[2017-03-10] MEDS: ENOXAPARIN 40 MG/0.4 ML SYG SC SCH (08:40)
--- NOTE | 2017-03-10 09:10 | CONS ---
Date/Time of Note Date/Time of Note DATE: 03/10/17 TIME: 09:08 Assessment/Plan Assessment/Plan Chief Complaint/Hosp Course Acute respiratory failure: Multifactorial from malignant pleural effusions, CHF in setting of acute renal failure and poor UOP. Now intubated Acute decompensated diastolic heart failure: secondary to renal failure. Echo was a poor study but EF appears preserved. Now on HD Acute renal failure: started on HD Shock: ?septic. Now on 3 pressors maxed out Metastatic breast ca -HD for volume removal as hemodynamics tolerate -can add dopamine as 4th agent PRN -rediscuss goals of care with family -will follow Problems: Consultation Date/Type/Reason Admit Date/Time Mar 03, 2017 at 05:39 Initial Consult Date 03/09/17 Type of Consultation: Cardiology Referring Provider: NICK HI 24 HR Interval Summary Free Text/Dictation Now on 3 pressors, maxed out. Family would still like everything done Exam/Review of Systems Vital Signs Vitals Vital Signs Date Time Temp Pulse Resp B/P Pulse Ox O2 Delivery O2 Flow Rate FiO2 03/10/17 09:00 107 17 93/54 100 Mechanical Ventilator 03/10/17 07:48 100 03/10/17 07:45 98.8 03/09/17 12:00 2.0 Intake and Output 03/09/17 03/09/17 03/10/17 15:00 23:00 07:00 Intake Total 3092.5 ml 2915.60 ml 2916.75 ml Output Total 400 ml 0 ml 0 ml Balance 2692.5 ml 2915.60 ml 2916.75 ml Exam Constitutional: No alert ENMT: intubated Neck: jvd (difficult to examine) Respiratory: diminished breath sounds, No clear to auscultation Cardiovascular: No edema, No regular rate and rhythm (tachycardic) Gastrointestinal: non-tender, soft Results Result Diagram: 03/10/17 0330 03/10/17 0330 Results 24 hrs Laboratory Tests Test 03/10/17 03:30 White Blood Count 4.2 #L Red Blood Count 2.85 L Hemoglobin 9.1 L Hematocrit 31.9 L Mean Corpuscular Volume 111.9 H Mean Corpuscular Hemoglobin 31.9 Mean Corpuscular Hemoglobin Concent 28.5 L Red Cell Distribution Width 23.2 H Platelet Count 68 #L Mean Platelet Volume 10.3 Neutrophils % 55.8 Lymphocytes % 27.3 Monocytes % 11.0 Eosinophils % 2.6 Basophils % 0.7 Nucleated Red Blood Cells % 69.4 H Neutrophils # 2.3 Lymphocytes # 1.1 Monocytes # 0.5 Eosinophils # 0.1 Basophils # 0.0 Nucleated Red Blood Cells # 2.9 H Sodium Level 132 L Potassium Level 4.4 Chloride Level 100 Carbon Dioxide Level 20 L Anion Gap 16 Blood Urea Nitrogen 22 #H Creatinine 2.20 H Glucose Level 197 Calcium Level 6.2 L Magnesium Level 2.4 Random Vancomycin Level 8.0 Medications Medications Current Medications Ondansetron HCl (Zofran Inj) 4 mg Q6H PRN IV NAUSEA AND/OR VOMITING; Start 03/03 at 09:00 Magnesium Hydroxide (Milk Of Mag) 30 ml DAILY PRN PO CONSTIPATION Last administered on 03/05/17 20:57; Admin Dose 30 ML; Start 03/03/17 at 09:00 Bisacodyl (Dulcolax) 5 mg DAILY PRN PO CONSTIPATION; Start 03/03/17 at 09:00 Enoxaparin Sodium (Lovenox) 40 mg DAILY SC Last administered on 03/09/17 10:47 ; Admin Dose 40 MG; Start 03/03/17 at 09:00 Bisacodyl 10 mg 10 mg DAILY PRN PO CONSTIPATION; Start 03/03/17 at 09:30 Cefepime HCl 50 ml @ 100 mls/hr Q24H IVPB Last administered on 03/09/17 10:46 ; Admin Dose 100 MLS/HR; Start 03/08/17 at 11:00 Midazolam HCl (Versed) 50 ml @ 1 mls/hr TITRATE IV Last administered on 21:20; Admin Dose 4.5 MLS/HR; Start 03/08/17 at 10:30 Lorazepam 0.5 mg 0.5 mg Q6H PRN IV anxiety / ; Start 03/08/17 at 11:00 Fentanyl (Sublimaze) 100 ml @ 1.5 mls/hr TITRATE IV Last administered on 04:09; Admin Dose 6.5 MLS/HR; Start 03/08/17 at 12:30 IV Flush 10 ml 10 ml PRN PRN IV FLUSH LINE; Start 03/08/17 at 17:00 Dextrose/Sodium Chloride (D5-NS) 1,000 ml @ 75 mls/hr [id number] IV Last administered on 03/09/17 21:26; Admin Dose 75 MLS/HR; Start 03/08/17 at 17:30 Acetaminophen (Tylenol Tab) 650 mg Q6H PRN GTB PAIN LEVEL 1-3 OR FEVER Last administered on 03/09/17 17:05; Admin Dose 650 MG; Start 03/08/17 at 21:00 Cholecalciferol (Vitamin D) 1,000 unit DAILY GTB Last administered on 08:40; Admin Dose 1,000 UNIT; Start 03/09/17 at 09:00 Famotidine (Pepcid) 20 mg QAM GTB Last administered on 03/10/17 08:40; Admin Dose 20 MG; Start 03/08/17 at 21:00 Levothyroxine Sodium (Synthroid) 75 mcg DAILY@06 GTB Last administered on 06:27; Admin Dose 75 MCG; Start 03/09/17 at 06:00 Megestrol Acetate (Megace Susp) 40 mg QID GTB Last administered on 03/10/17 08 :40; Admin Dose 40 MG; Start 03/08/17 at 21:00 Memantine (Namenda) 10 mg BID GTB Last administered on 03/10/17 08:40; Admin Dose 10 MG; Start 03/08/17 at 21:00 Polyethylene Glycol (Miralax) 17 gm BID GTB Last administered on 03/09/17 21: 25; Admin Dose 17 GM; Start 03/08/17 at 21:00 Docusate Sodium 200 mg 200 mg BID GTB Last administered on 03/09/17 21:25; Admin Dose 200 MG; Start 03/08/17 at 21:00 Vasopressin 60 unit/Dextrose 60 ml @ 1.2 mls/hr Q12H IV Last administered on 07:24; Admin Dose 2.4 MLS/HR; Start 03/09/17 at 19:00 Phenylephrine HCl 160 mg/Dextrose 500 ml @ 18.75 mls/ hr TITRATE IV ; Start at 09:00 Norepinephrine/ Dextrose (Levophed/D5W) 500 ml @ 0.93 mls/hr TITRATE IV ; Start 03/10/17 at 09:00 ARCADIO DIXON Mar 10, 2017 09:10
[2017-03-10] MEDS: DEXTROSE 5%-0.9% NACL 1,000 ML IV SCH ×3 (09:12→22:21)
[2017-03-10] MEDS: DOPamine-D5W 1.6 MG/ML 250 ML IV SCH ×3 (09:37→19:57)
[2017-03-10] MEDS: PHENYLephrine 160 MG in DEXTROSE 5% 484 ML IV SCH ×2 (09:50→17:00)
[2017-03-10] MEDS: CEFEPIME 1GM/50 ML (PMX) 50 ML IVPB SCH (10:07)
--- NOTE | 2017-03-10 10:23 | PN ---
Date/Time of Note Date/Time of Note DATE: 03/10/17 TIME: 10:20 Assessment/Plan VTE Prophylaxis VTE Prophylaxis Intervention: other Lines/Catheters [facility] P[facility] Line Central line still needed: Yes Urinary Cath still in place: No Assessment/Plan Assessment/Plan 1. Oligo-anuric acute kidney injury with previous baseline creatinine of 0.8 to 1.0 mg/dL. Etiology of acute kidney injury is likely secondary to acute tubular necrosis due to contrast-associated nephropathy, hemodynamics. too unstable for HD. will reevaluate in am. 2. hypocalcemia: will replete aggressive in light of hypotension 3. acute VDRF: vent settings were reviewed. 4. Mineral bone disorder. We will check calcium and phosphorus levels. No need for phosphate binders at this time. 5. Urinary tract infection. Continue current antibiotic regimen. 6. Diffuse metastatic breast cancer with metastases to brain, bone, lungs, skin. The patient has been seen by hematology/oncology. We will defer to oncology for management. 7. Bilateral pleural effusions, status post thoracentesis. Continue to monitor. 8. Acute encephalopathy, etiology is toxic metabolic. Please note I spent over 40 minutes of critical care time with this patient. Subjective 24 Hr Interval Summary Free Text/Dictation NEPHROLOGY FOLLOWUP SUBJECTIVE: The patient is critically ill, was transferred from medical/ surgical to intensive care unit. s/p intubation. Remains anuric was started on HD. Last treatment was yesterday (unable to remove fluids) hypotensive despite multiple pressors events were reviewed d/w ICU and HD nurse OBJECTIVE: HEENT: Head is normocephalic. The patient has bilateral temporal wasting. NECK: Supple. HEART: Tachycardic. LUNGS: Show diminished breath sounds at the bases. CHEST: The patient has a mass on her right breast. ABDOMEN: Soft, nontender to palpation. EXTREMITIES: Negative for clubbing, cyanosis. No edema. DERMATOLOGIC: No rashes, noted lymph nodes. NEUROLOGIC: The patient is confused, altered. MUSCULOSKELETAL: No joint effusions. MEDICATIONS: The patient's medications have been reviewed. Exam/Review of Systems Vital Signs Vitals Vital Signs Date Time Temp Pulse Resp B/P Pulse Ox O2 Delivery O2 Flow Rate FiO2 03/10/17 09:42 117 16 80 100 03/10/17 09:00 93/54 Mechanical Ventilator 03/10/17 07:45 98.8 4/15/17 12:00 2.0 Intake and Output 03/09/17 03/09/17 03/10/17 15:00 23:00 07:00 Intake Total 3092.5 ml 2915.60 ml 2916.75 ml Output Total 400 ml 0 ml 0 ml Balance 2692.5 ml 2915.60 ml 2916.75 ml Results Result Diagram: 03/10/17 0330 03/10/17 0330 Results 24 hrs Laboratory Tests Test 03/10/17 03:30 White Blood Count 4.2 #L Red Blood Count 2.85 L Hemoglobin 9.1 L Hematocrit 31.9 L Mean Corpuscular Volume 111.9 H Mean Corpuscular Hemoglobin 31.9 Mean Corpuscular Hemoglobin Concent 28.5 L Red Cell Distribution Width 23.2 H Platelet Count 68 #L Mean Platelet Volume 10.3 Neutrophils % 55.8 Lymphocytes % 27.3 Monocytes % 11.0 Eosinophils % 2.6 Basophils % 0.7 Nucleated Red Blood Cells % 69.4 H Neutrophils # 2.3 Lymphocytes # 1.1 Monocytes # 0.5 Eosinophils # 0.1 Basophils # 0.0 Nucleated Red Blood Cells # 2.9 H Sodium Level 132 L Potassium Level 4.4 Chloride Level 100 Carbon Dioxide Level 20 L Anion Gap 16 Blood Urea Nitrogen 22 #H Creatinine 2.20 H Glucose Level 197 Calcium Level 6.2 L Magnesium Level 2.4 Random Vancomycin Level 8.0 Medications Medications Current Medications Ondansetron HCl (Zofran Inj) 4 mg Q6H PRN IV NAUSEA AND/OR VOMITING; Start 03/03 at 09:00 Magnesium Hydroxide (Milk Of Mag) 30 ml DAILY PRN PO CONSTIPATION Last administered on 03/05/17 20:57; Admin Dose 30 ML; Start 03/03/17 at 09:00 Bisacodyl (Dulcolax) 5 mg DAILY PRN PO CONSTIPATION; Start 03/03/17 at 09:00 Enoxaparin Sodium (Lovenox) 40 mg DAILY SC Last administered on 03/09/17 10:47 ; Admin Dose 40 MG; Start 03/03/17 at 09:00 Bisacodyl 10 mg 10 mg DAILY PRN PO CONSTIPATION; Start 03/03/17 at 09:30 Cefepime HCl 50 ml @ 100 mls/hr Q24H IVPB Last administered on 03/10/17 10:07 ; Admin Dose 100 MLS/HR; Start 03/08/17 at 11:00 Midazolam HCl (Versed) 50 ml @ 1 mls/hr TITRATE IV Last administered on 21:20; Admin Dose 4.5 MLS/HR; Start 03/08/17 at 10:30 Lorazepam 0.5 mg 0.5 mg Q6H PRN IV anxiety / ; Start 03/08/17 at 11:00 Fentanyl (Sublimaze) 100 ml @ 1.5 mls/hr TITRATE IV Last administered on 04:09; Admin Dose 6.5 MLS/HR; Start 03/08/17 at 12:30 IV Flush 10 ml 10 ml PRN PRN IV FLUSH LINE; Start 03/08/17 at 17:00 Dextrose/Sodium Chloride (D5-NS) 1,000 ml @ 75 mls/hr [id number] IV Last administered on 03/10/17 09:12; Admin Dose 75 MLS/HR; Start 03/08/17 at 17:30 Acetaminophen (Tylenol Tab) 650 mg Q6H PRN GTB PAIN LEVEL 1-3 OR FEVER Last administered on 03/09/17 17:05; Admin Dose 650 MG; Start 03/08/17 at 21:00 Cholecalciferol (Vitamin D) 1,000 unit DAILY GTB Last administered on 08:40; Admin Dose 1,000 UNIT; Start 03/09/17 at 09:00 Famotidine (Pepcid) 20 mg QAM GTB Last administered on 03/10/17 08:40; Admin Dose 20 MG; Start 03/08/17 at 21:00 Levothyroxine Sodium (Synthroid) 75 mcg DAILY@06 GTB Last administered on 06:27; Admin Dose 75 MCG; Start 03/09/17 at 06:00 Megestrol Acetate (Megace Susp) 40 mg QID GTB Last administered on 03/10/17 08 :40; Admin Dose 40 MG; Start 03/08/17 at 21:00 Memantine (Namenda) 10 mg BID GTB Last administered on 03/10/17 08:40; Admin Dose 10 MG; Start 03/08/17 at 21:00 Polyethylene Glycol (Miralax) 17 gm BID GTB Last administered on 03/09/17 21: 25; Admin Dose 17 GM; Start 03/08/17 at 21:00 Docusate Sodium 200 mg 200 mg BID GTB Last administered on 03/09/17 21:25; Admin Dose 200 MG; Start 03/08/17 at 21:00 Vasopressin 60 unit/Dextrose 60 ml @ 1.2 mls/hr Q12H IV Last administered on 07:24; Admin Dose 2.4 MLS/HR; Start 03/09/17 at 19:00 Phenylephrine HCl 160 mg/Dextrose 500 ml @ 18.75 mls/ hr TITRATE IV Last administered on 03/10/17 09:50; Admin Dose 56.25 MLS/HR; Start 03/10/17 at 09: 00 Norepinephrine 32 mg/Dextrose 500 ml @ 0.93 mls/hr TITRATE IV Last administered on 03/10/17 09:18; Admin Dose 28.12 MLS/HR; Start 03/10/17 at 09: 00 Dopamine HCl/ Dextrose 250 ml @ 4.665 mls/ hr TITRATE IV Last administered on 03/10/17 09:37; Admin Dose 11.663 MLS/HR; Start 03/10/17 at 09:30 Vancomycin HCl/ Sodium Chloride (Vancocin/NS) 250 ml @ 83.333 mls/ hr 11 IVPB ; Start 03/10/17 at 11:00; Stop 03/10/17 at 23:00 SANA MUSTAFA DO Mar 10, 2017 10:23
--- NOTE | 2017-03-10 10:44 | PN ---
Date/Time of Note Date/Time of Note DATE: 03/10/17 TIME: 10:44 Assessment/Plan Lines/Catheters IV Catheter Type (from Nrsg): PICC Line [place] in Place (from Nrsg): No Assessment/Plan Chief Complaint/Hosp Course Renal Failure SP HD cath placement will continue Dialysis may need permcath placement Problems: Subjective 24 Hr Interval Summary Constitutional: improved Pain Control: mild Exam/Review of Systems Vital Signs Vitals Vital Signs Date Time Temp Pulse Resp B/P Pulse Ox O2 Delivery O2 Flow Rate FiO2 03/10/17 10:30 114 16 78/46 99 Mechanical Ventilator 03/10/17 09:42 100 03/10/17 07:45 98.8 03/09/17 12:00 2.0 Intake and Output 03/09/17 03/09/17 03/10/17 15:00 23:00 07:00 Intake Total 3092.5 ml 2915.60 ml 2916.75 ml Output Total 400 ml 0 ml 0 ml Balance 2692.5 ml 2915.60 ml 2916.75 ml Exam Neck: non-tender, supple Respiratory: clear to auscultation, normal air movement Cardiovascular: nl pulses, regular rate and rhythm Gastrointestinal: nl liver, spleen, non-tender, soft Results Result Diagram: 03/10/17 0330 03/10/17 033 JANESSA KENYON MD Mar 10, 2017 10:44
[2017-03-10] MEDS ORDERED: VANCOMYCIN 1.25 GM in SOD CHLORIDE 0.9% 250 ML IVPB SCH (11:00)
[2017-03-10] MEDS: CALCIUM ACETATE 667 MG CAP NGT SCH ×2 (11:02→17:25)
[2017-03-10] MEDS: CALCIUM GLUCONATE 10% 3 GM in SOD CHLORIDE 0.9% 100 ML IVPB SCH ×2 (11:03→13:48)
--- NOTE | 2017-03-10 11:14 | PN ---
Date/Time of Note Date/Time of Note DATE: 03/10/17 TIME: 11:01 Assessment/Plan VTE Prophylaxis VTE Prophylaxis Intervention: SCD's Lines/Catheters IV [facility] Type (from [facility] PICC Line Urinary Cath still in place: No Assessment/Plan Chief Complaint/Hosp Course Assessment and plan 1. Acute on chronic respiratory failure secondary to underlying pleural effusions. Tool Engineer following. Patient status post thoracentesis with roughly 1.9 mL removed. cont mechanical ventilation. 2. Bilateral malignant pleural effusions. . Continue with solution strategist recommendations.HD per nephrology 3. Macrocytic anemia. Monitor H&H. Transfuse as needed 4. Positive urinalysis. Noted with mixed gram-positive organisms. On antibiotics 5. Metastatic breast cancer with metastasis to brain and bones as well as skin. Oncologist following. Follow-up with inpatient oncologist recommendations. Of note patient unable to go to her outpatient oncologist due to her critical state. 6. Multiple skin lesions. Suspect secondary to her metastatic cancer. Continue with oncology recommendation 7. andree. Medications to be renally dosed. Slightly worse function at this time. Follow-up with nephrology recommendations 8. Deconditioning. In ICU. PT on hold for now 9. Malnutrition. Disposition and plan: prognosis poor. patient on 4 pressor for low BP. Discussed with family patient's state. Will need to address goals of care. Discussed but of care with Dr. Del Angel Critical Care time: 30 minutes Problems: Subjective 24 Hr Interval Summary Free Text/Dictation intubated and sedated Exam/Review of Systems Vital Signs Vitals Vital Signs Date Time Temp Pulse Resp B/P Pulse Ox O2 Delivery O2 Flow Rate FiO2 03/10/17 10:45 115 18 73/43 100 Mechanical Ventilator 03/10/17 09:42 100 03/10/17 07:45 98.8 03/09/17 12:00 2.0 Intake and Output 03/09/17 03/09/17 03/10/17 15:00 23:00 07:00 Intake Total 3092.5 ml 2915.60 ml 2916.75 ml Output Total 400 ml 0 ml 0 ml Balance 2692.5 ml 2915.60 ml 2916.75 ml Exam Constitutional: frail, other (intubated and sedated ) Head: normocephalic Neck: No jvd Respiratory: other (diminished bilaterally) Gastrointestinal: soft 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: other (intubated and sedated ) Skin: nl turgor, No rash or lesions Results Result Diagram: 03/10/17 0330 03/10/17 0330 Results 24 hrs Laboratory Tests Test 03/10/17 03:30 White Blood Count 4.2 #L Red Blood Count 2.85 L Hemoglobin 9.1 L Hematocrit 31.9 L Mean Corpuscular Volume 111.9 H Mean Corpuscular Hemoglobin 31.9 Mean Corpuscular Hemoglobin Concent 28.5 L Red Cell Distribution Width 23.2 H Platelet Count 68 #L Mean Platelet Volume 10.3 Neutrophils % 55.8 Lymphocytes % 27.3 Monocytes % 11.0 Eosinophils % 2.6 Basophils % 0.7 Nucleated Red Blood Cells % 69.4 H Neutrophils # 2.3 Lymphocytes # 1.1 Monocytes # 0.5 Eosinophils # 0.1 Basophils # 0.0 Nucleated Red Blood Cells # 2.9 H Sodium Level 132 L Potassium Level 4.4 Chloride Level 100 Carbon Dioxide Level 20 L Anion Gap 16 Blood Urea Nitrogen 22 #H Creatinine 2.20 H Glucose Level 197 Calcium Level 6.2 L Magnesium Level 2.4 Random Vancomycin Level 8.0 Medications Medications Current Medications Ondansetron HCl (Zofran Inj) 4 mg Q6H PRN IV NAUSEA AND/OR VOMITING; Start 03/03 at 09:00 Magnesium Hydroxide (Milk Of Mag) 30 ml DAILY PRN PO CONSTIPATION Last administered on 03/05/17 20:57; Admin Dose 30 ML; Start 03/03/17 at 09:00 Bisacodyl (Dulcolax) 5 mg DAILY PRN PO CONSTIPATION; Start 03/03/17 at 09:00 Enoxaparin Sodium (Lovenox) 40 mg DAILY SC Last administered on 03/09/17 10:47 ; Admin Dose 40 MG; Start 03/03/17 at 09:00 Bisacodyl 10 mg 10 mg DAILY PRN PO CONSTIPATION; Start 03/03/17 at 09:30 Cefepime HCl 50 ml @ 100 mls/hr Q24H IVPB Last administered on 03/10/17 10:07 ; Admin Dose 100 MLS/HR; Start 03/08/17 at 11:00 Midazolam HCl (Versed) 50 ml @ 1 mls/hr TITRATE IV Last administered on 21:20; Admin Dose 4.5 MLS/HR; Start 03/08/17 at 10:30 Lorazepam 0.5 mg 0.5 mg Q6H PRN IV anxiety / ; Start 03/08/17 at 11:00 Fentanyl (Sublimaze) 100 ml @ 1.5 mls/hr TITRATE IV Last administered on 04:09; Admin Dose 6.5 MLS/HR; Start 03/08/17 at 12:30 IV Flush 10 ml 10 ml PRN PRN IV FLUSH LINE; Start 03/08/17 at 17:00 Dextrose/Sodium Chloride (D5-NS) 1,000 ml @ 125 mls/hr Q8H IV Last administered on 03/10/17 09:12; Admin Dose 75 MLS/HR; Start 03/08/17 at 17:30 Acetaminophen (Tylenol Tab) 650 mg Q6H PRN GTB PAIN LEVEL 1-3 OR FEVER Last administered on 03/09/17 17:05; Admin Dose 650 MG; Start 03/08/17 at 21:00 Cholecalciferol (Vitamin D) 1,000 unit DAILY GTB Last administered on 08:40; Admin Dose 1,000 UNIT; Start 03/09/17 at 09:00 Famotidine (Pepcid) 20 mg QAM GTB Last administered on 03/10/17 08:40; Admin Dose 20 MG; Start 03/08/17 at 21:00 Levothyroxine Sodium (Synthroid) 75 mcg DAILY@06 GTB Last administered on 06:27; Admin Dose 75 MCG; Start 03/09/17 at 06:00 Megestrol Acetate (Megace Susp) 40 mg QID GTB Last administered on 03/10/17 08 :40; Admin Dose 40 MG; Start 03/08/17 at 21:00 Memantine (Namenda) 10 mg BID GTB Last administered on 03/10/17 08:40; Admin Dose 10 MG; Start 03/08/17 at 21:00 Polyethylene Glycol (Miralax) 17 gm BID GTB Last administered on 03/09/17 21: 25; Admin Dose 17 GM; Start 03/08/17 at 21:00 Docusate Sodium 200 mg 200 mg BID GTB Last administered on 03/09/17 21:25; Admin Dose 200 MG; Start 03/08/17 at 21:00 Vasopressin 60 unit/Dextrose 60 ml @ 1.2 mls/hr Q12H IV Last administered on 07:24; Admin Dose 2.4 MLS/HR; Start 03/09/17 at 19:00 Phenylephrine HCl 160 mg/Dextrose 500 ml @ 18.75 mls/ hr TITRATE IV Last administered on 03/10/17 09:50; Admin Dose 56.25 MLS/HR; Start 03/10/17 at 09: 00 Norepinephrine 32 mg/Dextrose 500 ml @ 0.93 mls/hr TITRATE IV Last administered on 03/10/17 09:18; Admin Dose 28.12 MLS/HR; Start 03/10/17 at 09: 00 Dopamine HCl/ Dextrose 250 ml @ 4.665 mls/ hr TITRATE IV Last administered on 03/10/17 09:37; Admin Dose 11.663 MLS/HR; Start 03/10/17 at 09:30 Vancomycin HCl 1.25 gm/Sodium Chloride 250 ml @ 83.333 mls/ hr 11 IVPB Last administered on 03/10/17 10:27; Admin Dose 83.333 MLS/HR; Start 03/10/17 at 11: 00; Stop 03/10/17 at 23:00 Calcium Gluconate/ Sodium Chloride (Ca Gluc/NS) 130 ml @ 43.333 mls/ hr Q3H IVPB ; Start 03/10/17 at 11:30; Stop 03/10/17 at 17:29 NICK HI Mar 10, 2017 11:14
--- NOTE | 2017-03-10 11:38 | PN ---
Date/Time of Note Date/Time of Note DATE: 03/10/17 TIME: 11:36 Assessment/Plan VTE Prophylaxis VTE Prophylaxis Intervention: anti-embolic stocking Lines/Catheters IV Catheter Type (from [facility]): PICC Line Central line still needed: Yes Urinary Cath still in place: No Assessment/Plan Assessment/Plan Patient is a 57 year old female with metastatic infiltrating ductal carcinoma of the right breast with wide spread disease involving the bone, skin, lymph nodes, lung and brain, ER+ (98%)/ MT+ (3%) HER2 negative by FISH, with new diagnosis in November 2016 with pachymeningeal enhancement and dural based mass and presumed leptomeningeal involvement, who was started on whole brain radiation with field to include scalp for palliation given scalp mets. Per Dr. Rob, fortunately the mass has minimal mass effect on the underlying brain and the patient is asymptomatic, so neurosurgical intervention at this point is unwarranted. Patient now admitted with dyspnea as well as pleuritic chest pain. In the emergency room, the patient underwent a chest x-ray that showed cardiomegaly with increased right pleural effusion with bibasilar atelectasis versus infiltrate. The patient's chest CTA showed no evidence of PE or aortic dissection; however, this showed large right-sided pleural effusion with underlying atelectasis/consolidation, slightly increased with moderate left- sided pleural effusion. The CT again revealed complex right breast mass, unchanged. Patient underwent right thoracentesis on 03/04/17 with 1.9L fluid removed with cytology demonstrating metastatic adenocarcinoma compatible with breast primary. She was intubated this week and CXR showed extensive pulm airspace disease consistent with pulmonary edema, worse, with small bilateral pleural effusion. DDx fluid overload vs. pneumonia, also would like to rule out lymphangitic spread although initial CTA did not suggest. Cards following to eval for CHF, pending TTE. On diuretics per primary team with plan for dialysis. On antibiotics (- In November 2016, tumor markers were elevated CA 27-29 382, CA 15-3 151. Now CA 27-29 313, CA 15-3 77 without systemic therapy. - Patient will need outpatient PET/CT if and once she improves. - If patient's respiratory status and renal status can be stabilized, will be able to initiate systemic therapy either hormonal or chemotherapy if evidence of visceral crisis. - Patient will also need BRCA testing as an outpatient given +FHx (sister with DCIS, aunt and cousin s/p mastectomy, unclear if early stage or prophylactic) # Macrocytic anemia/thrombocytopenia - Patient previously had normocytic anemia and thrombocytopenia with nucleated RBCs attributed to bone marrow involvement. Patient now has macrocytic anemia with normal Vitamin B12/folate level; homocysteine and methylmalonic acid pending. TSH elevated at 17.5 and free T4 low at 0.44, therefore macrocytic anemia may be related to hypothyroidism - management per primary team. - Retic count inappropriately low at 76K, iron panel c/w anemia of chronic inflammation, LDH and haptoglobin pending - s/p 2 units pRBCs 03/05 for Hgb 7.9, now stable ~9.1 platelets lower as part of pancytopenia: holding anticoagulation, most likely secondary to underlying infection and BM stress. D-dimer very high. # JOSEPH, nephrology consulted Subjective 24 Hr Interval Summary Free Text/Dictation hypotensive, on pressors Subjective hx not possible: pt critical status Constitutional: disoriented Exam/Review of Systems Vital Signs Vitals Vital Signs Date Time Temp Pulse Resp B/P Pulse Ox O2 Delivery O2 Flow Rate FiO2 03/10/17 10:45 115 18 73/43 100 Mechanical Ventilator 03/10/17 09:42 100 03/10/17 07:45 98.8 03/09/17 12:00 2.0 Intake and Output 03/09/17 03/09/17 03/10/17 15:00 23:00 07:00 Intake Total 3092.5 ml 2915.60 ml 2916.75 ml Output Total 400 ml 0 ml 0 ml Balance 2692.5 ml 2915.60 ml 2916.75 ml Exam Constitutional: distress, frail Eyes: nl conjunctiva Neck: supple Respiratory: diminished breath sounds Gastrointestinal: soft Results Result Diagram: 03/10/17 0330 03/10/17 0330 Results 24 hrs Laboratory Tests Test 03/10/17 03:30 White Blood Count 4.2 #L Red Blood Count 2.85 L Hemoglobin 9.1 L Hematocrit 31.9 L Mean Corpuscular Volume 111.9 H Mean Corpuscular Hemoglobin 31.9 Mean Corpuscular Hemoglobin Concent 28.5 L Red Cell Distribution Width 23.2 H Platelet Count 68 #L Mean Platelet Volume 10.3 Neutrophils % 55.8 Lymphocytes % 27.3 Monocytes % 11.0 Eosinophils % 2.6 Basophils % 0.7 Nucleated Red Blood Cells % 69.4 H Neutrophils # 2.3 Lymphocytes # 1.1 Monocytes # 0.5 Eosinophils # 0.1 Basophils # 0.0 Nucleated Red Blood Cells # 2.9 H Sodium Level 132 L Potassium Level 4.4 Chloride Level 100 Carbon Dioxide Level 20 L Anion Gap 16 Blood Urea Nitrogen 22 #H Creatinine 2.20 H Glucose Level 197 Calcium Level 6.2 L Magnesium Level 2.4 Random Vancomycin Level 8.0 Medications Medications Current Medications Ondansetron HCl (Zofran Inj) 4 mg Q6H PRN IV NAUSEA AND/OR VOMITING; Start 03/03 at 09:00 Magnesium Hydroxide (Milk Of Mag) 30 ml DAILY PRN PO CONSTIPATION Last administered on 03/05/17 20:57; Admin Dose 30 ML; Start 03/03/17 at 09:00 Bisacodyl (Dulcolax) 5 mg DAILY PRN PO CONSTIPATION; Start 03/03/17 at 09:00 Bisacodyl 10 mg 10 mg DAILY PRN PO CONSTIPATION; Start 03/03/17 at 09:30 Cefepime HCl 50 ml @ 100 mls/hr Q24H IVPB Last administered on 03/10/17 10:07 ; Admin Dose 100 MLS/HR; Start 03/08/17 at 11:00 Midazolam HCl (Versed) 50 ml @ 1 mls/hr TITRATE IV Last administered on 21:20; Admin Dose 4.5 MLS/HR; Start 03/08/17 at 10:30 Lorazepam 0.5 mg 0.5 mg Q6H PRN IV anxiety / ; Start 03/08/17 at 11:00 Fentanyl (Sublimaze) 100 ml @ 1.5 mls/hr TITRATE IV Last administered on 04:09; Admin Dose 6.5 MLS/HR; Start 03/08/17 at 12:30 IV Flush 10 ml 10 ml PRN PRN IV FLUSH LINE; Start 03/08/17 at 17:00 Dextrose/Sodium Chloride (D5-NS) 1,000 ml @ 125 mls/hr Q8H IV Last administered on 03/10/17 09:12; Admin Dose 75 MLS/HR; Start 03/08/17 at 17:30 Acetaminophen (Tylenol Tab) 650 mg Q6H PRN GTB PAIN LEVEL 1-3 OR FEVER Last administered on 03/09/17 17:05; Admin Dose 650 MG; Start 03/08/17 at 21:00 Cholecalciferol (Vitamin D) 1,000 unit DAILY GTB Last administered on 08:40; Admin Dose 1,000 UNIT; Start 03/09/17 at 09:00 Famotidine (Pepcid) 20 mg QAM GTB Last administered on 03/10/17 08:40; Admin Dose 20 MG; Start 03/08/17 at 21:00 Levothyroxine Sodium (Synthroid) 75 mcg DAILY@06 GTB Last administered on 06:27; Admin Dose 75 MCG; Start 03/09/17 at 06:00 Memantine (Namenda) 10 mg BID GTB Last administered on 03/10/17 08:40; Admin Dose 10 MG; Start 03/08/17 at 21:00 Polyethylene Glycol (Miralax) 17 gm BID GTB Last administered on 03/09/17 21: 25; Admin Dose 17 GM; Start 03/08/17 at 21:00 Docusate Sodium 200 mg 200 mg BID GTB Last administered on 03/09/17 21:25; Admin Dose 200 MG; Start 03/08/17 at 21:00 Vasopressin 60 unit/Dextrose 60 ml @ 1.2 mls/hr Q12H IV Last administered on 07:24; Admin Dose 2.4 MLS/HR; Start 03/09/17 at 19:00 Phenylephrine HCl 160 mg/Dextrose 500 ml @ 18.75 mls/ hr TITRATE IV Last administered on 03/10/17 09:50; Admin Dose 56.25 MLS/HR; Start 03/10/17 at 09: 00 Norepinephrine 32 mg/Dextrose 500 ml @ 0.93 mls/hr TITRATE IV Last administered on 03/10/17 09:18; Admin Dose 28.12 MLS/HR; Start 03/10/17 at 09: 00 Dopamine HCl/ Dextrose 250 ml @ 4.665 mls/ hr TITRATE IV Last administered on 03/10/17 09:37; Admin Dose 11.663 MLS/HR; Start 03/10/17 at 09:30 Vancomycin HCl 1.25 gm/Sodium Chloride 250 ml @ 83.333 mls/ hr 11 IVPB Last administered on 03/10/17 10:27; Admin Dose 83.333 MLS/HR; Start 03/10/17 at 11: 00; Stop 03/10/17 at 23:00 Calcium Gluconate 3 gm/Sodium Chloride 130 ml @ 43.333 mls/ hr Q3H IVPB Last administered on 03/10/17 11:03; Admin Dose 43.333 MLS/HR; Start 03/10/17 at 11: 30; Stop 03/10/17 at 17:29 Albumin Human 250 ml @ 250 mls/hr Q1H IV ; Start 03/10/17 at 11:30; Stop at 13:29 RODDY FAN MD Mar 10, 2017 11:38
[2017-03-10] MEDS: ALBUMIN HUMAN 5% 250 ML IV SCH ×2 (11:41→12:27)
--- NOTE | 2017-03-10 12:06 | CONS ---
Date/Time of Note Date/Time of Note DATE: 03/10/17 TIME: 12:03 Assessment/Plan Assessment/Plan Additional Assessment/Plan Ventilator settings; AC of 14, tidal volume 450, PEEP of 5, 80% FiO2. Patient is on vasopressin drip at 0.04 U/min, phenylephrine drip at 300 mics per minute, dopamine drip at 20 mics per kilo per minute. Assessment recommendations; 1. Patient admitted for large right pleural effusion with the recently diagnosed history of widely metastatic breast cancer. 2. Respiratory failure. 3. Sepsis. 4. Profound hypotension. 5. Acute renal failure. 6. Status post right thoracentesis. 7. Possibly superimposed pneumonia. Continue supportive care. Prognosis is extremely poor. Consultation Date/Type/Reason Admit Date/Time Mar 03, 2017 at 05:39 Type of Consultation: Pulmonary/critical care Referring Provider: NICK HI 24 HR Interval Summary Free Text/Dictation Patient condition remains critical. Still requiring full ventilator support. Patient is getting progressively more hypotensive requiring high-dose pressor support. Patient however appears more calm today and does not appear to be having any further agonal respirations. General exam; middle aged woman, orally intubated sedated currently in no distress. Exam/Review of Systems Vital Signs Vitals Vital Signs Date Time Temp Pulse Resp B/P Pulse Ox O2 Delivery O2 Flow Rate FiO2 03/10/17 12:00 17 82/50 100 Mechanical Ventilator 03/10/17 11:45 70 03/10/17 11:45 98.3 115 03/09/17 12:00 2.0 Intake and Output 03/09/17 03/09/17 03/10/17 15:00 23:00 07:00 Intake Total 3092.5 ml 2915.60 ml 2916.75 ml Output Total 400 ml 0 ml 0 ml Balance 2692.5 ml 2915.60 ml 2916.75 ml Exam HEENT exam is; supple neck, no JVD. No lymphadenopathy. Orally intubated. No neck masses. No thyromegaly. No neck bruits. Pupils are small bilaterally. Chest exam is; diminished but clear vessel. S1-S2 audible, no murmurs. Regular rhythm. Abdomen examination; soft, scaphoid, no organomegaly. Bowel sounds audible. Extremity exam is; no peripheral edema. [employer] examination; patient is sedated. Results Result Diagram: 03/10/17 0330 03/10/17 0330 Results 24 hrs Laboratory Tests Test 03/10/17 03:30 White Blood Count 4.2 #L Red Blood Count 2.85 L Hemoglobin 9.1 L Hematocrit 31.9 L Mean Corpuscular Volume 111.9 H Mean Corpuscular Hemoglobin 31.9 Mean Corpuscular Hemoglobin Concent 28.5 L Red Cell Distribution Width 23.2 H Platelet Count 68 #L Mean Platelet Volume 10.3 Neutrophils % 55.8 Lymphocytes % 27.3 Monocytes % 11.0 Eosinophils % 2.6 Basophils % 0.7 Nucleated Red Blood Cells % 69.4 H Neutrophils # 2.3 Lymphocytes # 1.1 Monocytes # 0.5 Eosinophils # 0.1 Basophils # 0.0 Nucleated Red Blood Cells # 2.9 H Sodium Level 132 L Potassium Level 4.4 Chloride Level 100 Carbon Dioxide Level 20 L Anion Gap 16 Blood Urea Nitrogen 22 #H Creatinine 2.20 H Glucose Level 197 Calcium Level 6.2 L Magnesium Level 2.4 Random Vancomycin Level 8.0 Medications Medications Current Medications Ondansetron HCl (Zofran Inj) 4 mg Q6H PRN IV NAUSEA AND/OR VOMITING; Start 03/03 at 09:00 Magnesium Hydroxide (Milk Of Mag) 30 ml DAILY PRN PO CONSTIPATION Last administered on 03/05/17 20:57; Admin Dose 30 ML; Start 03/03/17 at 09:00 Bisacodyl (Dulcolax) 5 mg DAILY PRN PO CONSTIPATION; Start 03/03/17 at 09:00 Bisacodyl 10 mg 10 mg DAILY PRN PO CONSTIPATION; Start 03/03/17 at 09:30 Cefepime HCl 50 ml @ 100 mls/hr Q24H IVPB Last administered on 03/10/17 10:07 ; Admin Dose 100 MLS/HR; Start 03/08/17 at 11:00 Midazolam HCl (Versed) 50 ml @ 1 mls/hr TITRATE IV Last administered on 21:20; Admin Dose 4.5 MLS/HR; Start 03/08/17 at 10:30 Lorazepam 0.5 mg 0.5 mg Q6H PRN IV anxiety / ; Start 03/08/17 at 11:00 Fentanyl (Sublimaze) 100 ml @ 1.5 mls/hr TITRATE IV Last administered on 04:09; Admin Dose 6.5 MLS/HR; Start 03/08/17 at 12:30 IV Flush 10 ml 10 ml PRN PRN IV FLUSH LINE; Start 03/08/17 at 17:00 Dextrose/Sodium Chloride (D5-NS) 1,000 ml @ 125 mls/hr Q8H IV Last administered on 03/10/17 09:12; Admin Dose 75 MLS/HR; Start 03/08/17 at 17:30 Acetaminophen (Tylenol Tab) 650 mg Q6H PRN GTB PAIN LEVEL 1-3 OR FEVER Last administered on 03/09/17 17:05; Admin Dose 650 MG; Start 03/08/17 at 21:00 Cholecalciferol (Vitamin D) 1,000 unit DAILY GTB Last administered on 08:40; Admin Dose 1,000 UNIT; Start 03/09/17 at 09:00 Famotidine (Pepcid) 20 mg QAM GTB Last administered on 03/10/17 08:40; Admin Dose 20 MG; Start 03/08/17 at 21:00 Levothyroxine Sodium (Synthroid) 75 mcg DAILY@06 GTB Last administered on 06:27; Admin Dose 75 MCG; Start 03/09/17 at 06:00 Memantine (Namenda) 10 mg BID GTB Last administered on 03/10/17 08:40; Admin Dose 10 MG; Start 03/08/17 at 21:00 Polyethylene Glycol (Miralax) 17 gm BID GTB Last administered on 03/09/17 21: 25; Admin Dose 17 GM; Start 03/08/17 at 21:00 Docusate Sodium 200 mg 200 mg BID GTB Last administered on 03/09/17 21:25; Admin Dose 200 MG; Start 03/08/17 at 21:00 Vasopressin 60 unit/Dextrose 60 ml @ 1.2 mls/hr Q12H IV Last administered on 07:24; Admin Dose 2.4 MLS/HR; Start 03/09/17 at 19:00 Phenylephrine HCl 160 mg/Dextrose 500 ml @ 18.75 mls/ hr TITRATE IV Last administered on 4/16/17at 09:50; Admin Dose 56.25 MLS/HR; Start 03/10/17 at 09: 00 Norepinephrine 32 mg/Dextrose 500 ml @ 0.93 mls/hr TITRATE IV Last administered on 03/10/17 09:18; Admin Dose 28.12 MLS/HR; Start 03/10/17 at 09: 00 Dopamine HCl/ Dextrose 250 ml @ 4.665 mls/ hr TITRATE IV Last administered on 03/10/17 09:37; Admin Dose 11.663 MLS/HR; Start 03/10/17 at 09:30 Vancomycin HCl 1.25 gm/Sodium Chloride 250 ml @ 83.333 mls/ hr 11 IVPB Last administered on 03/10/17 10:27; Admin Dose 83.333 MLS/HR; Start 03/10/17 at 11: 00; Stop 03/10/17 at 23:00 Calcium Gluconate 3 gm/Sodium Chloride 130 ml @ 43.333 mls/ hr Q3H IVPB Last administered on 03/10/17 11:03; Admin Dose 43.333 MLS/HR; Start 03/10/17 at 11: 30; Stop 03/10/17 at 17:29 Albumin Human 250 ml @ 250 mls/hr Q1H IV Last administered on 03/10/17 11:41 ; Admin Dose 250 MLS/HR; Start 03/10/17 at 11:30; Stop 03/10/17 at 13:29 PREETI UGARTE Mar 10, 2017 12:06
[2017-03-10] MEDS ORDERED: ALBUMIN HUMAN 5% 250 ML IV PRN (18:30)
[2017-03-10] MEDS ORDERED: EPINEPHrine 4 MG in DEXTROSE 5% 246 ML IV SCH (22:30)
[2017-03-10] MEDS ORDERED: SOD CHLORIDE 0.9% 1,000 ML IV ONE (22:30)
[2017-03-11] VITALS (24 sets, daily range): BP systolic 52–109; BP diastolic 16–67; PULSE 61–122; RESP 13–35
[2017-03-11] MEDS ORDERED: EPINEPHrine 0.1 MG/ML SYG ONE
[2017-03-11] MEDS ORDERED: DEXTROSE 50% 50 ML SYRINGE ONE
[2017-03-11] MEDS ORDERED: CA CHLORIDE 10% 10 ML SYRINGE ONE
[2017-03-11] MEDS: DOPamine-D5W 1.6 MG/ML 250 ML IV SCH (01:19)
[2017-03-11] MEDS: PHENYLephrine 160 MG in DEXTROSE 5% 484 ML IV SCH (02:37)
[2017-03-11 15:40] LABS: MICROALBUMIN 0.2 mg/dL
== END 2017-03-11 05:32 | disposition expired | DRG 597 ==
LOC: E/R 00:57 → MS2 05:39 → ICU 03-08 08:00
PROVIDERS: ADMIT Family Medicine; ATTEND Family Medicine
PROC: 02HV33Z Insertion of Infusion Device into Superior Vena Cava, Percutaneous Approach (ICD-10-PCS; 2017-03-03)
PROC: 0W9930Z Drainage of Right Pleural Cavity with Drainage Device, Percutaneous Approach (ICD-10-PCS; principal; 2017-03-04)
PROC: 30233N1 Transfusion of Nonautologous Red Blood Cells into Peripheral Vein, Percutaneous Approach (ICD-10-PCS; 2017-03-05)
PROC: 5A1945Z Respiratory Ventilation, 24-96 Consecutive Hours (ICD-10-PCS; 2017-03-08)
PROC: 0BH17EZ Insertion of Endotracheal Airway into Trachea, Via Natural or Artificial Opening (ICD-10-PCS; 2017-03-08)
PROC: 5A1D60Z (ICD-10-PCS; 2017-03-08)
PROC: 06HM33Z Insertion of Infusion Device into Right Femoral Vein, Percutaneous Approach (ICD-10-PCS; 2017-03-08)
DX: C50.919 Malignant neoplasm of unspecified site of unspecified female breast (principal); J96.21 Acute and chronic respiratory failure with hypoxia; N17.0 Acute kidney failure with tubular necrosis; R57.9 Shock, unspecified; G92 Toxic encephalopathy; J18.9 Pneumonia, unspecified organism; I50.33 Acute on chronic diastolic (congestive) heart failure; J91.0 Malignant pleural effusion; E46 Unspecified protein-calorie malnutrition; C79.2 Secondary malignant neoplasm of skin; C79.31 Secondary malignant neoplasm of brain; C79.51 Secondary malignant neoplasm of bone; Z68.1 Body mass index [BMI] 19.9 or less, adult; C77.9 Secondary and unspecified malignant neoplasm of lymph node, unspecified; N39.0 Urinary tract infection, site not specified; D64.9 Anemia, unspecified; Z80.3 Family history of malignant neoplasm of breast; E87.5 Hyperkalemia
CPT/HCPCS: 31500; 36415; 36430; 36569; 36600; 71010; 71275; 76604; 76775; 76937; 76942; 80048; 80053; 80061; 80202; 81001; 81003; 82043; 82150; 82270; 82310; 82550; 82553; 82607; 82652; 82670; 82728; 82746; 82803; 82945; 82962; 83001; 83010; 83036; 83090; 83540; 83605; 83615; 83735; 83880; 83921; 84100; 84155; 84300; 84439; 84443; 84484; 85025; 85045; 85378; 85610; 85730; 86300; 86850; 86900; 86901; 86920; 87070; 87081; 87086; 87102; 87116; 88104; 88305; 88313; 89050; 90935; 92950; 93005; 93306; 94002; 94003; 94640; 94660; 94664; 94770; 96360; 96361; 97164; J1940; J3487; C1752; J0171; J0610; J0692; J0696; J1170; J1265; J1650; J2060; J2270; J3010; J3370; J7030; J7042; J7050; J7060; J7070; P9016; P9045; Q9967